=== PATIENT | male | born 1945 | race Caucasian/White ===

== ENCOUNTER → 2018-10-16 09:44 | Outpatient (BNVA) | payer MEDICARE, OTHER, SELFPAY | PROVIDERS: PCP Internal Medicine; Visit Provider Internal Medicine Cardiovascular Disease | DX: I25.10 Atherosclerotic heart disease of native coronary artery without angina pectoris (principal); I10 Essential (primary) hypertension; Z95.2 Presence of prosthetic heart valve; E78.5 Hyperlipidemia, unspecified; G47.33 Obstructive sleep apnea (adult) (pediatric); E11.9 Type 2 diabetes mellitus without complications | CPT/HCPCS: 99214 ==

== ENCOUNTER 2018-10-21 00:18 | Outpatient (CLI) | payer MEDICARE, OTHER, SELFPAY ==
--- NOTE | 2018-10-21 06:36 | MERGEMPI_ITS ---
*[facility]* [address] [place] [address] Myocardial Perfusion Imaging - SPECT Regadenoson Date of study: 10/21/2018 *PATIENT PRESENTATION* Height: 167.6cm (66in) Blood Pressure: Weight: 96.4kg (212lb) BSA: 2.16m^2 Referring physician: Randolph Laboy Ordering physician: Abril Botello Impressions: Study suggests small myocardial ischemia, in the territory of the left anterior descending coronary artery, unchanged from the study of 2017. Summary: 1. Myocardial perfusion imaging: There is a small sized, mildly intense, fully reversible defect involving the mid anterior and apical anterior wall(s). This suggests small ischemia in the distribution of the left anterior descending coronary artery. 2. The calculated left ventricular ejection fraction after stress: 55%. LV global systolic function is normal. No left ventricular regional motion abnormality. There is hypokinesis involving the mid anterior and apical anterior wall(s) of the left ventricle. 3. Baseline ECG: Normal sinus rhythm with right bundle branch block. Recommendations: 1. Medical management is recommended. 2. Clinical correlation is recommended. Indication: R06.02, I35.0. History: REASON FOR TESTING: PATIENT IS TESTING TODAY FOR FURTHER RISK STRATIFICATION. HE REPORTS HE HAS HAD INCREASING SOB OVER THE LAS FEW MONTHS. PATIENT DENIES CHEST PAIN UPON ARRIVAL TO TESTING TODAY. SIGNIFICANT PAST MEDICAL HISTORY: AORTIC VALVE REPLACEMENT IN 2014, NON STEMI, OBSTRUCTIVE SLEEP APNEA. SMOKING STATUS: QUIT IN THE MID S. 24 YEAR 1 PPD HISTORY. EXERCISE ROUTINE: DAILY ADL'S. Risk factors: Hypertension. Diabetes mellitus. Obesity. Cholesterol: 124mg/dl. HDL: 43mg/dl. LDL: 74mg/dl. Triglycerides: 87mg/dl. ALLERGIES: AMLODIPINE. MEDICATIONS: ASPIRIN 81 MG DAILY, ACETAMINOPHEN 500 MG PRN, ATORVASTATIN 80 MG DAILY, METFORMIN 500 MG DAILY, OMEPRAZOLE 20 MG DAILY, POLYETHYLENE GLYCOL 17 MG DAILY, ATENOLOL 50 MG DAILY, GLIMEPIRIDE 1 MG DAILY, LISINOPRIL/HYDROCHLORTHIAZIDE 20/12.5 MG. Imaging Technique: Protocol: Regadenoson. Acquisition: Gated SPECT; 1 day - rest/stress. The patient was imaged in the supine position. Attenuation correction used. Isotope administration: - Rest. Tc[99m]-sestamibi. Dose: 12.2mCi. Injection time: 08:45 AM. Injection to stress time: 00:45. - Stress. Tc[99m]-sestamibi. Dose: 35.6mCi. Injection time: 09:35 AM. 1-2 min before end of exercise Baseline ECG: SINUS RHYTHM. RIGHT BBB. HR 72. Normal sinus rhythm with right bundle branch block. Stress protocol: +--------+--+ + + !Stage !HR!BP (mmHg) !Comments ! +--------+--+ + + !Baseline!72!192/70 (111)! ! +--------+--+ + + !1 min !82!184/70 (108)!Inject Regadenoson.! +--------+--+ + + !3 min !81!176/72 (107)! ! +--------+--+ + + !6 min !77!180/77 (111)! ! +--------+--+ + + !9 min !76!180/68 (105)! ! +--------+--+ + + * Stress results: STRESS TEST ENDED IN 8 MINUTES 52 SECONDS. NORMAL HEART RATE AND BLOOD PRESSURE RESPONSE TO LEXISCAN INJECTION. RARE PVC'S NO ANGINA. NO SIGNIFICANT ST SEGMENT CHANGES. The rate-pressure product for the peak heart rate and blood pressure was 91924uc Hg/min. Myocardial perfusion: Imaging information: gated. The image quality was good. Left ventricular size is normal. There is a small sized, mildly intense, fully reversible defect involving the mid anterior and apical anterior wall(s). This suggests small ischemia in the distribution of the left anterior descending coronary artery. Ventricular Function (Wall Motion): The calculated left ventricular ejection fraction after stress: 55%. LV global systolic function is normal. No left ventricular regional motion abnormality. There is hypokinesis involving the mid anterior and apical anterior wall(s) of the left ventricle. Study data: Randolph Laboy MD supervised and was readily available during the procedure. This study was interpreted by [facility]. Study status: Routine. Consent: The risks, benefits, and alternatives to the procedure were explained to the patient and informed consent was obtained. Procedure: Initial setup. A baseline ECG was recorded. Surface ECG leads and manual cuff blood pressure measurements were monitored. Heart sounds: Normal. Lung sounds: Normal. Regadenoson stress test. Stress testing was performed, with regadenoson by intravenous bolus, for a total dose of 0.4mgover 10.00sec, followed by a 5ml saline flush. The infusion was terminated due to per protocol. Study completion: All catheters inserted during the procedure were removed. The patient tolerated the procedure well and was discharged from the lab. Discharge: The patient left the laboratory in stable condition. Birthdate: Patient birthdate: 1945. Sex: Gender: male. Study date: Study date: 10/21/2018. Study time: 00:01 AM. Signature Documentation: - The imaging portion of this study was interpreted by [employer] Randolph Laboy MD. - The Stress ECG portion of this study was interpreted by Randolph Laboy MD. Electronically signed by Randolph Laboy 10/21/2018 13:42
[2018-10-21] MEDS: Regadenoson 0.4 MG/5 ML SYR IVP (10:01)
== END 2018-10-21 00:38 ==
PROVIDERS: PCP Internal Medicine; Visit Provider Internal Medicine Cardiovascular Disease
DX: R06.02 Shortness of breath (principal); I35.0 Nonrheumatic aortic (valve) stenosis; I10 Essential (primary) hypertension; I25.9 Chronic ischemic heart disease, unspecified; Z95.3 Presence of xenogenic heart valve; E78.5 Hyperlipidemia, unspecified
CPT/HCPCS: 78452; 93016; 93018; 93017; J2785

== ENCOUNTER 2018-11-03 00:45 | Outpatient (CLI) | payer MEDICARE, OTHER, SELFPAY ==
--- NOTE | 2018-11-03 07:30 | MERGE_ITS ---
*[facility]* *[facility]* [address] [place] [address] Date of study: 11/03/2018 Transthoracic Echocardiography M-mode, complete 2D, complete spectral Doppler, and color Doppler *STUDY CONCLUSIONS* Summary: 1. Left ventricle: The cavity size was normal. Wall thickness was increased in a pattern of moderate LVH. Systolic function was hyperdynamic. The estimated ejection fraction was 65-70%. There was dynamic obstruction during Valsalva in the mid cavity, with apeak gradient of 20.6mm Hg. Wall motion was normal; there were no regional wall motion abnormalities. 2. Aortic valve: A bioprosthesis was present. Transvalvular velocity was increased more than expected, due to high cardiac output. There was no stenosis. There was trivial regurgitation. Peak velocity (S): 4.1m/sec. Mean gradient (S): 42.2mm Hg. VTI ratio of LVOT to aortic valve: 0.42. 3. Ascending aorta: The ascending aorta was moderately dilated. 4. Mitral valve: Severely calcified annulus. Mild calcification. Mobility was restricted. The findings are consistent with mild stenosis. There was moderate regurgitation. Mean gradient (D): 4.5mm Hg at 68 bpm. 5. Left atrium: The atrium was severely dilated. 6. Right ventricle: The cavity size was normal. Wall thickness was normal. Systolic function was normal. 7. Right atrium: The atrium was mildly dilated. 8. Tricuspid valve: There was moderate regurgitation. 9. Pulmonary arteries: Pulmonary systolic pressure was increased, in the range of 45mm Hg to 50mm Hg. *PATIENT PRESENTATION* Height: 167.6cm ((66in) ) S/D Pressure: 166 / 74 Weight: 95.3kg ((209.6lb) ) BSA: 2.14m^2 Test start time: 09:10 AM. Test stop time: 00:10 AM. CONSULTING Yolanda Jordan PERFORMING Unknown ORDERING Abril Botello REFERRING Abril Botello PERFORMING [facility] LONGWALL SHEARER OPERATOR Lynn Carranza, RT (R)(CT), [facility] *PROCEDURE DATA* Procedure information: This study was interpreted by [facility]. Pertinent images and digital data are archived for permanent storage and are available for subsequent review. Comparison was made to the study of 01/30/2014. Study status: Routine. Transthoracic echocardiography. M-mode, complete 2D, complete spectral Doppler, and color Doppler. A Transthoracic Echocardiogram was performed. Scanning was performed from the parasternal, apical, subcostal, and suprasternal notch acoustic windows. Images were obtained using an [id number] cardiac ultrasound machine. Image quality was adequate. Study completion: The patient tolerated the procedure well. There were no complications. History: PMH: SOB, aortic valve stenosis. I 35.0. *CARDIAC ANATOMY* Left ventricle: The cavity size was normal. Wall thickness was increased in a pattern of moderate LVH. Systolic function was hyperdynamic. The estimated ejection fraction was 65-70%. There was dynamic obstruction during Valsalva in the mid cavity, with apeak gradient of 20.6mm Hg. Wall motion was normal; there were no regional wall motion abnormalities. Findings consistent with diastolic dysfunction. Aortic valve: A bioprosthesis was present. Mobility was not restricted. Doppler: Transvalvular velocity was increased more than expected, due to high cardiac output. There was no stenosis. There was trivial regurgitation. VTI ratio of LVOT to aortic valve: 0.42. Valve area (VTI): 1.1cm^2. Indexed valve area (VTI): 0.5cm^2/m^2. Peak velocity ratio of LVOT to aortic valve: 0.36. Valve area (Vmax): 1cm^2. Indexed valve area (Vmax): 0.4cm^2/m^2. Mean velocity ratio of LVOT to aortic valve: 0.37. Valve area (Vmean): 1cm^2. Indexed valve area (Vmean): 0.5cm^2/m^2. Mean gradient (S): 42.2mm Hg. Peak gradient (S): 66.4mm Hg. Aorta: Aortic root: The aortic root was normal in size. Ascending aorta: The ascending aorta was moderately dilated. Mitral valve: Severely calcified annulus. Mild calcification. Mobility was restricted. Doppler: The findings are consistent with mild stenosis. There was moderate regurgitation. Valve area by pressure half-time: 2.6cm^2. Indexed valve area by pressure half-time: 1.2cm^2/m^2. Mean gradient (D): 4.5mm Hg at 68 bpm. Peak gradient (D): 9.9mm Hg. Left atrium: The atrium was severely dilated. Right ventricle: The cavity size was normal. Wall thickness was normal. Systolic function was normal. Pulmonic valve: Structurally normal valve. Doppler: Transvalvular velocity was within the normal range. There was no evidence for stenosis. There was trivial regurgitation. Peak gradient (S): 4.5mm Hg. Tricuspid valve: Structurally normal valve. Doppler: Transvalvular velocity was within the normal range. There was no evidence for stenosis. There was moderate regurgitation. Pulmonary artery: Pulmonary systolic pressure was increased, in the range of 45mm Hg to 50mm Hg. Right atrium: The atrium was mildly dilated. Pericardium: There was no pericardial effusion. Systemic veins: Inferior vena cava: Well visualized. The vessel was patent and normal in size. The respirophasic diameter changes were in the normal range (greater than or equal to 50%). Measurements Left ventricle Value Reference LV ID, ED, PLAX 4.8 cm 3.5 - 6.0 LV ID, ES, PLAX 3.0 cm 2.1 - 4.0 LV PW thickness, ED, PLAX 1.6 cm LV end-diastolic volume, 1-p A2C 139 ml LV ejection fraction, 1-p A2C 61 % LV end-diastolic volume, 1-p A4C 155 ml LV ejection fraction, 1-p A4C 63 % LV filling time, D, DP 480 ms LV e', lateral 0.083 m/sec LV E/e', lateral 19 LV e', medial 0.053 m/sec LV E/e', medial 30 LV e', average 0.068 m/sec LV E/e', average 23 Ventricular septum Value Reference IVS thickness, ED, PLAX 1.3 cm LVOT Value Reference LVOT ID, A-P 1.8 cm LVOT area 2.7 cm^2 LVOT peak velocity, S 1.47 m/sec LVOT mean velocity, S 1.15 m/sec LVOT VTI, S 35.5 cm LVOT peak gradient, S 8.6 mm Hg LVOT mean gradient, S 5.9 mm Hg Stroke volume (SV), LVOT DP 95 ml Stroke index (SV/bsa), LVOT DP 44 ml/m^2 Aortic valve Value Reference Aortic valve peak velocity, S 4.1 m/sec Aortic valve mean velocity, S 3.12 m/sec Aortic valve VTI, S 85.0 cm Aortic mean gradient, S 42.2 mm Hg Aortic peak gradient, S 66.4 mm Hg VTI ratio, LVOT/AV 0.42 Aortic valve area, VTI 1.1 cm^2 Velocity ratio, peak, LVOT/AV 0.36 Aortic valve area, peak velocity 1 cm^2 Velocity ratio, mean, LVOT/AV 0.37 Aortic valve area, mean velocity 1 cm^2 Aortic valve area/bsa, mean velocity 0.5 cm^2/m^2 Aorta Value Reference Ascending aorta ID, A-P, S 4.0 cm Left atrium Value Reference LA ID, A-P, ES 6.4 cm LA ID/bsa, A-P (H) 3.0 cm/m^2 <=2.2 LA area, ES, A4C (H) 34 cm^2 8.8 - 23.4 LA area, ES, A2C 40 cm^2 LA volume/bsa, ES, 1-p A4C 66 ml/m^2 LA volume, ES, 2-p 150 ml LA volume/bsa, ES, 2-p 70 ml/m^2 Mitral valve Value Reference Mitral E-wave peak velocity 1.57 m/sec Mitral A-wave peak velocity 1.16 m/sec Mitral mean velocity, D 0.94 m/sec Mitral deceleration time (H) 298 ms 150 - 230 Mitral pressure half-time 86 ms Mitral mean gradient, D 4.5 mm Hg Mitral peak gradient, D 9.9 mm Hg Mitral E/A ratio, peak 1.36 Mitral valve area, PHT, DP 2.6 cm^2 Mitral peak LV-LA gradient, S 180.3 mm Hg Mitral maximal regurg velocity, PISA 6.71 m/sec Mitral regurg VTI, PISA 219.3 cm Pulmonary veins Value Reference Pulmonary vein peak velocity, S 0.2 m/sec Pulmonary vein peak velocity, D 0.64 m/sec Pulmonary vein velocity ratio, peak, 0.31 S/D Tricuspid valve Value Reference Tricuspid regurg peak velocity 3.9 m/sec Tricuspid peak RV-RA gradient 59.7 mm Hg Right atrium Value Reference RA area, ES, A4C (H) 20.7 cm^2 8.3 - 19.5 Pulmonic valve Value Reference Pulmonic peak gradient, S 4.5 mm Hg Legend: (L) and (H) donny values outside specified reference range. I have personally reviewed the images and have reviewed and edited the reported findings. Electronically signed by Randolph Laboy 11/03/2018 13:23
== END 2018-11-03 01:05 ==
PROVIDERS: PCP Internal Medicine; Visit Provider Internal Medicine Cardiovascular Disease
DX: I35.0 Nonrheumatic aortic (valve) stenosis (principal); I34.2 Nonrheumatic mitral (valve) stenosis; I51.7 Cardiomegaly; I25.10 Atherosclerotic heart disease of native coronary artery without angina pectoris; I25.9 Chronic ischemic heart disease, unspecified; Z95.2 Presence of prosthetic heart valve; I10 Essential (primary) hypertension
CPT/HCPCS: 93306

== ENCOUNTER 2018-11-10 10:01 | Outpatient (REF) | payer MEDICARE, SELFPAY ==
[2018-11-10 13:34] LABS: Anion Gap 9.5 mmol/L (3-11); BUN 17 mg/dL (7-18); CO2 24.5 mmol/L (21.0-32.0); CREATININE 1.03 mg/dL (0.70-1.30); Calcium 8.7 mg/dL (8.5-10.1); Chloride 89 mmol/L (98-107); Cholesterol 120 mg/dL (50-200); Glucose 122 mg/dL (70-100); HDL Cholesterol 30 mg/dL (40-60); LDL CHOLESTEROL 77 mg/dL (<100); Potassium 4.7 mmol/L (3.5-5.1); Triglyceride 102 mg/dL (30-150)
[2018-11-10 13:53] LABS: COMMENT (LAB VIEW ONLY) 49.03 mg/dL; Microalb ug/mg Crea 317.6 ug/mg Cr
[2018-11-10 14:07] LABS: Sodium 123 mmol/L (136-145)
== END 2018-11-10 10:21 ==
LOC: LBN 10:01
PROVIDERS: PCP Internal Medicine; Visit Provider Internal Medicine
DX: E11.9 Type 2 diabetes mellitus without complications (principal); I10 Essential (primary) hypertension; I25.10 Atherosclerotic heart disease of native coronary artery without angina pectoris
CPT/HCPCS: 80048; 80061; 83721; 82043; 82570

== ENCOUNTER → 2019-01-21 13:18 | Outpatient (BNVA) | payer MEDICARE, OTHER, SELFPAY | PROVIDERS: PCP Internal Medicine; Visit Provider Internal Medicine Cardiovascular Disease | DX: I25.10 Atherosclerotic heart disease of native coronary artery without angina pectoris (principal); I10 Essential (primary) hypertension; E78.2 Mixed hyperlipidemia; Z95.2 Presence of prosthetic heart valve | CPT/HCPCS: 99214 ==

== ENCOUNTER 2019-01-22 11:08 | Outpatient (CLI) | payer MEDICARE, OTHER, SELFPAY ==
[2019-01-22 11:32] LABS: Abs Immature Grans 0.01 k/cumm (0.0-0.09); Absolute Basophil Count 0.05 k/cumm (0.0-0.2); Absolute Eosinophil Count 0.27 k/cumm (0.0-0.7); Absolute Lymphocyte Count 1.28 k/cumm (1.2-3.4); Absolute Monocyte Count 0.77 k/cumm (0.11-0.7); Absolute Neutrophil Count 4.19 k/cumm (1.2-6.7); Basophils % 0.8; Eosinophils % 4.1; HCT 37.7 % (40.0-50.0); HGB 13.2 g/dL (13.5-17.5); Immature Grans % 0.2; Lymphocytes % 19.5; Mean Corpuscular Hemoglobin 31.6 pg (27.0-33.0); Mean Corpuscular Volume 90.2 fL (80-95); Mean Platelet Volume 9.4 fL (8.0-11.0); Monocytes % 11.7; Neutrophils % 63.7; Platelet Count 140 x1000/uL (130-400); RBC 4.18 m/cumm (4.50-6.00); RBC Distribution Width 11.9 % (11.8-14.1); White Blood Cell Count 6.57 k/cumm (4.4-10.8)
== END 2019-01-22 11:28 ==
PROVIDERS: PCP Internal Medicine; Visit Provider Internal Medicine Cardiovascular Disease
DX: I25.10 Atherosclerotic heart disease of native coronary artery without angina pectoris (principal); I10 Essential (primary) hypertension; E78.5 Hyperlipidemia, unspecified
CPT/HCPCS: 36415; 85025

== ENCOUNTER → 2019-04-15 13:05 | Outpatient (BNVA) | payer MEDICARE, OTHER, SELFPAY | PROVIDERS: PCP Internal Medicine; Referring Provider Internal Medicine; Visit Provider Internal Medicine Cardiovascular Disease | DX: T82.09XA Other mechanical complication of heart valve prosthesis, initial encounter (principal); I25.10 Atherosclerotic heart disease of native coronary artery without angina pectoris; I10 Essential (primary) hypertension | CPT/HCPCS: 99204; 99215 ==

== ENCOUNTER 2019-05-29 20:07 | Emergency (ER) | payer MEDICARE, OTHER, SELFPAY ==
[2019-05-29 20:12] VITALS: BP 190/76; PULSE 77; TEMP 36.4; O2SAT 98
[2019-05-29 20:40] LABS: Bilirubin Negative (Negative); Blood Moderate (Negative); Clarity Clear (Clear); Glucose Negative (Negative); Ketones Negative (Negative); Leukocyte Esterase Negative (Negative); Nitrite Negative (Negative); Specific Gravity 1.015 (1.005-1.025); Urobilinogen 0.2 EU/dL (Up TO 0.2); pH 7.5 (5-8)
[2019-05-29 20:42] VITALS: BP 164/69; RESP 16; O2SAT 97
[2019-05-29 20:58] LABS: Bacteria Negative HPF (Negative); C & S Indicated? No; Crystals Negative HPF (Negative); Epithelial Cells Negative HPF (Negative); Mucus Negative (Negative); RBC 20-50 HPF (0-2); WBC Negative HPF (0-5)
--- NOTE | 2019-05-29 21:08 | DI.RAD_ITS ---
EXAM: XR ABDOMEN FLAT UPRIGHT INDICATION: constipation. COMPARISON: ABD FLAT UPRIGHT PA CHEST from 07/02/2014 TECHNIQUE: 2D digital imaging was performed. FINDINGS: There is an infiltrate seen in the left lung base. There is blunting of the costophrenic angles whic h may represent small pleural effusions. There are scattered air-fluid levels seen within the bowel. Mildly dilated loops of bowel are seen c entrally. This may represent an ileus, partial obstruction cannot be excluded. There is a large arslan unt of stool seen in the rectal vault. Degenerative changes are seen in the lumbar spine. An intramedullary darren and nail are seen in the pr oximal right femur. No pneumoperitoneum is present. IMPRESSION: 1. Left lower lobe infiltrate which may represent atelectasis or pneumonia. 2. Scattered air-fluid level seen within the bowel. This may represent ileus versus partial obstruct ion. Please correlate clinically. 3. Large amount of stool seen in the rectum.
[2019-05-29 21:29] LABS: Abs Immature Grans 0.02 k/cumm (0.0-0.09); Absolute Basophil Count 0.08 k/cumm (0.0-0.2); Absolute Lymphocyte Count 1.35 k/cumm (1.2-3.4); Absolute Neutrophil Count 6.12 k/cumm (1.2-6.7); Basophils % 0.9; Eosinophils % 5.8; HCT 29.6 % (40.0-50.0); HGB 9.9 g/dL (13.5-17.5); Immature Grans % 0.2; Lymphocytes % 15.6; Mean Corp. HGB Concentration 33.4 g/dL (32.0-36.0); Mean Corpuscular Hemoglobin 30.5 pg (27.0-33.0); Mean Corpuscular Volume 91.1 fL (80-95); Mean Platelet Volume 9.1 fL (8.0-11.0); Monocytes % 6.9; Neutrophils % 70.6; Platelet Count 291 x1000/uL (130-400); RBC 3.25 m/cumm (4.50-6.00); RBC Distribution Width 12.7 % (11.8-14.1); White Blood Cell Count 8.67 k/cumm (4.4-10.8)
--- NOTE | 2019-05-29 21:30 | DI.VRAD_ITS ---
PROCEDURE INFORMATION: Exam: XR Abdomen, 2 Views Exam date and time: 05/29/2019 9:18 PM Age: 74 years old Clinical history: Constipation; Abdominal pain; Generalized; Prior surgery; Surgery date: <1 month; Surgery type: Heart surgery 05/11/19 TECHNIQUE: Imaging protocol: XR of the abdomen. Frontal supine and upright views of the abdomen. Views: 2 Views. COMPARISON: CR ABD FLAT UPRIGHT PA CHEST 08/28/2014 16:52 FINDINGS: Lower thorax: Left lower lobe infiltrate. Blunted right and left lateral costophrenic angles may represent small effusions. Gastrointestinal tract: Air-fluid levels seen in loops of small and large bowel on the upright film. Findings suggest obstruction or ileus. Distended rectal vault with large stool load. Intraperitoneal space: No free air. Bones/joints: Sternotomy wires and mediastinal clips and an cardiomegaly. Postsurgical changes right hip. Multilevel degenerative changes of the thoracic and lumbar spine. IMPRESSION: 1. Left lower lobe infiltrate. 2. Air-fluid levels within the bowel on the upright film. Distended rectal vault with large stool load may be the etiology for bowel ileus versus obstruction. Dictated and Authenticated by: Nina Wall MD. Ordering:RADHA Cantrell MD
[2019-05-29 21:47] LABS: ALT 77 U/L (16-63); AST 39 U/L (15-37); Albumin 3.5 g/dL (3.4-5.0); Alkaline Phosphatase 118 U/L (46-116); Anion Gap 10.1 mmol/L (3-11); BUN 22 mg/dL (7-18); Bilirubin, Total 0.5 mg/dL (0.2-1.0); CO2 25.9 mmol/L (21.0-32.0); Chloride 92 mmol/L (98-107); Glucose 80 mg/dL (74-106); Potassium 4.6 mmol/L (3.5-5.1); Sodium 128 mmol/L (136-145); Total Protein 8.4 g/dL (6.4-8.2)
--- NOTE | 2019-05-29 23:12 | NUR.NOTE ---
Nursing Note: faxed referal to urology and primary 05/29/19
--- NOTE | 2019-05-29 23:21 | W.ED.GENAD ---
Discharge Plan Disposition Patient Disposition: HOME Condition: Improving Discharge Details Chief Complaint: Abd Prob Clinical Impression: Acute urinary retention, Constipation Primary Care Provider: Yolanda Jordan ED Provider: Tamia Pope Home Meds and New Rx's Prescriptions: No Action Symbicort 160-4.5 mcg/actuation HFA aerosol inhaler 2 puff IH BID RF: 0 atenolol 50 mg tablet 50 mg PO DAILY Qty: 90 RF: 3 isosorbide mononitrate 30 mg tablet extended release 24 hr 30 mg PO DAILY Qty: 90 RF: 1 (DME) lancets [OneTouch Delica Lancets] 1 EACH misc 1 ea Miscellaneous BID Qty: 100 RF: 4 aspirin 81 MG tablet,delayed release (DR/EC) 81 mg PO DAILY RF: 0 acetaminophen [Tylenol Extra Strength] 500 MG tablet 250 mg PO PRN RF: 0 (DME) OneTouch Ultra Test 1 EACH strip 1 ea Miscellaneous DAILY Qty: 100 RF: 3 polyethylene glycol 3350(bulk) 1 GM granules 17 gm PO DAILY PRNQty: 527 RF: 2 omeprazole 20 mg capsule,delayed release(DR/EC) 20 mg PO DAILY Qty: 90 RF: 3 furosemide 20 mg tablet 20 mg PO DAILY RF: 0 guaifenesin 200 mg/5 mL liquid 400 mg PO TID PRN (Reason: cough) RF: 0 Combivent Respimat 20-100 mcg/actuation mist 1 puff IH Q6H PRNRF: 0 potassium chloride 10 mEq capsule, extended release 10 meq PO DAILY RF: 0 amoxicillin 500 mg tablet 2,000 mg PO ONCE RF: 0 atorvastatin 80 mg tablet 80 mg PO DAILY Qty: 90 RF: 3 glimepiride 1 mg tablet 1 mg PO DAILY Qty: 90 RF: 3 lisinopril 40 mg tablet 40 mg PO DAILY Qty: 90 RF: 3 metformin 500 mg tablet extended release 24hr 500 mg PO DAILY Qty: 90 RF: 1 Therapeutic-M 1 TAB tablet 1 tab PO DAILY Qty: 100 RF: 0 Discharge Instructions Instructions: Constipation (ED), Urinary Retention in Men (ED) Additional Instructions: Drink plenty of fluids. Keep urinary catheter in place until follow-up with urology. Call urology for recheck in the next 3 days. Empty urinary bag as discussed. Continue MiraLAX as previously recommended. Sit on toilet and try to move bowels after each meal until having normal bowel movement Follow-up promptly with your primary care doctor for reevaluation. Of note your chest x-ray noted a left lower lobe changes which must be followed with your primary care doctor Continue your postoperative care including spirometry Return for any increase in abdominal pain, cough, fever, difficulty breathing, lack of urinary flow in the catheter, blood in the urine or worsening feeling. Referrals: Sudhakar Rosenbaum MD [ [facility] STAFF PHYSICIAN] - Medical Decision Making Is a 74-year-old patient who is 3 weeks status post an AVR redo and a CABG x1 on 05/11/2019 performed at [facility]. Patient presents for 1 days complaint of urinary retention which he noted due to discomfort in the lower abdomen at approximately 10:00 this morning. Persistent discomfort throughout the day becoming intolerable. Patient had decreased appetite today due to pain. Patient reports decrease in bowel movements. He typically moves his bowels once daily and has not moved his bowels in 2 days. Patient is compliant with MiraLAX postoperatively. Patient is compliant with all of his daily medications. Patient denies ill feeling, fever or chills. Denies nausea or vomiting. After arrival to the emergency room given patient's complaints Perrin catheter was placed. Patient reports fairly immediate relief in his abdominal pain. Per nursing mild resistance was experienced when placing urinary catheter. Approximately 1200 cc of urine was drained. Patient's initial physical exam reveals no significant abdominal pain with palpation, bowel sounds present in all 4 quadrants. No rebound, guarding or peritoneal symptoms. Surgical incisions of the chest appear uninfected and well approximated. Patient has no acute chest pain complaints. Patient does report historically after his last cardiac surgery having similar experience of difficulty moving bowels requiring multiple enemas. X-ray ordered of abdomen, flat and upright as well as baseline labs and urinalysis. Urinalysis unremarkable for acute infection. Moderate blood noted in the urinalysis which is likely secondary to Perrin insertion. Patient's x-ray reveals air-fluid levels within the bowel on the upright film, distended rectal vault with a large stool load which may be the etiology for bowel ileus. Soapsuds enema was ordered. Patient tolerated without significant difficulty. No successful bowel movement after enema. Rectal performed and soft stools noted in the rectal vault. Patient is abdominal pain remains improved. Of note the chest x-ray reports a possible left lower lobe infiltrate. During patient's hospital course he did have a postoperative pleural effusion which required pigtail catheter drainage. Effusion was noted in the left lower lobe similar site. Patient has no evident complaints of fever, ill feeling, no leukocytosis present at this time. No new difficulty breathing or shortness of breath or wheezing. Mild cough present which is unchanged. Possibly this left lower lobe finding is atelectasis, patient has no clinical evidence of pneumonia at this time. After discussion of the finding on chest x-ray patient has no clinical concern of pneumonia at this time. Patient has been using spirometry without difficulty. This was discussed with my attending Dr. Carson. We will recommend prompt reevaluation with PCP to follow left lower lobe findings. Patient agrees with this plan of care. At this time patient is requesting discharge home. Patient feels frustrated with urinary catheter remaining in place however I feel removing urinary catheter at this time will likely result in urinary retention and return of his abdominal symptoms. I recommended patient follow-up promptly with urology for reevaluation for urinary retention. Patient reports his understanding and does consent keeping catheter in place. Patient's labs are reviewed. Sodium of 128 is noted which is not dissimilar to his baseline. Patient also has very slight elevations of his LFTs again not to similar to his baseline. Similarly patient is noted to be anemic which is again noted to be his baseline. No significant change in LFTs. Blood sugar 80. The patient was stable and requested discharge. Prior to discharge, my usual and customary return precautions were reviewed with the patient - this included follow-up instructions and reasons to return to the Emergency Department if conditions worsens, does not improve as expected, or other new concerns arise. HPI General Date/Time Provider Initiated Documentation: 05/29/19 20:18. HPI Narrative: Is a 74-year-old patient who is 3 weeks status post aortic stenosis AVR redo as well as a CABG x1 on 05/11/2019. Patient had successful surgery he did have postoperative acute kidney injury related to NSAIDs which resolved as well as postoperative pleural effusions which required pigtail catheter being placed in the left lower lung. Patient also had acute postoperative pulmonary insufficiency. Patient was discharged home has been doing well. Patient presents this evening for complaints of abdominal pain, inability to void and constipation. Patient reports onset of symptoms at approximately 10:00 this morning. Patient denies any fevers, chills, difficulty breathing, shortness of breath. Patient has a unchanged cough. Patient reports he typically moves his bowels daily and has had no bowel movements in 2 days. After onset of abdominal pain which he noted around 10:00 this morning difficulty voiding he stopped eating and drinking due to concern of increasing his abdominal discomfort. Patient denies any blood with urination or bowel movements prior to onset of symptoms. Patient denies back pain. Related Data Home Medications Medication Instructions Recorded Confirmed lancets [Novihum TechnologiesTouch WePlann Lancets] #100 ea 12/27/11 05/29/19 aspirin 81 mg PO DAILY tab 06/16/14 05/29/19 acetaminophen [Tylenol Extra 250 mg PO PRN 12/12/14 05/29/19 Strength] Therapeutic-M 1 tab PO DAILY #100 tab 04/18/17 05/29/19 blood sugar diagnostic [Novihum Technologiestouch #100 strip 05/21/17 05/29/19 Ultra Test Strips] polyethylene glycol 3350(bulk) 17 gm PO DAILY PRN #527 gm 02/18/18 05/29/19 atenolol 50 mg tablet 50 mg PO DAILY #90 tab 05/12/18 05/29/19 isosorbide mononitrate 30 mg 30 mg PO DAILY #90 tab 11/10/18 05/29/19 tablet,extended release 24 hr budesonide-formoterol HFA 160 2 puff IH BID 01/21/19 05/29/19 mcg-4.5 mcg/actuation aerosol inhaler omeprazole 20 mg capsule,delayed 20 mg PO DAILY #90 cap 02/03/19 05/29/19 release amoxicillin 500 mg tablet 2,000 mg PO ONCE tab 05/21/19 05/29/19 atorvastatin 80 mg tablet 80 mg PO DAILY #90 tab-cap 05/21/19 05/29/19 furosemide 20 mg tablet 20 mg PO DAILY 05/21/19 05/29/19 glimepiride 1 mg tablet 1 mg PO DAILY #90 tab-cap 05/21/19 05/29/19 guaifenesin 200 mg/5 mL oral liquid 400 mg PO TID PRN ml 05/21/19 05/29/19 ipratropium 20 mcg-albuterol 100 1 puff IH Q6H PRN 05/21/19 05/29/19 mcg/actuation mist for inhalation lisinopril 40 mg tablet 40 mg PO DAILY #90 tab 05/21/19 05/29/19 metformin 500 mg tablet,extended 500 mg PO DAILY #90 tab 05/21/19 05/29/19 release 24hr potassium chloride 10 mEq 10 meq PO DAILY 05/21/19 05/29/19 capsule,extended release Previous Rx's Medication Instructions Recorded Therapeutic-M 1 tab PO DAILY #100 tab 04/18/17 blood sugar diagnostic [Onetouch #100 strip 05/21/17 Ultra Test Strips] atenolol 50 mg tablet 50 mg PO DAILY #90 tab 05/12/18 isosorbide mononitrate 30 mg 30 mg PO DAILY #90 tab 11/10/18 tablet,extended release 24 hr omeprazole 20 mg capsule,delayed 20 mg PO DAILY #90 cap 02/03/19 release atorvastatin 80 mg tablet 80 mg PO DAILY #90 tab-cap 05/21/19 glimepiride 1 mg tablet 1 mg PO DAILY #90 tab-cap 05/21/19 lisinopril 40 mg tablet 40 mg PO DAILY #90 tab 05/21/19 metformin 500 mg tablet,extended 500 mg PO DAILY #90 tab 05/21/19 release 24hr Allergies Allergy/AdvReac Type Severity Reaction Status Date / Time amlodipine AdvReac Intermediate edema Verified 05/29/19 20:14 General Stated Complaint: Abd Prob ARCADIO: 3 Review of Systems All systems reviewed & are unremarkable except as noted in HPI and below Constitutional Constitutional: Denies chills, Denies fatigue, Denies fever(s), Denies headache(s) and Denies malaise ENT Ears, Nose, Mouth, and Throat: Denies headache(s) Cardiovascular Cardiovascular: Denies chest pain, Denies lightheadedness and Denies radiating jaw, neck or arm pain Respiratory Respiratory: Denies chest congestion, Reports cough and Denies wheezing Gastrointestinal Gastrointestinal: Reports abdominal pain, Reports constipation, Denies diarrhea, Denies nausea and Denies vomiting Genitourinary Genitourinary: Reports difficulty urinating, Denies urinary frequency, Denies urinary incontinence and Denies urinary urgency Neurologic Neurologic: Denies headache(s) Endocrine Endocrine: Denies fatigue Allergic/Immunologic Allergic/Immunologic: Denies wheezing [facility] Medical History Acute GI bleeding (Resolved 04/30/14) Aortic valve stenosis (Resolved 08/20/11) severe critical peak gradient 81/50 mm of mercury Cardiac cath [facility] 05/05/14 s/p tissue AVR 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 appendectomy as a child S/P AVR (Acute 05/11/19) S/P CABG x 1 (Acute 05/11/19) Family History Mother No problems noted. Father No problems noted. Sister No problems noted. Sister No problems noted. Brother No problems noted. 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 Well hydrated. Alert and alert. HENMT: Head nomocephalic, normal to inspection. Atraumatic. Hearing grossly normal. External ear canal no erythema or swelling. TM normal bilaterally. Nose normal to inspection. No rhinnorhea. Normal facial exam. Oral mucosa normal. Tounge normal. Dentition normal. Normal posterior oropharynx. Uvula midline. NECK: Normal visual inspection. FROM. No lymphadenopathy. Trachea midline. No Midline tenderness. CHEST: Normal insepection of the chest. Surgical wounds noted. No sign of secondary infection RESP: Normal respiratory effort. Speaking full sentences. No cough. No wheezing. No retractions. Clear to auscaltation. Breath sound equal and present bilaterally. CARDIO: No JVD. Normal PMI. Regular Rate. Regular Rhythm. Normal peripheral pulses. GI: After urinary catheter insertion: normal inspection of abdomen. Mild distension. Soft. Nontender. Bowel sounds present in all 4 quadrants. No rebound. No gaurding. Rectal exam. No obvious hard stool in the rectal vault. Rectal stool is soft. SKIN: Normal. Dry. No rashes. Course Vital Signs Vital signs: Vital Signs Temperature 36.4 C L 05/29/19 20:12 Pulse 77 05/29/19 20:12 Blood Pressure 190/76 H 05/29/19 20:12 Pulse Oximetry 98 05/29/19 20:12 Temperature 36.4 C L 05/29/19 20:12 Temperature Source Temporal Artery Scan 05/29/19 20:12 Pulse 77 05/29/19 20:12 Respiratory Effort 05/29/19 20:18 Blood Pressure 190/76 H 05/29/19 20:12 Blood Pressure Position Sitting 05/29/19 20:12 Pulse Oximetry 98 05/29/19 20:12 Oxygen Delivery Method Room Air 05/29/19 20:12 Oxygen Flow Rate 0 05/29/19 20:12 Lab/Test Results Lab/Test Results: Laboratory Tests Range/Units 05/29/19 05/29/19 05/29/19 20:30 21:22 21:22 WBC (4.4-10.8) k/cumm 8.67 RBC (4.50-6.00) m/cumm 3.25 L Hgb (13.5-17.5) g/dL 9.9 L Hct (40.0-50.0) % 29.6 L MCV (80-95) fL 91.1 MCH (27.0-33.0) pg 30.5 MCHC (32.0-36.0) g/dL 33.4 RDW (11.8-14.1) % 12.7 Plt Count (130-400) x1000/uL 291 MPV (8.0-11.0) fL 9.1 Immature Gran % 0.2 Neutrophils % 70.6 Lymphocytes % 15.6 Monocytes % 6.9 Eosinophils % 5.8 Basophils % 0.9 Absolute Neutrophils (1.2-6.7) k/cumm 6.12 Absolute Lymphocytes (1.2-3.4) k/cumm 1.35 Absolute Monocytes (0.11-0.7) k/cumm 0.60 Absolute Eosinophils (0.0-0.7) k/cumm 0.50 Absolute Basophils (0.0-0.2) k/cumm 0.08 Sodium (136-145) mmol/L 128 L Potassium (3.5-5.1) mmol/L 4.6 Chloride (98-107) mmol/L 92 L Carbon Dioxide (21.0-32.0) mmol/L 25.9 Anion Gap (3-11) mmol/L 10.1 BUN (7-18) mg/dL 22 H Creatinine (0.70-1.30) mg/dL 0.90 Estimated GFR/1.73 m2 (mL/min/1.73m2) >= 60.00 Glucose (74-106) mg/dL 80 Calcium (8.5-10.1) mg/dL 9.0 Total Bilirubin (0.2-1.0) mg/dL 0.5 AST (15-37) U/L 39 H ALT (16-63) U/L 77 H Alkaline Phosphatase (46-116) U/L 118 H Total Protein (6.4-8.2) g/dL 8.4 H Albumin (3.4-5.0) g/dL 3.5 Urine Color (Yellow) Yellow Urine Clarity (Clear) Clear Urine pH (5-8) 7.5 Ur Specific [place] (1.005-1.025) 1.015 Urine Protein (Negative) mg/dL Negative Urine Ketones (Negative) mg/dL Negative Urine Blood (Negative) Moderate H Urine Nitrite (Negative) Negative Urine Bilirubin (Negative) Negative Urine Urobilinogen (Up TO 0.2) EU/dL 0.2 Ur Leukocyte Esterase (Negative) Negative Urine RBC (0-2) HPF 20-50 H Urine WBC (0-5) HPF Negative Ur Epithelial Cells (Negative) HPF Negative Urine Crystals (Negative) HPF Negative Urine Bacteria (Negative) HPF Negative Urine Mucus (Negative) Negative Ur Culture Indicated? No Urine Glucose (Negative) mg/dL Negative
[2019-05-29 23:47] VITALS: BP 164/63; PULSE 72; RESP 18; O2SAT 98
--- NOTE | 2019-05-29 23:50 | NUR.NOTE ---
pt was discharged to home with a baeza leg bag. he was given extra leg bag and night bag. he was taught how to empty his bag. he was not very interested in it . he states that home health comes to his home . his sons came to get him Nursing Note:
== END 2019-05-29 23:44 | disposition home or self-care (01) ==
PROVIDERS: Emergency Provider Physician Assistant; PCP Internal Medicine
DX: R33.9 Retention of urine, unspecified (principal); K59.00 Constipation, unspecified
CPT/HCPCS: 36415; 51702; 80053; 99284; 74019; 81003; 81015; 85025

== ENCOUNTER → 2019-05-31 09:08 | Outpatient (BNVA) | payer MEDICARE, OTHER, SELFPAY | PROVIDERS: PCP Internal Medicine; Referring Provider Internal Medicine; Visit Provider Nurse Practitioner Gerontology | DX: R33.9 Retention of urine, unspecified (principal); Z46.6 Encounter for fitting and adjustment of urinary device; E11.9 Type 2 diabetes mellitus without complications; Z79.84 Long term (current) use of oral hypoglycemic drugs; I10 Essential (primary) hypertension | CPT/HCPCS: 99203; 99214 ==

== ENCOUNTER → 2019-07-26 13:42 | Outpatient (BNVA) | payer MEDICARE, OTHER, SELFPAY | PROVIDERS: PCP Internal Medicine; Referring Provider Internal Medicine; Visit Provider Internal Medicine Cardiovascular Disease | DX: I25.10 Atherosclerotic heart disease of native coronary artery without angina pectoris (principal); Z95.2 Presence of prosthetic heart valve; T82.09XA Other mechanical complication of heart valve prosthesis, initial encounter; I10 Essential (primary) hypertension; I35.0 Nonrheumatic aortic (valve) stenosis | CPT/HCPCS: 99214 ==

== ENCOUNTER 2019-12-15 10:21 | Outpatient (CLI) | payer MEDICARE, OTHER, SELFPAY ==
--- NOTE | 2019-12-15 09:45 | DI.RAD_ITS ---
EXAM: XR HIP LT COMPLETE AP PELVIS INDICATION: pain. COMPARISON: CR PELVIS AP from 06/10/2017 TECHNIQUE: 2D digital imaging was performed. FINDINGS: Hardware is again noted in the right proximal femur for fracture fixation. There is moderate to sev ere narrowing both hip joint spaces. There is acetabular spurring and spurring from the margins of t he femoral heads. Vascular calcifications are seen. 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 Old fracture deformity and hardware of the lef t proximal femur. DATA REPOSITORY: RADIATION DOSE DELIVERED:
--- NOTE | 2019-12-15 09:45 | DI.RAD_ITS ---
EXAM: XR KNEE LT 2V AP,LAT CLINICAL HISTORY: pain. TECHNIQUE: 2D digital imaging was performed. COMPARISON: No exams were available for comparison FINDINGS: There is severe narrowing of the medial femoral tibial joint space. There is mild periarticular spur ring and sclerosis. There is also mild narrowing of the lateral femoral tibial joint and small spurs . There may be a small joint effusion. Spurring is seen at the quadriceps insertion. There is some anterior soft tissue swelling. Vascular calcifications are seen. IMPRESSION: Normal severe degenerative changes of the medial femoral tibial joint. DATA REPOSITORY: RADIATION DOSE DELIVERED:
== END 2019-12-15 10:41 ==
PROVIDERS: PCP Internal Medicine; Referring Provider Internal Medicine; Visit Provider Orthopaedic Surgery
DX: M25.562 Pain in left knee (principal); M17.12 Unilateral primary osteoarthritis, left knee; M25.552 Pain in left hip; M16.0 Bilateral primary osteoarthritis of hip
CPT/HCPCS: 20610; 99214; J1040; 73502; 73560

== ENCOUNTER 2020-01-04 10:17 | Outpatient (REF) | payer MEDICARE, OTHER, SELFPAY ==
[2020-01-04 18:54] LABS: COMMENT (LAB VIEW ONLY) 19.81 mg/dL
[2020-01-04 18:55] LABS: Microalb ug/mg Crea 291.8 ug/mg Cr
== END 2020-01-04 10:37 ==
LOC: LBO 10:17
PROVIDERS: PCP Internal Medicine; Visit Provider Internal Medicine
DX: E11.9 Type 2 diabetes mellitus without complications (principal)
CPT/HCPCS: 82043; 82570

== ENCOUNTER 2020-03-27 01:55 | Outpatient (CLI) | payer MEDICARE, OTHER, SELFPAY ==
--- NOTE | 2020-03-27 08:26 | DI.RAD_ITS ---
EXAM: XR CHEST 2V PA LATERAL CLINICAL HISTORY: dyspnea,R06.00 TECHNIQUE: 2D digital imaging was performed. COMPARISON: CR CHEST ONE VIEW IN RAD DEPT from 04/13/2017 FINDINGS: Cardiomegaly and valve prosthesis. Sternal wires. Mild fibrotic changes. No infiltrate, effusion o r pulmonary edema. IMPRESSION: No acute abnormality. Cardiomegaly.
== END 2020-03-27 02:15 ==
PROVIDERS: PCP Internal Medicine; Visit Provider Internal Medicine
DX: I51.7 Cardiomegaly (principal); R06.00 Dyspnea, unspecified
CPT/HCPCS: 71046

== ENCOUNTER 2020-03-27 03:07 | Outpatient (CLI) | payer MEDICARE, OTHER, SELFPAY ==
[2020-03-27 10:05] LABS: Anion Gap 8.4 mmol/L (3-11); BUN 15 mg/dL (7-18); CO2 27.6 mmol/L (21.0-32.0); Calcium 8.8 mg/dL (8.5-10.1); Chloride 94 mmol/L (98-107); Glucose 110 mg/dL (74-106); NT-proBNP 278 pg/mL (<300); Potassium 4.5 mmol/L (3.5-5.1); Sodium 130 mmol/L (136-145)
[2020-03-27 10:21] LABS: Calculated LDL 91 mg/dL (<100); Cholesterol 144 mg/dL (<200); HDL Cholesterol 40 mg/dL (40-60); Triglyceride 67 mg/dL (<150)
[2020-03-27 12:04] LABS: COMMENT (LAB VIEW ONLY) 53.88 mg/dL
[2020-03-27 12:12] LABS: Microalb ug/mg Crea 761.5 ug/mg Cr
== END 2020-03-27 03:27 ==
PROVIDERS: PCP Internal Medicine; Visit Provider Internal Medicine
DX: E78.00 Pure hypercholesterolemia, unspecified (principal); I10 Essential (primary) hypertension; E11.9 Type 2 diabetes mellitus without complications; R06.00 Dyspnea, unspecified; I51.7 Cardiomegaly
CPT/HCPCS: 36415; 80048; 80061; 71046; 82043; 82570; 83880

== ENCOUNTER 2020-12-20 09:16 | Outpatient (CLI) | payer MEDICARE, OTHER, SELFPAY ==
--- OUTSIDE RECORDS SUMMARY | 2020-12-20 09:22 | XMS_ITS ---
:1945 Author Care Team Providers Name Role Phone [facility] Primary Care Provider [phone] WILNER MOLINA Primary Care Provider [phone] MARIA C CARVER MD Supervisor Engraving [phone] Allergies Code Code System Name Reaction Severity Status Onset NKDA ? Medications Name Status Start Date Stop Date ? ? aspirin 81 mg tablet,delayed release Active ? Not available Take 1 tablet every day by oral route. atenolol 50 mg tablet Active ? Not availa ble Take 1 tablet every day by oral route. atorvastatin 80 mg tablet Active ? Not av ailable Take 1 tablet every day by oral route. glimepiride 1 mg tablet Active ? Not avai lable Take 1 tablet every day by oral route. lisinopril 20 mg-hydrochlorothiazide 12.5 mg tablet Active ? Not available Take 1 tablet every day by oral route. metformin 500 mg tablet Active ? Not avai lable Take 1 tablet twice a day by oral route. Problems Name Status Onset Date Source ? Type 2 Diabetes Mellitus Active 06/17/2018 ? Hyponatremia Active 06/17/2018 ? Alcohol Dependence Active 06/17/2018 ? Essential Hypertension Active 06/17/2018 ? Aortic Valve Stenosis Active 06/17/2018 ? Gastroesophageal Reflux Disease Active 06/17/2018 ? History of Aortic Valve Replacement Active 06/17/2018 ? Obesity Active ? History Psychophysiologic Insomnia Active ? Histo ry Insomnia Active ? History Obstructive Sleep Apnea Syndrome Active ? History Snoring Active ? History Procedures None recorded. Results Lab Results None recorded. Past Encounters None recorded. Social History Tobacco Smoking Status Former Smoker Notes: quite o lydia 20 years ago Vaccine List None recorded. Plan of Care Reminders Provider Appointments None ? ? recorded. Lab None ? ? recorded. Referral None ? ? recorded. Procedures None ? ? recorded. Surgeries None ? ? recorded. Imaging None ? ? recorded. Vitals 06/18/2018 09:15AM New Patient 44 Height Weight BMI Blood Pressure 160.02 cm 97.43 kg 38 kg/m2 165/80 mm[Hg] 04/16/2016 Height Weight Blood Pressure 162.56 cm 95.77 kg 146/86 mm[Hg] 12/19/2015 Height Weight Blood Pressure 162.56 cm 95.74 kg 132/78 mm[Hg]
--- OUTSIDE RECORDS SUMMARY | 2020-12-20 09:22 | XMS_ITS ---
:1945 Author Care Team Providers Name Role Phone DR. WILNER MOLINA Primary Care Provider [phone] DR. WILNER MOLINA Referring Provider [phone] Allergies Code Code System Name Reaction Severity Status Onset 57100 RxNorm Amlodipine Edema Moderate Active ? Medications Name Status Start Date Stop [...] 1 tablet every day by oral route. multivit [id number] Completed ? 1 tab PO daily omeprazole 20 mg capsule,delayed release Active ? Not available Take 1 capsule every day by oral route. OneTouch Delica Lancets Active ? Not avai lable OneTouch Ultra Blue Test Strip Active ? N ot available polyethylene glycol 3350 17 gram oral powder packet Active ? Not available Take 1 packet every day by oral route as needed. Tylenol Extra Strength Active ? Not avail able 250 mg PO PRN Problems Name Status Onset Date Source ? Type 2 Diabetes Mellitus Active ? ? Obstructive Sleep Apnea Syndrome Active ? ? Hypertensive Disorder Active ? ? Gastroesophageal Reflux Disease without Esophagitis Active ? ? Thigh Pain Active ? ? Procedures Date Name Performed by ? ? Aortic Valve Surgery Information not jacinto ilable Results Lab Results None recorded. Past Encounters None recorded. Social History Tobacco Smoking Status Former Smoker Notes: 08/10/18 Vaccine List None recorded. Plan of Care Reminders Provider Appointments None ? ? recorded. Lab None ? ? recorded. Referral None ? ? recorded. Procedures None ? ? recorded. Surgeries None ? ? recorded. Imaging None ? ? recorded. Vitals 08/10/2018 11:00AM Foot Care Height Weight BMI Blood Pressure 167.64 cm 93.89 kg 33.4 kg/m2 154/62 mm[Hg] 06/01/2018 01:15PM NEW PATIENT Height Weight BMI Blood Pressure 167.64 cm 93.89 kg 33.4 kg/m2 126/64 mm[Hg]
[2020-12-20 11:58] LABS: HCT 31.2 % (40.0-50.0); HGB 9.9 g/dL (13.5-17.5); MCH 26.5 pg (27.0-33.0); MCHC 31.7 % (32.0-36.0); MCV 83.4 fL (80-95); MPV 9.9 fL (8.0-11.0); Platelet Count 125 10^3/uL (130-400); RBC 3.74 10^6/uL (4.36-5.78); RDW 14.7 % (11.8-14.1); WBC 6.41 10^3/uL (4.4-10.8)
[2020-12-20 12:12] LABS: ALT 33 U/L (16-63); AST 30 U/L (15-37); Alkaline Phosphatase 95 U/L (46-116); Anion Gap 7.7 mmol/L (3-11); BUN 13 mg/dL (7-18); Bilirubin, Total 0.9 mg/dL (0.2-1.0); CO2 28.3 mmol/L (21.0-32.0); Calcium 8.6 mg/dL (8.5-10.1); Chloride 92 mmol/L (98-107); Glucose 79 mg/dL (74-106); NT-proBNP 1246 pg/mL (<300); Sodium 128 mmol/L (136-145); Total Protein 8.4 g/dL (6.4-8.2)
[2020-12-20 19:52] LABS: Iron 27 ug/dL (65-175); Total Iron Binding Capacity 474 ug/dL (250-450); Transferrin Sat 6 % (20-55)
[2020-12-20 20:09] LABS: Reticulocyte 1.7 % (0.5-2.4)
== END 2020-12-20 09:17 | disposition home or self-care (01) ==
LOC: LBO 09:21
PROVIDERS: PCP Internal Medicine; Visit Provider Internal Medicine
DX: D64.9 Anemia, unspecified (principal); R06.09 Other forms of dyspnea; F10.20 Alcohol dependence, uncomplicated; E87.1 Hypo-osmolality and hyponatremia; E11.9 Type 2 diabetes mellitus without complications; I10 Essential (primary) hypertension
CPT/HCPCS: 36415; 80053; 85027; 83540; 83550; 83880; 85045

== ENCOUNTER 2021-01-04 12:07 | Inpatient (IN) | payer MEDICARE, OTHER, SELFPAY ==
[2021-01-04] VITALS (37 sets, daily range): BP systolic 140–184; BP diastolic 68–96; PULSE 51–91; RESP 18–33; TEMP 36.2–36.7; O2SAT 90–97
--- NOTE | 2021-01-04 12:00 | RT.EKG_ITS ---
APPROVED REPORT Exam: Resting ECG Reason for Exam: excess fluid Patient Location: E HR:59 bpm ECG Measurements Heart Rate 59 AXIS TN [id number] P [id number] QRSd 151 QRS -45 QT 469 T 49 QTc 466 Conclusion Atrial fibrillation...? atrial activity RBBB and LAFB...QRSd >120mS, axis(-40,240)
--- NOTE | 2021-01-04 12:15 | DI.RAD_ITS ---
Exam(s) XR PORTABLE CHEST AP EXAM: XR PORTABLE CHEST AP CLINICAL HISTORY: chf exacerbation TECHNIQUE: 2D digital imaging was performed. COMPARISON: CR XR CHEST 2V PA LATERAL from 03/27/2020 FINDINGS: Leads overlie the chest. The lungs are not well inflated. The heart is enlarged. Sternal wires and aortic valve prosthesis are noted. There is vascular prominence which appears relatively unchanged. There are increased basilar densities which could represent atelectasis. Infiltrates cannot be exc luded. Mild pulmonary edema also cannot be excluded. No gross effusion is seen. IMPRESSION: Limited exam. Question of mild pulmonary edema. DATA REPOSITORY: RADIATION DOSE DELIVERED:
--- NOTE | 2021-01-04 12:30 | ED.GENADUL_ITS ---
Discharge Plan Disposition Patient Disposition: [facility] INPATIENT Condition: Serious Discharge Details Clinical Impression: Atrial fibrillation, Hyponatremia, CHF (congestive heart failure) Admit Date/Time: 01/04/21 17:27 Admit Provider: Bj Tidwell Attending Provider: Bj Tidwell Primary Care Provider: Yolanda Jordan ED Provider: Nella Sahu Discharge Data Discharge Date/Time-TO BE ENTERED AT DEPARTURE: 01/04/21 19:18 Medical Decision Making <GABRIEL Hernandez - Last Filed: 01/05/21 12:01> This is a 75-year-old gentleman, full code, presenting to the ER today from his cardiology office and what appears to be new onset A. fib and a CHF exacerbation. Patient has a past medical history which include aortic valve stenosis, aortic valve replacement, CABG x1, hyponatremia, obesity, anemia, d iabetes, hypertension, GERD, arteriosclerotic cardiovascular disease, current alcohol use of at least a few beers up to 8 a day. Clinically he appears slightly tachypneic, fluid overloaded, hypertensive. O2 sats are in the low 90s on room air. He is in A. fib but appears to be rate controlled. Given he has been on Lasix in the past, will give a push dose of 80 IV, initiate a cardiac work-up including a D-dimer given his new onset A. fib. Will not provide any IV fluid given his fluid overload status. Given his new onset A. fib, will likely need for admission, will give a single dose of subcu Lovenox 1 mg/kg. Case was discussed with Dr. Jerez who personally evaluated the patient. Laboratory values reveal a white blood cell count of 5.92 hemoglobin 9.4 hematocrit 29.7 platelet count unable to be determined accurately given giant platelets. Will redraw. INR 1.2 D-dimer 2271 sodium 123, creatinine 1.0 with a GFR greater than 60, glucose 88, BNP 1574. Patient appears to have chronic hyponatremia and this is not far from his baseline. Given his fluid overload status will not initiate IV fluid. Instead given his D-dimer, will obtain CTA of his chest for further evaluation. Chest x-ray does show bilateral effusion and pulmonary congestion CTA does not reveal any obvious infiltrate or PE. Bilateral pulmonary effusion present. Patient has had a total of 2750 cc urine output, O2 sats are improving, now 95% on room air. At time of signout awaiting repeat platelet count and repeat troponin. Patient with new onset A. fib, needs anticoagulation, CHF exacerbation with at least 5-7 pound weight gain and shortness of breath, chronic anemia, chronic hyponatremia. Medical Records Medical records reviewed: Yes I reviewed the patient's medical records. Imaging Data Radiologic Study: Attestation: I personally reviewed and interpreted this imaging study as follows: Imaging: X-Ray Radiologist's impression: EXAM: XR PORTABLE CHEST AP CLINICAL HISTORY: chf exacerbation TECHNIQUE: 2D digital imaging was performed. COMPARISON: CR XR CHEST 2V PA LATERAL from 03/27/2020 FINDINGS: Leads overlie the chest. The lungs are not well inflated. The heart is enlarged. Sternal wires and aortic valve prosthesis are noted. There is vascular prominence which appears relatively unchanged. There are increased basilar densities which could represent atelectasis. Infiltrates cannot be excluded. Mild pulmonary edema also cannot be excluded. No gross effusion is seen. IMPRESSION: Limited exam. Question of mild pulmonary edema. Radiologic Study #2: Attestation: I personally reviewed and interpreted this imaging study as follows: Imaging: CT Scan Radiologist's impression: Bilateral pleural effusions are seen, right greater than left. Ascites is also noted around the liver. The heart is enlarged. There is an aortic valve prosthesis. Mitral annular calcifications are noted. Sternal wires are present. Pulmonary arteries are well opacified with IV contrast. There is mild patient motion. No pulmonary artery filling defects are seen. There is no evidence of aortic dissection. Aortic and coronary artery calcifications are seen. There are no infiltrates. Advanced degenerative changes are seen in the spine. There is an old T12 compression fracture. IMPRESSION Bilateral pleural effusions. Cardiomegaly. [No evidence of pulmonary embolism.] Lab Data Lab results reviewed: Yes I reviewed the patient's lab results. Labs: Laboratory Tests Range/Units 01/04/21 01/04/21 01/04/21 13:05 13:05 13:05 WBC (4.4-10.8) 10^3/uL RBC (4.36-5.78) 10^6/uL Hgb (13.5-17.5) g/dL Hct (40.0-50.0) % MCV (80-95) fL MCH (27.0-33.0) pg MCHC (32.0-36.0) % RDW (11.8-14.1) % Plt Count (130-400) 10^3/uL MPV (8.0-11.0) fL Immature Gran % Neutrophils % Lymphocytes % Monocytes % Eosinophils % Basophils % Nucleated RBC % % Absolute Neutrophils (1.2-6.7) 10^3/uL Absolute Lymphocytes (1.2-3.4) 10^3/uL Absolute Monocytes (0.1-0.8) 10^3/uL Absolute Eosinophils (0.0-0.7) 10^3/uL Absolute Basophils (0.0-0.2) 10^3/uL RBC Morphology Polychromasia Poikilocytosis PT (9.3-11.0) sec 12.5 H INR (0.9-1.1) 1.2 H APTT (21.0-27.5) sec 29.3 H D-Dimer (<500) ng/mlFEU 2271 H Sodium (136-145) mmol/L 123 L* Potassium (3.5-5.1) mmol/L 4.9 Chloride (98-107) mmol/L 87 L Carbon Dioxide (21.0-32.0) mmol/L 29.4 Anion Gap (3-11) mmol/L 6.6 BUN (7-18) mg/dL 16 Creatinine (0.70-1.30) mg/dL 1.0 Estimated GFR/1.73 m2 (mL/min/1.73m2) >= 60.00 Glucose (74-106) mg/dL 88 Calcium (8.5-10.1) mg/dL 8.6 Magnesium (1.8-2.4) mg/dL 2.1 Total Bilirubin (0.2-1.0) mg/dL 1.1 H AST (15-37) U/L 31 ALT (16-63) U/L 32 Alkaline Phosphatase (46-116) U/L 102 Troponin I (<0.06) ng/mL 0.05 NT-Pro-B Natriuret Pep (<300) pg/mL 1574 H Total Protein (6.4-8.2) g/dL 8.1 Albumin (3.4-5.0) g/dL 3.8 COVID-19 Source SARS-CoV-2 (PCR) (Negative) Range/Units 01/04/21 01/04/21 13:05 13:13 WBC (4.4-10.8) 10^3/uL 5.92 RBC (4.36-5.78) 10^6/uL 3.56 L Hgb (13.5-17.5) g/dL 9.4 L Hct (40.0-50.0) % 29.7 L MCV (80-95) fL 83.4 MCH (27.0-33.0) pg 26.4 L MCHC (32.0-36.0) % 31.6 L RDW (11.8-14.1) % 14.6 H Plt Count (130-400) 10^3/uL MPV (8.0-11.0) fL 9.6 Immature Gran % 0.3 Neutrophils % 68.6 Lymphocytes % 13.7 Monocytes % 14.0 Eosinophils % 2.4 Basophils % 1.0 Nucleated RBC % % 0 Absolute Neutrophils (1.2-6.7) 10^3/uL 4.06 Absolute Lymphocytes (1.2-3.4) 10^3/uL 0.81 L Absolute Monocytes (0.1-0.8) 10^3/uL 0.83 H Absolute Eosinophils (0.0-0.7) 10^3/uL 0.14 Absolute Basophils (0.0-0.2) 10^3/uL 0.06 RBC Morphology See Below Polychromasia Present Poikilocytosis 1+ PT (9.3-11.0) sec INR (0.9-1.1) APTT (21.0-27.5) sec D-Dimer (<500) ng/mlFEU Sodium (136-145) mmol/L Potassium (3.5-5.1) mmol/L Chloride (98-107) mmol/L Carbon Dioxide (21.0-32.0) mmol/L Anion Gap (3-11) mmol/L BUN (7-18) mg/dL Creatinine (0.70-1.30) mg/dL Estimated GFR/1.73 m2 (mL/min/1.73m2) Glucose (74-106) mg/dL Calcium (8.5-10.1) mg/dL Magnesium (1.8-2.4) mg/dL Total Bilirubin (0.2-1.0) mg/dL AST (15-37) U/L ALT (16-63) U/L Alkaline Phosphatase (46-116) U/L Troponin I (<0.06) ng/mL NT-Pro-B Natriuret Pep (<300) pg/mL Total Protein (6.4-8.2) g/dL Albumin (3.4-5.0) g/dL COVID-19 Source Nasal/Nares SARS-CoV-2 (PCR) (Negative) Negative ECG Data Attestation: I personally reviewed and interpreted this ECG (s) as follows: Interpretation: Please see official report by Dr. Jerez. Atrial fibrillation, ventricular rate of 59, right bundle branch block. <Nella Sahu - Last Filed: 01/04/21 19:51> Care assumed from provider (GABRIEL Villa) Discussed patient details and case and pending workup and disposition. At this time we are awaiting a second troponin which has resulted and is less than 0.05 and possible admission for new onset atrial fibrillation and CHF exacerbation. Patient is hemodynamically stable, and alert and oriented. Upon initial exam patient is alert and oriented he is somewhat hard of hearing. He is sitting up in a chair on the monitor. He does agree to plan of care and admission, hospitalist paged. [id number]: Spoke with Dr. Tidwell who is on for hospitalist regarding patient case and details. He agrees to accept patient for admission holding orders placed. Dr. Tidwell here at for patient eval. Patient transported to floor in improv ing condition. <Kurtis Jerez MD - Last Filed: 01/04/21 19:38> Patient seen, examined, and discussed with GABRIEL Villalpando and KELLEY Sahu. I agree with treatment plan as discussed/documented. HPI <GABRIEL Hernandez - Last Filed: 01/05/21 12:01> General Mode of arrival: wheelchair . Date/Time Provider Initiated Documentation: 01/04/21 12:23 . Limitations to Documentation: no limitations . Information obtained by: patient and family . 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 fib. Patient is an extremely poor and vague historian. He denies recent illness or trauma. He states that his symptoms been going on for a very long time, per cardiology notes it appears as though potentially up to a year, patient reports symptoms are worse over the past few weeks. Patient does tell me that he is a full code. Denies headache, neck pain, chest pain, abdominal pain, nausea, vomiting, leg pain. He admits to acute on chronic shortness of breath, worse with lying flat or so reports that exertion. Also reports that his abdomen feels bloated. Reviewing the cardiology notes, it appears as though he had an echocardiogram on 12-25-12 with an EF of 65. Patient tells me that he used to take 20 mg of Lasix, then increase his dose up to 40, unsure of that timeframe, later states that the 40 mg did not help so he stopped taking the medication completely. 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 Related Data Home Medications Medication Instructions Recorded Confirmed aspirin 81 mg PO DAILY tab 06/16/14 01/04/21 acetaminophen [Tylenol Extra 250 mg PO PRN 12/12/14 01/04/21 Strength] lancets 33 gauge #100 ea 06/01/19 07/12/20 atenolol 50 mg tablet 50 mg PO DAILY #90 tab 05/02/20 01/04/21 glimepiride 1 mg tablet 1 mg PO DAILY #90 tab-cap 05/02/20 01/04/21 atorvastatin 80 mg tablet 80 mg PO DAILY #90 tab-cap 07/12/20 01/04/21 lisinopril 40 mg tablet 40 mg PO DAILY #90 tab 07/12/20 01/04/21 metformin 500 mg tablet,extended 500 mg PO DAILY #90 tab 07/12/20 01/04/21 release 24hr omeprazole 20 mg capsule,delayed 20 mg PO DAILY #90 cap 07/12/20 01/04/21 release polyethylene glycol 3350 17 17 g PO BID PRN #850 g 07/25/20 01/04/21 gram/dose oral powder blood sugar diagnostic #100 strip 07/26/20 furosemide 20 mg PO QHS PRN 01/04/21 01/04/21 Previous Rx's Medication Instructions Recorded lancets 33 gauge #100 ea 06/01/19 atenolol 50 mg tablet 50 mg PO DAILY #90 tab 05/02/20 glimepiride 1 mg tablet 1 mg PO DAILY #90 tab-cap 05/02/20 atorvastatin 80 mg tablet 80 mg PO DAILY #90 tab-cap 07/12/20 lisinopril 40 mg tablet 40 mg PO DAILY #90 tab 07/12/20 metformin 500 mg tablet,extended 500 mg PO DAILY #90 tab 07/12/20 release 24hr omeprazole 20 mg capsule,delayed 20 mg PO DAILY #90 cap 07/12/20 release polyethylene glycol 3350 17 17 g PO BID PRN #850 g 07/25/20 gram/dose oral powder blood sugar diagnostic #100 strip 07/26/20 Allergies Allergy/AdvReac Type Severity Reaction Status Date / Time No Known Allergies Allergy Verified 01/04/21 12:27 General Stated Complaint: SOB ARCADIO: 3 Review of Systems <GABRIEL Hernandez - Last Filed: 01/05/21 12:01> Constitutional Constitutional: Denies fatigue, Denies fever(s) and Denies headache(s) ENT Ears, Nose, Mouth, and Throat: Denies headache(s) and Denies neck pain Cardiovascular Cardiovascular: Denies chest pain, Reports leg edema and Reports dyspnea Respiratory Respiratory: Denies cough and Reports dyspnea Gastrointestinal Gastrointestinal: Denies abdominal pain, Denies nausea and Denies vomiting Genitourinary Genitourinary: Denies dysuria Musculoskeletal Musculoskeletal: Denies back pain and Denies neck pain Integumentary/Breasts Skin/Breast: Denies erythema Neurologic Neurologic: Denies headache(s) Endocrine Endocrine: Denies fatigue Hematologic/Lymphatic Hematologic/Lymphatic: Denies easy bleeding and Denies easy bruising PFS <GABRIEL Hernandez - Last Filed: 01/05/21 12:01> Medical History Acute GI bleeding (04/30/14) Anemia Aortic valve stenosis (08/20/11) severe critical peak gradient 81/50 mm of mercury [place] [facility] [place] s/p tissue AVR 23 Trifecta perivardial Ascending Aortic Endarterectomy, NILS [place] [facility] [place] Elevated troponin (04/30/14) Femur fracture, right S/P right hip fracture (04/13/17) Surgical History Aortic valve replacement (04/01/14) Fracture, Open Treatment (04/13/17) R femur-open reduction and internal fixation Dr Zapata H/O surgical procedure a. 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 Father No problems noted. Sister No problems noted. Sister No problems noted. Brother No problems noted. Social History Smoking/Tobacco Use Status: Former Tobacco Use Tobacco: How many years used: 20 Smoking risk assessment performed?: Yes Alcohol Intake: current Alcohol Intake frequency: 3 or more drinks per day Alcohol type: beer Drug use: Never Substance use type: does not use Adopted: No Household members: none Housing: house Number of Children: 2 current occupation: Worked in [employer] at [employer] Current gender identity: male What is your relationship status?: Panel score (0-1 are the most socially isolated patients): 0 What type of physical activity do you participate in: none Seatbelt use: always Drive intox or ride w/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 Carbon monox detector in home: Yes Do you feel safe at home: Yes Do you feel safe in your relationship?: Yes Exam <GABRIEL Hernandez - Last Filed: 01/05/21 12:01> Const General: cooperative, comfortable and no acute distress Orientation: alert and awake [facility] Head: normal to inspection, normocephalic and atraumatic Face and sinus: normal facial exam Mouth: moist mucous membranes Eyes General: appearance normal, both eyes and all related structures Conjunctivae: conjunctivae normal Neck Neck: normal visual inspection, full ROM, trachea midline and supple Resp Effort & Inspection: able to speak in complete sentences and tachypneic (Slightly) Auscultation: diminished lung sounds bilaterally in the lower lung davila and rales (Occasionally scattered throughout) Cardio Rate: regular rate Rhythm: abnormal rhythm irregularly irregular GI Inspection: obesity Palpation: soft and nontender Back/Spine/Pelvis Back: No back tenderness Skin General skin exam: no rashes or lesions noted Neuro General: patient alert, patient awake, moves all extremities and no focal motor deficits Cognition: normal cognition Speech: speech normal Motor: muscle tone normal throughout Sensory Exam: no sensory deficits noted Extrem General: full ROM, capillary refill normal, no calf tenderness and pedal edema bilaterally pitting and 3+ Psych Appearance: grossly normal Mental Status: mental status grossly normal Course <GABRIEL Hernandez - Last Filed: 01/05/21 12:01> Vital Signs Vital signs: Vital Signs Temperature 36.7 C 01/04/21 12:19 Pulse 67 01/04/21 12:19 Respiratory Rate 28 H 01/04/21 12:19 Blood Pressure 176/73 H 01/04/21 12:19 Pulse Oximetry 91 L 01/04/21 12:19 Temperature 36.7 C 01/04/21 12:19 Temperature Source Temporal Artery Scan 01/04/21 12:19 Pulse 67 01/04/21 12:19 Respiratory Rate 28 H 01/04/21 12:19 Respiratory Effort Incrsd Work of Breathing 01/04/21 12:23 Blood Pressure 176/73 H 01/04/21 12:19 Blood Pressure Position Supine 01/04/21 12:19 Pulse Oximetry 91 L 01/04/21 12:19 Oxygen Delivery Method Room Air 01/04/21 12:19 Oxygen Flow Rate 0 01/04/21 12:19 Pain Level 0 01/04/21 12:19 Critical Care Time <GABRIEL Hernandez - Last Filed: 01/05/21 12:01> Critical Care Time Critical Care Time: Yes Total Critical Care Time: 40 Attestation: Upon my evaluation, this patient had a high probability of clinically significant, life-threatening deterioration due to their current medical conditions, which required my direct attention, intervention, and personal management. I have personally provided greater than 30 minutes of critical care time exclusive of the time spend on separately billable procedures. Time includes obtaining a history, examining the patient, pulse oximetry, review of laboratory data, radiology results, discussion with consultants, arranging urgent treatment with development of a management plan, evaluation of patient's response to treatment, and monitoring for potential decompensation. Interventions were performed as documented above. Sign Out <GABRIEL Hernandez - Last Filed: 01/05/21 12:01> Sign Out Data: Sign Out Comment: New onset rate controlled A. fib, CHF exacerbation, chronic hyponatremia, chronic anemia. Given 80 IV Lasix, 1 mg/kg Lovenox. Awaiting repeat platelet draw and troponin. If troponin is not elevated then will need to discuss case with our hospitalist team for admission. Last updated by Arnaldo Villalpando PA at 01/04/21 15:54
[2021-01-04 13:21] LABS: Source Nasal/Nares
[2021-01-04] MEDS: Furosemide 100 MG/10 ML VIAL 80 MG IVP (13:23)
[2021-01-04 13:26] LABS: Abs Immature Grans 0.02 10^3/uL (0.0-0.06); Absolute Basophil Count 0.06 10^3/uL (0.0-0.2); Absolute Eosinophil Count 0.14 10^3/uL (0.0-0.7); Absolute Lymphocyte Count 0.81 10^3/uL (1.2-3.4); Absolute Monocyte Count 0.83 10^3/uL (0.1-0.8); Absolute Neutrophil Count 4.06 10^3/uL (1.2-6.7); Eosinophils % 2.4; HCT 29.7 % (40.0-50.0); HGB 9.4 g/dL (13.5-17.5); Immature Grans % 0.3; Lymphocytes % 13.7; MCH 26.4 pg (27.0-33.0); MCHC 31.6 % (32.0-36.0); MCV 83.4 fL (80-95); MPV 9.6 fL (8.0-11.0); Neutrophils % 68.6; Nucleated RBC 0 %; RBC 3.56 10^6/uL (4.36-5.78); RDW 14.6 % (11.8-14.1); RDW-SD 44.9 fL; WBC 5.92 10^3/uL (4.4-10.8)
[2021-01-04 13:36] LABS: INR 1.2 (0.9-1.1); PTT Activated 29.3 sec (21.0-27.5); Prothrombin Time 12.5 sec (9.3-11.0)
[2021-01-04 13:39] LABS: ALT 32 U/L (16-63); AST 31 U/L (15-37); Albumin 3.8 g/dL (3.4-5.0); Alkaline Phosphatase 102 U/L (46-116); Anion Gap 6.6 mmol/L (3-11); BUN 16 mg/dL (7-18); Bilirubin, Total 1.1 mg/dL (0.2-1.0); CO2 29.4 mmol/L (21.0-32.0); Calcium 8.6 mg/dL (8.5-10.1); Chloride 87 mmol/L (98-107); Glucose 88 mg/dL (74-106); Magnesium 2.1 mg/dL (1.8-2.4); Potassium 4.9 mmol/L (3.5-5.1); Total Protein 8.1 g/dL (6.4-8.2); Troponin I 0.05 ng/mL (<0.06)
[2021-01-04 13:41] LABS: Sodium 123 mmol/L (136-145)
[2021-01-04 13:42] LABS: Diff Comment Diff Reviewed; Polychromasia Present
[2021-01-04 13:43] LABS: Poikilocytes 1+
--- NOTE | 2021-01-04 13:52 | NUR.NOTE ---
Pt placed in recliner in room. tolerating chair better than laying in bed. pt remains awake, alert, able to move himself
--- NOTE | 2021-01-04 14:00 | DI.CT_ITS ---
Exam(s) CT CHEST PE CTA EXAM: CT CHEST PE CTA CLINICAL HISTORY: elevated dimer, new onset afib. TECHNIQUE: Imaging Protocol: Axial CT angiography was performed with multi-slice acquisition and mu lti-planar and/or 3D reconstructions. CONTRAST MATERIAL: Intravenous: Omnipaque 350 Contrast volume:structured data in ml COMPARISON: CR XR CHEST 2V PA LATERAL from 03/27/2020 CR XR CHEST 2V PA LATERAL from 03/27/2020 CR XR PORTABLE CHEST AP from 01/04/2021 FINDINGS: Bilateral pleural effusions are seen, right greater than left. Ascites is also noted around the live r. The heart is enlarged. There is an aortic valve prosthesis. Mitral annular calcifications are n oted. Sternal wires are present. Pulmonary arteries are well opacified with IV contrast. There is mild patient motion. No pulmonary artery filling defects are seen. There is no evidence of aortic d issection. Aortic and coronary artery calcifications are seen. There are no infiltrates. Advanced degenerative changes are seen in the spine. There is an old T12 compression fracture. IMPRESSION: Bilateral pleural effusions. Cardiomegaly. No evidence of pulmonary embolism. RADIATION DOSE DELIVERED: 542.96mGy.cm Total DLP DATA REPOSITORY: All CT scans at this facility are submitted to the National Radiology Data Registry (NRDR) Dose Index Registry (DIR) with the [employer] (A[employer]). RADIATION OPTIMIZATION: All CT scans at this facility use at least one of these dose optimization te chniques: automated exposure control; mA and/or kV adjustment per patient size (includes targeted exa ms where dose is matched to clinical indication); or iterative reconstruction.
[2021-01-04 14:04] LABS: D-Dimer 2271 ng/mlFEU (<500)
[2021-01-04 14:15] LABS: COVID-19 PCR Negative (Negative)
[2021-01-04 14:56] LABS: NT-proBNP 1574 pg/mL (<300)
[2021-01-04] MEDS: Normal Saline Flush 10 ML SYR IVP (15:10)
[2021-01-04 15:58] LABS: Platelet Count 105 10^3/uL (130-400)
[2021-01-04 16:09] LABS: Troponin I 0.05 ng/mL (<0.06)
[2021-01-04] MEDS: Enoxaparin 100 MG/ML SYR SC (16:38)
--- NOTE | 2021-01-04 19:44 | HPE_ITS ---
Date of service: 01/04/21 Time of Service: 19:44 Assessment and Plan Assessment and plan (1) Atrial fibrillation: Status: Chronic Assessment and plan: This is a new problem. His rate control is stable at this time. He is receiving enoxaparin in the emergency department and he will be started on apixaban tomorrow. (2) Hyponatremia: Status: Acute Assessment and plan: This is mild at the present time. His electrolytes will be rechecked tomorrow. (3) CHF (congestive heart failure): Status: Chronic Assessment and plan: He has had a very good diuresis following the 80 mg of furosemide in the emergency department. I am going to stop his atenolol and start him on a low dose of carvedilol. I am not going to start spironolactone now but wait to see what his electrolytes are tomorrow. I do not think he needs any additional furosemide tonight. (4) Anemia: Status: Chronic Assessment and plan: He has been anemic for a few years. It is not severe. The prior studies appear to show an iron deficiency anemia. I do not know if he has had any endoscopy recently to evaluate this. (5) Alcohol dependence: Status: Acute Assessment and plan: He does drink a moderate amount of beer and says he drinks about 6 beers per day. I will place him on alcohol withdrawal protocol and watch him for withdrawal. Qualifiers: Substance use status: uncomplicated Qualified Code(s): F10.20 - Alcohol dependence, uncomplicated History of Present Illness History of Present Illness Chief Complaint: Shortness of breath and leg swelling Narrative: This 75-year-old man has a history of coronary artery disease and 2 aortic valve replacements. He thinks he had 1 I passed vessel about 2 years ago with his second AVR. He says he has not felt well for most of this year and has developed some peripheral edema. He has seen his doctor who increased his dose of furosemide but it has not helped much. He says in the last 2 weeks he has had increased swelling of his legs and weight gain. He has had some paroxysmal nocturnal dyspnea but does not complain of symptoms of orthopnea. He says he has not felt as well following the second aortic valve replacement as he did following the first 1. He has had some foot discomfort because of the swelling. He does not think the oral furosemide at home has been helping. He saw the concrete puddler today in [place] and was referred here to be seen and admitted. He has not had any chest discomfort. He had a chest x-ray, labs, electrocardiogram and chest CT in the emergency department. He was given 80 mg of furosemide IV and put out about 4 L of fluid. He has had a chronic anemia and a history of hyponatremia. He says he drinks about 6 beers per day. He does not use tobacco. He lives by himself during the week but has a girlfriend of visits on weekends. In addition to the furosemide that he received in the emergency department he also received 100 mg of enoxaparin. He was noted to be in atrial fibrillation at a controlled rate and this is a new problem. Review of Systems Constitutional Constitutional: Denies body ache(s), Denies chills, Denies fever(s), Denies headache(s), Reports lethargy, Reports weakness and Reports weight gain ENT Ears, Nose, Mouth, and Throat: Denies headache(s) Cardiovascular Cardiovascular: Denies chest pain, Denies rapid heart rate, Reports pedal edema, Denies irregular heart rhythm, Denies radiating jaw, neck or arm pain, Reports dyspnea, Reports dyspnea on exertion and Reports paroxysmal nocturnal dyspnea Respiratory Respiratory: Denies cough, Reports dyspnea, Reports dyspnea on exertion and Denies wheezing Gastrointestinal Gastrointestinal: Denies abdominal pain, Denies diarrhea, Denies loose stools and Denies vomiting Genitourinary Genitourinary: Denies oliguria and Denies difficulty urinating Musculoskeletal Musculoskeletal: Denies myalgias and Denies numbness Neurologic Neurologic: Denies abnormal speech, Denies behavioral changes, Denies headache(s), Denies numbness and Reports weakness Psychiatric Psychiatric: Denies behavioral changes Allergic/Immunologic Allergic/Immunologic: Denies wheezing [facility] Medical History (Updated 01/04/21 @ 20:01 by Parker Montgomery MD) Acute GI bleeding (04/30/14) Anemia Aortic valve stenosis (08/20/11) severe critical peak gradient 81/50 mm of mercury Cardiac cath [facility] [place] 05/05/14 s/p tissue AVR 23 Trifecta perivardial Ascending Aortic Endarterectomy, NILS 06/01/14 [facility] [place] will need Dental prophylaxis Elevated troponin (04/30/14) Femur fracture, right S/P right hip fracture (04/13/17) Surgical History Aortic valve replacement (04/01/14) Fracture, Open Treatment (04/13/17) R femur-open reduction and internal fixation Dr Zapata H/O surgical procedure a. 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 Father No problems noted. Sister No problems noted. Sister No problems noted. Brother No problems noted. Social History Smoking/Tobacco Use Status: Former Tobacco Use Tobacco: How many years used: 20 Smoking risk assessment performed?: Yes Alcohol Intake: current Alcohol Intake frequency: 3 or more drinks per day Alcohol type: beer Drug use: Never Substance use type: does not use Adopted: No Household members: none Housing: house Number of Children: 2 current occupation: Worked in [employer] at [employer] Current gender identity: male What is your relationship status?: Panel score (0-1 are the most socially isolated patients): 0 What type of physical activity do you participate in: none Seatbelt use: always Drive intox or ride w/intox set key driver: No Carbon monox detector in home: Yes Do you feel safe at home: Yes Do you feel safe in your relationship?: Yes Meds Allergies and Home Medications Allergies Allergy/AdvReac Type Severity Reaction Status Date / Time No Known Allergies Allergy Verified 01/04/21 12:27 Home Medications Medication Instructions Recorded Confirmed Type aspirin 81 mg PO DAILY tab 06/16/14 01/04/21 History acetaminophen [Tylenol Extra 250 mg PO PRN 12/12/14 01/04/21 History Strength] lancets 33 gauge #100 ea 06/01/19 07/12/20 Rx atenolol 50 mg tablet 50 mg PO DAILY #90 tab 05/02/20 01/04/21 Rx glimepiride 1 mg tablet 1 mg PO DAILY #90 tab-cap 05/02/20 01/04/21 Rx atorvastatin 80 mg tablet 80 mg PO DAILY #90 tab-cap 07/12/20 01/04/21 Rx lisinopril 40 mg tablet 40 mg PO DAILY #90 tab 07/12/20 01/04/21 Rx metformin 500 mg tablet,extended 500 mg PO DAILY #90 tab 07/12/20 01/04/21 Rx release 24hr omeprazole 20 mg capsule,delayed 20 mg PO DAILY #90 cap 07/12/20 01/04/21 Rx release polyethylene glycol 3350 17 17 g PO BID PRN #850 g 07/25/20 01/04/21 Rx gram/dose oral powder blood sugar diagnostic #100 strip 07/26/20 Rx furosemide 20 mg PO QHS PRN 01/04/21 01/04/21 History Exam Const General: cooperative, not anxious and does not appear intoxicated Nutritional Appearance: overweight Orientation: alert, awake and oriented x3 HENMT Ears: hearing grossly impaired Eyes Other: Mild bilateral exudate in the corners of his eyes medially. Neck Neck: normal visual inspection and no lymphadenopathy Resp Effort & Inspection: normal respiratory effort and able to speak in complete sentences Auscultation: rales and no rhonchi Other: Rales are present in the lower one quarter of each lung field. There is diminished breath sounds at both bases especially on the right. Cardio Rate: regular rate Rhythm: abnormal rhythm Heart Sounds: no click, no gallops and no murmurs GI Inspection: normal to inspection Palpation: soft, no hepatosplenomegaly, not firm and nontender Neuro General: patient alert, patient awake and patient oriented x3 Speech: speech normal Extrem Right lower extremity: edema Left lower extremity: edema Other: +2 edema both lower legs. cc: WILNER MOLINA MD Dictated by: PARKER MONTGOMERY MD Dictated: 01/04/21 Time: 1943 <Electronically signed by Parker Montgomery M.D.> Date: 02/17 Date: Date: Transcribed Date: 01/04/21 Transcribed Time: y: GILL This is privileged, confidential information, intended only for the provider named. Any use or distribution by any person other than this provider is strictly prohibited. If you receive this report in error, please notify us immediately at [phone] and return the original report to us at the address above. Thank you.
[2021-01-04] MEDS: Acetaminophen 325 MG TAB 650 MG PO (22:12)
[2021-01-05] VITALS (11 sets, daily range): BP systolic 131–164; BP diastolic 60–94; PULSE 69–100; RESP 19–20; TEMP 36.6–37; O2SAT 90–97
[2021-01-05 07:00] LABS: Abs Immature Grans 0.01 10^3/uL (0.0-0.06); Absolute Basophil Count 0.07 10^3/uL (0.0-0.2); Absolute Eosinophil Count 0.23 10^3/uL (0.0-0.7); Absolute Lymphocyte Count 1.03 10^3/uL (1.2-3.4); Absolute Neutrophil Count 3.23 10^3/uL (1.2-6.7); Basophils % 1.3; Eosinophils % 4.4; HCT 30.5 % (40.0-50.0); HGB 9.8 g/dL (13.5-17.5); Immature Grans % 0.2; Lymphocytes % 19.5; MCH 26.6 pg (27.0-33.0); MCHC 32.1 % (32.0-36.0); MCV 82.7 fL (80-95); MPV 9.7 fL (8.0-11.0); Monocytes % 13.3; Neutrophils % 61.3; Nucleated RBC 0 %; Platelet Count 112 10^3/uL (130-400); RBC 3.69 10^6/uL (4.36-5.78); RDW 14.8 % (11.8-14.1); RDW-SD 44.6 fL; WBC 5.27 10^3/uL (4.4-10.8)
[2021-01-05 07:21] LABS: Anion Gap 7.3 mmol/L (3-11); BUN 17 mg/dL (7-18); CO2 30.7 mmol/L (21.0-32.0); Calcium 8.7 mg/dL (8.5-10.1); Chloride 91 mmol/L (98-107); Glucose 95 mg/dL (74-106); Magnesium 2.1 mg/dL (1.8-2.4); Potassium 3.9 mmol/L (3.5-5.1); Sodium 129 mmol/L (136-145); Troponin I 0.06 ng/mL (<0.06)
[2021-01-05] MEDS: Lisinopril 20 MG TAB 40 MG PO (07:56)
[2021-01-05] MEDS: Aspirin E.C. 81 MG TABEC PO (07:57)
[2021-01-05] MEDS: Docusate Sodium 100 MG CAP PO ×3 (07:57→19:42)
[2021-01-05] MEDS: Apixaban 5 MG TAB PO ×2 (07:57→19:40)
[2021-01-05] MEDS: Omeprazole 20 MG CAPCR PO (07:57)
[2021-01-05] MEDS: LORazepam 1 MG TAB PO/SL (07:57)
[2021-01-05] MEDS: Acetaminophen 325 MG TAB 650 MG PO ×2 (07:57→14:46)
--- NOTE | 2021-01-05 08:24 | CCONE_ITS ---
Date of service: 01/05/21 Time of Service: 08:25 Assessment and Plan Assessment and plan (1) Atrial fibrillation: Status: Chronic (2) CHF (congestive heart failure): Status: Chronic (3) H/O aortic valve replacement: Status: Acute (4) CAD (coronary artery disease): Status: Chronic Assessment and plan: Patient has been diuresed since presentation to the hospital. He has improved significantly, but is not at baseline. I agree with discontinuation of atenolol and initiation of carvedilol. His heart rate is now acceptably controlled, neither too slow nor too fast. I agree with Eliquis for anticoagulation I would consider another day of intravenous diuretics to be reasonable. He will need to have an outpatient diuretic dose determined The patient can be followed either in [place] where he is established, or if he prefers in [place]. Qualifiers: Coronary Disease-Associated Artery/Lesion type: cheme[place]uevi artery [place] vs. transplanted heart: chemehuevi heart Associated angina: without angina Qu alified Code(s): I25.10 - Atherosclerotic heart disease of chemehuevi coronary artery without angina pectoris History of Present Illness History of Present Illness Chief Complaint: Heart failure, atrial fibrillation Narrative: This 75-year-old man was admitted to the hospital yesterday after he presented to the outpatient clinic in [place] with decompensated heart failure and new atrial fibrillation with a relatively slow ventricular response. The patient describes several weeks of worsening peripheral edema, difficulty breathing, and increasing abdominal girth which has been unresponsive to medication adjustment as an outpatient. His electrocardiogram showed atrial fibrillation with a rate of approximately 50. This was a new diagnosis. The patient was felt to require admission for multiple adjustments in his medication, which could not be performed as an outpatient. He chose to present here to [facility] for admission rather than [place], as it was closer to his home Overnight he has been diuresed. He feels a lot better. His edema has decreased. He is less short of breath. He is anxious to go home. Atenolol was discontinued and he was started instead on carvedilol. His heart rate on telemetry is in the 80s, still atrial fibrillation Eliquis has been ordered for ongoing anticoagulation He has a history of 2 aortic valve surgeries. One was in 2013. Unfortunately his prosthesis deteriorated and he required a redo aortic valve replacement in late 2018. At that time he also had a saphenous vein graft placed to an LAD. He has had subsequent echocardiograms. Most recent was in late 2019. This showed normal bioprosthetic valve function. His ejection fraction has been within the range of normal. He has moderate to severe pulmonary hypertension Consults Consult date: 01/05/21 Requesting physician: Bj Tidwell Review of Systems Cardiovascular Cardiovascular: Reports as per HPI, Denies chest pain, Denies chest pain at rest, Denies chest pain with activity, Reports leg edema, Denies lightheadedness, Denies palpitations, Reports dyspnea, Reports dyspnea on exe rtion and Reports orthopnea Respiratory Respiratory: Reports dyspnea and Reports dyspnea on exertion Endocrine Endocrine: Denies palpitations [facility] Medical History Acute GI bleeding (04/30/14) Anemia Aortic valve stenosis (08/20/11) severe critical peak gradient 81/50 mm of mercury Cardiac cath [facility] [place] 05/05/14 s/p tissue AVR 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 Father No problems noted. Sister No problems noted. Sister No problems noted. Brother No problems noted. Social History Smoking/Tobacco Use Status: Former Tobacco Use Tobacco: How many years used: 20 Smoking risk assessment performed?: Yes Alcohol Intake: current Alcohol Intake frequency: 3 or more drinks per day Alcohol type: beer Drug use: Never Substance use type: does not use Adopted: No Household members: none Housing: house Number of Children: 2 current occupation: Worked in [employer] at [employer] Current gender identity: male What is your relationship status?: Panel score (0-1 are the most socially isolated patients): 0 What type of physical activity do you participate in: none Seatbelt use: always Drive intox or ride w/intox pack train driver: No Carbon monox detector in home: Yes Do you feel safe at home: Yes Do you feel safe in your relationship?: Yes Exam Narrative Exam Narrative: Obese, appears improved compared to yesterday. Moderately hard of hearing Neck Carotids: normal carotid upstroke and no bruits Other: Unable to assess JVP Resp Effort & Inspection: normal respiratory effort and able to speak in complete sentences Other: Decreased breath sounds at the bases Cardio Other: Irregularly irregular, rate controlled widely split S2, brief systolic ejection quality murmur GI Other: Obese and nontender Extrem Other: Bilateral peripheral edema, worse on the left than the right, 1-2+, decreased compared to January 04 Results Last Vital Signs Temp 36.8 C 01/05/21 07: Pulse 73 01/05/21 07:44 Resp 19 01/05/21 07:21 BP 160/90 H 01/05/21 07:26 Pulse Ox 90 L 01/05/21 07:21 Labs Result diagrams: 01/05/21 06:40 01/05/21 06:40 Labs: Laboratory Results - last 24 hr 01/04/21 01/04/21 01/04/21 13:05 13:05 13:05 WBC RBC Hgb Hct MCV MCH MCHC RDW Plt Count MPV Immature Gran % Neutrophils % Lymphocytes % Monocytes % Eosinophils % Basophils % Nucleated RBC % Absolute Neutrophils Absolute Lymphocytes Absolute Monocytes Absolute Eosinophils Absolute Basophils RBC Morphology Polychromasia Poikilocytosis PT 12.5 H INR 1.2 H APTT 29.3 H D-Dimer 2271 H Sodium 123 L* Potassium 4.9 Chloride 87 L Carbon Dioxide 29.4 Anion Gap 6.6 BUN 16 Creatinine 1.0 Estimated GFR/1.73 m2 >= 60.00 Glucose 88 Calcium 8.6 Magnesium 2.1 Total Bilirubin 1.1 H AST 31 ALT 32 Alkaline Phosphatase 102 Troponin I 0.05 NT-Pro-B Natriuret Pep 1574 H Total Protein 8.1 Albumin 3.8 COVID-19 Source SARS-CoV-2 (PCR) 01/04/21 01/04/21 01/04/21 13:05 13:13 15:42 WBC 5.92 RBC 3.56 L Hgb 9.4 L Hct 29.7 L MCV 83.4 MCH 26.4 L MCHC 31.6 L RDW 14.6 H Plt Count MPV 9.6 Immature Gran % 0.3 Neutrophils % 68.6 Lymphocytes % 13.7 Monocytes % 14.0 Eosinophils % 2.4 Basophils % 1.0 Nucleated RBC % 0 Absolute Neutrophils 4.06 Absolute Lymphocytes 0.81 L Absolute Monocytes 0.83 H Absolute Eosinophils 0.14 Absolute Basophils 0.06 RBC Morphology See Below Polychromasia Present Poikilocytosis 1+ PT INR APTT D-Dimer Sodium Potassium Chloride Carbon Dioxide Anion Gap BUN Creatinine Estimated GFR/1.73 m2 Glucose Calcium Magnesium Total Bilirubin AST ALT Alkaline Phosphatase Troponin I 0.05 NT-Pro-B Natriuret Pep Total Protein Albumin COVID-19 Source Nasal/Nares SARS-CoV-2 (PCR) Negative 01/04/21 01/05/21 01/05/21 15:52 05:35 06:40 WBC Cancelled RBC Cancelled Hgb Cancelled Hct Cancelled MCV Cancelled MCH Cancelled MCHC Cancelled RDW Cancelled Plt Count 105 L Cancelled MPV Cancelled Immature Gran % Neutrophils % Lymphocytes % Monocytes % Eosinophils % Basophils % Nucleated RBC % Absolute Neutrophils Absolute Lymphocytes Absolute Monocytes Absolute Eosinophils Absolute Basophils RBC Morphology Polychromasia Poikilocytosis PT INR APTT D-Dimer Sodium 129 L Potassium 3.9 D Chloride 91 L Carbon Dioxide 30.7 Anion Gap 7.3 BUN 17 Creatinine 1.0 Estimated GFR/1.73 m2 >= 60.00 Glucose 95 Calcium 8.7 Magnesium 2.1 Total Bilirubin AST ALT Alkaline Phosphatase Troponin I 0.06 NT-Pro-B Natriuret Pep Total Protein Albumin COVID-19 Source SARS-CoV-2 (PCR) 01/05/21 06:40 WBC 5.27 RBC 3.69 L Hgb 9.8 L Hct 30.5 L MCV 82.7 MCH 26.6 L MCHC 32.1 RDW 14.8 H Plt Count 112 L MPV 9.7 Immature Gran % 0.2 Neutrophils % 61.3 Lymphocytes % 19.5 Monocytes % 13.3 Eosinophils % 4.4 Basophils % 1.3 Nucleated RBC % 0 Absolute Neutrophils 3.23 Absolute Lymphocytes 1.03 L Absolute Monocytes 0.70 Absolute Eosinophils 0.23 Absolute Basophils 0.07 RBC Morphology Polychromasia Poikilocytosis PT INR APTT D-Dimer Sodium Potassium Chloride Carbon Dioxide Anion Gap BUN Creatinine Estimated GFR/1.73 m2 Glucose Calcium Magnesium Total Bilirubin AST ALT Alkaline Phosphatase Troponin I NT-Pro-B Natriuret Pep Total Protein Albumin COVID-19 Source SARS-CoV-2 (PCR)
[2021-01-05] MEDS: Glimepiride 1 MG TAB PO (08:44)
[2021-01-05] MEDS: Multivitamin TAB 1 TAB PO (08:44)
[2021-01-05] MEDS: Folic Acid 1 MG TAB PO (08:44)
[2021-01-05] MEDS: Thiamine 100 MG TAB PO (08:44)
[2021-01-05] MEDS: Erythromycin Ophth Oint 3.5 GM TUBE OU ×3 (09:56→19:42)
--- NOTE | 2021-01-05 10:28 | INITIAL_ITS ---
<Kaylan Lopez - Last Filed: 01/05/21 10:28> - If Service Date Differs Date of service: 01/05/21 Time of Service: 10:28 Care Management Initial Assess REASON FOR HOSPITALIZATION:: Atrial fibrillation PAST MEDICAL HISTORY/PAST SURGICAL HISTORY:: Medical History . Acute GI bleeding (04/30/14). Anemia. Aortic valve stenosis (08/20/11). severe critical peak gradient 81/50 mm of mercury. Cardiac cath [facility] [place] 05/05/14. s/p tissue AVR 23 Trifecta perivardial. Ascending Aortic Endarterectomy, NILS 06/01/14 [facility] [place]- will need Dental prophylaxis. Elevated troponin (04/30/14). Femur fracture, right. S/P right hip fracture (04/13/17). Surgical History . Aortic valve replacement (04/01/14). Fracture, Open Treatment (04/13/17). R femur-open reduction and internal fixation. Dr Zapata. H/O surgical procedure. a. appendectomy as a child. S/P AVR (05/11/19). 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 [place] PRIMARY CARE PHYSICIAN:: Yolanda Jordan POTENTIAL DISCHARGE NEEDS:: Follow up with PCP, Cardiology and discharge plan of care PATIENT/FAMILY EDUCATION NEEDS:: Review of discharge instructions, medications, diet, daily weights. follow up plan, Ask Me Three <NahumAngelyTamia - Last Filed: 01/05/21 16:49> Care Management Initial Assess PREVIOUS FUNCTIONAL STATUS/SOCIAL/FAMILY SUPPORTS:: His s/o lives nearby, and they visit on the weekends. He has two children who live nearby, and four grandchildren. 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 He is independent at baseline, and still drives. CURRENT FUNCTIONAL STATUS:: Yfn was sitting up in his chair when met with him. He was alert and engaged, although hard of hearing. He stated that he was hoping to return home today, but per MD, he will remain overnight for observation. He had a Cardiology consult today, and per report, he will have some medication changes prior to discharge. CM will continue to follow. Has patient been provided with info about the portal/API?: Yes Did the patient sign up for the portal?: No CURRENT HOME/COMMUNITY SERVICES/EQUIPMENT:: Yfn has a cane which he uses at times, when needed. ANTICIPATED BARRIERS TO DISCHARGE:: None identified. TRANSPORTATION:: Via private vehicle by family. PLAN:: Anticipate Yfn will return home when medically cleared. He will be driven home via private vehicle when ready by family. He will follow up with his PCP and discharge plan of care. CM will continue to follow.
[2021-01-05] MEDS: Furosemide 40 MG/4 ML VIAL IVP ×2 (11:43→16:26)
[2021-01-05] MEDS: Normal Saline Flush 10 ML SYR IVP ×2 (11:43→16:26)
[2021-01-05] MEDS: Carvedilol 3.125 MG TAB PO ×2 (11:43→19:40)
--- NOTE | 2021-01-05 11:43 | PHA.REVIEW ---
Pharmacy Admission Review - Admission Clinical Review (Last Reviewed 01/05/21 @ 08:28 by Jud Richmond MD) Hyponatremia (Acute) H/O aortic valve replacement (Acute) No Known Allergies Allergy (Verified 01/04/21 12:27) Resuscitation Status Full Code Height 5 ft 9 in Weight 92.5 kg - Renal Dosing Renal Dosing: BUN 17 mg/dL (7-18) 01/05/21 06:40 Creatinine 1.0 mg/dL (0.70-1.30) 01/05/21 06:40 Medications needing adjustments: Reviewed (Crcl ~76 mL/min using adjusted body weight. Current meds okay.) - Anticoagulation Anticoagulation: Hgb 9.8 g/dL (13.5-17.5) L 01/05/21 06:40 Hct 30.5 % (40.0-50.0) L 01/05/21 06:40 Plt Count 112 10^3/uL (130-400) L 01/05/21 06:40 INR 1.2 (0.9-1.1) H 01/04/21 13:05 Creatinine 1.0 mg/dL (0.70-1.30) 01/05/21 06:40 DVT Prophylaxis: N/A Therapeutic Anticoagulation: Reviewed Medications: Apixaban - Opiate Usage Evaluate Pain Scale/Pains Meds: N/A - Relevant Labs Sodium 129 mmol/L (136-145) L 01/05/21 06:40 Potassium 3.9 mmol/L (3.5-5.1) D 01/05/21 06:40 Chloride 91 mmol/L (98-107) L 01/05/21 06:40 Magnesium 2.1 mg/dL (1.8-2.4) 01/05/21 06:40 Electrolytes, C-Reactive P, ESR: Reviewed - DM Control DM Control: Glucose 95 mg/dL (74-106) 01/05/21 06:40 Finger Stick Blood Glucose 182 Finger Stick Blood Glucose 182 Finger Stick Blood Glucose 103 Finger Stick Blood Glucose 103 Insulin Dosing: N/A (home dose of glimepiride ordered as well as metformin (metformin being held until tomorrow due to contrast given yesterday).) - Heart Failure/RI Heart Failure/RI: Troponin I 0.06 ng/mL (<0.06) 01/05/21 06:40 NT-Pro-B Natriuret Pep 1574 pg/mL (<300) H 01/04/21 13:05 EF%, MER's, B-Blockers, Diuretics: Reviewed - BP Control BP Control: Blood Pressure 147/76 Blood Pressure 160/90 Blood Pressure 162/94 Blood Pressure 164/90 If elevated: Reviewed (BP has been elevated most of admission so far. Has lisinopril and carvedilol ordered.) - Qtc Review If Elevated: N/A (QTc 466 on admission) - IV to PO Switch IV Medications: Reviewed - Home Meds Home Med List reviewed: Reviewed Relevent Home Meds Not ordered & why?: atenolol (has carvedilol ordered, see H&P or cardiology consult). - Current meds Current Medication Order Review: Intervened (telepharmacy adjusted start time of metformin due to contrast, I adjusted the timing of the glimepiride so given with breakfast- per med administration time policy.) - Comments Comments/Follow Ups: Watch BP, BG, electrolytes (Na, Cl), H/H, plts and for med changes.
--- NOTE | 2021-01-05 18:20 | PGE_ITS ---
Date of Service Date of service: 01/05/21 Time of Service: 18:20 Assessment and Plan Assessment and plan (1) Atrial fibrillation: Status: Chronic Assessment and plan: New onset atrial fibrillation. He is on carvedilol for rate control and a apixaban for anticoagulation. Further follow-up as an outpatient with Dr. Richmond. He will need an echocardiogram as an outpatient. (2) CHF (congestive heart failure): Status: Chronic Assessment and plan: Most likely related to congestive heart failure because of these new onset atrial fibrillation. He has responded well to parenteral furosemide. We will give him another 24 hours of parenteral furosemide prior to switching him to p.o. Subjective Subjective Interval history since last seen: Patient was admitted overnight with severe congestive heart failure felt to be related to new onset atrial fibrillation. He had a massive diuresis after the 80 mg IV push dose of furosemide. He diuresed over 4 L of fluid and was feeling considerably better by evening. Today he feels much better he wants to go home. He saw Dr. Richmond in cardiology consultation. She felt that he warranted another day of IV diuresis and then going on a home on a p.o. furosemide regimen. He denied any problems with chest pain or shortness of breath. He notes the ankle swelling is much improved. He does not feel palpitations or a racing h eartbeat. Exam Narrative Exam Narrative: On exam he is moderately hard of hearing. This is exacerbated by my mask wearing. He is moving around the room without difficulty and has no apparent shortness of breath. His lung exam by auscultation reveals no significant rale though there is dullness at both bases. His heart sounds are irregularly irregular. His abdomen is quite massively obese but overall nontender. The abdomen is soft. His lower extremities have 2+ edema bilaterally. Objective Last Vital Signs Temp 36.7 C 01/05/21 15:35 Pulse 80 01/05/21 15:35 Resp 20 01/05/21 15:35 BP 152/73 H 01/05/21 15:35 Pulse Ox 93 01/05/21 15:35 Laboratory Results - last 24 hr 01/05/21 01/05/21 01/05/21 05:35 06:40 06:40 WBC Cancelled 5.27 RBC Cancelled 3.69 L Hgb Cancelled 9.8 L Hct Cancelled 30.5 L MCV Cancelled 82.7 MCH Cancelled 26.6 L MCHC Cancelled 32.1 RDW Cancelled 14.8 H Plt Count Cancelled 112 L MPV Cancelled 9.7 Immature Gran % 0.2 Neutrophils % 61.3 Lymphocytes % 19.5 Monocytes % 13.3 Eosinophils % 4.4 Basophils % 1.3 Nucleated RBC % 0 Absolute Neutrophils 3.23 Absolute Lymphocytes 1.03 L Absolute Monocytes 0.70 Absolute Eosinophils 0.23 Absolute Basophils 0.07 Sodium 129 L Potassium 3.9 D Chloride 91 L Carbon Dioxide 30.7 Anion Gap 7.3 BUN 17 Creatinine 1.0 Estimated GFR/1.73 m2 >= 60.00 Glucose 95 Calcium 8.7 Magnesium 2.1 Troponin I 0.06
[2021-01-05] MEDS: Atorvastatin 40 MG TAB 80 MG PO (19:40)
[2021-01-06] VITALS (7 sets, daily range): BP systolic 120–167; BP diastolic 68–82; PULSE 75–91; RESP 17–22; TEMP 36.4–36.9; O2SAT 94–97
[2021-01-06 06:56] LABS: Abs Immature Grans 0.01 10^3/uL (0.0-0.06); Absolute Basophil Count 0.05 10^3/uL (0.0-0.2); Absolute Eosinophil Count 0.42 10^3/uL (0.0-0.7); Absolute Lymphocyte Count 1.35 10^3/uL (1.2-3.4); Absolute Monocyte Count 0.76 10^3/uL (0.1-0.8); Absolute Neutrophil Count 3.19 10^3/uL (1.2-6.7); Basophils % 0.9; Eosinophils % 7.3; HCT 32.8 % (40.0-50.0); HGB 10.3 g/dL (13.5-17.5); Immature Grans % 0.2; Lymphocytes % 23.4; MCH 26.4 pg (27.0-33.0); MCHC 31.4 % (32.0-36.0); MCV 84.1 fL (80-95); MPV 9.6 fL (8.0-11.0); Monocytes % 13.1; Neutrophils % 55.1; Nucleated RBC 0 %; Platelet Count 141 10^3/uL (130-400); RDW 15.2 % (11.8-14.1); RDW-SD 46.5 fL; WBC 5.78 10^3/uL (4.4-10.8)
[2021-01-06 07:18] LABS: Anion Gap 7.3 mmol/L (3-11); BUN 17 mg/dL (7-18); CO2 31.7 mmol/L (21.0-32.0); Calcium 8.8 mg/dL (8.5-10.1); Chloride 93 mmol/L (98-107); Glucose 103 mg/dL (74-106); NT-proBNP 1031 pg/mL (<300); Potassium 3.8 mmol/L (3.5-5.1); Sodium 132 mmol/L (136-145)
[2021-01-06] MEDS: Apixaban 5 MG TAB PO (08:16)
[2021-01-06] MEDS: Aspirin E.C. 81 MG TABEC PO (08:16)
[2021-01-06] MEDS: Omeprazole 20 MG CAPCR PO (08:16)
[2021-01-06] MEDS: Lisinopril 20 MG TAB 40 MG PO (08:17)
[2021-01-06] MEDS: Folic Acid 1 MG TAB PO (08:17)
[2021-01-06] MEDS: Multivitamin TAB 1 TAB PO (08:17)
[2021-01-06] MEDS: Glimepiride 1 MG TAB PO (08:17)
[2021-01-06] MEDS: Acetaminophen 325 MG TAB 650 MG PO (08:17)
[2021-01-06] MEDS: Docusate Sodium 100 MG CAP PO (08:17)
[2021-01-06] MEDS: Carvedilol 3.125 MG TAB PO (08:17)
[2021-01-06] MEDS: Thiamine 100 MG TAB PO (08:17)
[2021-01-06] MEDS: Potassium Chloride 20 MEQ TABCR PO (10:17)
--- NOTE | 2021-01-06 13:56 | DSE_ITS ---
Date of service: 01/06/21 Time of Service: 13:56 DS: Diagnosis Discharge Diagnosis (1) Atrial fibrillation: Status: Chronic Asessment and Plan: patient presented w/ new onset afib and CHF exacerbation. He was put on carvedilol and apixaban and diuresed w/ iv lasix. He diuresed a net negative 8.5 liters w/ improvement in his bilateral leg edema and improvement in his dyspnea. At discharge he was ambulating w/ no chest pain or palpitations and his bilateral leg and pedal edema has improved. His afib rate is less than optimally controlled w/ elevations of his HR into the 110's to 120's w/ activity but quickly comes down into the 80's. However patient is refusing to stay any longer while BB are titrated. He was on atenolol when he presented to the hospital. He previously had been on carvedilol but this had been stopped as outpatient d/t intolerance (?low BP). He will be discharged on bisoprolol 5 mg daily. An outpatient holter will be ordered to follow up stability of his afib. (2) CHF (congestive heart failure): Status: Chronic Asessment and Plan: No echo was done during this admission as no communications engineering technician was available during his hospitalization. Dr. Jud Richmond saw the patient in consultation. See her note for details. Patient was diuresed w/ iv lasix 40 mg bid and lost net negative 8.5 liters. His wt went from 100.9 kg to 89.7 kg. Patient will resume oral lasix at incr. dose of 40 mg bid and potassium supplementation will be added w/ follow up BMP and BNP ordered for next week. His lisinopril will be changed to Entresto 24/26 mg one bid after he has been off his lisinopril for 2 days. His PCP and Dr. Richmond may want to consider addition of a GLP-1 agonist (e.g. Byetta) to both control his DM and his CHF. (3) Type 2 diabetes mellitus: Status: Chronic Asessment and Plan: as above Discharge Plan Disposition Patient Disposition: HOME Condition: Improving Discharge Details Reason For Visit: CHF Exacervation, New onset Atrial Fibrillation Admit Date/Time: 01/04/21 17:27 Admit Provider: Bj Tidwell Attending Provider: Bj Tidwell Primary Care Provider: Yolanda Jordan Hospital Course Hospital Course: see admission H&P for details of his presentation. Patient is a 75-year-old man with a history of coronary artery disease and 2 aortic valve replacements. This had increasing bilateral pedal edema and weight gain along with orthopnea and PND. He was seen by his district adviser in the clinic in [facility] was sent to the emergency department at [facility]. Work-up included chest x-ray labs EKG and a chest CT scan and he was given furosemide 80 mg IV and had a urine output of 4 L. He was noted to be in new onset atrial fibrillation at a controlled rate. He previously had been on Coreg but that has been switched by his PCP back to his previous medication of atenolol. As an outpatient he had been tried on oral diuretics but despite increasing his furosemide to 20 mg twice a day he has had no significant response which necessitated urgent visit by his district adviser. Labs include a CBC that showed a stable chronic anemia hemoglobin 9.8 g hematocrit 30%. Platelet count 112,000. White count is normal at 5200. CMP showed a chronic hyponatremia with a serum sodium of 123 with normal BUN of 16 creatinine 1.0. proBNP was elevated at 1574. Serial troponins were obtained and all came back within normal limits at 0.05 and 0.06. Chest x-ray showed mild pulmonary edema and cardiomegaly. Sternal wires and aortic valve prosthesis were also noted. Chest CT scan showed bilateral pleural effusions and cardiomegaly but no pulmonary embolism. Treatment included continued IV furosemide at 40 mg IV every 12 hours and he was initially treated with enoxaparin but then switched to apixaban. Patient previously been on atenolol 50 mg daily and this was switched to carvedilol 3.125 mg twice daily. However on the day of discharge his atrial fibrillation rate was less than optimally controlled with heart rates in the 110s to 120 with activity which quickly settled down into the 80s with rest. Upon discharge she was switched to bisoprolol 5 mg daily. He will be continued on apixaban 5 mg twice a day for stroke prevention. His furosemide has been increased to 40 mg orally twice a day and low-dose potassium 20 mEq daily has been added. While in the hospital he continued to receive lisinopril 40 mg daily however upon discharge is to be changed to Entresto 24-26 mg 1 p.o. twice daily. This should be titrated every 2 weeks as tolerated. At the time of discharge his weight was down to 89.7 kg from his admission weight of 100.9 kg. Patient is instructed to continue to weigh himself daily and report any sudden change in weight of 2 pounds or more. Patient is to have follow-up labs next week including proBNP and basic metabolic profile. His PCP is district adviser should consider addition of a GLP-1 agonist for control of his heart failure. Outpatient Holter will be ordered to assess stability of his atrial fibrillation and an outpatient echo should be considered. Home Meds and New Rx's Prescriptions: New potassium chloride [Klor-Con M20] 20 mEq Tablet,Er Particles/Crystals 20 meq PO DAILY Qty: 30 RF: 0 Eliquis 5 mg Tablet 5 mg PO BID Qty: 60 RF: 1 bisoprolol fumarate 5 mg tablet 5 mg PO DAILY Qty: 30 RF: 0 Entresto 24-26 mg tablet 1 tab PO BID Qty: 180 RF: 0 furosemide 40 mg tablet 40 mg PO BID Qty: 60 RF: 1 Continued atorvastatin 80 mg tablet 80 mg PO DAILY Qty: 90 RF: 3 metformin 500 mg tablet extended release 24hr 500 mg PO DAILY Qty: 90 RF: 3 omeprazole 20 mg capsule,delayed release(DR/EC) 20 mg PO DAILY Qty: 90 RF: 3 aspirin 81 MG tablet,delayed release (DR/EC) 81 mg PO DAILY RF: 0 acetaminophen [Tylenol Extra Strength] 500 MG tablet 250 mg PO PRN RF: 0 glimepiride 1 mg tablet 1 mg PO DAILY Qty: 90 RF: 2 polyethylene glycol 3350 17 gram/dose powder 17 g PO BID PRN (Reason: constipation) Qty: 850 RF: 5 Discontinued lisinopril 40 mg tablet 40 mg PO DAILY Qty: 90 RF: 3 atenolol 50 mg tablet 50 mg PO DAILY Qty: 90 RF: 2 furosemide 20 mg tablet 20 mg PO BID RF: 0 No Action (DME) lancets [OneTouch Delica Lancets] 33 gauge misc 1 ea Miscellaneous BID Qty: 100 RF: 3 (DME) blood sugar diagnostic Strip 1 ea Miscellaneous DAILY Qty: 100 RF: 3 Discharge Instructions Instructions: Heart Failure (DC), Low-Sodium Diet (DC) Additional Instructions: Stop your lisinopril now and wait until Friday morning to begin the Entresto (sacubitril/valsartan). Resume furosemide (lasix) at an increased dose of 40 mg twice a day. Begin potassium supplementation 20 meq once a day. Monitor your weight daily. Call your PCP if your weight goes up or down by more than 2 lbs. Get follow up labs next week including BMP and BNP to monitor your heart failure and electrolytes and kidney function. If you have worsening shortness of breath or increasing leg/foot swelling or chest pains then return to the emergency room. Your atenolol has been replaced w/ bisoprolol to control both your heart failure and to treat your atrial fibrillation. You have been started on a new blood thinner called Apixaban (Eliquis) to prevent a stroke which can be caused by your atrial fibrillation. You should call both your PCP and Dr. Richmond on Friday to set a follow up appointment within the next week. Ask both Dr. Richmond and your PCP about going on a GLP-1 agonist (example Byetta) to treat both your diabetes and your heart failure. Stand Alone Forms: Nursing Discharge Form Referrals: Jud Richmond MD [ [facility] STAFF PHYSICIAN] - (call the office on Monday 01/08 for follow up in the next week) Yolanda Jordan MD [Primary Care Provider] - (call the office on Monday 01/08 for follow up within the next week) Activity:: Activity as Tolerated Equipment/Supplies:: No Equipment Needed Diet:: Low Sodium Discharge Orders Discharge Orders: Discharge Order (Routine); Ordered 01/06/21 Ordered By: Arnaldo Nugent Other Ambulatory Orders: Basic Metabolic Panel (Routine) Timeframe: 1 Week Facility: [facility] - Location: Laboratory Outpatient Ordered By: Arnaldo Nugent NT-proBNP (Routine) Timeframe: 1 Week Facility: [facility] - Location: Laboratory Outpatient Ordered By: Arnaldo Nugent Holter Monitor (Routine) Timeframe: 1 Week Facility: [facility] - Location: Respiratory Therapy Ordered By: Arnaldo Nugent DS: Summary Time Spent with Patient providing and/or coordinating discharge services: Greater than 30 minutes Status at Discharge Functional status at discharge: independent ambulation Overall status at discharge: patient is back to baseline Mental Status: mental status grossly normal Speech and Movement: speech and movement normal Mood: congruent mood Affect: normal affect Exam Const General: cooperative, healthy appearing, no acute distress and well developed Nutritional Appearance: obese Orientation: alert, awake and oriented x3 Neck Neck: normal visual inspection, full ROM, no lymphadenopathy, trachea midline, supple and no JVD Resp Effort & Inspection: normal respiratory effort and able to speak in complete sentences Auscultation: clear to auscultation bilaterally Cardio Jugular venous pressure: no JVD Palpation: normal PMI Rate: regular rate Rhythm: abnormal rhythm irregularly irregular GI Inspection: normal to inspection Palpation: soft Percussion: normal to percussion Auscultation: normal bowel sounds Extrem General: normal to inspection, full ROM, capillary refill normal and edema Laterality: bilateral (1+ bilateral pedal/ankle and lower leg edema) Psych Appearance: grossly normal Mental Status: mental status grossly normal Speech and Movement: speech and movement normal Mood: congruent mood Affect: normal affect Attitude: cooperative Thought Process: normal Thought Content: normal Insight: insight good Judgment: judgment good DS: Data Vitals/I&O Vitals and I&O: Vital Signs Temperature 36.9 C 01/06/21 11:21 Temperature Source Tympanic 01/06/21 11:21 Pulse 79 01/06/21 11:21 Pulse Rhythm Irregular 01/06/21 07:02 Pulse 82 01/04/21 15:50 Respiratory Rate 17 01/06/21 11:21 Respiratory Effort Non-Labored 01/06/21 07:02 Respiratory Depth Normal 01/06/21 07:02 Respiratory Pattern Normal 01/06/21 07:02 Blood Pressure 121/73 01/06/21 11:21 Blood Pressure Mean 116 01/04/21 15:46 Blood Pressure Position Supine 01/04/21 12:19 Pulse Oximetry 95 01/06/21 11:21 Oxygen Delivery Method Room Air 01/06/21 11:21 Oxygen Flow Rate 0 01/06/21 11:21 Pain Level 0 01/06/21 11:58 Comment 01/06/21 11:58 Intake & Output 01/05/21 01/06/21 01/06/21 23:59 11:59 23:59 Intake Total 440 / 1420 790 / 1030 240 / 1030 Output Total 2900 / 4200 1999 Balance -2460 / -2780 -1210 / -970 240 / -970 Weight 89.7 kg Intake: IV 20 / 40 Oral 420 / 1380 790 / 1030 240 / 1030 Output: Urine 2900 / 4200 1999 Other: Urine Color Straw Straw Urine Appearance Clear Clear Urine Odor Normal Comment Void x1 in the toilet. Voiding Methods Toilet Toilet Data Completed and Pending Labs on day of discharge: Labs from last 24 hours 01/06/21 01/06/21 06:29 06:29 WBC 5.78 RBC 3.90 L Hgb 10.3 L Hct 32.8 L MCV 84.1 MCH 26.4 L MCHC 31.4 L RDW 15.2 H Plt Count 141 MPV 9.6 Immature Gran % 0.2 Neutrophils % 55.1 Lymphocytes % 23.4 Monocytes % 13.1 Eosinophils % 7.3 Basophils % 0.9 Nucleated RBC % 0 Absolute Neutrophils 3.19 Absolute Lymphocytes 1.35 Absolute Monocytes 0.76 Absolute Eosinophils 0.42 Absolute Basophils 0.05 Sodium 132 L Potassium 3.8 Chloride 93 L Carbon Dioxide 31.7 Anion Gap 7.3 BUN 17 Creatinine 1.0 Estimated GFR/1.73 m2 >= 60.00 Glucose 103 Calcium 8.8 NT-Pro-B Natriuret Pep 1031 H [facility] Medical History Acute GI bleeding (04/30/14) Anemia Aortic valve stenosis (08/20/11) severe critical peak gradient 81/50 mm of mercury Cardiac cath [facility] 05/05/14 s/p tissue AVR 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 Father No problems noted. Sister No problems noted. Sister No problems noted. Brother No problems noted. Social History Smoking/Tobacco Use Status: Former Tobacco Use Tobacco: How many years used: 20 Smoking risk assessment performed?: Yes Alcohol Intake: current Alcohol Intake frequency: 3 or more drinks per day Alc ohol type: beer Drug use: Never Substance use type: does not use Adopted: No Household members: none Housing: house Number of Children: 2 current occupation: Worked in [employer] at [employer] Current gender identity: male What is your relationship status?: Panel score (0-1 are the most socially isolated patients): 0 What type of physical activity do you participate in: none Seatbelt use: always Drive intox or ride w/intox 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
== END 2021-01-06 14:48 | disposition home or self-care (01) | DRG 293 ==
LOC: ER 18:19 → MS 19:18
PROVIDERS: Family Medicine; Physician Assistant; Admitting Provider Family Medicine; Emergency Provider Registered Nurse Emergency; PCP Internal Medicine; Visit Provider Family Medicine
DX: I50.9 Heart failure, unspecified (principal); I48.91 Unspecified atrial fibrillation; I25.10 Atherosclerotic heart disease of native coronary artery without angina pectoris; Z95.1 Presence of aortocoronary bypass graft; Z95.2 Presence of prosthetic heart valve; I27.20 Pulmonary hypertension, unspecified; D64.9 Anemia, unspecified; E11.9 Type 2 diabetes mellitus without complications; Z20.822 Contact with and (suspected) exposure to COVID-19
CPT/HCPCS: 36415; 71275; 80048; 80053; 85027; 87635; 93005; 96372; 96374; 99291; 71045; 83735; 83880; 84484; 85025; 85049; 85379; 85610; 85730; 93010; 99223; 99232; 99239; J1650; J1940

== ENCOUNTER → 2021-01-05 07:41 | Outpatient (BNVA) | payer MEDICARE, OTHER, SELFPAY | PROVIDERS: PCP Internal Medicine; Referring Provider Internal Medicine; Visit Provider Internal Medicine Cardiovascular Disease | DX: R69 Illness, unspecified (principal) ==

== ENCOUNTER 2021-01-08 08:29 | Outpatient (RCR) | payer MEDICARE, OTHER, SELFPAY ==
--- NOTE | 2021-01-08 13:30 | HOLTER_ITS ---
APPROVED REPORT Conclusion There is a 48-hour monitor ordered for indication of atrial fibrillation. The patient was in atrial fibrillation for the entirety of the recording. The average heart rate was 69 bpm. The patient had no episodes of ventricular tachycardia and rare PVCs. There were no pauses greater than 3 seconds. There was 1 patient recorded event which was associated with atrial fibrillation.
== END 2021-01-27 23:59 | disposition home or self-care (01) ==
LOC: RT 08:29
PROVIDERS: PCP Internal Medicine; Visit Provider Internal Medicine
DX: I48.91 Unspecified atrial fibrillation (principal); I49.3 Ventricular premature depolarization
CPT/HCPCS: 93227; 93225; 93226

== ENCOUNTER 2021-02-01 04:49 | Outpatient (CLI) | payer MEDICARE, OTHER, SELFPAY ==
[2021-02-01 14:54] LABS: Anion Gap 8.8 mmol/L (3-11); BUN 20 mg/dL (7-18); CO2 26.2 mmol/L (21.0-32.0); CREATININE 0.9 mg/dL (0.70-1.30); Calcium 8.5 mg/dL (8.5-10.1); Chloride 94 mmol/L (98-107); Glucose 153 mg/dL (74-106); Potassium 4.4 mmol/L (3.5-5.1); Sodium 129 mmol/L (136-145)
[2021-02-01 15:02] LABS: Calculated LDL 89 mg/dL (<100); Cholesterol 151 mg/dL (<200); HDL Cholesterol 37 mg/dL (40-60); Triglyceride 129 mg/dL (<150)
[2021-02-01 15:25] LABS: NT-proBNP 901 pg/mL (<300)
== END 2021-02-01 04:50 | disposition home or self-care (01) ==
LOC: LBO 04:50
PROVIDERS: Internal Medicine; PCP Internal Medicine; Visit Provider Internal Medicine
DX: E78.00 Pure hypercholesterolemia, unspecified (principal); I50.9 Heart failure, unspecified; Z51.81 Encounter for therapeutic drug level monitoring
CPT/HCPCS: 36415; 80048; 80061; 82043; 82570; 83880

== ENCOUNTER 2021-02-02 13:51 | Outpatient (REF) | payer MEDICARE, OTHER, SELFPAY ==
[2021-02-02 15:25] LABS: COMMENT (LAB VIEW ONLY) 17.27 mg/dL
[2021-02-02 15:26] LABS: Microalb ug/mg Crea 818.2 ug/mg Cr
== END 2021-02-02 13:52 | disposition home or self-care (01) ==
LOC: LBN 13:51
PROVIDERS: PCP Internal Medicine; Visit Provider Internal Medicine
DX: E11.9 Type 2 diabetes mellitus without complications (principal)
CPT/HCPCS: 82043; 82570

== ENCOUNTER 2021-06-04 03:04 | Outpatient (CLI) | payer MEDICARE, OTHER, SELFPAY ==
[2021-06-04 11:55] LABS: Anion Gap 7.8 mmol/L (3-11); BUN 20 mg/dL (7-18); CO2 27.2 mmol/L (21.0-32.0); Calcium 8.7 mg/dL (8.5-10.1); Chloride 94 mmol/L (98-107); Glucose 106 mg/dL (74-106); Potassium 4.7 mmol/L (3.5-5.1); Sodium 129 mmol/L (136-145)
== END 2021-06-04 03:05 | disposition home or self-care (01) ==
LOC: LBO 03:04
PROVIDERS: PCP Internal Medicine; Visit Provider Internal Medicine
DX: I48.19 Other persistent atrial fibrillation; I50.40 Unspecified combined systolic (congestive) and diastolic (congestive) heart failure
CPT/HCPCS: 36415; 80048

== ENCOUNTER 2021-07-06 09:15 | Outpatient (CLI) | payer MEDICARE, OTHER, SELFPAY ==
--- NOTE | 2021-07-06 09:15 | RT.EKG_ITS ---
APPROVED REPORT Exam: Resting ECG Reason for Exam: afib Patient Location: O HR:68 bpm ECG Measurements Heart Rate 68 AXIS NJ [id number] P [id number] QRSd 157 QRS -49 QT 438 T 38 QTc 466 Conclusion Atrial fibrillation...? atrial activity RBBB and LAFB...QRSd >120mS, axis(-40,240)
== END 2021-07-06 09:16 | disposition home or self-care (01) ==
LOC: DI.CARD 09:16
PROVIDERS: PCP Internal Medicine; Visit Provider Internal Medicine Cardiovascular Disease
DX: I25.10 Atherosclerotic heart disease of native coronary artery without angina pectoris (principal); I48.19 Other persistent atrial fibrillation; I45.10 Unspecified right bundle-branch block; I44.4 Left anterior fascicular block
CPT/HCPCS: 93010

== ENCOUNTER → 2021-07-06 13:48 | Outpatient (BNVA) | payer MEDICARE, OTHER, SELFPAY | PROVIDERS: PCP Internal Medicine; Referring Provider Internal Medicine; Visit Provider Internal Medicine Cardiovascular Disease | DX: I25.10 Atherosclerotic heart disease of native coronary artery without angina pectoris (principal); I48.19 Other persistent atrial fibrillation; I10 Essential (primary) hypertension; Z95.2 Presence of prosthetic heart valve; Z79.01 Long term (current) use of anticoagulants | CPT/HCPCS: 99214 ==

== ENCOUNTER 2021-08-06 02:06 | Outpatient (CLI) | payer MEDICARE, OTHER, SELFPAY ==
--- NOTE | 2021-08-06 13:05 | DI.RAD_ITS ---
Exam(s) XR CHEST 2V PA LATERAL EXAM: XR CHEST 2V PA LATERAL CLINICAL HISTORY: SOB, Heart failure,I50.40. TECHNIQUE: 2D digital imaging was performed. COMPARISON: CR XR PORTABLE CHEST AP from 01/04/2021 FINDINGS: Again noted are sternotomy wires, cardiomegaly, and a prosthetic aortic valve. Interstitial pulmonary edema and moderate size right pleural effusion noted IMPRESSION: Interstitial pulmonary edema and small-moderate size right pleural effusion.Recommend nonportable PA and lateral views when clinically possible. DATA REPOSITORY: RADIATION DOSE DELIVERED:
--- NOTE | 2021-08-06 13:09 | DI.US_ITS ---
APPROVED REPORT EXAM: Comprehensive 2D, Doppler, and color-flow Echocardiogram Patient Location: Out-Patient Bridge Painter: Odette De La Torre RDCS (AE) Indications: Bioprosthetic aortic valve, SON, Heart failure, Atrial Fibrillation Other Information Study Quality: Adequate Conclusion Normal left ventricular wall thickness and chamber size. Estimated ejection fraction is 55%. There is paradoxic septal motion The right ventricle is mildly to moderately dilated. Right ventricular systolic function is normal. With paradoxic LV septal motion this suggests RV volume overload The left atrium is severely dilated. The right atrium is moderately dilated There is an aortic valve bioprosthesis with normal function Severe mitral annular calcification. Moderate mitral regurgitation. Mild mitral stenosis Normal tricuspid valve with moderate regurgitation. Estimated right ventricular systolic pressure is 43 mmHg Normal pulmonic valve with mild to moderate regurgitation Dilated ascending aorta measuring 4.0 cm Wall motion Left Ventricle The left ventricle is normal size. The left ventricular systolic function is normal. The left ventric ular ejection fraction is within the normal range. There is normal left ventricular wall thickness. T here is normal LV segmental wall motion. Paradoxical septal motion consistent with right ventricular volume overload. There is no ventricular septal defect visualized. LVEF is 55%. Right Ventricle Right ventricle is mild to moderately dilated. The right ventricular systolic function is normal. The RVSP is 43.4 mmHg. Atria Left atrium is severely dilated. Right atrium is moderately dilated. The interatrial septum is intact with no evidence for an atrial septal defect. Aortic Valve Aortic valve is trileaflet. Bioprosthetic aortic valve is present. Mitral Valve Severe mitral annular calcification. Mild mitral stenosis. Moderate mitral regurgitation. Tricuspid Valve The tricuspid valve is normal in structure. There is no tricuspid valve stenosis. Moderate tricuspid regurgitation. Pulmonic Valve The pulmonary valve is normal in structure. There is no pulmonic valvular stenosis. Mild to moderate pulmonic regurgitation. Great Vessels The aortic root is normal in size. The ascending aorta is moderately dilated.4.0 cm The IVC collapses <50% with inspiration. Pericardium There is no pericardial effusion. 2D Dimensions IVSD d PLAX 1.25 cm M: 0.6-1.2 LV Vol A2C d MOD 135.9 mL LVPW d PLAX 1.22 cm M: 0.6 - 1.2 LV Vol A4C d MOD 113.4 mL LVID d PLAX 4.67 cm M: 4.2 - 5.8 LA vol/ BSA A2C s A-L 87.6 mL/m2 LVDs 3.25 cm M: 2.5 - 4.0 LA vol/ BSA A4C s A-L 63.8 mL/m2 Ao Root d 2.43 cm M: 3.1 - 3.7 LA Vol/ BSA Biplane s A-L 76.4 mL/m2 RA Area A4C 25.09 cm2 LA Area A4C s MOD 33.31 cm2 RA Vol/ BSA A4C s A-L 35.8 mL/m2 LA Area A2C s MOD 39.89 cm2 Ao Asc Diam d 4.00 cm M: 2.6 - 3.4 LV EF A4C MOD 56.6 % LV EF Teichholz 57.3 % LV EF A2C MOD 55.4 % LVEF (Zuñiga's) 55.99 % M: 52 - 72 LV EF Biplane MOD 56.0 % LV Volume 96.09 mL M: 62 - 150 SV 71.09 mL LV Volume Index 49.53 mL/m2 M: 34 - 74 SV Index 36.50 mL/m2 LV Vol Biplane MOD 127.0 mL FS 30.05 % M-Mode TAPSE 1.68 cm (M/F) >1.7 LV Diastology MV E' medial 0.079 (>0.07 m/s) MV E Vmax 1.90 (0.4-1.3 m/s) LV E/e MED 23.95 (<14) MV E' lateral 0.122 (>0.1 m/s) LV E/e LAT 15.55 (<14) MV E/E' medial 24.00 MV E/E' lateral 15.55 Aortic Valve LVOT Area 3.09 cm2 AoV Area Vmax 2.08 cm2 LVOT Vmax 1.36 m/s AoV Area/ BSA (Vmax) 1.07 cm2/m2 LVOT Mean Geovanni. 0.87 m/s KARSTEN Mean Geovanni. 1.84 cm2 LVOT Peak Grad 7.4 mmHg KARSTEN Mean Geovanni. Index 0.95 cm2/m2 LVOT Mean Grad 3.6 mmHg LVOT VTI 0.286 m LVOT Diam s 1.95 cm AoV Vmax 2.02 m/s Velocity Ratio 0.67 AoV Mean Geovanni. 1.46 m/s AoV Peak Grad 16.3 mmHg LVOT SV 88.13 mL AoV Mean Grad 9.4 mmHg AoV VTI 0.405 m AoV Area VTI 2.17 cm2 AoV Area/ BSA (VTI) 1.12 cm/m2 Mitral Valve MV DT 289 (160-240 msec) MR Vmax 5.50 m/s MV PHT 84 msec MR VTI 1.701 m MV Area PHT 2.62 cm2 MR Peak Grad 121.0 mmHg MV VTI 0.635 m MR Mean Grad 90.4 mmHg MV VTI Annulus 0.670 m MR PISA Radius 0.79 cm MV Area VTI 1.47 (4.0-6.0 cm2) MR EROA 0.25 cm2 MR Aliasing Velocity 0.35 m/s MR PISA 3.93 cm2 Pulmonary Valve PV Vmax 0.87 (0.5-1.5 m/s) RVOT Peak Gr. 1.66 mmHg PV Peak Grad 3.0 mmHg RVOT Mean Gr. 0.65 mmHg PV Mean Grad 1.5 mmHg RVOT VTI 0.140 m PV VTI 0.195 m RVOT Vmax 0.64 m/s Tricuspid Valve TR Peak Grad 35.3 mmHg TR Vmax 2.97 m/s RA Pressure 8.00 mmHg RVSP (TR) 43.4 mmHg
== END 2021-08-06 02:26 ==
PROVIDERS: PCP Internal Medicine; Visit Provider Internal Medicine Cardiovascular Disease
DX: I10 Essential (primary) hypertension (principal); I48.19 Other persistent atrial fibrillation; I50.40 Unspecified combined systolic (congestive) and diastolic (congestive) heart failure; I34.0 Nonrheumatic mitral (valve) insufficiency
CPT/HCPCS: 93306; 71046

== ENCOUNTER → 2021-09-04 13:12 | Outpatient (BNVA) | payer MEDICARE, OTHER, SELFPAY | PROVIDERS: PCP Internal Medicine; Referring Provider Internal Medicine; Visit Provider Internal Medicine Cardiovascular Disease | DX: R06.02 Shortness of breath (principal); I48.19 Other persistent atrial fibrillation; I50.40 Unspecified combined systolic (congestive) and diastolic (congestive) heart failure; I25.10 Atherosclerotic heart disease of native coronary artery without angina pectoris | CPT/HCPCS: 99214; 99213 ==

== ENCOUNTER → 2021-12-03 13:02 | Outpatient (BNVA) | payer MEDICARE, OTHER, SELFPAY | PROVIDERS: PCP Internal Medicine; Referring Provider Internal Medicine; Visit Provider Internal Medicine Cardiovascular Disease | DX: I48.19 Other persistent atrial fibrillation (principal); I50.40 Unspecified combined systolic (congestive) and diastolic (congestive) heart failure; I25.10 Atherosclerotic heart disease of native coronary artery without angina pectoris; Z95.2 Presence of prosthetic heart valve | CPT/HCPCS: 99214; 99213 ==

== ENCOUNTER → 2022-04-02 13:29 | Outpatient (BNVA) | payer MEDICARE, OTHER, SELFPAY | PROVIDERS: PCP Internal Medicine; Referring Provider Internal Medicine; Visit Provider Internal Medicine Cardiovascular Disease | DX: Z79.01 Long term (current) use of anticoagulants (principal); I48.19 Other persistent atrial fibrillation; I25.10 Atherosclerotic heart disease of native coronary artery without angina pectoris; I50.40 Unspecified combined systolic (congestive) and diastolic (congestive) heart failure; Z95.2 Presence of prosthetic heart valve | CPT/HCPCS: 99214; 99213 ==

== ENCOUNTER 2022-07-29 02:57 | Outpatient (CLI) | payer MEDICARE, OTHER, SELFPAY ==
[2022-07-29 09:53] LABS: HCT 35.6 % (40.0-50.0); HGB 12.1 g/dL (13.5-17.5); MCH 31.6 pg (27.0-33.0); MCV 93 fL (80-95); MPV 11.2 fL (8.0-11.0); RBC 3.83 10^6/uL (4.36-5.78); RDW 13.3 % (11.8-14.1); RDW-SD 45.1 fL; WBC 4.52 10^3/uL (4.4-10.8)
[2022-07-29 10:18] LABS: Platelet Count 69 10^3/uL (130-400)
[2022-07-29 10:26] LABS: Anion Gap 8.5 mmol/L (3-11); BUN 29 mg/dL (7-18); CO2 28.5 mmol/L (21.0-32.0); CREATININE 1.1 mg/dL (0.70-1.30); Calcium 9.5 mg/dL (8.5-10.1); Calculated LDL 76 mg/dL (<100); Chloride 97 mmol/L (98-107); Cholesterol 128 mg/dL (<200); Estimated GFR 68.71 (mL/min/1.73m2); Glucose 130 mg/dL (74-106); HDL Cholesterol 41 mg/dL (40-60); Potassium 4.8 mmol/L (3.5-5.1); Sodium 134 mmol/L (136-145); Triglyceride 58 mg/dL (<150)
[2022-07-29 10:33] LABS: COMMENT (LAB VIEW ONLY) 73.67 mg/dL
[2022-07-29 10:34] LABS: Hemoglobin A1C 6.1 % (<5.7)
[2022-07-29 10:38] LABS: Microalb ug/mg Crea 166.1 ug/mg Cr
== END 2022-07-29 02:58 | disposition home or self-care (01) ==
LOC: LBO 02:57
PROVIDERS: PCP Nurse Practitioner Adult Health; Visit Provider Nurse Practitioner Adult Health
DX: E11.319 Type 2 diabetes mellitus with unspecified diabetic retinopathy without macular edema (principal); E78.2 Mixed hyperlipidemia; I10 Essential (primary) hypertension; I50.40 Unspecified combined systolic (congestive) and diastolic (congestive) heart failure; K21.9 Gastro-esophageal reflux disease without esophagitis; D64.9 Anemia, unspecified
CPT/HCPCS: 36415; 80048; 80061; 85027; 82043; 82570; 83036

== ENCOUNTER → 2022-10-07 14:14 | Outpatient (BNVA) | payer MEDICARE, OTHER, SELFPAY | PROVIDERS: PCP Nurse Practitioner Adult Health; Visit Provider Internal Medicine Cardiovascular Disease | DX: I48.91 Unspecified atrial fibrillation (principal); Z79.01 Long term (current) use of anticoagulants; I25.10 Atherosclerotic heart disease of native coronary artery without angina pectoris; I50.40 Unspecified combined systolic (congestive) and diastolic (congestive) heart failure; Z95.2 Presence of prosthetic heart valve | CPT/HCPCS: 99214 ==

== ENCOUNTER 2022-11-21 03:01 | Outpatient (CLI) | payer MEDICARE, OTHER, SELFPAY ==
[2022-11-21 09:18] LABS: Abs Immature Grans 0.01 10^3/uL (0.0-0.06); Absolute Basophil Count 0.05 10^3/uL (0.0-0.2); Absolute Eosinophil Count 0.29 10^3/uL (0.0-0.7); Absolute Lymphocyte Count 1.02 10^3/uL (1.2-3.4); Absolute Monocyte Count 0.52 10^3/uL (0.1-0.8); Absolute Neutrophil Count 2.18 10^3/uL (1.2-6.7); Basophils % 1.2; Eosinophils % 7.1; HCT 38.5 % (40.0-50.0); HGB 13.2 g/dL (13.5-17.5); Immature Grans % 0.2; Lymphocytes % 25.1; MCHC 34.3 % (32.0-36.0); MCV 93 fL (80-95); MPV 10.6 fL (8.0-11.0); Monocytes % 12.8; Neutrophils % 53.6; RBC 4.13 10^6/uL (4.36-5.78); RDW 12.6 % (11.8-14.1); RDW-SD 43.7 fL; Reticulocyte 1.6 % (0.5-2.4); WBC 4.07 10^3/uL (4.4-10.8)
[2022-11-21 09:43] LABS: Diff Comment PLT Morph Reviewed; Platelet Count 93 10^3/uL (130-400); RBC Morphology Normal
[2022-11-21 10:06] LABS: Anion Gap 9.7 mmol/L (3-11); BUN 30 mg/dL (7-18); CO2 28.3 mmol/L (21.0-32.0); CREATININE 1.3 mg/dL (0.70-1.30); Calcium 9.2 mg/dL (8.5-10.1); Chloride 96 mmol/L (98-107); Estimated GFR 56.23 (mL/min/1.73m2); Ferritin 76 ng/mL (26-388); Glucose 170 mg/dL (74-106); Potassium 4.6 mmol/L (3.5-5.1); Sodium 134 mmol/L (136-145); Vitamin B12 362 pg/mL (193-986)
[2022-11-21 10:14] LABS: Iron 97 ug/dL (65-175); Total Iron Binding Capacity 342 ug/dL (250-450); Transferrin Sat 28 % (20-55)
[2022-11-21 10:34] LABS: Hemoglobin A1C 5.7 % (<5.7)
== END 2022-11-21 03:02 | disposition home or self-care (01) ==
LOC: LBO 03:01
PROVIDERS: PCP Nurse Practitioner Adult Health; Visit Provider Nurse Practitioner Adult Health
DX: D64.9 Anemia, unspecified (principal); E11.319 Type 2 diabetes mellitus with unspecified diabetic retinopathy without macular edema; I25.10 Atherosclerotic heart disease of native coronary artery without angina pectoris
CPT/HCPCS: 36415; 80048; 82607; 82728; 82746; 83036; 83540; 83550; 85025; 85045

== ENCOUNTER 2023-01-02 02:16 | Outpatient (CLI) | payer MEDICARE, OTHER, SELFPAY ==
--- NOTE | 2023-01-02 14:22 | DI.US_ITS ---
APPROVED REPORT EXAM: Comprehensive 2D, Doppler, and color-flow Echocardiogram Patient Location: Out-Patient [employer] Operator: Odette De La Torre RDCS (AE) Indications: Diastolic heart failure, Bioprosthetic AVR, A Fib, Mitral stenosis Other Information Study Quality: Adequate Conclusion Normal left ventricular wall thickness and chamber size. Ejection fraction is 60%. Wall motion is n ormal Right ventricle is moderately dilated with normal systolic function Both atria are moderately dilated There is a bioprosthetic aortic valve. Mean gradient is 10 mmHg. There is no aortic regurgitation. Mitral annular calcification, thickened mitral leaflets. There is mild to moderate mitral stenosis. There is moderate central mitral regurgitation Normal tricuspid valve with moderate regurgitation. Estimated right ventricular systolic pressure is 38 mmHg Dilated ascending aorta measuring 3.89 cm Wall motion Left Ventricle The left ventricle is normal size. The left ventricular systolic function is normal. The left ventric ular ejection fraction is within the normal range. There is normal left ventricular wall thickness. T here is normal LV segmental wall motion. There is no ventricular septal defect visualized. LVEF is 60 %. Right Ventricle Right ventricle is moderately dilated. Right ventricular systolic function is grossly normal. Atria Left atrium is moderately dilated. Right atrium is moderately dilated. The interatrial septum is inta ct with no evidence for an atrial septal defect. Aortic Valve Bioprosthetic aortic vavle Mean gradient is 10 mmHg No aortic regurgitation is present. Mitral Valve Severe mitral annular calcification. Mitral valve leaflets are thickened. Mild to moderate mitral yeyo nosis. Moderate mitral regurgitation. Tricuspid Valve The tricuspid valve is normal in structure. There is no tricuspid valve stenosis. Moderate tricuspid regurgitation. Pulmonic Valve The pulmonary valve is normal in structure. There is no pulmonic valvular stenosis. Trace to mild pul faith regurgitation. Great Vessels The aortic root is normal in size. The ascending aorta is mildly dilated. Aortic arch is normal in ca liber. The IVC collapses <50% with inspiration. Pericardium There is no pericardial effusion. 2D Dimensions IVSD d PLAX 1.18 cm M: 0.6-1.2 LV Vol A2C d MOD 120.4 mL LVPW d PLAX 1.18 cm M: 0.6 - 1.2 LV Vol A4C d MOD 99.8 mL LVID d PLAX 4.67 cm M: 4.2 - 5.8 LA vol/ BSA A2C s A-L 70.3 mL/m2 LVDs 3.10 cm M: 2.5 - 4.0 LA vol/ BSA A4C s A-L 61.6 mL/m2 Ao Root d 2.41 cm M: 3.1 - 3.7 LA Vol/ BSA Biplane s A-L 67.4 mL/m2 RA Area A4C 29.13 cm2 LA Area A4C s MOD 33.61 cm2 RA Vol/ BSA A4C s A-L 53.4 mL/m2 LA Area A2C s MOD 35.05 cm2 Ao Asc Diam d 3.89 cm M: 2.6 - 3.4 LV EF A4C MOD 60.1 % LV EF Teichholz 61.1 % LV EF A2C MOD 58.9 % LVEF (Zuñiga's) 58.97 % M: 52 - 72 LV EF Biplane MOD 59.0 % LV Volume 81.83 mL M: 62 - 150 SV 64.65 mL LV Volume Index 40.31 mL/m2 M: 34 - 74 SV Index 31.86 mL/m2 LV Vol Biplane MOD 109.6 mL FS 32.65 % M-Mode TAPSE 1.61 cm (M/F) >1.7 LV Diastology MV E' medial 0.095 (>0.07 m/s) MV E Vmax 1.74 (0.4-1.3 m/s) LV E/e MED 18.35 (<14) MV E' lateral 0.122 (>0.1 m/s) LV E/e LAT 14.20 (<14) MV E/E' medial 18.35 MV E/E' lateral 14.24 Aortic Valve LVOT Area 3.05 cm2 AoV Area Vmax 1.74 cm2 LVOT Vmax 1.24 m/s AoV Area/ BSA (Vmax) 0.86 cm2/m2 LVOT Mean Geovanni. 1.01 m/s KARSTEN Mean Geovanni. 2.08 cm2 LVOT Peak Grad 6.2 mmHg KARSTEN Mean Geovanni. Index 1.02 cm2/m2 LVOT Mean Grad 4.2 mmHg LVOT VTI 0.288 m LVOT Diam s 1.95 cm AoV Vmax 2.18 m/s Velocity Ratio 0.57 AoV Mean Geovanni. 1.48 m/s AoV Peak Grad 19.0 mmHg LVOT SV 87.76 mL AoV Mean Grad 10.3 mmHg AoV VTI 0.461 m AoV Area VTI 1.90 cm2 AoV Area/ BSA (VTI) 0.94 cm/m2 Mitral Valve MV DT 291 (160-240 msec) MR Vmax 5.67 m/s MV PHT 84 msec MR VTI 1.529 m MV Area PHT 2.61 cm2 MR Peak Grad 128.6 mmHg MV VTI 0.511 m MR Mean Grad 96.3 mmHg MV VTI Annulus 0.522 m MV Area VTI 1.75 (4.0-6.0 cm2) Pulmonary Valve PV Vmax 0.93 (0.5-1.5 m/s) RVOT Peak Gr. 1.99 mmHg PV Peak Grad 3.5 mmHg RVOT Mean Gr. 1.10 mmHg PV Mean Grad 2.1 mmHg RVOT VTI 0.150 m PV VTI 0.187 m RVOT Vmax 0.71 m/s Tricuspid Valve TR Peak Grad 54.0 mmHg TR Vmax 3.67 m/s RA Pressure 8.00 mmHg RVSP (TR) 62.0 mmHg
== END 2023-01-02 02:36 ==
LOC: DI 02:16
PROVIDERS: PCP Nurse Practitioner Adult Health; Visit Provider Internal Medicine Cardiovascular Disease
DX: I48.19 Other persistent atrial fibrillation (principal)
CPT/HCPCS: 93306

== ENCOUNTER → 2023-04-14 13:26 | Outpatient (BNVA) | payer MEDICARE, OTHER, SELFPAY | PROVIDERS: PCP Nurse Practitioner Adult Health; Referring Provider Nurse Practitioner Adult Health; Visit Provider Internal Medicine Cardiovascular Disease | DX: I25.10 Atherosclerotic heart disease of native coronary artery without angina pectoris (principal); I50.40 Unspecified combined systolic (congestive) and diastolic (congestive) heart failure; I48.19 Other persistent atrial fibrillation; Z95.2 Presence of prosthetic heart valve | CPT/HCPCS: 99213 ==

== ENCOUNTER → 2023-06-19 08:46 | Outpatient (BNVA) | payer MEDICARE, OTHER, SELFPAY | PROVIDERS: PCP Nurse Practitioner Adult Health; Referring Provider Nurse Practitioner Adult Health; Visit Provider Podiatrist | DX: E11.51 Type 2 diabetes mellitus with diabetic peripheral angiopathy without gangrene (principal); M79.674 Pain in right toe(s); M79.675 Pain in left toe(s); L60.3 Nail dystrophy; M20.41 Other hammer toe(s) (acquired), right foot; M20.42 Other hammer toe(s) (acquired), left foot; L84 Corns and callosities; R09.89 Other specified symptoms and signs involving the circulatory and respiratory systems; L65.9 Nonscarring hair loss, unspecified; R60.0 Localized edema | CPT/HCPCS: 11721 ==

== ENCOUNTER → 2023-10-15 10:19 | Outpatient (BNVA) | payer MEDICARE, OTHER, SELFPAY | PROVIDERS: PCP Nurse Practitioner Adult Health; Referring Provider Nurse Practitioner Adult Health; Visit Provider Podiatrist | DX: E11.51 Type 2 diabetes mellitus with diabetic peripheral angiopathy without gangrene (principal); M79.674 Pain in right toe(s); M79.675 Pain in left toe(s); L60.3 Nail dystrophy; M20.42 Other hammer toe(s) (acquired), left foot; M20.41 Other hammer toe(s) (acquired), right foot; S90.811D Abrasion, right foot, subsequent encounter; X58.XXXD Exposure to other specified factors, subsequent encounter | CPT/HCPCS: 11719 ==

== ENCOUNTER 2023-10-20 08:53 | Outpatient (CLI) | payer MEDICARE, OTHER, SELFPAY ==
--- NOTE | 2023-10-20 08:45 | RT.EKG_ITS ---
APPROVED REPORT Exam: Resting ECG Reason for Exam: afib Patient Location: O HR:71 bpm ECG Measurements Heart Rate 71 AXIS MA [id number] P [id number] QRSd 159 QRS -56 QT 425 T 26 QTc 462 Conclusion Atrial fibrillation...? atrial activity RBBB and LAFB...QRSd >120mS, axis(-40,240)
== END 2023-10-20 08:54 | disposition home or self-care (01) ==
LOC: DI.CARD 08:53
PROVIDERS: PCP Nurse Practitioner Adult Health; Visit Provider Internal Medicine Cardiovascular Disease
DX: I25.10 Atherosclerotic heart disease of native coronary artery without angina pectoris (principal); I48.19 Other persistent atrial fibrillation
CPT/HCPCS: 93010

== ENCOUNTER → 2023-10-20 13:22 | Outpatient (BNVA) | payer MEDICARE, OTHER, SELFPAY | PROVIDERS: PCP Nurse Practitioner Adult Health; Referring Provider Nurse Practitioner Adult Health; Visit Provider Internal Medicine Cardiovascular Disease | DX: I45.10 Unspecified right bundle-branch block (principal); I44.4 Left anterior fascicular block; I48.19 Other persistent atrial fibrillation; I25.10 Atherosclerotic heart disease of native coronary artery without angina pectoris; I50.40 Unspecified combined systolic (congestive) and diastolic (congestive) heart failure; Z95.2 Presence of prosthetic heart valve | CPT/HCPCS: 93005; 99213 ==

== ENCOUNTER 2023-11-21 02:28 | Outpatient (CLI) | payer MEDICARE, OTHER, SELFPAY ==
[2023-11-21 08:46] LABS: HCT 37.6 % (40.0-50.0); HGB 12.9 g/dL (13.5-17.5); MCH 32.8 pg (27.0-33.0); MCHC 34.3 % (32.0-36.0); MCV 96 fL (80-95); MPV 10.3 fL (8.0-11.0); Platelet Count 100 10^3/uL (130-400); RBC 3.93 10^6/uL (4.36-5.78); RDW 12.7 % (11.8-14.1); RDW-SD 45.1 fL; WBC 4.11 10^3/uL (4.4-10.8)
[2023-11-21 08:58] LABS: Anion Gap 4.4 mmol/L (3-11); BUN 30 mg/dL (7-18); CO2 27.6 mmol/L (21.0-32.0); CREATININE 1.2 mg/dL (0.70-1.30); Calcium 9.5 mg/dL (8.5-10.1); Calculated LDL 109 mg/dL (<100); Chloride 97 mmol/L (98-107); Cholesterol 174 mg/dL (<200); Estimated GFR 61.52 (mL/min/1.73m2); Glucose 174 mg/dL (74-106); HDL Cholesterol 51 mg/dL (40-60); Potassium 4.1 mmol/L (3.5-5.1); Sodium 129 mmol/L (136-145); Triglyceride 74 mg/dL (<150)
[2023-11-21 09:31] LABS: COMMENT (LAB VIEW ONLY) 51.29 mg/dL
[2023-11-21 09:32] LABS: Microalb ug/mg Crea 120.5 ug/mg Cr
== END 2023-11-21 02:29 | disposition home or self-care (01) ==
LOC: LBO 02:29
PROVIDERS: Absent Provider Nurse Practitioner Adult Health; PCP Nurse Practitioner Adult Health; Referring Provider Nurse Practitioner Adult Health; Visit Provider Nurse Practitioner Adult Health
DX: D69.6 Thrombocytopenia, unspecified (principal); I25.10 Atherosclerotic heart disease of native coronary artery without angina pectoris; D64.9 Anemia, unspecified; I50.9 Heart failure, unspecified; I48.91 Unspecified atrial fibrillation; T82.09XA Other mechanical complication of heart valve prosthesis, initial encounter; E11.319 Type 2 diabetes mellitus with unspecified diabetic retinopathy without macular edema; E66.9 Obesity, unspecified; E87.1 Hypo-osmolality and hyponatremia; F10.20 Alcohol dependence, uncomplicated; E11.51 Type 2 diabetes mellitus with diabetic peripheral angiopathy without gangrene
CPT/HCPCS: 36415; 80048; 80061; 85027; 82043; 82570; 83036

== ENCOUNTER → 2023-12-17 03:01 | Outpatient (CLI) | payer MEDICARE, OTHER, SELFPAY ==
--- NOTE | 2023-12-17 09:15 | DI.RAD_ITS ---
Exam(s) XR CHEST 2V PA LATERAL EXAM: XR CHEST 2V PA LATERAL CLINICAL HISTORY: r/o acute process such as effusion, CHF, SOB, I50.40, R06.02 TECHNIQUE: 2D digital imaging was performed. Two views. COMPARISON: CR XR CHEST 2V PA LATERAL from 08/06/2021 FINDINGS: HEART: Enlarged. Aortic valve prosthesis. Status post CABG. Aorta: Not dilated. PULMONARY VASCULATURE: Normal. LUNGS: Clear. No evidence of pulmonary edema. PLEURAL SPACE: No pleural effusion or pneumothorax. BONE:Stable wedge deformities of the lower thoracic spine. Degenerative changes in the spine and cristino ulders. Soft tissues: Unremarkable. IMPRESSION: Cardiomegaly. No acute abnormality. DATA REPOSITORY: RADIATION DOSE DELIVERED:
--- NOTE | 2023-12-17 14:23 | DI.US_ITS ---
APPROVED REPORT EXAM: Comprehensive 2D, Doppler, and color-flow Echocardiogram Patient Location: Out-Patient [employer] Specialist: Odette De La Torre RDCS (AE) Indications: Increased SOB, Assess vlaves, EF, CHF, AVR, MS Other Information Study Quality: Adequate. Technically limited study due to body habitus. Conclusion Normal left ventricular wall thickness and chamber size. Ejection fraction is 60%. Wall motion is n ormal Moderately enlarged right ventricle Both atria are severely enlarged There is a bioprosthetic aortic valve. There is no regurgitation. Mean gradient is 9 mmHg Thickened mitral leaflets, mitral annular calcification, moderate mitral regurgitation. Moderate rosa ral stenosis Severe tricuspid regurgitation. Estimated right ventricular systolic pressure is 60 mmHg Ascending aorta measures 3.93 centimeters Wall motion Left Ventricle The left ventricle is normal size. The left ventricular systolic function is normal. The left ventric ular ejection fraction is within the normal range. There is normal left ventricular wall thickness. T here is normal LV segmental wall motion. There is no ventricular septal defect visualized. LVEF is 60 %. Right Ventricle Right ventricle is moderately dilated. Right ventricular systolic function is grossly normal. Atria Left atrium is severely dilated. Right atrium is severely dilated. The interatrial septum is intact w ith no evidence for an atrial septal defect. Aortic Valve No aortic regurgitation is present. Bioprosthetic aortic valve is present. Mitral Valve Moderate mitral annular calcification. Mitral valve leaflets have restricted excursion. Moderate mitr al stenosis. Moderate mitral regurgitation. Tricuspid Valve The tricuspid valve is normal in structure. There is no tricuspid valve stenosis. Severe tricuspid re gurgitation. The RVSP is 60.4 mmHg. Pulmonic Valve The pulmonary valve is normal in structure. There is no pulmonic valvular stenosis. Mild pulmonic reg urgitation. Great Vessels The aortic root is normal in size. The ascending aorta is moderately dilated. Aortic arch is normal i n caliber. The IVC collapses <50% with inspiration. Pericardium There is no pericardial effusion. 2D Dimensions IVSD d PLAX 1.10 cm M: 0.6-1.2 Ao Root d 2.28 cm M: 3.1 - 3.7 LVPW d PLAX 1.10 cm M: 0.6 - 1.2 Ao Asc Diam d 3.93 cm M: 2.6 - 3.4 LVID d PLAX 4.83 cm M: 4.2 - 5.8 LVDs 3.39 cm M: 2.5 - 4.0 LV EF Teichholz 56.7 % FS 29.72 % LV EDV (Teich) 109.0 mL LV ESV (Teich) 47.2 mL Auto EF LV EDV A4C 131.8 mL LV EDV A2C 163.6 mL LV EDV BP 147.0 mL LV ESV A4C 55.1 mL LV ESV A2C 72.5 mL LV ESV BP 64.9 mL LVEF(%) A4C 58.2 % LVEF(%) A2C 55.7 % LVEF(%) BP 55.8 % LV SV A4C 76.7 ml LV SV A2C 91.1 ml LV SV BP 82.0 ml LV CO A4C 6.1 L/min LV CO A2C 7.2 L/min LV CO BP 6.6 L/min HR A4C 79.30 BPM HR A2C 78.78 BPM LV EDV Index (BP) LA Volume LA Length A4C 8.1 cm LA Length A2C 7.2 cm LA Area A4C s 33.36 cm2 LA Area A2C s 32.80 cm2 LA Vol A4C A-L 116.39 mL LA Vol A2C A-L 127.05 mL LA Vol Biplane A-L 129.2 mL LA Vol/BSA A4C A-L LA Vol/BSA A2C A-L LA Vol/BSA BP A-L 64.0 mL/m2 LA Vol A4C MOD 110.2 mL LA Vol A2C MOD 120.8 mL LA Vol BP MOD 122.2 mL RA Volume RA Area A4C 27.9 cm2 RA ESV A4C (A-L) 93.3mL RA Vol/BSA A4C A-L RA Length A4C 7.1 cm RA ESV A4C (MOD) 89.8mL LV Diastology MV E' medial 0.105 (>0.07 m/s) MV E Vmax 2.03 (0.4-1.3 m/s) Aortic Valve AoV Vmax 2.15 m/s LVOT Vmax 1.41 m/s AoV Peak Grad 18.5 mmHg LVOT Peak Grad 7.9 mmHg AoV Area (Vmax) 1.93 cm2 LVOT VTI 0.292 m AoV VTI 0.400 m LVOT Mean Grad 5.1 mmHg AoV Mean Geovanni. 1.43 m/s LVOT SV 86.17 mL AoV Mean Grad 9.4 mmHg LVOT Diam s 1.90 cm AoV Area (VTI) 2.15 cm2 Velocity Ratio 0.66 Mitral Valve MV Vmax TIPS 2.58 m/s MR Vmax 5.58 m/s MV Mean Grad 9.7 (<2mmHg) MR VTI 1.510 m MV PHT 90 msec MR Peak Grad 124.7 mmHg MV Area PHT 2.19 cm2 MR Mean Grad 104.6 mmHg MV VTI 0.531 m Pulmonary Valve PV Vmax 0.93 (0.5-1.5 m/s) RVOT Vmax 0.67 m/s PV Peak Grad 3.5 mmHg RVOT Peak Gr. 1.8 mmHg PV Mean Geovanni 0.66 m/s RVOT VTI 0.143 m PV Mean Grad 2.0 mmHg RVOT Mean Gr. 1.0 mmHg Tricuspid Valve RA Pressure 8.00 mmHg TR Vmax 3.62 m/s TR Peak Grad 52.3 mmHg RVSP (TR) 60.4 mmHg
== END ==
PROVIDERS: PCP Nurse Practitioner Adult Health; Visit Provider Nurse Practitioner Adult Health
DX: I50.40 Unspecified combined systolic (congestive) and diastolic (congestive) heart failure (principal); R06.02 Shortness of breath; I08.1 Rheumatic disorders of both mitral and tricuspid valves; I05.2 Rheumatic mitral stenosis with insufficiency
CPT/HCPCS: 93306; 71046

== ENCOUNTER → 2023-12-17 20:19 | Outpatient (CLI) | payer MEDICARE, OTHER, SELFPAY ==
--- NOTE | 2023-12-17 | DI.RAD_ITS ---
Exam(s) XR ANKLE RT COMPLETE EXAM: XR ANKLE RT COMPLETE CLINICAL HISTORY: PAIN RT ANKLE AND FOOT M25.571. TECHNIQUE: 2D digital imaging was performed. Three views. COMPARISON: No exams were available for comparison FINDINGS: BONES: No acute fracture is present. No bony destructive lesion is seen. Heel spurs. JOINTS: The ankle mortise is normally aligned. Mild tibial talar joint space narrowing. SOFT TISSUE: Marked swelling malleoli. Vascular calcifications. IMPRESSION: Soft tissue swelling. Mild degenerative changes and heel spurs. DATA REPOSITORY: RADIATION DOSE DELIVERED:
--- NOTE | 2023-12-17 | DI.RAD_ITS ---
Exam(s) XR FOOT RT COMPLETE EXAM: XR FOOT RT COMPLETE CLINICAL HISTORY: PAIN RT ANKLE AND FOOT M25.571. TECHNIQUE: 2D digital imaging was performed. Three views. COMPARISON: No exams were available for comparison FINDINGS: BONES: No acute fracture is present. No bony destructive lesion is seen. Heel spurs. Mild degenerat olive changes intertarsal region 1st MTP joint. Degenerative changes in the interphalangeal joints of the toes. JOINTS: No dislocation present. Number toe deformities. SOFT TISSUE: Vascular calcifications. IMPRESSION: Heel spurs. Hammertoe deformities DATA REPOSITORY: RADIATION DOSE DELIVERED:
== END ==
PROVIDERS: PCP Nurse Practitioner Adult Health; Visit Provider Nurse Practitioner Family
DX: M25.571 Pain in right ankle and joints of right foot (principal)
CPT/HCPCS: 93306; 71046; 73610; 73630

== ENCOUNTER → 2024-02-04 10:50 | Outpatient (BNVA) | payer MEDICARE, OTHER, SELFPAY | PROVIDERS: PCP Nurse Practitioner Adult Health; Referring Provider Nurse Practitioner Adult Health; Visit Provider Podiatrist | DX: E11.51 Type 2 diabetes mellitus with diabetic peripheral angiopathy without gangrene (principal); M79.674 Pain in right toe(s); M79.675 Pain in left toe(s); L60.3 Nail dystrophy; M20.41 Other hammer toe(s) (acquired), right foot; M20.42 Other hammer toe(s) (acquired), left foot | CPT/HCPCS: 11721 ==

== ENCOUNTER 2024-02-07 10:11 | Inpatient (IN) | payer MEDICARE, OTHER, SELFPAY ==
[2024-02-07] VITALS (105 sets, daily range): BP systolic 117–143; BP diastolic 52–69; PULSE 70–80; RESP 16–38; TEMP 35.7–36.5; O2SAT 86–97
--- NOTE | 2024-02-07 10:45 | RT.EKG_ITS ---
APPROVED REPORT Exam: Resting ECG Reason for Exam: dyspnea Patient Location: E HR:72 bpm ECG Measurements Heart Rate 72 AXIS SC [id number] P [id number] QRSd 161 QRS -49 QT 420 T 30 QTc 459 Conclusion Atrial fibrillation 72 RBBB no change from prior
--- NOTE | 2024-02-07 10:45 | DI.RAD_ITS ---
Exam(s) XR ANKLE LT COMPLETE EXAM: XR ANKLE LT COMPLETE CLINICAL HISTORY: left ankle injury. TECHNIQUE: 2D digital imaging was performed. COMPARISON: CR XR ANKLE RT COMPLETE from 12/17/2023 FINDINGS: 3 views There is soft tissue swelling more prominent medially than laterally. There is corticated osteophytic density subjacent to the lateral malleolus consistent with an accesso ry ossicle or nonacute corticated fracture fragment. There are no acute fractures evident. No widen ing the ankle mortise. Talar dome unremarkable. Inferior calcaneal spur noted. IMPRESSION: Soft tissue swelling no acute fractures evident. DATA REPOSITORY: RADIATION DOSE DELIVERED:
--- NOTE | 2024-02-07 10:45 | DI.RAD_ITS ---
Exam(s) XR CHEST 2V PA LATERAL EXAM: XR CHEST 2V PA LATERAL CLINICAL HISTORY: dypnea. TECHNIQUE: 2D digital imaging was performed. COMPARISON: CR XR CHEST 2V PA LATERAL from 12/17/2023 FINDINGS: 2 views: Again noted are sternotomy wires and prosthetic aortic valve which is unchanged position. Cardiomegaly unchanged. The mediastinum is not widened. There is a pulmonary venous hypertension pattern again noted but without airspace pulmonary edema. N o obvious pleural effusions. Stable mild wedge compression fracture T12, unchanged. IMPRESSION: Cardiomegaly. Sternotomy. Prosthetic aortic valve. Pulmonary venous hypertension pattern unchanged from 12/17/2023. No airspace pulmonary edema. DATA REPOSITORY: RADIATION DOSE DELIVERED:
[2024-02-07 11:09] LABS: Abs Immature Grans 0.01 10^3/uL (0.0-0.06); Absolute Basophil Count 0.06 10^3/uL (0.0-0.2); Absolute Eosinophil Count 0.15 10^3/uL (0.0-0.7); Absolute Lymphocyte Count 0.57 10^3/uL (1.2-3.4); Absolute Neutrophil Count 4.25 10^3/uL (1.2-6.7); Basophils % 1.1 %; Eosinophils % 2.7 %; HCT 29.6 % (40.0-50.0); Immature Grans % 0.2 %; Lymphocytes % 10.1 %; MCH 33.7 pg (27.0-33.0); MCHC 33.8 % (32.0-36.0); MCV 100 fL (80-95); MPV 10.2 fL (8.0-11.0); Monocytes % 10.6 %; Neutrophils % 75.3 %; RBC 2.97 10^6/uL (4.36-5.78); RDW 14.6 % (11.8-14.1); RDW-SD 53.4 fL; WBC 5.64 10^3/uL (4.4-10.8)
[2024-02-07 11:29] LABS: Platelet Count 85 10^3/uL (130-400)
[2024-02-07 11:30] LABS: ALT 30 U/L (16-63); AST 34 U/L (15-37); Albumin 3.4 g/dL (3.4-5.0); Alkaline Phosphatase 168 U/L (46-116); Anion Gap 9.3 mmol/L (3-11); BUN 18 mg/dL (7-18); Bilirubin, Total 1.89 mg/dL (0.2-1.0); CO2 24.7 mmol/L (21.0-32.0); CREATININE 1.1 mg/dL (0.70-1.30); Calcium 8.3 mg/dL (8.5-10.1); Chloride 88 mmol/L (98-107); Estimated GFR 68.29 (mL/min/1.73m2); Glucose 116 mg/dL (74-106); NT-proBNP 1111 pg/mL (<300); Potassium 4.5 mmol/L (3.5-5.1); Total Protein 7.8 g/dL (6.4-8.2)
[2024-02-07 11:32] LABS: Sodium 122 mmol/L (136-145)
[2024-02-07 11:33] LABS: Troponin I 67 ng/L (< or =60)
--- NOTE | 2024-02-07 12:49 | DI.VRAD_ITS ---
PROCEDURE INFORMATION: Exam: XR Chest Exam date and time: 02/07/2024 11:28 AM Age: 78 years old Clinical indication: Dyspnea TECHNIQUE: Imaging protocol: Radiologic exam of the chest. Views: 2 views. COMPARISON: CR XR CHEST 2V PA LATERAL 12/17/2023 3:04 PM FINDINGS: Lungs: No focal consolidation.. Pleural spaces: Unremarkable. No pleural effusion. No pneumothorax. Heart/Mediastinum: Stable cardiac silhouette Bones/joints: Median sternotomy IMPRESSION: No focal consolidation.. Dictated and Authenticated by: Lisa Barber MD. Ordering:ABNER Shahid MD
--- NOTE | 2024-02-07 12:50 | DI.VRAD_ITS ---
PROCEDURE INFORMATION: Exam: XR Left Ankle Exam date and time: 02/07/2024 11:32 AM Age: 78 years old Clinical indication: Other: Left ankle injury TECHNIQUE: Imaging protocol: Radiologic exam of the left ankle. Views: 3 or more views. COMPARISON: CR XR KNEE LT 2V AP,LAT 12/15/2019 10:07 AM FINDINGS: Bones/joints: Well corticated avulsion fracture of the distal aspect of the fibula.. There is no evidence of acute fracture.There is no evidence of malalignment or dislocation. Soft tissues: Soft tissue swelling of the ankle IMPRESSION: 1. Well corticated avulsion fracture of the distal aspect of the fibula.. 2. There is no evidence of acute fracture.There is no evidence of malalignment or dislocation. Dictated and Authenticated by: Lisa Barber MD. Ordering:ABNER Shahid MD
[2024-02-07 13:03] LABS: Troponin I 64 ng/L (< or =60)
[2024-02-07 13:58] LABS: COVID-19 PCR Negative (Negative); Influenza A PCR Negative (Negative); Influenza B PCR Negative (Negative); RSV PCR Negative (Negative)
[2024-02-07 13:59] LABS: Source Nasopharynx
--- NOTE | 2024-02-07 15:14 | ED.GENADUL_ITS ---
Discharge Plan Disposition Patient Disposition: Admit to [facility] Condition: Serious Discharge Details Clinical Impression: Hyponatremia, CAD (coronary artery disease), CHF (congestive heart failure), Elevated troponin Admit Date/Time: 02/07/24 15:39 Admit Provider: Bj Matute Attending Provider: Bj Matute Primary Care Provider: Vivian Coombs ED Provider: Zehra Cortez Discharge Data Discharge Date/Time-TO BE ENTERED AT DEPARTURE: 02/07/24 16:17 HPI General Date/Time Provider Initiated Documentation: 02/07/24 10:35 . HPI Narrative: 78-year-old male with history of thrombocytopenia, type 2 diabetes, bioprosthetic heart valves x 2, CHF sleep apnea and atrial fibrillation presents with report of worsening shortness of breath over the past several days with 15 to 20 pound weight gain and peripheral edema. He did twist his ankle several days ago states it is uncomfortable. But has been ambulatory on it has been taking his anticoagulation as prescribed and his Lasix per patient. Does not smoke drink alcohol per patient. Related Data Home Medications ?Medication ?Instructions ?Recorded ?Confirmed acetaminophen 500 mg tablet 250 mg PO PRN 12/12/14 02/04/24 (Tylenol Extra Strength) lancets 33 gauge (OneTouch Delica #100 ea 06/01/19 02/04/24 Lancets) blood sugar diagnostic (OneTouch #100 ea 01/08/23 02/04/24 Ultra Test strips) apixaban 5 mg tablet (Eliquis) 5 mg PO BID #180 tabs 05/29/23 02/04/24 atorvastatin 80 mg tablet See Rx Instructions .Route 05/29/23 02/04/24 .COMPLEX #90 tabs bisoprolol fumarate 5 mg tablet 5 mg PO DAILY #90 tabs 05/29/23 02/04/24 empagliflozin 10 mg tablet See Rx Instructions .Route 05/29/23 02/04/24 (Jardiance) .COMPLEX #90 tabs furosemide 20 mg tablet 60 mg (3 x 20 mg) PO BID #540 tabs 05/29/23 02/04/24 metformin 500 mg tablet,extended See Rx Instructions .Route 05/29/23 02/04/24 release 24 hr .COMPLEX #90 tabs nitroglycerin 0.4 mg sublingual 0.4 mg sublingual Q5-15M PRN chest 05/29/23 02/04/24 tablet pain #30 tabs polyethylene glycol 3350 17 17 g PO BID PRN constipation #850 05/29/23 02/04/24 gram/dose oral powder grams potassium chloride 20 mEq 20 meq PO DAILY #90 tabs 05/29/23 02/04/24 tablet,extended release(part/cryst) (Klor-Con M) sacubitril 24 mg-valsartan 26 mg 1 tab PO BID #180 tabs 05/29/23 02/04/24 tablet (Entresto) Previous Rx's ?Medication ?Instructions ?Recorded lancets 33 gauge (OneTouch Delica #100 ea 06/01/19 Lancets) blood sugar diagnostic (OneTouch #100 ea 01/08/23 Ultra Test strips) apixaban 5 mg tablet (Eliquis) 5 mg PO BID #180 tabs 05/29/23 atorvastatin 80 mg tablet See Rx Instructions .Route 05/29/23 .COMPLEX #90 tabs bisoprolol fumarate 5 mg tablet 5 mg PO DAILY #90 tabs 05/29/23 empagliflozin 10 mg tablet See Rx Instructions .Route 05/29/23 (Jardiance) .COMPLEX #90 tabs furosemide 20 mg tablet 60 mg (3 x 20 mg) PO BID #540 tabs 05/29/23 metformin 500 mg tablet,extended See Rx Instructions .Route 05/29/23 release 24 hr .COMPLEX #90 tabs nitroglycerin 0.4 mg sublingual 0.4 mg sublingual Q5-15M PRN chest 05/29/23 tablet pain #30 tabs polyethylene glycol 3350 17 17 g PO BID PRN constipation #850 05/29/23 gram/dose oral powder grams potassium chloride 20 mEq 20 meq PO DAILY #90 tabs 05/29/23 tablet,extended release(part/cryst) (Klor-Con M) sacubitril 24 mg-valsartan 26 mg 1 tab PO BID #180 tabs 05/29/23 tablet (Entresto) Allergies Allergy/AdvReac Type Severity Reaction Status Date / Time No Known Allergies Allergy Verified 02/07/24 10:21 General Stated Complaint: GenMedical ARCADIO: 3 Exam Narrative Exam Narrative: Alert and oriented 78-year-old male, hard of hearing, pupils equal round reactive to light and accommodation, crackles at bases of lungs, cardiac rate rhythm regular, murmur, no abdominal tenderness, distended, alert and oriented x 3, 3+ pitting edema to bilateral lower extremities, left greater than right, no significant tenderness, distal pulses intact, mild redness consistent with venous stasis and edema Course Vital Signs Vital signs: Vital Signs Temperature 36.3 C L 02/07/24 10:15 Pulse 80 02/07/24 10:15 Respiratory Rate 16 02/07/24 10:15 Blood Pressure 143/52 H 02/07/24 10:15 Pulse Oximetry 91 L 02/07/24 10:15 Temperature 36.3 C L 02/07/24 10:15 Pulse 80 02/07/24 10:15 Respiratory Rate 29 H 02/07/24 14:21 Respiratory Effort Short of Breath 02/07/24 10:51 Respiratory Depth Normal 02/07/24 10:51 Respiratory Pattern Normal 02/07/24 10:51 Blood Pressure 143/52 H 02/07/24 10:15 Pulse Oximetry 93 02/07/24 14:21 Lab/Test Results Lab/Test Results: Laboratory Tests Range/Units 02/07/24 02/07/24 02/07/24 10:40 12:32 13:10 WBC (4.4-10.8) 10^3/uL 5.64 RBC (4.36-5.78) 10^6/uL 2.97 L Hgb (13.5-17.5) g/dL 10.0 L Hct (40.0-50.0) % 29.6 L MCV (80-95) fL 100 H MCH (27.0-33.0) pg 33.7 H MCHC (32.0-36.0) % 33.8 RDW (11.8-14.1) % 14.6 H Plt Count (130-400) 10^3/uL 85 L MPV (8.0-11.0) fL 10.2 Immature Gran % % 0.2 Neutrophils % % 75.3 Lymphocytes % % 10.1 Monocytes % % 10.6 Eosinophils % % 2.7 Basophils % % 1.1 Nucleated RBC % (0.0-0.3) % 0.0 Absolute Neutrophils (1.2-6.7) 10^3/uL 4.25 Absolute Lymphocytes (1.2-3.4) 10^3/uL 0.57 L Absolute Monocytes (0.1-0.8) 10^3/uL 0.60 Absolute Eosinophils (0.0-0.7) 10^3/uL 0.15 Absolute Basophils (0.0-0.2) 10^3/uL 0.06 Sodium (136-145) mmol/L 122 L* Potassium (3.5-5.1) mmol/L 4.5 Chloride (98-107) mmol/L 88 L Carbon Dioxide (21.0-32.0) mmol/L 24.7 Anion Gap (3-11) mmol/L 9.3 BUN (7-18) mg/dL 18 Creatinine (0.70-1.30) mg/dL 1.1 Est GFR (CKD-EPI 2020) (mL/min/1.73m2) 68.29 Glucose (74-106) mg/dL 116 H Calcium (8.5-10.1) mg/dL 8.3 L Magnesium (1.8-2.4) mg/dL 2.0 Total Bilirubin (0.2-1.0) mg/dL 1.89 H AST (15-37) U/L 34 ALT (16-63) U/L 30 Alkaline Phosphatase (46-116) U/L 168 H Troponin I (< or =60) ng/L 67 H* 64 H* NT-Pro-B Natriuret Pep (<300) pg/mL 1111 H Total Protein (6.4-8.2) g/dL 7.8 Albumin (3.4-5.0) g/dL 3.4 COVID-19 Source Nasopharynx SARS-CoV-2 (PCR) (Negative) Negative Influenza Type A (PCR) (Negative) Negative Influenza Type B (PCR) (Negative) Negative RSV (PCR) (Negative) Negative Medical Decision Making Alert and oriented 78-year-old gentleman presenting dyspneic and volume overloaded, likely presenting with CHF exacerbation, ejection fraction of 60% on last echocardiogram performed in November, however significant echocardiogram with severe tricuspid stenosis and mitral stenosis. BNP of 111, troponin mildly elevated at 63, repeat 2 hours later 64, I suspect just troponin leak secondary to strain. Patient is not in significant respiratory distress. I was going to order intravenous Lasix, however patient has a sodium of 122, he is relatively asymptomatic with this finding his EKG is reassuring. His magnesium and potassium are within normal limits. He will likely need volume restriction. I will hold on hypertonic saline at this time as patient is not symptomatic. He will likely need diuresis once sodium is stabilized. Wishes to be full CODE STATUS. Hemoglobin and hematocrit are mildly decreased from baseline patient does not endorse any blood in his stool mild hypochloremia, again likely secondary to dilution in the presence of chronic diuretics. Will give patient 81 mg aspirin as he is on Eliquis at baseline does not endorse any chest pain. Chest x-ray does not show any obvious effusion or pulmonary edema, but patient will likely need repeat echocardiogram. Quality:SDOH Health Related Social Needs: No Data to Display [facility] All Active Problems (Updated 02/08/24 @ 09:12 by GABRIEL Martell) Elevated troponin (Acute) DVT prophylaxis (Acute) Valvular heart disease (Acute) Abrasion, right foot, initial encounter (Acute) Acquired hammertoe of right foot (Acute) Acquired hammertoe of left foot (Acute) Toe pain, left (Acute) Toe pain, right (Acute) Type 2 diabetes mellitus with diabetic peripheral angiopathy without gangrene (Acute) Dx code needed for routine at-risk foot care with Podiatry Thrombocytopenia (Chronic ~2016) Nail dystrophy (Acute) Arteriosclerotic cardiovascular disease (ASCVD) (Acute) 01/18/21 [facility] [place] [facility] Anemia (Chronic) CHF (congestive heart failure) (Chronic ~12/2020) Atrial fibrillation (Chronic ~12/2020) Prosthetic cardiac valve obstruction (Acute ~02/2019) NILS 03/08/19 DM retinopathy (Chronic 02/23/19) Sensorineural hearing loss (SNHL) of both ears (Acute) Obstructive sleep apnea (Chronic 03/25/16) Moderately severe; historically wore CPAP, but no longer (2022) Obesity (Acute 09/02/12) Hyponatremia (Chronic 08/20/11) Alcohol dependence (Acute 09/02/12) 6 pack/night Hypertension (Acute) GERD (gastroesophageal reflux disease) (Chronic) No issues off PPI 07/2022 History of tobacco use (Chronic) Quit 1989; 25 pack years, last quit 03/31/84 Hyperlipidemia (Chronic) Type 2 diabetes mellitus (Chronic) CAD (coronary artery disease) (Chronic) a. Hx NSTEMI b. Single vessel dz 02/16/19 (LAD) Medical History Dyspnea Osteoarthritis of left hip Osteoarthritis of left knee Cataracts, bilateral (02/23/19) S/P right hip fracture (04/13/17) Aortic valve stenosis (08/20/11) severe critical peak gradient 81/50 mm of mercury Cardiac cath [facility] [place]05[place]14 s/p tissue AVR 23 Trifecta perivardial Ascending Aortic Endarterectomy, NILS 06/01/14 [facility] [place] will need Dental prophylaxis Femur fracture, right Chronic low back pain DJD (degenerative joint disease) Constipation Elevated troponin (04/30/14) Acute GI bleeding (04/30/14) Surgical History 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 appendectomy as a child Family History Mother No problems noted. Father No problems noted. Sister No problems noted. Sister No problems noted. Brother No problems noted. Social History (Updated 02/07/24 @ 17:35 by Bj Matute) Smoking/Tobacco Use Status: Former Tobacco Use Tobacco: How many years used: 20 Smoking risk assessment performed?: Yes Alcohol Intake: current Alcohol Intake frequency: 3 or more drinks per day Alcohol type: beer Drug use: Never Substance use type: does not use Adopted: No Household members: none Housing: house Number of Children: 2 current occupation: Worked in [employer] at [employer] Current gender identity: male What is your relationship status?: Panel score (0-1 are the most socially isolated patients): 0 What type of physical activity do you participate in: none Seatbelt use: always Drive intox or ride w/intox 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 Lives alone but GF sees him most days. Son Kirby in area.
[2024-02-07] MEDS: Aspirin 81 MG CHEW PO (15:39)
--- NOTE | 2024-02-07 16:10 | W.PC.ACHO ---
Registration Status: Primary Language: Preferred Language: ED Information & Data Chief Complaint GenMedical 02/07/24 15:20 Triage Note swelling and pain to left 02/07/24 10:15 leg and ankle twisted ankle 3wks ago. 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) S/P AVR (05/11/19) Fracture, Open Treatment (04/13/17) Aortic valve replacement (04/01/14) H/O surgical procedure Most Recent Vital Signs Temperature 36.3 C L 02/07/24 10:15 Pulse 80 02/07/24 10:15 Respiratory Rate 32 H 02/07/24 16:00 Respiratory Effort Short of Breath 02/07/24 10:51 Respiratory Depth Normal 02/07/24 10:51 Respiratory Pattern Normal 02/07/24 10:51 Blood Pressure 143/52 H 02/07/24 10:15 Pulse Oximetry 95 02/07/24 16:00 Allergies No Known Allergies Allergy (Verified 02/07/24 10:21) Precautions Isolation Standard precaution 02/07/24 10:51 Diet Orders Category Date Time Status Diabetes Consistent CHO/Heart Healthy [DIET] Nutrition 02/07/24 Dinner Active Diagnostics 02/07/24 02/07/24 02/07/24 Range/Units 13:10 12:32 10:40 WBC 5.64 (4.4-10.8) 10^3/uL RBC 2.97 L (4.36-5.78) 10^6/uL Hgb 10.0 L (13.5-17.5) g/dL Hct 29.6 L (40.0-50.0) % MCV 100 H (80-95) fL MCH 33.7 H (27.0-33.0) pg MCHC 33.8 (32.0-36.0) % RDW 14.6 H (11.8-14.1) % Plt Count 85 L (130-400) 10^3/uL MPV 10.2 (8.0-11.0) fL Immature Gran % 0.2 % Neutrophils % 75.3 % Lymphocytes % 10.1 % Monocytes % 10.6 % Eosinophils % 2.7 % Basophils % 1.1 % Nucleated RBC % 0.0 (0.0-0.3) % Absolute Neutrophils 4.25 (1.2-6.7) 10^3/uL Absolute Lymphocytes 0.57 L (1.2-3.4) 10^3/uL Absolute Monocytes 0.60 (0.1-0.8) 10^3/uL Absolute Eosinophils 0.15 (0.0-0.7) 10^3/uL Absolute Basophils 0.06 (0.0-0.2) 10^3/uL Sodium 122 L* (136-145) mmol/L Potassium 4.5 (3.5-5.1) mmol/L Chloride 88 L (98-107) mmol/L Carbon Dioxide 24.7 (21.0-32.0) mmol/L Anion Gap 9.3 (3-11) mmol/L BUN 18 (7-18) mg/dL Creatinine 1.1 (0.70-1.30) mg/dL Est GFR (CKD-EPI 2020) 68.29 (mL/min/1.73m2) Glucose 116 H (74-106) mg/dL Calcium 8.3 L (8.5-10.1) mg/dL Magnesium 2.0 (1.8-2.4) mg/dL Total Bilirubin 1.89 H (0.2-1.0) mg/dL AST 34 (15-37) U/L ALT 30 (16-63) U/L Alkaline Phosphatase 168 H (46-116) U/L Troponin I 64 H* 67 H* (< or =60) ng/L NT-Pro-B Natriuret Pep 1111 H (<300) pg/mL Total Protein 7.8 (6.4-8.2) g/dL Albumin 3.4 (3.4-5.0) g/dL COVID-19 Source Nasopharynx SARS-CoV-2 (PCR) Negative (Negative) Influenza Type A (PCR) Negative (Negative) Influenza Type B (PCR) Negative (Negative) RSV (PCR) Negative (Negative) Intake and Output - 24 Hour Total 02/07/24 10:11 thru 02/07/24 10:15 Weight 96.3 kg Falls Risk Assessment History of Falls Previous History 02/07/24 10:51 Contributing Factors Medications 02/07/24 10:51 Ambulatory Aids Uses ambulatory device 02/07/24 10:51 Tubes/Lines None 02/07/24 10:51 Gait Evaluation W/any additional score 02/07/24 10:51 Cognition No cognitive impairment 02/07/24 10:51 Fall Total Score 53 02/07/24 10:51 Level of Risk High Risk 02/07/24 10:51 v v v v v v v v v Sending and/or Receiving Nurses: Please use comment section below to note any information pertinent to the patient hand-off not included above. Information / Comments: Pt to be admitted to [facility] floor; Rm [id number]. Report received from: Report received from KATHLEEN Gaines.
--- NOTE | 2024-02-07 16:54 | W.PM.HP.N ---
Date of service: 02/07/24 Time of Service: 16:55 Assessment and Plan Assessment and plan (1) CHF (congestive heart failure): Status: Chronic Assessment and plan: He does appear to have some heart failure causing LE edema and weight gain. Preserved LVEF but signs of right heart failure associated with pulmonary HTN. He is responding to 80mg furosemide, continue this BID for now, monitor. He is on empagliflozin Qualifiers: Heart failure chronicity: unspecified Heart failure type: combined systolic and diastolic Qualified Code(s): I50.40 - Unspecified combined systolic (congestive) and diastolic (congestive) heart failure (2) Hyponatremia: Status: Chronic Assessment and plan: Hypervolemic hyponatremia related to CHF. Will fluid restrict and treat with diuresis. Follow. This is moderate and chronic and no active symptoms so I don't think hypertonic saline is indicated. (3) CAD (coronary artery disease): Status: Chronic Assessment and plan: Continue ASA and high intensity statin. He does have a mild troponemia but EKG not c/w ACS and troponins are not dynamic. This is strain related to CHF. Qualifiers: Associated angina: without angina Coronary Disease-Associated Artery/Lesion type: [place] artery [place] vs. transplanted heart: [place] heart Qualified Code(s): I25.10 - Atherosclerotic heart disease of [place] coronary artery without angina pectoris (4) Valvular heart disease: Status: Acute Assessment and plan: Replaced aortic valve working well but some progression of mitral and tricuspid disease on November echocardiogram. See above re: CHF (5) Atrial fibrillation: Status: Chronic Assessment and plan: continue bisoprolol and apixaban Qualifiers: Atrial fibrillation type: persistent (not longstanding) Qualified Code(s): I48.19 - Other persistent atrial fibrillation (6) Type 2 diabetes mellitus: Status: Chronic Assessment and plan: Has been reasonably controlled on metformin and SGLT2i. Continue these for now. Qualifiers: Diabetes mellitus complication detail: with diabetic retinopathy Diabetes mellitus complication status: with ophthalmic complications Diabetes mellitus usp insulin use: without usp use Diabetes mellitus macular edema: macular edema presence unspecified Diabetic retinopathy severity: with unspecified retinopathy severity Laterality: unspecified laterality Qualified Code(s): E11.319 - Type 2 diabetes mellitus with unspecified diabetic retinopathy without macular edema (7) Obstructive sleep apnea: Status: Chronic Assessment and plan: Likely contributing to his pulmonary HTN but he hasn't used CPAP in years. Should readdress. (8) Thrombocytopenia: Status: Chronic Assessment and plan: I am concerned that cirrhosis of liver is etiology, he is at risk with right heart disease and alcohol use disorder and BMI. He should have elastography as outpatient. (9) Alcohol dependence: Status: Acute Assessment and plan: Encourage cessation given signs of cardiac and liver disease. Qualifiers: Substance use status: uncomplicated Qualified Code(s): F10.20 - Alcohol dependence, uncomplicated (10) DVT prophylaxis: Status: Acute Assessment and plan: He is on apixaban (11) Anemia: Status: Chronic Assessment and plan: High MCV. EtOH related? Has progressed some this year. Check for occult blood. Follow. Qualifiers: Anemia type: unspecified type Qualified Code(s): D64.9 - Anemia, unspecified History of Present Illness History of Present Illness Chief Complaint: Leg swelling Narrative: 78 yo M with history of type 2 DM, CAD, HFpEF, aortic valve replacement x 2 with CABG x 1, and pulmonary hypertension who is presenting with several weeks of progressive bilateral leg swelling and weight gain associated with shortness of breath. He states he twisted his right ankle 6 weeks ago, and fell on his left side and tweaked the left ankle 2 weeks ago, relates some of the discomfort to these injuries. However during the past 2-3 weeks he has had a clear increase in swelling in both legs to the feet. He has gained 15-20 lbs during this time. In the last 2 weeks he has also felt more SOB, more with walking. He has some intermittent chest pressure but not pain. He feels his heart beat fast more recently, though only occasionally. He has felt more tired and is eating less, even though he is gaining weight. He has been sleeping in a recliner rather than a bed. His has also noted redness on his ankles more on the left, mildly itchy. He had similar swelling in his legs with fluid collection 2 years ago and needed a week of dieresis at [facility]. 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 operator in September 2023, had an repeat echocardiogram in November 2023 Review of Systems All systems reviewed & are unremarkable except as noted in HPI and below PFSH All Active Problems (Updated 02/07/24 @ 17:40 by Bj Matute) DVT prophylaxis (Acute) Valvular heart disease (Acute) Abrasion, right foot, initial encounter (Acute) Acquired hammertoe of right foot (Acute) Acquired hammertoe of left foot (Acute) Toe pain, left (Acute) Toe pain, right (Acute) Type 2 diabetes mellitus with diabetic peripheral angiopathy without gangrene (Acute) Dx code needed for routine at-risk foot care with Podiatry Thrombocytopenia (Chronic ~2016) Nail dystrophy (Acute) Arteriosclerotic cardiovascular disease (ASCVD) (Acute) 01/18/21 [facility] [place] Cardiology Anemia (Chronic) CHF (congestive heart failure) (Chronic ~12/2020) Atrial fibrillation (Chronic ~12/2020) Prosthetic cardiac valve obstruction (Acute ~02/2019) NILS 03/08/19 DM retinopathy (Chronic 02/23/19) Sensorineural hearing loss (SNHL) of both ears (Acute) Obstructive sleep apnea (Chronic 03/25/16) Moderately severe; historically wore CPAP, but no longer (2022) Obesity (Acute 09/02/12) Hyponatremia (Chronic 08/20/11) Alcohol dependence (Acute 09/02/12) 6 pack/night Hypertension (Acute) GERD (gastroesophageal reflux disease) (Chronic) No issues off PPI 07/2022 History of tobacco use (Chronic) Quit 1989; 25 pack years, last quit 03/31/84 Hyperlipidemia (Chronic) Type 2 diabetes mellitus (Chronic) CAD (coronary artery disease) (Chronic) a. Hx NSTEMI b. Single vessel dz 02/16/19 (LAD) Medical History Dyspnea Osteoarthritis of left hip Osteoarthritis of left knee Cataracts, bilateral (02/23/19) S/P right hip fracture (04/13/17) Aortic valve stenosis (08/20/11) severe critical peak gradient 81/50 mm of mercury Cardiac cath [facility] [place] 05/05/14 s/p tissue AVR 23 Trifecta perivardial Ascending Aortic Endarterectomy, NILS 06/01/14 [facility] [place]- will need Dental prophylaxis Femur fracture, right Chronic low back pain DJD (degenerative joint disease) Constipation Elevated troponin (04/30/14) Acute GI bleeding (04/30/14) Surgical History 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 appendectomy as a child Family History Mother No problems noted. Father No problems noted. Sister No problems noted. Sister No problems noted. Brother No problems noted. Social History (Updated 02/07/24 @ 17:35 by Bj Matute) Smoking/Tobacco Use Status: Former Tobacco Use Tobacco: How many years used: 20 Smoking risk assessment performed?: Yes Alcohol Intake: current Alcohol Intake frequency: 3 or more drinks per day Alcohol type: beer Drug use: Never Substance use type: does not use Adopted: No Household members: none Housing: house Number of Children: 2 current occupation: Worked in [employer] at [facility] [employer] [facility] [employer] Current gender identity: male What is your relationship status?: Panel score (0-1 are the most socially isolated patients): 0 What type of physical activity do you participate in: none Seatbelt use: always Drive intox or ride w/intox 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 Lives alone but GF sees him most days. Son Kirby in area. Meds Allergies and Home Medications Allergies Allergy/AdvReac Type Severity Reaction Status Date / Time No Known Allergies Allergy Verified 02/07/24 10:21 Home Medications ?Medication ?Instructions ?Recorded ?Confirmed ?Type acetaminophen 500 mg tablet 250 mg PO PRN 12/12/14 02/04/24 History (Tylenol Extra Strength) lancets 33 gauge (OneTouch Delica #100 ea 06/01/19 02/04/24 Rx Lancets) blood sugar diagnostic (OneTouch #100 ea 01/08/23 02/04/24 Rx Ultra Test strips) apixaban 5 mg tablet (Eliquis) 5 mg PO BID #180 tabs 05/29/23 02/04/24 Rx atorvastatin 80 mg tablet See Rx Instructions .Route 05/29/23 02/04/24 Rx .COMPLEX #90 tabs bisoprolol fumarate 5 mg tablet 5 mg PO DAILY #90 tabs 05/29/23 02/04/24 Rx empagliflozin 10 mg tablet See Rx Instructions .Route 05/29/23 02/04/24 Rx (Jardiance) .COMPLEX #90 tabs furosemide 20 mg tablet 60 mg (3 x 20 mg) PO BID #540 tabs 05/29/23 02/04/24 Rx metformin 500 mg tablet,extended See Rx Instructions .Route 05/29/23 02/04/24 Rx release 24 hr .COMPLEX #90 tabs nitroglycerin 0.4 mg sublingual 0.4 mg sublingual Q5-15M PRN chest 05/29/23 02/04/24 Rx tablet pain #30 tabs polyethylene glycol 3350 17 17 g PO BID PRN constipation #850 05/29/23 02/04/24 Rx gram/dose oral powder grams potassium chloride 20 mEq 20 meq PO DAILY #90 tabs 05/29/23 02/04/24 Rx tablet,extended release(part/cryst) (Klor-Con M) sacubitril 24 mg-valsartan 26 mg 1 tab PO BID #180 tabs 05/29/23 02/04/24 Rx tablet (Entresto) Exam Narrative Exam Narrative: GEN: Alert and oriented x 4, pleasant and cooperative, gives linear history. No acute distress at rest. HEENT: Head atraumatic. Conjunctiva clear, no icterus. PEERL, EOMI. no rhinorrhea. MMM, OP benign. Neck is supple with no masses or lymphadenopathy, trachea midline. Carotid pulses 1-2+ meena. Hard to appreciate JVP with habitus. LUNGS: CTAB with normal effort CV: irregularly irregular, with 2/6 systolic murmurs radiating to neck. No gallops, or rubs. ABD: active bowel sounds, soft, nontender and nondistended. No masses. EXT: no cyanosis, clubbing. 2-3+ LE edema to thighs bilaterally, pitting. No cords. MSK: No joint redness or swelling, mild pain with ROM left ankle but not right ankle/foot, knees, or hips NEURO: CN 2-12 grossly intact. Normal movement of 4 extremities. Normal speech and coordination. No tremor SKIN: [place] blanching patch bilateral shins, more bright and a little warmer on left. No open wounds. Old bruising left lateral hip, buttocks PSYCH: normal mood and affect Results Imaging Chest x-ray: report reviewed (No focal consolidation.) and image reviewed EKG: report reviewed and image reviewed (atrial fibrillatoin rate 72, RBBB, no change from previous, no STEMI) Imaging Studies: XR left ankle: 1. Well corticated avulsion fracture of the distal aspect of the fibula.. 2. There is no evidence of acute fracture.There is no evidence of malalignment or dislocation. Labs 02/07/24 10:40 02/07/24 10:40 Labs: Laboratory Results - last 24 hr 02/07/24 02/07/24 02/07/24 10:40 12:32 13:10 WBC 5.64 RBC 2.97 L Hgb 10.0 L Hct 29.6 L MCV 100 H MCH 33.7 H MCHC 33.8 RDW 14.6 H Plt Count 85 L MPV 10.2 Immature Gran % 0.2 Neutrophils % 75.3 Lymphocytes % 10.1 Monocytes % 10.6 Eosinophils % 2.7 Basophils % 1.1 Nucleated RBC % 0.0 Absolute Neutrophils 4.25 Absolute Lymphocytes 0.57 L Absolute Monocytes 0.60 Absolute Eosinophils 0.15 Absolute Basophils 0.06 Sodium 122 L* Potassium 4.5 Chloride 88 L Carbon Dioxide 24.7 Anion Gap 9.3 BUN 18 Creatinine 1.1 Est GFR (CKD-EPI 2020) 68.29 Glucose 116 H Calcium 8.3 L Magnesium 2.0 Total Bilirubin 1.89 H AST 34 ALT 30 Alkaline Phosphatase 168 H Troponin I 67 H* 64 H* NT-Pro-B Natriuret Pep 1111 H Total Protein 7.8 Albumin 3.4 COVID-19 Source Nasopharynx SARS-CoV-2 (PCR) Negative Influenza Type A (PCR) Negative Influenza Type B (PCR) Negative RSV (PCR) Negative Last Vital Signs Temp 36.3 C L 02/07/24 16:14 Pulse 80 02/07/24 16:14 Resp 32 H 02/07/24 16:14 BP 143/52 H 02/07/24 16:14 Pulse Ox 95 02/07/24 16:14 Time Spent Time spent with Patient: 55-74 minutes Time was spent: preparing to see the patient(eg.review tests), obtaining and/or reviewing separately otained hiistory, ordering medications,tests, procedures, referring, communicating with other health health care recruiter, indepentently interpreting results and counseling the patient
[2024-02-07] MEDS: Furosemide 100 MG/10 ML VIAL 80 MG IVP (17:23)
[2024-02-07] MEDS: metFORMIN C.R. 500 MG TABCR PO (17:23)
[2024-02-07] MEDS: Sacubitril/Valsartan 24 mg/26 mg TAB 1 EACH PO (19:21)
[2024-02-07] MEDS: Apixaban 5 MG TAB PO (19:21)
[2024-02-07] MEDS: Acetaminophen 500 MG TAB 250 MG PO (23:09)
[2024-02-08 04:11] VITALS: BP 127/69; PULSE 85; RESP 16; TEMP 35.5; O2SAT 91
[2024-02-08 06:37] LABS: HCT 29.8 % (40.0-50.0); HGB 9.7 g/dL (13.5-17.5); MCHC 32.6 % (32.0-36.0); MCV 101 fL (80-95); MPV 9.6 fL (8.0-11.0); RBC 2.94 10^6/uL (4.36-5.78); RDW 14.9 % (11.8-14.1); RDW-SD 56.1 fL; WBC 4.35 10^3/uL (4.4-10.8)
[2024-02-08 06:45] LABS: Platelet Count 86 10^3/uL (130-400)
[2024-02-08 06:54] LABS: BUN 18 mg/dL (7-18); CREATININE 0.9 mg/dL (0.70-1.30); Calcium 8.5 mg/dL (8.5-10.1); Chloride 92 mmol/L (98-107); Estimated GFR 86.88 (mL/min/1.73m2); Glucose 97 mg/dL (74-106); Potassium 3.9 mmol/L (3.5-5.1); Sodium 128 mmol/L (136-145)
[2024-02-08 08:23] VITALS: BP 129/62; PULSE 78; RESP 16; TEMP 36.4; O2SAT 92
[2024-02-08] MEDS: Furosemide 100 MG/10 ML VIAL 80 MG IVP ×2 (08:26→16:00)
[2024-02-08] MEDS: Apixaban 5 MG TAB PO ×2 (08:27→19:49)
[2024-02-08] MEDS: Potassium Chloride 20 MEQ TABCR PO (08:27)
[2024-02-08] MEDS: Empaglifozin 10 MG TAB PO (08:27)
[2024-02-08] MEDS: Atorvastatin 40 MG TAB 80 MG PO (08:27)
[2024-02-08] MEDS: Sacubitril/Valsartan 24 mg/26 mg TAB 1 EACH PO ×2 (08:28→19:49)
[2024-02-08] MEDS: Bisoprolol 5 MG TAB PO (08:53)
[2024-02-08] MEDS: Acetaminophen 500 MG TAB 250 MG PO ×2 (08:53→16:56)
[2024-02-08] MEDS: Polyethylene Glycol 3350 17 GM PACKET PO (08:54)
--- NOTE | 2024-02-08 12:21 | PDOC.CMIN ---
Date of service: 02/08/24 Time of Service: 12:21 Care Management Initial Assmt Initial Assessment Reason for Hospitalization: CHF Functional Status/Living Situation Patient Presentation: Yfn was sitting up in his chair when CM met with him. He stated that he is doing ok today. He reported that he lives alone, but he is independent, still drives, and that his two children live locally and are very supportive. He stated that he has a lady friend who lives in her own home, but they spend time together. Per report, he is not medically cleared for discharge. CM will continue to follow. Town of Residence: [facility] Resides with: Alone Significant Other/Family: Local (claudette, Jose and Yfn) Natural Supports: two sons, Jose and Yfn, live locally. Employment Status: Retired Instrumental Activities of Daily Living (ADLs): Independent Medications Medication Management: No Issues/Barriers identified Advance Directives Advance Directives: Do you have an Advance Directive: Y 03/23/20 08:10 AD On File at [facility]: N 08/26/12 10:57 Date Asked 02/07/24 02/07/24 10:29 AD Date Reviewed 02/07/24 02/07/24 16:08 COLST On File at [facility] No 02/07/24 16:08 COLST Date Scanned Code Status Resuscitation Status Full Code Insurance Coverage/Financial Issues [facility] Care Team Visit Care Team Role Provider Type Vivian Coombs NP Primary Care Provider NURSE PRACTITIONER GABRIEL Martell Emergency Provider PHYSICIANS AUTOMOBILE MECHANIC ASSISTANT Bj Matute Admit Provider [facility] STAFF PHYSICIAN Attending Provider Discharge Potential Discharge Needs: PCP F/U Appt Anticipated Barriers to Discharge: None Identified Patient/Family Education Needs: Review discharge instructions, discuss Ask Me Three Transportation: Private vehicle Plan: Anticipate Yfn will return home once medically cleared, and will transport via private vehicle by family. He will follow up with his PCP and discharge plan of care. CM will continue to follow. PFSH All Active Problems (Updated 02/08/24 @ 09:12 by GABRIEL Martell) Elevated troponin (Acute) DVT prophylaxis (Acute) Valvular heart disease (Acute) Abrasion, right foot, initial encounter (Acute) Acquired hammertoe of right foot (Acute) Acquired hammertoe of left foot (Acute) Toe pain, left (Acute) Toe pain, right (Acute) Type 2 diabetes mellitus with diabetic peripheral angiopathy without gangrene (Acute) Dx code needed for routine at-risk foot care with Podiatry Thrombocytopenia (Chronic ~2016) Nail dystrophy (Acute) Arteriosclerotic cardiovascular disease (ASCVD) (Acute) 01/18/21 [facility] [place] Anemia (Chronic) CHF (congestive heart failure) (Chronic ~12/2020) Atrial fibrillation (Chronic ~12/2020) Prosthetic cardiac valve obstruction (Acute ~02/2019) NILS 03/08/19 DM retinopathy (Chronic 02/23/19) Sensorineural hearing loss (SNHL) of both ears (Acute) Obstructive sleep apnea (Chronic 03/25/16) Moderately severe; historically wore CPAP, but no longer (2022) Obesity (Acute 09/02/12) Hyponatremia (Chronic 08/20/11) Alcohol dependence (Acute 09/02/12) 6 pack/night Hypertension (Acute) GERD (gastroesophageal reflux disease) (Chronic) No issues off PPI 07/2022 History of tobacco use (Chronic) Quit 1989; 25 pack years, last quit 03/31/84 Hyperlipidemia (Chronic) Type 2 diabetes mellitus (Chronic) CAD (coronary artery disease) (Chronic) a. Hx NSTEMI b. Single vessel dz 02/16/19 (LAD) Medical History Dyspnea Osteoarthritis of left hip Osteoarthritis of left knee Cataracts, bilateral (02/23/19) S/P right hip fracture (04/13/17) Aortic valve stenosis (08/20/11) severe critical peak gradient 81/50 mm of mercury Cardiac [place] [facility]05[place]14 s/p tissue AVR 23 Trifecta perivardial Ascending Aortic Endarterectomy, NILS 06/01/14 [facility] [place] will need Dental prophylaxis Femur fracture, right Chronic low back pain DJD (degenerative joint disease) Constipation Elevated troponin (04/30/14) Acute GI bleeding (04/30/14) Surgical History 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 appendectomy as a child Family History Mother No problems noted. Father No problems noted. Sister No problems noted. Sister No problems noted. Brother No problems noted. Social History (Updated 02/07/24 @ 17:35 by Bj Matute) Smoking/Tobacco Use Status: Former Tobacco Use Tobacco: How many years used: 20 Smoking risk assessment performed?: Yes Alcohol Intake: current Alcohol Intake frequency: 3 or more drinks per day Alcohol type: beer Drug use: Never Substance use type: does not use Adopted: No Household members: none Housing: house Number of Children: 2 current occupation: Worked in [employer] at [employer] Current gender identity: male What is your relationship status?: Panel score (0-1 are the most socially isolated patients): 0 What type of physical activity do you participate in: none Seatbelt use: always Drive intox or ride w/intox 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 Lives alone but GF sees him most days. Son Kirby in area. SDOH(Care Management) Screening Will the Patient Participate in the Screening?: Declined to provide Do you worry about having a steady place to live?: no In the past 12 months, have you had to go without electric, gas, oil or water in your home?: no Have you or anyone in your house had to go without enough food to eat?: no Has lack of transportation kept you from medical appointments or from doing things needed for daily living?: no Has anyone in your support network made you feel unsafe for any reason?: no
--- NOTE | 2024-02-08 12:28 | PGE_ITS ---
Date of Service Date of service: 02/08/24 Time of Service: 12:28 Assessment and Plan Assessment and plan (1) CHF (congestive heart failure): Status: Chronic Assessment and plan: Admitted heart failure causing LE edema and weight gain. Preserved LVEF but signs of right heart failure associated with pulmonary HTN. He is responding to 80mg IV furosemide, continue this BID for now, monitor. He is on empagliflozin Qualifiers: Heart failure chronicity: unspecified Heart failure type: combined systolic and diastolic Qualified Code(s): I50.40 - Unspecified combined systolic (congestive) and diastolic (congestive) heart failure (2) Hyponatremia: Status: Chronic Assessment and plan: Hypervolemic hyponatremia related to CHF. This is improving appropriately with fluid restriction and diuresis. Follow. (3) CAD (coronary artery disease): Status: Chronic Assessment and plan: Continue ASA and high intensity statin. He does have a mild troponemia but EKG not c/w ACS and troponins are not dynamic. This is strain related to CHF. We have not continued to follow this. Qualifiers: Associated angina: without angina Coronary Disease-Associated Artery/Lesion type: [place] artery [place] vs. transplanted heart: [place] heart Qualified Code(s): I25.10 - Atherosclerotic heart disease of [place] coronary artery without angina pectoris (4) Valvular heart disease: Status: Acute Assessment and plan: Replaced aortic valve working well but some progression of mitral and tricuspid disease on November echocardiogram. See above re: CHF. Follow up valve disease as outpatient. (5) Atrial fibrillation: Status: Chronic Assessment and plan: continue bisoprolol and apixaban Qualifiers: Atrial fibrillation type: persistent (not longstanding) Qualified Code(s): I48.19 - Other persistent atrial fibrillation (6) Type 2 diabetes mellitus: Status: Chronic Assessment and plan: Has been reasonably controlled on metformin and SGLT2i. Continue these for now. 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 I urged him to strongly consider trying CPAP again. He will consider. (8) Thrombocytopenia: Status: Chronic Assessment and plan: I am concerned that cirrhosis of liver is etiology, he is at risk with right heart disease and alcohol use disorder and BMI. He should have elastography as outpatient. (9) Alcohol dependence: Status: Acute Assessment and plan: Encourage cessation given signs of cardiac and liver disease. Qualifiers: Substance use status: uncomplicated Qualified Code(s): F10.20 - Alcohol dependence, uncomplicated (10) DVT prophylaxis: Status: Acute Assessment and plan: He is on apixaban (11) Anemia: Status: Chronic Assessment and plan: High MCV. EtOH related? Has progressed some this year, stable Check for occult blood. Get B12. Follow. Qualifiers: Anemia type: unspecified type Qualified Code(s): D64.9 - Anemia, unspecified Subjective Subjective Patient reports: tolerating a regular diet and voiding w/o difficulty; denies nausea, vomiting or fever Interval history since last seen: He is urinating a good amount and feels like swelling improving. Not SOB at rest, but hasn't been active today. His left ankle still hurts with weight on it. No chest pain. He didn't sleep well, never does per patient and GF. Exam Narrative Exam Narrative: GEN: Alert and oriented x 4, No acute distress at rest. LUNGS: CTAB with normal effort CV: irregularly irregular, with 2/6 systolic murmurs radiating to neck. No gallops, or rubs. ABD: active bowel sounds, soft, nontender and nondistended. No masses. EXT: no cyanosis, clubbing. 1-2+ LE edema to thighs bilaterally, pitting, left>right. No cords. MSK: he is tender over left lateral malleolus of the ankle SKIN: [place] blanching patch bilateral shins, more bright and a little warmer on left. No open wounds. Objective Last Vital Signs Temp 36.4 C L 02/08/24 08:23 Pulse 78 02/08/24 08:23 Resp 16 02/08/24 08:23 BP 129/62 02/08/24 08:23 Pulse Ox 92 02/08/24 08:23 Laboratory Results - last 24 hr 02/07/24 02/07/24 02/08/24 12:32 13:10 06:20 WBC 4.35 L RBC 2.94 L Hgb 9.7 L Hct 29.8 L MCV 101 H MCH 33.0 MCHC 32.6 RDW 14.9 H Plt Count 86 L MPV 9.6 Sodium 128 L Potassium 3.9 Chloride 92 L Carbon Dioxide 27.0 Anion Gap 9.0 BUN 18 Creatinine 0.9 Est GFR (CKD-EPI 2020) 86.88 Glucose 97 Calcium 8.5 Troponin I 64 H* COVID-19 Source Nasopharynx SARS-CoV-2 (PCR) Negative Influenza Type A (PCR) Negative Influenza Type B (PCR) Negative RSV (PCR) Negative Time Spent with Patient Time Spent with Patient: 35-49 minutes Time was spent: preparing to see the patient(eg.review tests), obtaining and/or reviewing separately otained hiistory, ordering medications,tests, procedures, referring, communicating with other health career coordinator, indepentently interpreting results and counseling the patient
--- NOTE | 2024-02-08 13:23 | PHA.REVIEW2 ---
Pharmacy Admission Review Admission Clinical Review Admission Pharmacy Review: DVT prophylaxis (Acute) Valvular heart disease (Acute) Alcohol dependence (Acute 09/02/12) No Known Allergies Allergy (Verified 02/07/24 10:21) Resuscitation Status Full Code Height 5 ft 8 in Weight 90.4 kg Pharmacy Admission Review Renal Dosing Renal Dosing: BUN 18 mg/dL (7-18) 02/08/24 06:20 Creatinine 0.9 mg/dL (0.70-1.30) 02/08/24 06:20 Medications needing adjustments: Reviewed (crcl = 65, no adjustments needed) Anticoagulation Anticoagulation: Hgb 9.7 g/dL (13.5-17.5) L 02/08/24 06:20 Hct 29.8 % (40.0-50.0) L 02/08/24 06:20 Plt Count 86 10^3/uL (130-400) L 02/08/24 06:20 Creatinine 0.9 mg/dL (0.70-1.30) 02/08/24 06:20 DVT Prophylaxis: Reviewed Medications: Apixaban Therapeutic Anticoagulation: Reviewed Medications: Apixaban (5 mg BID (indication: Afib)) Relevant Labs Relevant Labs: Sodium 128 mmol/L (136-145) L 02/08/24 06:20 Potassium 3.9 mmol/L (3.5-5.1) 02/08/24 06:20 Chloride 92 mmol/L (98-107) L 02/08/24 06:20 Magnesium 2.0 mg/dL (1.8-2.4) 02/07/24 10:40 Electrolytes, C-Reactive P, ESR: Reviewed DM Control DM Control: Reviewed Insulin Dosing, Diabetic Medication: metformin + jardiance. A1c = 6.0% 11/21/23 Cardiac Review Cardiac Review: Troponin I 64 ng/L (< or =60) H* 02/07/24 12:32 NT-Pro-B Natriuret Pep 1111 pg/mL (<300) H 02/07/24 10:40 BP, HR, EF%: Reviewed QTc Review QTc: Reviewed (QTc = 459 02/07/24) IV to PO Switch IV Medications: Reviewed (continue IV lasix for now, switch to PO when appropriate (currently ordered 80 mg IVP BID, home dose is 60 mg BID)) Home Meds Home Med List reviewed: Reviewed Current Meds Current Medication Order Review: Reviewed
[2024-02-08 13:30] VITALS: BP 131/62; PULSE 67; RESP 17; TEMP 36.1; O2SAT 96
[2024-02-08 15:22] VITALS: BP 118/51; PULSE 72; RESP 18; TEMP 36.9; O2SAT 94
[2024-02-08] MEDS: Normal Saline Flush 10 ML SYR IVP (16:01)
[2024-02-08] MEDS: metFORMIN C.R. 500 MG TABCR PO (16:53)
[2024-02-08 19:46] VITALS: BP 123/62; PULSE 74; RESP 18; TEMP 37; O2SAT 94
[2024-02-09] VITALS (7 sets, daily range): BP systolic 105–137; BP diastolic 51–73; PULSE 68–80; RESP 16–18; TEMP 36.4–37; O2SAT 92–97
[2024-02-09] MEDS: Acetaminophen 500 MG TAB 250 MG PO ×3 (00:58→16:50)
--- NOTE | 2024-02-09 07:31 | W.ORTHOCONSU ---
Date of service: 02/09/24 Time of Service: 07:31 Assessment and Plan Assessment and plan (1) Left ankle sprain: Status: Acute Assessment and plan: 78 year old male admitted for complicated acute on chronic medical problems with Left ankle pain after fall 2 weeks ago Left ankle XRs do not show any acute injury, but there is a chronic lateral mal avulsion fx and some ankle arthritis. 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 Recommend symptomatic management- Rest, elevation, PT consult, ROM, crutches or walker as needed. Full WBAT. No CAM boot needed and probable would compromise skin given LE edema. Consider MER bandage or lace-up ankle brace for support while ambulatory for a few weeks. CT scan ankle & hindfoot to rule out occult fx if unable to bear weight. PFSH All Active Problems (Updated 02/09/24 @ 07:31 by Jerry Chambers MD) Left ankle sprain (Acute) Elevated troponin (Acute) DVT prophylaxis (Acute) Valvular heart disease (Acute) Abrasion, right foot, initial encounter (Acute) Acquired hammertoe of right foot (Acute) Acquired hammertoe of left foot (Acute) Toe pain, left (Acute) Toe pain, right (Acute) Type 2 diabetes mellitus with diabetic peripheral angiopathy without gangrene (Acute) Dx code needed for routine at-risk foot care with Podiatry Thrombocytopenia (Chronic ~2016) Nail dystrophy (Acute) Arteriosclerotic cardiovascular disease (ASCVD) (Acute) 01/18/21 [facility] [place] [facility] Anemia (Chronic) CHF (congestive heart failure) (Chronic ~12/2020) Atrial fibrillation (Chronic ~12/2020) Prosthetic cardiac valve obstruction (Acute ~02/2019) NILS 03/08/19 DM retinopathy (Chronic 02/23/19) Sensorineural hearing loss (SNHL) of both ears (Acute) Obstructive sleep apnea (Chronic 03/25/16) Moderately severe; historically wore CPAP, but no longer (2022) Obesity (Acute 09/02/12) Hyponatremia (Chronic 08/20/11) Alcohol dependence (Acute 09/02/12) 6 pack/night Hypertension (Acute) GERD (gastroesophageal reflux disease) (Chronic) No issues off PPI 07/2022 History of tobacco use (Chronic) Quit 1989; 25 pack years, last quit 03/31/84 Hyperlipidemia (Chronic) Type 2 diabetes mellitus (Chronic) CAD (coronary artery disease) (Chronic) a. Hx NSTEMI b. Single vessel dz 02/16/19 (LAD) Medical History Dyspnea Osteoarthritis of left hip Osteoarthritis of left knee Cataracts, bilateral (02/23/19) S/P right hip fracture (04/13/17) Aortic valve stenosis (08/20/11) severe critical peak gradient 81/50 mm of mercury Cardiac cath [facility] [place] 05/05/14 s/p tissue AVR 23 Trifecta perivardial Ascending Aortic Endarterectomy, NILS 06/01/14 [facility] [place]- will need Dental prophylaxis Femur fracture, right Chronic low back pain DJD (degenerative joint disease) Constipation Elevated troponin (04/30/14) Acute GI bleeding (04/30/14) Surgical History 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 appendectomy as a child Family History Mother No problems noted. Father No problems noted. Sister No problems noted. Sister No problems noted. Brother No problems noted. 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 Lives alone but GF sees him most days. Son Kirby in area. Results Last Vital Signs Temp 97.5 F L 02/09/24 04:08 Pulse 70 02/09/24 04:08 Resp 18 02/09/24 04:08 BP 119/64 02/09/24 04:08 Pulse Ox 92 02/09/24 04:08 Labs 02/08/24 06:20 02/08/24 06:20
[2024-02-09 07:32] LABS: Anion Gap 8.4 mmol/L (3-11); BUN 21 mg/dL (7-18); CO2 28.6 mmol/L (21.0-32.0); Calcium 8.6 mg/dL (8.5-10.1); Chloride 94 mmol/L (98-107); Estimated GFR 76.56 (mL/min/1.73m2); Glucose 109 mg/dL (74-106); Potassium 3.6 mmol/L (3.5-5.1); Sodium 131 mmol/L (136-145); Vitamin B12 1041 pg/mL (193-986)
[2024-02-09] MEDS: Furosemide 100 MG/10 ML VIAL 80 MG IVP ×2 (08:28→16:25)
[2024-02-09] MEDS: Bisoprolol 5 MG TAB PO (08:28)
[2024-02-09] MEDS: Atorvastatin 40 MG TAB 80 MG PO (08:29)
[2024-02-09] MEDS: Normal Saline Flush 10 ML SYR IVP ×2 (08:29→16:25)
[2024-02-09] MEDS: Sacubitril/Valsartan 24 mg/26 mg TAB 1 EACH PO ×2 (08:29→20:22)
[2024-02-09] MEDS: Empaglifozin 10 MG TAB PO (08:30)
[2024-02-09] MEDS: Apixaban 5 MG TAB PO ×2 (08:30→20:22)
[2024-02-09] MEDS: Potassium Chloride 20 MEQ TABCR PO (08:30)
[2024-02-09] MEDS: Polyethylene Glycol 3350 17 GM PACKET PO ×2 (08:31→20:28)
[2024-02-09 11:38] LABS: INR 1.5 (0.9-1.1); Prothrombin Time 14.8 sec (9.1-11.1)
[2024-02-09 11:42] LABS: ALT 29 U/L (16-63); AST 36 U/L (15-37); Albumin 3.6 g/dL (3.4-5.0); Alkaline Phosphatase 173 U/L (46-116); Bilirubin, Total 1.62 mg/dL (0.2-1.0); Total Protein 8.3 g/dL (6.4-8.2)
[2024-02-09 11:52] LABS: Bilirubin, Direct 0.7 mg/dL (0.0-0.2)
--- NOTE | 2024-02-09 14:23 | W.NUTRFU ---
Date of service: 02/09/24 Time of Service: 11:50 Nutrition Note NOTE: Pt is 78yo male admitted with CHF, chronic hyponatremia, chronic CAD, chronic DMII Takes metformin and jardiance at home. Lives alone with a roustabout hand who visits on the weekends but states they like to stay at their own houses during the week. He states his roustabout hand cooks for him during the weekend but resorts to easy frozen meals during the week. A1C was 6.0 in October but states his glucose goes up and down like a yo-yo most days, which could be combo of food choices but also etoh dependence. He was told by his PCP not to eat potatoes because of diabetes - I educated him a little more that potatoes are ok just depends on amount, frequency and what other foods present at meals can all influence glucose afterward. reviewed his diet order for heart healthy, consistent cho with 1L fluid restriction. We talked and educated on other carb foods and he was interested in talking more after discharge to support his diabetes mgt. Will follow labs, intake, weight and try to see prior to discharge to see if would like to book outpatient nutrition visit before he leaves. Time Spent in Nutritional Counseling and Treatment: 10 min
[2024-02-09] MEDS: metFORMIN C.R. 500 MG TABCR PO (16:50)
--- NOTE | 2024-02-09 16:57 | W.PM.PROGNOT ---
Date of Service Date of service: 02/09/24 Time of Service: 10:40 Assessment and Plan Assessment and plan (1) CHF (congestive heart failure): Status: Chronic Assessment and plan: Admitted heart failure causing LE edema and weight gain. Preserved LVEF but signs of right heart failure associated with pulmonary HTN. He is responding to 80mg IV furosemide, clear weight loss, continue this BID, monitor. He is on empagliflozin Qualifiers: Heart failure type: combined systolic and diastolic Heart failure chronicity: unspecified Qualified Code(s): I50.40 - Unspecified combined systolic (congestive) and diastolic (congestive) heart failure (2) Non-sustained ventricular tachycardia: Status: Acute Assessment and plan: In setting of diuresis. Both Mg and K have been low normal. Will supplument and follow. Conitnue telemetry. (3) Hyponatremia: Status: Chronic Assessment and plan: Hypervolemic hyponatremia related to CHF. This continues to improve appropriately with fluid restriction and diuresis. Follow. (4) CAD (coronary artery disease): Status: Chronic Assessment and plan: Continue ASA and high intensity statin. He does have a mild troponemia but EKG not c/w ACS and troponins are not dynamic. This is strain related to CHF. We have not continued to follow this. Qualifiers: Coronary Disease-Associated Artery/Lesion type: [place] artery [place] vs. transplanted heart: [place] heart Associated angina: without angina Qualified Code(s): I25.10 - Atherosclerotic heart disease of [place] coronary artery without angina pectoris (5) Valvular heart disease: Status: Acute Assessment and plan: Replaced aortic valve working well but some progression of mitral and tricuspid disease on November echocardiogram. See above re: CHF. Follow up valve disease as outpatient. (6) Atrial fibrillation: Status: Chronic Assessment and plan: continue bisoprolol and apixaban Qualifiers: Atrial fibrillation type: persistent (not longstanding) Qualified Code(s): I48.19 - Other persistent atrial fibrillation (7) Type 2 diabetes mellitus: Status: Chronic Assessment and plan: Has been reasonably controlled on metformin and SGLT2i. Continue these for now. 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 insulin use: without buttermilk drier operator use Diabetes mellitus complication status: with ophthalmic complications Diabetes mellitus complication detail: with diabetic retinopathy Diabetic retinopathy severity: with unspecified retinopathy severity Diabetes mellitus macular edema: macular edema presence unspecified Laterality: unspecified laterality Qualified Code(s): E11.319 - Type 2 diabetes mellitus with unspecified diabetic retinopathy without macular edema (8) Obstructive sleep apnea: Status: Chronic Assessment and plan: Untreated DARLING likely the cause of his progressive pulmonary HTN. I urged him to strongly consider trying CPAP again. He will consider. (9) Thrombocytopenia: Status: Chronic Assessment and plan: I am concerned that cirrhosis of liver is etiology, he is at risk with right heart disease and alcohol use disorder and BMI. He should have elastography as outpatient. Liver function has been stable on labs. Start assessment with ultrasound (tomorrow as ate this morning). (10) Alcohol dependence: Status: Acute Assessment and plan: Encourage cessation given signs of cardiac and liver disease. We discussed this today and he feels like he can stop without difficulty or medical/behavioral help. Qualifiers: Substance use status: uncomplicated Qualified Code(s): F10.20 - Alcohol dependence, uncomplicated (11) Anemia: Status: Chronic Assessment and plan: High MCV. EtOH related? Has progressed some this year, stable since admitted Check for occult blood when has BM. B12 normal. Qualifiers: Anemia type: unspecified type Qualified Code(s): D64.9 - Anemia, unspecified (12) Leg swelling: Status: Acute Assessment and plan: assymetric, warm. Likely stasis dermatitis, local ankle injury, but at risk for DVT. Get vascular u/s. (13) DVT prophylaxis: Status: Acute Assessment and plan: He is on apixaban Subjective Subjective Patient reports: no new complaints, tolerating a regular diet, voiding w/o difficulty and no bowel movement; denies nausea, vomiting or fever Interval history since last seen: Run of non-sustained VTAC this afternoon. Given 1mg Mg and 40mEq potassium He feels about the same. Legs still swollen, not sure if much better today. No BM x 3 days Exam Narrative Exam Narrative: GEN: Alert and oriented x 4, No acute distress at rest. LUNGS: CTAB with normal effort CV: irregularly irregular, with 2/6 systolic murmurs radiating to neck. No gallops, or rubs. ABD: active bowel sounds, soft, nontender and nondistended. No masses. EXT: no cyanosis, clubbing. 1-2+ LE edema to thighs bilaterally, pitting, left>right. No cords. MSK: he is tender over left lateral malleolus of the ankle SKIN: [place] blanching patch bilateral shins, more bright and a little warmer on left. No open wounds. Objective Last Vital Signs Temp 36.9 C 02/09/24 15:42 Pulse 68 02/09/24 15:42 Resp 17 02/09/24 15:42 BP 118/51 L 02/09/24 15:42 Pulse Ox 97 02/09/24 15:42 Laboratory Results - last 24 hr 02/09/24 02/09/24 06:22 11:15 PT 14.8 H INR 1.5 H Sodium 131 L Potassium 3.6 Chloride 94 L Carbon Dioxide 28.6 Anion Gap 8.4 BUN 21 H Creatinine 1.0 Est GFR (CKD-EPI 2020) 76.56 Glucose 109 H Calcium 8.6 Total Bilirubin 1.62 H Conjugated Bilirubin 0.7 H AST 36 ALT 29 Alkaline Phosphatase 173 H Total Protein 8.3 H Albumin 3.6 Vitamin B12 1041 H Time Spent with Patient Time Spent with Patient: 35-49 minutes Time was spent: preparing to see the patient(eg.review tests), obtaining and/or reviewing separately otained hiistory, ordering medications,tests, procedures, referring, communicating with other health customer care specialist, indepentently interpreting results, counseling the patient and care coordination
--- NOTE | 2024-02-09 17:00 | PDOC.CMPRO ---
Date of service: 02/09/24 Time of Service: 17:00 Care Management Progress Note Progress Note Text Progress Note Text: Yfn was sitting up in his chair when CM met with him. He stated that he is doing well today, although the swelling in his legs is still present. MD made the recommendation to Yfn to stop drinking alcohol; CM discussed this with him and he declined additional support, stating that he is not drinking here, therefore he feels that he can make the transition home without resuming his alcohol consumption. CM will continue to follow. Discharge Potential Discharge Needs: PCP F/U Appt Anticipated Barriers to Discharge: None Identified Patient/Family Education Needs: Review discharge instructions, discuss Ask Me Three Transportation: Private vehicle Plan: Anticipate Yfn will return home once medically cleared, and will transport via private vehicle by family. He will follow up with his PCP and discharge plan of care. CM will continue to follow. SDOH(Care Management) Screening Will the Patient Participate in the Screening?: Declined to provide Do you worry about having a steady place to live?: no In the past 12 months, have you had to go without electric, gas, oil or water in your home?: no Have you or anyone in your house had to go without enough food to eat?: no Has lack of transportation kept you from medical appointments or from doing things needed for daily living?: no Has anyone in your support network made you feel unsafe for any reason?: no
[2024-02-09] MEDS: MAGNESIUM SULFATE 1 GM/100 ML BAG IVINF (17:05)
[2024-02-09] MEDS: Potassium Chloride 20 MEQ TABCR 40 MEQ PO (17:05)
[2024-02-10] MEDS: Acetaminophen 500 MG TAB 250 MG PO (02:12)
[2024-02-10 03:04] VITALS: BP 134/57; PULSE 74; RESP 17; TEMP 37; O2SAT 92
[2024-02-10 07:21] VITALS: BP 116/64; BP 184/84; PULSE 75; PULSE 86; RESP 18; RESP 20; TEMP 36.2; TEMP 37.4; O2SAT 96; O2SAT 97
[2024-02-10 07:21] LABS: Anion Gap 10.6 mmol/L (3-11); BUN 26 mg/dL (7-18); CO2 29.4 mmol/L (21.0-32.0); Calcium 9.3 mg/dL (8.5-10.1); Chloride 95 mmol/L (98-107); Estimated GFR 76.56 (mL/min/1.73m2); Glucose 102 mg/dL (74-106); Sodium 135 mmol/L (136-145)
[2024-02-10 07:25] LABS: Magnesium 2.2 mg/dL (1.8-2.4)
[2024-02-10] MEDS: Furosemide 100 MG/10 ML VIAL 80 MG IVP (08:27)
[2024-02-10] MEDS: Sacubitril/Valsartan 24 mg/26 mg TAB 1 EACH PO (08:29)
[2024-02-10] MEDS: Bisoprolol 5 MG TAB PO (08:29)
[2024-02-10] MEDS: Atorvastatin 40 MG TAB 80 MG PO (08:29)
[2024-02-10] MEDS: Apixaban 5 MG TAB PO (08:29)
[2024-02-10] MEDS: Potassium Chloride 20 MEQ TABCR PO (08:30)
[2024-02-10] MEDS: Empaglifozin 10 MG TAB PO (08:31)
--- NOTE | 2024-02-10 09:00 | DI.US_ITS ---
Exam(s) US LOWER EXTREMITY VENOUS LT EXAM: US LOWER EXTREMITY VENOUS LT CLINICAL HISTORY: assymetric swelling, redness left>right. clot? TECHNIQUE: Left lower extremity venous ultrasound performed using grayscale, color-flow, and spectra l Doppler analysis. COMPARISON: No exams were available for comparison FINDINGS: The left common femoral, femoral and popliteal veins demonstrate normal compressibility, augmentation , and color Doppler. The prox posterior tibial vein is patent. The saphenofemoral junction is unrema rkable. There is no evidence of a Lipscomb cyst. There is edema seen in the soft tissues of the lower extremity. IMPRESSION: No evidence of a left lower extremity DVT. DATA REPOSITORY:
--- NOTE | 2024-02-10 09:35 | DI.US_ITS ---
Exam(s) US ABDOMEN EXAM: US ABDOMEN CLINICAL HISTORY: abnormal LFTs, low plts, ETOH. Cirrhosis? TECHNIQUE: Ultrasound abdomen performed using standard protocol. COMPARISON: CT CT CHEST PE CTA from 01/04/2021 FINDINGS: ABDOMINAL AORTA AND IVC: The aorta and IVC cannot be visualized due to overlying bowel gas. PANCREAS: The pancreas cannot be visualized due to overlying bowel. LIVER: The liver has a nodular contour raising the question of hepatic cirrhosis. Hepatopetal flow i n the Portal Vein. The liver measures 19.7 cm long. GALLBLADDER:No evidence of cholelithiasis. No evidence of wall thickening. No pericholecystic fluid i dentified. BILIARY SYSTEM: Common bile duct measures < 7 mm. No intrahepatic biliary ductal dilation. EPPERSON'S SIGN: Negative. KIDNEYS: Evaluation of the kidneys, particularly the left kidney, is limited due to overlying bowel. Kidneys are symmetric in size. No evidence of renal calculi. No evidence of hydronephrosis. No renal mass or cyst identified. SPLEEN: Obscured by overlying bowel. ASCITES: None seen. IMPRESSION: 1. Examination limited by overlying bowel. The aorta, IVC, pancreas and spleen cannot be seen. 2. Hepatomegaly. Findings suggestive of hepatic cirrhosis. DATA REPOSITORY:
--- NOTE | 2024-02-10 09:52 | PDOC.CMDIS ---
Date of service: 02/10/24 Time of Service: 09:52 LACE Index Scoring Tool Questions: Length of Stay (in days): 3 Was the patient admitted via the E.D.?: Yes Comorbidities: Diabetes w/o Complication Care Management Discharge Plan Reason for Hospitalization: CHF Discharge Plan: Yfn is discharged home with a plan to follow up with his PCP and community providers. Declines community referral for ETOH. He is driven home via private vehicle with family. No new services are ordered. Patient/Family Education Needs: Review discharge instructions, limitations and plan to follow up with community providers. Discuss ask me three and goals of self care. SDNM Health Related Social Needs: No Data to Display
[2024-02-10] MEDS: Polyethylene Glycol 3350 17 GM PACKET PO (10:42)
[2024-02-10 11:10] VITALS: BP 119/54; PULSE 78; RESP 18; TEMP 36.9; O2SAT 95
--- NOTE | 2024-02-10 12:34 | W.PM.DS.N ---
Date of service: 02/10/24 Time of Service: 12:34 DS: Diagnosis Discharge Diagnosis (1) CHF (congestive heart failure): Status: Chronic (2) Non-sustained ventricular tachycardia: Status: Acute (3) Hyponatremia: Status: Chronic (4) CAD (coronary artery disease): Status: Chronic (5) Valvular heart disease: Status: Acute (6) Atrial fibrillation: Status: Chronic (7) Type 2 diabetes mellitus: Status: Chronic (8) Obstructive sleep apnea: Status: Chronic (9) Thrombocytopenia: Status: Chronic (10) Alcohol dependence: Status: Acute (11) Anemia: Status: Chronic (12) Leg swelling: Status: Acute (13) Cirrhosis, alcoholic: Status: Acute Discharge Plan Disposition Patient Disposition: Home Condition: Good Discharge Details Reason For Visit: CHF Admit Date/Time: 02/07/24 15:39 Admit Provider: Bj Matute Attending Provider: Bj Matute Primary Care Provider: Vivian Coombs Hospital Course Hospital Course: 78 yo M with history of heavy daily alcohol use, HFpEF, bioprosthetic valve, untreated DARLING with pulmonary HTN admitted with 15-20lb weight gain and increased SOB over a week or two. On admission he had mild troponinemia of 67 and 64 but no EKG changes to suggest acute ischemia. His sodium was 122. He diuresed well on 80mg IV BID, loosing 10-11 Kg over his admission. His sodium normalized with diuresis and moderate fluid restriction (initially 1 liter, then 1.5 liter per day. He was discharged on 80mg po BID furosemide, up from 60mg BID, with instructions to monitor his weight at home. His other cardiac meds were all continued. He had a single episode of non-sustained VTAC seen on telemetry monitoring 02/08. He received additional potassium and magnesium supplementation to try to keep these levels in the higher range of normal. He has a long history of DARLING. He has not tolerated CPAP in the past, but he was strongly encouraged to reconsider given his high right sided heart pressures. Signs of possible liver cirrhosis were noted with elevated bilirubin, INR, and low platelets. Liver ultrasound did suggest cirrhosis though no clear portal hypertension. He agreed to stop drinking alcohol, and declined any help with this. His right heart failure may also be contributing. He should have liver elastography on follow up to confirm cirrhosis and assess for portal hypertension and the risk of varicies. He had a recent injury to his right ankle, and tenderness and assymetric swelling on that side was noted. XR showed and old avulsion fracture of his left ankle. No DVT on doppler. Ortho recommended conservative care. PT evaluation don before tracie who recommended discharge with cane, no additional services needed. His last BM was 02/06. He was given PEG and colace, bisacodyl orally. He declined suppository or enema prior to discharge. Home Meds and New Rx's Prescriptions: New furosemide 80 mg tablet 80 mg PO BID Qty: 60 1RF Continued (DME) lancets [OneTouch Delica Lancets] 33 gauge misc 1 ea Miscellaneous BID Qty: 100 3RF Rx Instructions: use daily to keep HbA1c <7.0 dx E11.9 metformin 500 mg tablet extended release 24 hr See Rx Instructions .ROUTE .COMPLEX Qty: 90 3RF Dose Instruction: TAKE ONE TABLET BY MOUTH EVERY DAY Rx Instructions: TAKE ONE TABLET BY MOUTH EVERY DAY atorvastatin 80 mg tablet See Rx Instructions .ROUTE .COMPLEX Qty: 90 3RF Dose Instruction: TAKE ONE TABLET BY MOUTH EVERY DAY Rx Instructions: TAKE ONE TABLET BY MOUTH EVERY DAY Eliquis 5 mg tablet 5 mg PO BID Qty: 180 3RF bisoprolol fumarate 5 mg tablet 5 mg PO DAILY Qty: 90 3RF Jardiance 10 mg tablet See Rx Instructions .ROUTE .COMPLEX Qty: 90 3RF Dose Instruction: TAKE ONE TABLET BY MOUTH EVERY MORNING FOR DIABETES AND HEART Rx Instructions: TAKE ONE TABLET BY MOUTH EVERY MORNING FOR DIABETES AND HEART polyethylene glycol 3350 17 gram/dose powder 17 g PO BID PRN (Reason: constipation) Qty: 850 5RF nitroglycerin 0.4 mg tablet, sublingual 0.4 mg sublingual Q5-15M PRN (Reason: chest pain) Qty: 30 1RF Rx Instructions: do not exceed 3 doses per episode potassium chloride [Klor-Con M20] 20 mEq tablet,ER particles/crystals 20 meq PO DAILY Qty: 90 3RF Entresto 24-26 mg tablet 1 tab PO BID Qty: 180 3RF acetaminophen [Tylenol Extra Strength] 500 MG tablet 250 mg PO PRN Patient Comments: uses for headache. NC Rx Instructions: take as needed for headaches (DME) OneTouch Ultra Test Strip See Rx Instructions .ROUTE .MEDSUPPLY Qty: 100 3RF Rx Instructions: As directed to check blood glucose once daily. Discontinued furosemide 20 mg tablet 60 mg PO BID Qty: 540 3RF Discharge Instructions Instructions: Heart Failure, Adult (DC) Additional Instructions: Your dose of water pill (furosemide) is now higher. You should weigh yourself daily. If you go up more than 3 pounds in one day or 5 pounds in a week, call your PCP. You should avoid too much fluid. Limit your total fluid to 1.5 liters per day. It looks like you have cirrhosis of the liver. It is very important to avoid all alcohol. You can take acetaminophen but not more than 2000mg per day. You should not take NSAIDs like ibuprofen or naproxen. You should have follow up testing for this. You should really consider treating your sleep apnea with a newer breathing machine. This is putting stress on your heart. You have an ankle sprain and old fracture in the left ankle, but no new fracture. Use ice and wrap the left ankle and keep it elevated. Activity:: Activity as Tolerated Equipment/Supplies:: cane Diet:: Carb Counting Discharge Orders Discharge Orders: Discharge Order (Routine); Ordered 02/10/24 Ordered By: Bj Matute DS: Summary Time Spent with Patient providing and/or coordinating discharge services: Greater than 30 minutes Status at Discharge Functional status at discharge: uses cane/walker Overall status at discharge: patient is back to baseline Mental Status: mental status grossly normal Speech and Movement: speech and movement normal Mood: congruent mood Affect: normal affect Quality:SDOH Health Related Social Needs: No Data to Display Exam Narrative Exam Narrative: GEN: Alert and oriented x 4, No acute distress at rest. LUNGS: CTAB with normal effort CV: irregularly irregular, with 2/6 systolic murmurs radiating to neck. No gallops, or rubs. ABD: active bowel sounds, soft, nontender and nondistended. No masses. EXT: no cyanosis, clubbing. 1-2+ LE edema to thighs bilaterally, pitting, left>right. No cords. MSK: he is tender over left lateral malleolus of the ankle. he is able to bear weight SKIN: [place] blanching patch bilateral shins, more bright and a little warmer on left. No open wounds. Psych Mental Status: mental status grossly normal Speech and Movement: speech and movement normal Mood: congruent mood Affect: normal affect DS: Data Vitals/I&O Vitals and I&O: Vital Signs Temperature 36.9 C 02/10/24 11:10 Temperature Source Tympanic 02/10/24 11:10 Pulse 78 02/10/24 11:10 Pulse Rhythm Irregular 02/10/24 09:30 Respiratory Rate 18 02/10/24 11:10 Respiratory Effort Normal, Non-Labored 02/10/24 09:30 Respiratory Depth Normal 02/10/24 09:30 Respiratory Pattern Normal 02/10/24 09:30 Blood Pressure 119/54 L 02/10/24 11:10 Pulse Oximetry 95 02/10/24 11:10 Oxygen Delivery Method Room Air 02/10/24 11:10 Oxygen Flow Rate 0 02/10/24 11:10 Pain Level 10 02/10/24 11:10 Comment RN notified 02/10/24 07:21 Intake & Output 02/09/24 02/10/24 02/10/24 23:59 11:59 23:59 Intake Total 400 / 610 Output Total 2925 / 4675 1975 / 2575 600 / 2575 Balance -2525 / -4065 -1974 / -2575 -600 / -2575 Weight 85.457 kg Intake: IV 100 / 110 Oral 300 / 500 Output: Urine 2925 / 4675 1974 / 257 600 / 2575 Other: Urine Color Yellow Yellow Pale Urine Appearance Clear Clear Clear Urine Odor None None Voiding Methods Toilet Toilet Toilet Data Completed and Pending Labs on day of discharge: Labs from last 24 hours 02/10/24 06:03 Sodium 135 L Potassium 4.0 Chloride 95 L Carbon Dioxide 29.4 Anion Gap 10.6 BUN 26 H Creatinine 1.0 Est GFR (CKD-EPI 2020) 76.56 Glucose 102 Calcium 9.3 Magnesium 2.2 PFSH All Active Problems (Updated 02/10/24 @ 12:35 by Bj Matute) Cirrhosis, alcoholic (Acute) Leg swelling (Acute) Non-sustained ventricular tachycardia (Acute) Left ankle sprain (Acute) Elevated troponin (Acute) DVT prophylaxis (Acute) Valvular heart disease (Acute) Abrasion, right foot, initial encounter (Acute) Acquired hammertoe of right foot (Acute) Acquired hammertoe of left foot (Acute) Toe pain, left (Acute) Toe pain, right (Acute) Type 2 diabetes mellitus with diabetic peripheral angiopathy without gangrene (Acute) Dx code needed for routine at-risk foot care with Podiatry Thrombocytopenia (Chronic ~2016) Nail dystrophy (Acute) Arteriosclerotic cardiovascular disease (ASCVD) (Acute) 01/18/21 [facility] Card[facility] Anemia (Chronic) CHF (congestive heart failure) (Chronic ~12/2020) Atrial fibrillation (Chronic ~12/2020) Prosthetic cardiac valve obstruction (Acute ~02/2019) NILS 03/08/19 DM retinopathy (Chronic 02/23/19) Sensorineural hearing loss (SNHL) of both ears (Acute) Obstructive sleep apnea (Chronic 03/25/16) Moderately severe; historically wore CPAP, but no longer (2022) Obesity (Acute 09/02/12) Hyponatremia (Chronic 08/20/11) Alcohol dependence (Acute 09/02/12) 6 pack/night Hypertension (Acute) GERD (gastroesophageal reflux disease) (Chronic) No issues off PPI 07/2022 History of tobacco use (Chronic) Quit 1989; 25 pack years, last quit 03/31/84 Hyperlipidemia (Chronic) Type 2 diabetes mellitus (Chronic) CAD (coronary artery disease) (Chronic) a. Hx NSTEMI b. Single vessel dz 02/16/19 (LAD) Medical History Dyspnea Osteoarthritis of left hip Osteoarthritis of left knee Cataracts, bilateral (02/23/19) S/P right hip fracture (04/13/17) Aortic valve stenosis (08/20/11) severe critical peak gradient 81/50 mm of mercury Cardiac cath [facility] 05/05/14 s/p tissue AVR 23 Trifecta perivardial Ascending Aortic Endarterectomy, NILS 06/01/14 [facility]- will need Dental prophylaxis Femur fracture, right Chronic low back pain DJD (degenerative joint disease) Constipation Elevated troponin (04/30/14) Acute GI bleeding (04/30/14) Surgical History 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 appendectomy as a child Family History Mother No problems noted. Father No problems noted. Sister No problems noted. Sister No problems noted. Brother No problems noted. Social History (Updated 02/07/24 @ 17:35 by Bj Matute) Smoking/Tobacco Use Status: Former Tobacco Use Tobacco: How many years used: 20 Smoking risk assessment performed?: Yes Alcohol Intake: current Alcohol Intake frequency: 3 or more drinks per day Alcohol type: beer Drug use: Never Substance use type: does not use Adopted: No Household members: none Housing: house Number of Children: 2 current occupation: Worked in [employer] at [employer] Current gender identity: male What is your relationship status?: Panel score (0-1 are the most socially isolated patients): 0 What type of physical activity do you participate in: none Seatbelt use: always Drive 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 Lives alone but GF sees him most days. Son Kirby in area. Time Spent with Patient Time Spent with Patient: <45 minutes Time was spent: preparing to see the patient(eg.review tests), obtaining and/or reviewing separately otained hiistory, ordering medications,tests, procedures, referring, communicating with other health post acute care registered nurse, indepentently interpreting results, counseling the patient and care coordination
--- NOTE | 2024-02-10 13:06 | PT.INIE ---
PT Notes Visit Reasons: Congestive heart failure Inpatient Physical Therapy Evaluation Certification Period:? From ?? Through I certify the need for these services as being medically necessary and skilled as furnished under this plan of treatment while under my care. Please sign and return within 14 days if you agree with the plan of care listed below.? Thank you for this referral! ? Referring Physician? Date Referring Doctor:? PT Orders: PT CONSULT for Precautions: Patient Profile/Admitting Diagnosis:? Yfn is a 78-year-old male with history of thrombocytopenia, type 2 diabetes, bioprosthetic heart valves x 2, CHF sleep apnea and atrial fibrillation presented to ED on 02/07/24 ?with report of worsening shortness of breath over the past several days with 15 to 20 pound weight gain and peripheral edema. MD managed edema with fluid restriction vs diuretic d/t hyponatremia. He did twist his ankle several days prior to admission. He stated it was uncomfortable but was able to WB. Ortho consulted recommended PT evaluation and if needed a lace up ankle support. Past Medical History: CAD with an STEMI, EF 60%, ASCVD, OA left hip and knee, right femur ORIF 2017, chronic low back pain, DJD, status post CABG 2019, AVR 2019, A-fib DM type II with retinopathy, DARLING, EtOH dependence. Social History/Home Situation: Pt lives alone in a house 5 steps to enter with bilateral rails. He reports stairs within home and has a cane on each level of his house and in his truck. He has a lady friend who assists with meals and checks in with him daily. He is independent with ADLs. He has supportive family in the area. Subjective: I think I am going home but I have not gone to the bathroom since I got here except to urinate. I am waiting for them to bring my lunch. Objective: Pt presents seated in chair in no apparent distress. He was agreeable to participate in skilled PT evaluation. Mental Status: Patient is alert and oriented x3. Pain: 07/09 on LOOM MECHANIC left Lower leg denied specific ankle pain Vital Signs: monitored by Nursing on telemetry ROM/Strength: Upper extremities:WFL ROM 5/5 Lower extremities:WFL ROM; 4/5 Sensation: Intact to light touch deep pressure hot and cold BLE Soft tissue/edema:Left LE Bright erythema calf to toes, 1+ pitting edema, warm to touch Bed Mobility: Supine to/from sit Independent Tranfers: Sit to/ from stand Independent Gait: Ambulated 200 feet with cane independent reciprocal pattern Stairs : rail and cane SBA Balance: good with 1 UE support [facility] AM-PAC 6 clicks Basic Mobility Inpatient Short Form: Raw Score:???24? CMS Score:0% disability Informed Consent/Education:? Patient instructed in purpose of PT consult and plan of care and is agreeable Assessment:? Patient is a?78 year old male adm 02/07/24 for CHF exacerbation with BLE swelling and pain in left foot.? Patient presents with slight pain in his left lower leg limiting his ability to ambulate without AD. He is Independent with bed mobility, transfers and ambulation with single point cane. He demonstrates ability to ascend descend stairs with rail to safely enter his home. He has supportive family and a friend who checks on him and assists with meals. Patient is assessed as:? Low 06748?? Moderate 68559?? High 34849 complexity based on the following: History: Pt presents with CHF, left LE edema and erythema resulting in slight pain limiting his ability to ambulate without AD Examination: see above Presentation: Stable and uncomplicated? Decision Making:? Low (0 history, 1-2 exam, stable/predictable, easy 20) Physical Therapy Goals: NA evaluation only Plan of Care/Treatment Plan: NA eval only DISCHARGE RECOMMENDATIONS: Home Billing Charges: Treatment Units Time Duration Manual Therapy(72748) Hands-on techniques to modulate pain increase joint range of motion reduce or eliminate soft tissue swelling, inflammation, or restriction facilitate relaxation and improve contractile and non-contractile tissue extensibility ? ? Therapeutic Procedures (01668) Instruction in therapeutic exercises to develop strength and endurance, range of motion and flexibility. HEP instruction and review: Provided skilled instruction in proper exercise performance: Provided skilled manual cues to facilitate proper muscle recruitment and/or movement pattern Neurological Re-Education(46480) To improve balance, coordination, kinesthetic and proprioceptive sensations. ? ? Ultrasound(17310) To promote healing. ? ? Gait Training(35586) ? ? Therapeutic Activity(06283) Instruction in dynamic activities with one on one patient contact by the provider to improve functional performance as follows: ? ? Self Care Training(90865) ? ? E-Stim (Attended)(03423) ? ? Low IE(09111) 1 22 Mod IE(29890) ? ? High IE(86370) ? ? Time Coded Treatment Time ? Total Treatment Time ?
[2024-02-10] MEDS: Bisacodyl 10 MG SUPP PR (13:50)
== END 2024-02-10 15:52 | disposition home or self-care (01) | DRG 292 ==
LOC: ER 16:08 → MS 16:13
PROVIDERS: Admitting Provider Family Medicine; Emergency Provider Physician Assistant; PCP Nurse Practitioner Adult Health; Visit Provider Family Medicine
DX: I11.0 Hypertensive heart disease with heart failure (principal); E87.1 Hypo-osmolality and hyponatremia; I48.19 Other persistent atrial fibrillation; I38 Endocarditis, valve unspecified; I47.29 Other ventricular tachycardia; S93.402A Sprain of unspecified ligament of left ankle, initial encounter; I50.42 Chronic combined systolic (congestive) and diastolic (congestive) heart failure; I25.10 Atherosclerotic heart disease of native coronary artery without angina pectoris; E11.319 Type 2 diabetes mellitus with unspecified diabetic retinopathy without macular edema; D69.6 Thrombocytopenia, unspecified; F10.20 Alcohol dependence, uncomplicated; D64.9 Anemia, unspecified; K70.30 Alcoholic cirrhosis of liver without ascites; R74.8 Abnormal levels of other serum enzymes; Z95.3 Presence of xenogenic heart valve; X50.1XXA Overexertion from prolonged static or awkward postures, initial encounter; Z79.84 Long term (current) use of oral hypoglycemic drugs; Z79.01 Long term (current) use of anticoagulants; M20.42 Other hammer toe(s) (acquired), left foot; M20.41 Other hammer toe(s) (acquired), right foot; E11.51 Type 2 diabetes mellitus with diabetic peripheral angiopathy without gangrene; H90.3 Sensorineural hearing loss, bilateral; G47.33 Obstructive sleep apnea (adult) (pediatric); E66.9 Obesity, unspecified; K21.9 Gastro-esophageal reflux disease without esophagitis; Z87.891 Personal history of nicotine dependence; E78.5 Hyperlipidemia, unspecified; I25.2 Old myocardial infarction; G89.29 Other chronic pain; M54.50 Low back pain, unspecified; Z95.1 Presence of aortocoronary bypass graft; I27.20 Pulmonary hypertension, unspecified; I45.10 Unspecified right bundle-branch block
CPT/HCPCS: 00123; 36415; 80048; 80053; 80076; 85027; 87637; 93005; 97161; 99221; 99285; 71046; 73610; 76700; 82607; 83735; 83880; 84484; 85025; 85610; 93010; 93971; 99222; 99232; 99238; J1940; J3475; J3490

== ENCOUNTER 2024-02-19 11:33 | Outpatient (REF) | payer MEDICARE, OTHER, SELFPAY ==
[2024-02-19 15:52] LABS: HCT 33.2 % (40.0-50.0); HGB 10.9 g/dL (13.5-17.5); MCH 32.2 pg (27.0-33.0); MCHC 32.8 % (32.0-36.0); MCV 98 fL (80-95); MPV 11.5 fL (8.0-11.0); Platelet Count 110 10^3/uL (130-400); RBC 3.39 10^6/uL (4.36-5.78); RDW 13.8 % (11.8-14.1); RDW-SD 50.1 fL; WBC 4.88 10^3/uL (4.4-10.8)
[2024-02-19 16:11] LABS: Anion Gap 8.9 mmol/L (3-11); BUN 21 mg/dL (7-18); CO2 27.1 mmol/L (21.0-32.0); Calcium 9.2 mg/dL (8.5-10.1); Chloride 95 mmol/L (98-107); Estimated GFR 76.56 (mL/min/1.73m2); Glucose 98 mg/dL (74-106); Magnesium 1.9 mg/dL (1.8-2.4); NT-proBNP 817 pg/mL (<300); Sodium 131 mmol/L (136-145)
== END 2024-02-19 11:34 | disposition home or self-care (01) ==
LOC: LBN 11:33
PROVIDERS: PCP Nurse Practitioner Adult Health; Visit Provider Nurse Practitioner Family
DX: D69.6 Thrombocytopenia, unspecified (principal); I50.9 Heart failure, unspecified; I50.40 Unspecified combined systolic (congestive) and diastolic (congestive) heart failure; I10 Essential (primary) hypertension; R79.0 Abnormal level of blood mineral; F10.20 Alcohol dependence, uncomplicated; G47.33 Obstructive sleep apnea (adult) (pediatric); E87.1 Hypo-osmolality and hyponatremia
CPT/HCPCS: 80048; 85027; 83735; 83880

== ENCOUNTER → 2024-04-29 09:46 | Outpatient (BNVA) | payer MEDICARE, OTHER, SELFPAY | PROVIDERS: PCP Nurse Practitioner Adult Health; Referring Provider Nurse Practitioner Adult Health; Visit Provider Internal Medicine Cardiovascular Disease | DX: I25.10 Atherosclerotic heart disease of native coronary artery without angina pectoris (principal); I48.19 Other persistent atrial fibrillation; I50.40 Unspecified combined systolic (congestive) and diastolic (congestive) heart failure | CPT/HCPCS: 99213 ==

== ENCOUNTER → 2024-06-02 08:46 | Outpatient (BNVA) | payer MEDICARE, OTHER, SELFPAY | PROVIDERS: PCP Nurse Practitioner Adult Health; Referring Provider Nurse Practitioner Adult Health; Visit Provider Podiatrist | DX: L60.3 Nail dystrophy (principal); E11.51 Type 2 diabetes mellitus with diabetic peripheral angiopathy without gangrene; R09.89 Other specified symptoms and signs involving the circulatory and respiratory systems; L65.9 Nonscarring hair loss, unspecified; R60.0 Localized edema; R23.8 Other skin changes; L60.2 Onychogryphosis; R20.2 Paresthesia of skin | CPT/HCPCS: 11721 ==

== ENCOUNTER 2024-08-16 08:46 | Inpatient (IN) | payer MEDICARE, OTHER, SELFPAY ==
[2024-08-16] VITALS (108 sets, daily range): BP systolic 75–131; BP diastolic 32–89; PULSE 53–95; RESP 10–45; TEMP 36.3–36.7; O2SAT 63–100
--- NOTE | 2024-08-16 08:45 | RT.EKG_ITS ---
APPROVED REPORT Exam: Resting ECG Reason for Exam: Shortness of Breath Patient Location: E HR:87 bpm ECG Measurements Heart Rate 87 AXIS UT [id number] P [id number] QRSd 162 QRS -64 QT 397 T 34 QTc 478 Conclusion Atrial fibrillation 87 RBBB no stemi
[2024-08-16 09:18] LABS: BE (Venous) 1 mmol/L (-2-3); HCO3 (Venous) 28 mmol/L (23-28); O2 Sat (Venous) 58 %; TCO2 (Venous) 26 mmol/L (24-29); pCO2 (Venous) 58 mmHg (41-51); pH (Venous) 7.28 (7.31-7.41); pO2 (Venous) 37 mmHg
[2024-08-16 09:20] LABS: Abs Immature Grans 0.01 10^3/uL (0.0-0.06); Absolute Basophil Count 0.06 10^3/uL (0.0-0.2); Absolute Eosinophil Count 0.19 10^3/uL (0.0-0.7); Absolute Lymphocyte Count 0.67 10^3/uL (1.2-3.4); Basophils % 1.3 %; Eosinophils % 4.1 %; HCT 36.3 % (40.0-50.0); HGB 11.3 g/dL (13.5-17.5); Immature Grans % 0.2 %; Lymphocytes % 14.5 %; MCH 30.9 pg (27.0-33.0); MCHC 31.1 % (32.0-36.0); MCV 99 fL (80-95); MPV 11.2 fL (8.0-11.0); Neutrophils % 66.9 %; RBC 3.66 10^6/uL (4.36-5.78); RDW 14.6 % (11.8-14.1); RDW-SD 53.4 fL; WBC 4.63 10^3/uL (4.4-10.8)
[2024-08-16 09:22] LABS: Lactate 2.1 mmol/L (<or=2.0)
--- NOTE | 2024-08-16 09:33 | DI.RAD_ITS ---
Exam(s) XR PORTABLE CHEST AP EXAM: XR PORTABLE CHEST AP CLINICAL HISTORY: shortness of breath TECHNIQUE: 2D digital imaging was performed of the chest. One image was obtained. An AP view was ob tained. COMPARISON: CR XR PORTABLE CHEST AP from 01/04/2021 CR,XR XR CHEST 2V PA LATERAL from 02/07/2024 FINDINGS: There is poor inspiration. MEDIASTINUM: Normal. HEART: Cardiomegaly. There is an aortic valve replacement. PULMONARY VASCULATURE: Normal. LUNGS: The left lung is clear. There is an opacity seen in the right lung base which may in part be due to the pleural effusion but a right basilar infiltrate cannot be excluded. PLEURAL SPACE: There is a right pleural effusion. There is blunting of the left costophrenic angle w hich may represent a small left pleural effusion. No pneumothorax is identified. BONE:Within normal limits for the patient's age. Sternal wires are again seen. OTHER FINDINGS:Normal. IMPRESSION: 1. Cardiomegaly. 2. Bilateral pleural effusions, right greater than left. 3. The findings may represent fluid overload/CHF. Please correlate clinically. 4. Opacity in the right lung base. This may represent superimposed infiltrate/atelectasis. DATA REPOSITORY: RADIATION DOSE DELIVERED:
[2024-08-16 09:35] LABS: INR 1.6 (0.9-1.1); Prothrombin Time 15.4 sec (9.1-11.1)
[2024-08-16 09:51] LABS: D-Dimer 2245 ng/mlFEU (<500)
[2024-08-16] MEDS: Furosemide 100 MG/10 ML VIAL 80 MG IVP (09:52)
--- NOTE | 2024-08-16 09:53 | ED.GENADUL_ITS ---
Discharge Plan Disposition Patient Disposition: Home Condition: Stable Discharge Details Clinical Impression: CHF exacerbation, Acute hypoxic respiratory failure, Pneumonia, Pulmonary emboli, Pleural effusion on right Primary Care Provider: Vivian Coombs ED Provider: Thierno Marquez [facility] General Date/Time Provider Initiated Documentation: 08/16/24 08:56 . HPI Narrative: 79 year-old male presents to ED today by POV/ambulating with his partner with a chief complaint of shortness of breath, cough, faitgue with onset for the past two weeks. Quality described as generalized malaise and shortness of breath, no radiation to chest pain, syncope, high fevers, nausea/vomiting, endorses leg swelling, inability to lay flat due to shortness of breath. Severity is described as moderate to severe. Palliating factors include nothing specific- has been taking all his medications per patient. Provoking factors include nothing specific. Events leading up to the incident/Associated Symptoms: Patient has longstanding history of CHF with 2 valve replacements and remote history years ago, CABG X1, acquired cirrhosis, T2DM, persistent A-fib, hypertension. Patient is anticoagulated on Eliquis. Related Data Home Medications ?Medication ?Instructions ?Recorded ?Confirmed acetaminophen 500 mg tablet 250 mg PO PRN 12/12/14 08/16/24 (Tylenol Extra Strength) lancets 33 gauge (ReferBrightTouch Delica #100 ea 06/01/19 08/16/24 Lancets) polyethylene glycol 3350 17 17 g PO BID PRN constipation #850 05/29/23 08/16/24 gram/dose oral powder grams blood sugar diagnostic (ReferBrightTouch #100 strips 03/31/24 08/16/24 Ultra Test strips) apixaban 5 mg tablet (Eliquis) 5 mg PO BID #180 tabs 05/31/24 08/16/24 atorvastatin 80 mg tablet See Rx Instructions .Route 05/31/24 08/16/24 .COMPLEX #90 tabs bisoprolol fumarate 5 mg tablet 5 mg PO DAILY #90 tabs 05/31/24 08/16/24 empagliflozin 10 mg tablet See Rx Instructions .Route 05/31/24 08/16/24 (Jardiance) .COMPLEX #90 tabs furosemide 80 mg tablet 80 mg PO BID #180 tabs 05/31/24 08/16/24 nitroglycerin 0.4 mg sublingual 0.4 mg sublingual Q5-15M PRN chest 05/31/24 08/16/24 tablet pain #30 tabs potassium chloride 20 mEq 20 meq PO DAILY #90 tabs 05/31/24 08/16/24 tablet,extended release(part/cryst) (Klor-Con M) sacubitril 24 mg-valsartan 26 mg 1 tab PO BID #180 tabs 05/31/24 08/16/24 tablet (Entresto) Previous Rx's ?Medication ?Instructions ?Recorded lancets 33 gauge (ReferBrightTouch Delica #100 ea 06/01/19 Lancets) polyethylene glycol 3350 17 17 g PO BID PRN constipation #850 05/29/23 gram/dose oral powder grams blood sugar diagnostic (ReferBrightTouch #100 strips 03/31/24 Ultra Test strips) apixaban 5 mg tablet (Eliquis) 5 mg PO BID #180 tabs 05/31/24 atorvastatin 80 mg tablet See Rx Instructions .Route 05/31/24 .COMPLEX #90 tabs bisoprolol fumarate 5 mg tablet 5 mg PO DAILY #90 tabs 05/31/24 empagliflozin 10 mg tablet See Rx Instructions .Route 05/31/24 (Jardiance) .COMPLEX #90 tabs furosemide 80 mg tablet 80 mg PO BID #180 tabs 05/31/24 nitroglycerin 0.4 mg sublingual 0.4 mg sublingual Q5-15M PRN chest 05/31/24 tablet pain #30 tabs potassium chloride 20 mEq 20 meq PO DAILY #90 tabs 05/31/24 tablet,extended release(part/cryst) (Klor-Con M) sacubitril 24 mg-valsartan 26 mg 1 tab PO BID #180 tabs 05/31/24 tablet (Entresto) Allergies Allergy/AdvReac Type Severity Reaction Status Date / Time No Known Allergies Allergy Verified 06/02/24 09:31 General Stated Complaint: SOB ARCADIO: 2 Review of Systems All systems reviewed & are unremarkable except as noted in HPI and below Exam Narrative Exam Narrative: GENERAL APPEARANCE: Well-nourished, toxic, awake and alert, atraumatic, moderate acute distress. SKIN: Warm, pink, dry, intact, without rashes/lesions/ulcerations. HEAD: Normocephalic, atraumatic, normal hair distribution for gender/age. EYES: Normal conjunctiva, no exudates on lids/lashes. ENT: Nares patent, no circumoral cyanosis, no facial swelling NECK: Supple, trachea midline, painless cervical ROM. LUNGS/CHEST: Lungs- R base diminished, L base crackles, labored respirations, normal A/P diameter, symmetrical expansion, no chest wall deformity HEART (CV/PV): irregular rate and rhythm with murmur, 3+ peripheral edema, no JVD. ABDOMEN: Soft, non-distended, no guarding, anasarca, no tenderness diffusely, no pulsatile masses. MSK: Normal ROM, no swelling/deformity to bilateral UEs or LEs, moving all e xtremities without weakness, no cyanosis, spine midline without tenderness, normal curvature. NEURO: Mental Status AAOx4 - alert to person, place, time, events No facial droop, no forehead involvement. Motor: No focal weakness - strength 5/5 in bilateral UEs and LEs, proximal and distal, symmetric. Sensory: sensation intact to light touch globally. Gait NT. PSYCH: euthymic, cooperative, pleasant, appropriate speech Course Vital Signs Vital signs: Vital Signs Pulse 89 08/16/24 08:55 Pulse Oximetry 75 L 08/16/24 08:55 Temperature 36.6 C 08/16/24 09:06 Temperature Source Tympanic 08/16/24 09:06 Pulse 83 08/16/24 09:50 Pulse 80 08/16/24 09:50 Respiratory Rate 35 H 08/16/24 09:50 Respiratory Effort Short of Breath, Accessory Muscle Use 08/16/24 09:25 Respiratory Depth Normal 08/16/24 09:25 Respiratory Pattern Tachypnea 08/16/24 09:25 Blood Pressure 89/39 L 08/16/24 09:46 Blood Pressure Mean 55 08/16/24 09:46 Blood Pressure Position Sitting 08/16/24 09:06 Pulse Oximetry 94 08/16/24 09:50 Oxygen Delivery Method Room Air 08/16/24 09:06 Oxygen Flow Rate 0 08/16/24 09:06 Fraction of Inspired Oxygen (FIO2) 30 08/16/24 09:34 Comment provider aware 08/16/24 09:46 Lab/Test Results Lab/Test Results: 08/16/24 09:23 Blood Blood Culture - Pending 08/16/24 09:23 Blood Blood Culture - Pending Laboratory Tests Range/Units 08/16/24 09:08 PT (9.1-11.1) sec 15.4 H INR (0.9-1.1) 1.6 H APTT (20.6-30.2) sec 33.0 H VBG pH (7.31-7.41) 7.28 L VBG pCO2 (41-51) mmHg 58 H VBG pO2 mmHg 37 VBG HCO3 (23-28) mmol/L 28 VBG Total CO2 (24-29) mmol/L 26 VBG O2 Saturation % 58 VBG Base Excess (-2-3) mmol/L 1 VBG Lactate (<or=2.0) mmol/L 2.1 H* Medical Decision Making This dictation utilizes [id number] dictation software and may contain unedited grammatical errors. 79 year-old male presents to ED today by POV/ambulating with his partner with a chief complaint of shortness of breath, cough, faitgue with onset for the past two weeks. Quality described as generalized malaise and shortness of breath, no radiation to chest pain, syncope, high fevers, nausea/vomiting, endorses leg swelling, inability to lay flat due to shortness of breath. Severity is described as moderate to severe. Palliating factors include nothing specific- has been taking all his medications per patient. Provoking factors include nothing specific. Events leading up to the incident/Associated Symptoms: Patient has longstanding history of CHF with 2 valve replacements and remote history years ago, CABG X1, acquired cirrhosis, T2DM, persistent A-fib, hypertension. Patient is anticoagulated on Eliquis. Family and social history: Lives independently, no recent travel or sick contacts. Pertinent exam findings / vital signs include 3+ firm peripheral edema of lower extremities, question anasarca with protuberant abdomen, poor air movement, diminished lung sounds in the right base, crackles at left base, neuro intact, nontoxic vitals and afebrile, hypoxic on arrival to 67%. Did observe visible thrombus of RUE on bedside ultrasound as KATHLEEN Franklin was putting an ultrasound-guided right upper extremity IV. Differential / pathologies of concern include CHF exacerbation, CAD, anasarca, pneumonia, pleural effusion, hypoxic respiratory failure, pulmonary embolism. Diagnostic studies of: -CBC, CMP, VBG, lactate, magnesium, serial troponins, BNP, lipase, COVID/flu/RSV PCR, PT/PTT, D-dimer, blood cultures, XR chest portable, EKG, CTA chest PE study. -CBC shows no leukocytosis, shows chronic mild anemia -CMP shows hyponatremia with a sodium of 129, acute kidney injury with creatinine 1.7 from a baseline of 1.0 last lab values 1 year ago, elevated bilirubin at 1.53 likely due to dehydration -Magnesium within normal limits -Serial troponins negative -BNP is elevated to 1009 -Lipase negative -D-dimer is chronically elevated to 2200 -VBG shows respiratory acidosis, pH 7.28, elevated pCO2 at 58 -COVID/flu/RSV negative -PTT elevated at 33, INR 1.6, PT 15.4 -Blood cultures pending -XR chest shows pulmonary edema with bilateral pleural effusions right greater than left with questionable opacity in the right lung base -CTA of the chest shows significant right pleural effusion may need drain, questionable filling defects for PE, questionable pneumonia findings -EKG shows a heart rate of 87 bpm, atrial fibrillation, right bundle branch block, no S1Q3T3, some T wave inversions in anterior leads, no diffuse ST depressions, no ST elevations, normal QTc Interventions of: -Patient was immediately started on 15 L nonrebreather with improvement of his O2 to low 90%, then he was initiated on BiPAP 12/6 at 30% FiO2-improvement to mid 90s, given 80 mg IV Lasix, careful monitoring of blood pressure as a systolics did fall to the 80s but did rise after Lasix administration. Established to large-bore IVs. Given empiric ceftriaxone and azithromycin for questionable pneumonia findings. Initiated Heparin PE protocol @ 1145. @1330: patient has persistent Bps in 70s systolic, started on NorEpi drip while admitted to ICU, but awaiting transport upstairs from ED. Dr. Lee aware. -Consulted with hospitalist Dr. Lee who accepted the patient for ICU admission at 1145, consult with surgery Dr. Alonso, if pleural effusion is not responsive to diuretics he may be consulted from inpatient for drain placement. ED Course/Assessment/Plan: 79-year-old male presents with acute hypoxic respiratory failure likely due to CHF exacerbation, bilateral pleural effusions, possible pneumonia without leukocytosis and also PE seen on CTA, I discussed this case with hospitalist Dr. Lee who accepts for admission to the ICU, patient will be placed on heparin for his pulmonary emboli, I discussed this case with Dr. Alonso, he recommends diuresis and short-term follow-up imaging for possible thoracentesis and drain placement if the pleural effusion is not responsive to diuretics. Patient is stable on BiPAP he had a brief episode of hypotension with systolics in the 80s prior to administration of Lasix, his vitals are all improving and he is trending upward, the patient likely needs echocardiogram and DVT workup as a thrombus was visualized in his right upper extremity when the property staff accountant were putting in an ultrasound-guided IV. Disposition of CHF Exacerbation, Acute Hypoxic Respiratory Failure, Pulmonary Emboli, Pneumonia, Pleural Effusion on Right. Patient verbalized understanding of the plan and return to ED criteria and e ngaged in shared decision making. Medical Records Medical records reviewed: Yes I reviewed the patient's medical records. Imaging Data Radiologic Study: Attestation: I personally reviewed and interpreted this imaging study as follows: Imaging: X-Ray Radiologist's impression: EXAM: XR PORTABLE CHEST AP CLINICAL HISTORY: shortness of breath TECHNIQUE: 2D digital imaging was performed of the chest. One image was obtained. An AP view was obtained. COMPARISON: CR XR PORTABLE CHEST AP from 01/04/2021 CR,XR XR CHEST 2V PA LATERAL from 02/07/2024 FINDINGS: There is poor inspiration. MEDIASTINUM: Normal. HEART: Cardiomegaly. There is an aortic valve replacement. PULMONARY VASCULATURE: Normal. LUNGS: The left lung is clear. There is an opacity seen in the right lung base which may in part be due to the pleural effusion but a right basilar infiltrate cannot be excluded. PLEURAL SPACE: There is a right pleural effusion. There is blunting of the left costophrenic angle which may represent a small left pleural effusion. No pneumothorax is identified. BONE:Within normal limits for the patient's age. Sternal wires are again seen. OTHER FINDINGS:Normal. IMPRESSION: 1. Cardiomegaly. 2. Bilateral pleural effusions, right greater than left. 3. The findings may represent fluid overload/CHF. Please correlate clinically. 4. Opacity in the right lung base. This may represent superimposed infiltrate/atelectasis. Radiologic Study #2: Attestation: I personally reviewed and interpreted this imaging study as follows: Imaging: CT Scan Radiologist's impression: EXAM: CT CHEST PE CTA CLINICAL HISTORY: elev d-dimer, SOB, R UE clot seen on USIV attmpt. TECHNIQUE: Imaging Protocol: Axial CT angiography was performed with multi- slice acquisition and multi-planar and/or 3D reconstructions. Lung Computer Aided Detection (CAD) was utilized. CONTRAST MATERIAL: Intravenous: Omnipaque 350 contrast volume:100 mL COMPARISON: CT CT CHEST PE CTA from 01/04/2021 CR XR PORTABLE CHEST AP from 08/16/2024 FINDINGS: The examination is limited due to patient motion artifact. Tracheobronchial tree: Patent where visualized. No bronchiectasis. Pulmonary parenchyma: There is a large right pleural effusion with consolidation seen in the right lower lobe. There are dependent atelectatic changes seen in the right upper lobe. No focal consolidating infiltrates are seen in the left lung. There is a 2 mm nodule in the periphery of the left lung (series 12, image 70). Pulmonary Arteries: There is suboptimal visualization of the pulmonary arteries to the right lower lobe secondary to the large pleural effusion in the patient motion artifact. There is a question of a filling defect in a pulmonary artery branch in the right lower lobe (series 12, image 87). There is also question of a filling defect in a pulmonary artery branch in the left lower lobe (series 12, image 82). Mediastinum and Whitney: No dominant adenopathy or fluid collection. The esophagus is unremarkable. Pleura: There is no pneumothorax. No left pleural effusion. Heart: There is cardiomegaly predominantly involving both the right and left atria. There is a aortic valve replacement. Three vessel coronary artery calcification is present. No pericardial effusion. Aorta: The ascending thoracic aorta measures 4.5 x 4.4 cm. Due to the timing of the bolus, the abdominal aorta is insufficiently opacified for evaluation of dissection. Atherosclerotic calcification is present. Upper abdomen: There is abdominal ascites. The liver has a nodular appearance raising the question of hepatic cirrhosis. There is a stable left adrenal nodule. The gallbladder is contracted. There do appear to be stones present within the gallbladder. Soft tissues: Unremarkable. Bones: Within normal limits for the patient's age.Sternal wires are in place. There is an old compression deformity of T12. Multilevel degenerative changes are present throughout the thoracic spine. There are marked degenerative changes seen in the shoulders bilaterally, right greater than left. There is a subacute right 7th rib fracture. There are old healed right rib fractures. IMPRESSION: 1. Examination limited by patient motion artifact and the large right pleural effusion. 2. There are question of filling defects seen in branches of the pulmonary artery to the right and left lower lobes. These may represent pulmonary emboli. 3. Cardiomegaly. 4. Large right pleural effusion with consolidation involving the right lower lobe which may represent atelectasis or pneumonia. Please correlate clinically. 5. Abdominal ascites. Nodular appearance of the liver suggesting hepatic cirrhosis. 6. Healing subacute right 7th rib fracture. 7. 2 mm left upper lobe pulmonary nodule. Solid nodules smaller than 6 mm do not require routine follow-up in all patients with high clinical risk; however, some nodules smaller than 6 mm with suspicious morphology, upper lobe location, or both may warrant follow-up at 12 months (grade 2A; weak recommendation, high-quality evidence). (Natalya et al., 2017) Single solid noncalcified nodules. ???Solid nodules smaller than 6 mm (those 5 mm or smaller) do not require routine follow-up in patients at low risk (grade 1C; strong recommendation, low- or [id number] evidence). (Natalya et al., 2017) 8. Incidental findings in the chest and upper abdomen as described above. Lab Data Lab results reviewed: Yes I reviewed the patient's lab results. Labs: 08/16/24 10:27 Blood Blood Culture - Pending 08/16/24 10:25 Blood Blood Culture - Pending Laboratory Tests Range/Units 08/16/24 08/16/24 08/16/24 09:08 09:16 10:30 WBC (4.4-10.8) 10^3/uL 4.63 RBC (4.36-5.78) 10^6/uL 3.66 L Hgb (13.5-17.5) g/dL 11.3 L Hct (40.0-50.0) % 36.3 L MCV (80-95) fL 99 H MCH (27.0-33.0) pg 30.9 MCHC (32.0-36.0) % 31.1 L RDW (11.8-14.1) % 14.6 H Plt Count (130-400) 10^3/uL 80 L MPV (8.0-11.0) fL 11.2 H Immature Gran % % 0.2 Neutrophils % % 66.9 Lymphocytes % % 14.5 Monocytes % % 13.0 Eosinophils % % 4.1 Basophils % % 1.3 Nucleated RBC % (0.0-0.3) % 0.0 Absolute Neutrophils (1.2-6.7) 10^3/uL 3.10 Absolute Lymphocytes (1.2-3.4) 10^3/uL 0.67 L Absolute Monocytes (0.1-0.8) 10^3/uL 0.60 Absolute Eosinophils (0.0-0.7) 10^3/uL 0.19 Absolute Basophils (0.0-0.2) 10^3/uL 0.06 PT (9.1-11.1) sec 15.4 H INR (0.9-1.1) 1.6 H APTT (20.6-30.2) sec 33.0 H D-Dimer (<500) ng/mlFEU 2245 H VBG pH (7.31-7.41) 7.28 L VBG pCO2 (41-51) mmHg 58 H VBG pO2 mmHg 37 VBG HCO3 (23-28) mmol/L 28 VBG Total CO2 (24-29) mmol/L 26 VBG O2 Saturation % 58 VBG Base Excess (-2-3) mmol/L 1 VBG Lactate (<or=2.0) mmol/L 2.1 H* Sodium (136-145) mmol/L 129 L Potassium (3.5-5.1) mmol/L 4.9 Chloride (98-107) mmol/L 94 L Carbon Dioxide (21.0-32.0) mmol/L 28.0 Anion Gap (3-11) mmol/L 7.0 BUN (7-18) mg/dL 46 H Creatinine (0.70-1.30) mg/dL 1.7 H Est GFR (CKD-EPI 2020) (mL/min/1.73m2) 40.25 Glucose (74-106) mg/dL 154 H Calcium (8.5-10.1) mg/dL 8.9 Magnesium (1.8-2.4) mg/dL 2.4 Total Bilirubin (0.2-1.0) mg/dL 1.53 H AST (15-37) U/L 30 ALT (16-63) U/L 27 Alkaline Phosphatase (46-116) U/L 206 H Troponin I (<or=76) ng/L 66 56 NT-Pro-B Natriuret Pep (<300) pg/mL 1009 H Total Protein (6.4-8.2) g/dL 9.1 H Albumin (3.4-5.0) g/dL 3.4 Lipase (<78) U/L 76 COVID-19 Source Nasopharynx SARS-CoV-2 (PCR) (Negative) Negative Influenza Type A (PCR) (Negative) Negative Influenza Type B (PCR) (Negative) Negative RSV (PCR) (Negative) Negative Quality:SDOH Health Related Social Needs: No Data to Display PFSH All Active Problems (Updated 08/16/24 @ 14:10 by NILA VILLALTA) Pleural effusion on right (Acute) Pulmonary emboli (Chronic) Pneumonia (Acute) Acute hypoxic respiratory failure (Acute) CHF exacerbation (Acute) Age-related nuclear cataract, bilateral (Acute) DM Eye Exam 06/03/24 Low magnesium level (Acute) Cirrhosis, alcoholic (Acute ~01/2024) Left ankle sprain (Acute) Valvular heart disease (Acute) Abrasion, right foot, initial encounter (Acute) Acquired hammertoe of right foot (Acute) Acquired hammertoe of left foot (Acute) Toe pain, left (Acute) Toe pain, right (Acute) Type 2 diabetes mellitus with diabetic peripheral angiopathy without gangrene (Acute) Dx code needed for routine at-risk foot care with Podiatry Thrombocytopenia (Chronic ~2016) Nail dystrophy (Acute) Arteriosclerotic cardiovascular disease (ASCVD) (Acute) 01/18/21 [facility] [place] Cardiology Anemia (Chronic) CHF (congestive heart failure) (Chronic ~12/2020) Atrial fibrillation (Chronic ~12/2020) Prosthetic cardiac valve obstruction (Acute ~02/2019) NILS 03/08/19 Sensorineural hearing loss (SNHL) of both ears (Acute) Obstructive sleep apnea (Chronic 03/25/16) Moderately severe; historically wore CPAP, but no longer (2022) Obesity (Acute 09/02/12) Hyponatremia (Chronic 08/20/11) Alcohol dependence (Acute 09/02/12) 6 pack/night Hypertension (Acute) GERD (gastroesophageal reflux disease) (Chronic) No issues off PPI 07/2022 History of tobacco use (Chronic) Quit 1989; 25 pack years, last quit 03/31/84 Hyperlipidemia (Chronic) Type 2 diabetes mellitus (Chronic) CAD (coronary artery disease) (Chronic) a. Hx NSTEMI b. Single vessel dz 02/16/19 (LAD) Medical History (Updated 08/16/24 @ 14:10 by NILA VILLALTA) Leg swelling Elevated troponin Non-sustained ventricular tachycardia Dyspnea Osteoarthritis of left hip Osteoarthritis of left knee Cataracts, bilateral (02/23/19) S/P right hip fracture (04/13/17) Aortic valve stenosis (08/20/11) severe critical peak gradient 81/50 mm of mercury Cardiac cath [facility] [place] 05/05/14 s/p tissue AVR 23 Trifecta perivardial Ascending Aortic Endarterectomy, NILS 06/01/14 [facility] [place]- will need Dental prophylaxis Femur fracture, right Chronic low back pain DJD (degenerative joint disease) Constipation Elevated troponin (04/30/14) Acute GI bleeding (04/30/14) Surgical History 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 appendectomy as a child Family History Mother No problems noted. Father No problems noted. Sister No problems noted. Sister No problems noted. Brother No problems noted. 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 Lives alone but GF sees him most days. Son Kirby in area.
[2024-08-16 09:54] LABS: Lipase 76 U/L (<78); Magnesium 2.4 mg/dL (1.8-2.4); NT-proBNP 1009 pg/mL (<300); Troponin I 66 ng/L (<or=76)
[2024-08-16 09:57] LABS: ALT 27 U/L (16-63); AST 30 U/L (15-37); Albumin 3.4 g/dL (3.4-5.0); Alkaline Phosphatase 206 U/L (46-116); BUN 46 mg/dL (7-18); Bilirubin, Total 1.53 mg/dL (0.2-1.0); CREATININE 1.7 mg/dL (0.70-1.30); Calcium 8.9 mg/dL (8.5-10.1); Chloride 94 mmol/L (98-107); Estimated GFR 40.25 (mL/min/1.73m2); Glucose 154 mg/dL (74-106); Potassium 4.9 mmol/L (3.5-5.1); Sodium 129 mmol/L (136-145); Total Protein 9.1 g/dL (6.4-8.2)
[2024-08-16 10:00] LABS: COVID-19 PCR Negative (Negative); Influenza A PCR Negative (Negative); Influenza B PCR Negative (Negative); RSV PCR Negative (Negative)
--- NOTE | 2024-08-16 10:00 | DI.CT_ITS ---
Exam(s) CT CHEST PE CTA EXAM: CT CHEST PE CTA CLINICAL HISTORY: elev d-dimer, SOB, R UE clot seen on USIV attmpt. TECHNIQUE: Imaging Protocol: Axial CT angiography was performed with multi-slice acquisition and mu lti-planar and/or 3D reconstructions. Lung Computer Aided Detection (CAD) was utilized. CONTRAST MATERIAL: Intravenous: Omnipaque 350 contrast volume:100 mL COMPARISON: CT CT CHEST PE CTA from 01/04/2021 CR XR PORTABLE CHEST AP from 08/16/2024 FINDINGS: The examination is limited due to patient motion artifact. Tracheobronchial tree: Patent where visualized. No bronchiectasis. Pulmonary parenchyma: There is a large right pleural effusion with consolidation seen in the right lo wer lobe. There are dependent atelectatic changes seen in the right upper lobe. No focal consolidat ing infiltrates are seen in the left lung. There is a 2 mm nodule in the periphery of the left lung (series 12, image 70). Pulmonary Arteries: There is suboptimal visualization of the pulmonary arteries to the right lower lo be secondary to the large pleural effusion in the patient motion artifact. There is a question of a filling defect in a pulmonary artery branch in the right lower lobe (series 12, image 87). There is also question of a filling defect in a pulmonary artery branch in the left lower lobe (series 12, arvin ge 82). Mediastinum and Whitney: No dominant adenopathy or fluid collection. The esophagus is unremarkable. Pleura: There is no pneumothorax. No left pleural effusion. Heart: There is cardiomegaly predominantly involving both the right and left atria. There is a aorti c valve replacement. Three vessel coronary artery calcification is present. No pericardial effusion. Aorta: The ascending thoracic aorta measures 4.5 x 4.4 cm. Due to the timing of the bolus, the abdomi nal aorta is insufficiently opacified for evaluation of dissection. Atherosclerotic calcification is present. Upper abdomen: There is abdominal ascites. The liver has a nodular appearance raising the question o f hepatic cirrhosis. There is a stable left adrenal nodule. The gallbladder is contracted. There do a ppear to be stones present within the gallbladder. Soft tissues: Unremarkable. Bones: Within normal limits for the patient's age.Sternal wires are in place. There is an old puneet abbey deformity of T12. Multilevel degenerative changes are present throughout the thoracic spine. The re are marked degenerative changes seen in the shoulders bilaterally, right greater than left. There is a subacute right 7th rib fracture. There are old healed right rib fractures. IMPRESSION: 1. Examination limited by patient motion artifact and the large right pleural effusion. 2. There are question of filling defects seen in branches of the pulmonary artery to the right and le ft lower lobes. These may represent pulmonary emboli. 3. Cardiomegaly. 4. Large right pleural effusion with consolidation involving the right lower lobe which may represent atelectasis or pneumonia. Please correlate clinically. 5. Abdominal ascites. Nodular appearance of the liver suggesting hepatic cirrhosis. 6. Healing subacute right 7th rib fracture. 7. 2 mm left upper lobe pulmonary nodule. Solid nodules smaller than 6 mm do not require routine follow-up in all patients with high clinical r isk; however, some nodules smaller than 6 mm with suspicious morphology, upper lobe location, or both may warrant follow-up at 12 months (grade 2A; weak recommendation, high-quality evidence). (Natalya et al., 2017) Single solid noncalcified nodules. ???Solid nodules smaller than 6 mm (those 5 mm or smaller) do not require routine follow-up in patients at low risk (grade 1C; strong recommendation, low- or very-low- quality evidence). (Natalya et al., 2017) 8. Incidental findings in the chest and upper abdomen as described above. RADIATION DOSE DELIVERED: 311.06mGy.cm Total DLP DATA REPOSITORY: All CT scans at this facility are submitted to the National Radiology Data Registry (NRDR) Dose Index Registry (DIR) with the [employer] (A[employer]). RADIATION OPTIMIZATION: All CT scans at this facility use at least one of these dose optimization te chniques: automated exposure control; mA and/or kV adjustment per patient size (includes targeted exa ms where dose is matched to clinical indication); or iterative reconstruction.
[2024-08-16 10:05] LABS: Diff Comment PLT Morph Reviewed; Platelet Count 80 10^3/uL (130-400)
[2024-08-16 10:06] LABS: Source Nasopharynx
[2024-08-16] MEDS: Omnipaque 350 MG/ML 100 ML BTL IJ (10:26)
[2024-08-16] MEDS: Normal Saline - Diluent 50 ML VIAL IJ (10:27)
[2024-08-16 11:09] LABS: Troponin I 56 ng/L (<or=76)
--- NOTE | 2024-08-16 11:54 | SCONE_ITS ---
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 There may be a component of CHF contributing to his pleural effusion, but ultimately think this is related to ascites. I think medical management is the optimum management strategy at this time. We would be easy to perform thoracentesis, but I suspect rapid re-accumulation of the fluid would be the reality. At this time I recommend holding off on thoracentesis unless it is felt to be absolutely necessary. Unclear how advanced his cirrhosis is at this time but his bilirubin is elevated and previous imaging has confirmed a cirrhotic liver. Surgery signing off for now. Call us back if and when thoracentesis is absolutely necessary. History of Present Illness Narrative: 79-year-old man has worsening shortness of breath presented to the emergency room for evaluation. He was found to have a large right-sided pleural effusion and ascites. History concerning for cirrhosis. [facility] All Active Problems (Updated 08/16/24 @ 16:57 by Jose Lee MD) Hypotension (Acute) Pneumonia (Acute) Alcohol use disorder (Acute) Mitral stenosis (Acute) Mitral regurgitation (Chronic) Tricuspid regurgitation (Acute) Atrial fibrillation (Chronic) Hydrothorax (Acute) Cholelithiases (Acute) Cirrhosis (Acute) Ascites (Acute) Total bilirubin, elevated (Acute) D-dimer, elevated (Acute) Elevated MCV (Acute) Thrombocytopenia (Chronic) Elevated INR (Acute) Pleural effusion (Acute) Pleural effusion on right (Acute) Pulmonary emboli (Chronic) Pneumonia (Acute) Acute hypoxic respiratory failure (Acute) CHF exacerbation (Acute) Age-related nuclear cataract, bilateral (Acute) DM Eye Exam 06/03/24 Low magnesium level (Acute) Cirrhosis, alcoholic (Acute ~01/2024) Left ankle sprain (Acute) Valvular heart disease (Acute) Abrasion, right foot, initial encounter (Acute) Acquired hammertoe of right foot (Acute) Acquired hammertoe of left foot (Acute) Toe pain, left (Acute) Toe pain, right (Acute) Type 2 diabetes mellitus with diabetic peripheral angiopathy without gangrene (Acute) Dx code needed for routine at-risk foot care with Podiatry Thrombocytopenia (Chronic ~2017) Nail dystrophy (Acute) Arteriosclerotic cardiovascular disease (ASCVD) (Acute) 01/18/21 [facility] Cardiology Anemia (Chronic) CHF (congestive heart failure) (Chronic ~12/2020) Atrial fibrillation (Chronic ~12/2020) Prosthetic cardiac valve obstruction (Acute ~02/2019) NILS 03/08/19 Sensorineural hearing loss (SNHL) of both ears (Acute) Obstructive sleep apnea (Chronic 03/25/16) Moderately severe; historically wore CPAP, but no longer (2022) Obesity (Acute 09/02/12) Hyponatremia (Chronic 08/20/11) Alcohol dependence (Acute 09/02/12) 6 pack/night Hypertension (Acute) GERD (gastroesophageal reflux disease) (Chronic) No issues off PPI 07/2022 History of tobacco use (Chronic) Quit 1989; 25 pack years, last quit 03/31/84 Hyperlipidemia (Chronic) Type 2 diabetes mellitus (Chronic) CAD (coronary artery disease) (Chronic) a. Hx NSTEMI b. Single vessel dz 02/16/19 (LAD) Medical History (Updated 08/16/24 @ 16:57 by Jose Lee MD) Leg swelling Elevated troponin Non-sustained ventricular tachycardia Dyspnea Osteoarthritis of left hip Osteoarthritis of left knee Cataracts, bilateral (02/23/19) S/P right hip fracture (04/13/17) Aortic valve stenosis (08/20/11) severe critical peak gradient 81/50 mm of mercury Cardiac cath [facility] 05/05/14 s/p tissue AVR 23 Trifecta perivardial Ascending Aortic Endarterectomy, NILS 06/01/14 [facility]- will need Dental prophylaxis Femur fracture, right Chronic low back pain DJD (degenerative joint disease) Constipation Elevated troponin (04/30/14) Acute GI bleeding (04/30/14) Surgical History 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 appendectomy as a child Family History Mother No problems noted. Father No problems noted. Sister No problems noted. Sister No problems noted. Brother No problems noted. Social History Smoking/Tobacco Use Status: Former Tobacco Use Tobacco: How many years used: 20 Smoking risk assessment performed?: Yes Alcohol Intake: current Alcohol Intake frequency: 3 or more drinks per day Alcohol type: beer Drug use: Never Substance use type: does not use Adopted: No Household members: none Housing: house Number of Children: 2 current occupation: Worked in [employer] at [employer] Current gender identity: male What is your relationship status?: Panel score (0-1 are the most socially isolated patients): 0 What type of physical activity do you participate in: none Seatbelt use: always Drive intox or ride w/intox security patrol driver: No Carbon monox detector in home: Yes Do you feel safe at home: Yes Do you feel safe in your relationship?: Yes Additional Social history: [place] [facility] [place] 60[facility]. Lives alone but GF sees him most days. Son Kirby in area. Exam Narrative Exam Narrative: General: Nontoxic but clearly short of breath Results Last Vital Signs Temp 97.9 F 08/16/24 09:06 Pulse 79 08/16/24 11:41 Resp 27 H 08/16/24 11:41 BP 131/60 08/16/24 11:40 Pulse Ox 93 08/16/24 11:41 Labs 08/16/24 09:08 08/16/24 09:08 Labs: Laboratory Results - last 24 hr 08/16/24 08/16/24 08/16/24 09:08 09:16 10:30 WBC 4.63 RBC 3.66 L Hgb 11.3 L Hct 36.3 L MCV 99 H MCH 30.9 MCHC 31.1 L RDW 14.6 H Plt Count 80 L MPV 11.2 H Immature Gran % 0.2 Neutrophils % 66.9 Lymphocytes % 14.5 Monocytes % 13.0 Eosinophils % 4.1 Basophils % 1.3 Nucleated RBC % 0.0 Absolute Neutrophils 3.10 Absolute Lymphocytes 0.67 L Absolute Monocytes 0.60 Absolute Eosinophils 0.19 Absolute Basophils 0.06 PT 15.4 H INR 1.6 H APTT 33.0 H D-Dimer 2245 H VBG pH 7.28 L VBG pCO2 58 H VBG pO2 37 VBG HCO3 28 VBG Total CO2 26 VBG O2 Saturation 58 VBG Base Excess 1 VBG Lactate 2.1 H* Sodium 129 L Potassium 4.9 Chloride 94 L Carbon Dioxide 28.0 Anion Gap 7.0 BUN 46 H Creatinine 1.7 H Est GFR (CKD-EPI 2020) 40.25 Glucose 154 H Calcium 8.9 Magnesium 2.4 Total Bilirubin 1.53 H AST 30 ALT 27 Alkaline Phosphatase 206 H Troponin I 66 56 NT-Pro-B Natriuret Pep 1009 H Total Protein 9.1 H Albumin 3.4 Lipase 76 COVID-19 Source Nasopharynx SARS-CoV-2 (PCR) Negative Influenza Type A (PCR) Negative Influenza Type B (PCR) Negative RSV (PCR) Negative
[2024-08-16] MEDS: AZITHROMYCIN 500 MG in Normal Saline 250 ML 250 MG IVPB (12:05)
[2024-08-16] MEDS: cefTRIAXone 2 GM/50 ML BAG IVPB (12:05)
[2024-08-16] MEDS: Heparin in 0.45% NaCl 25,000 UNIT/250 ML BAG 16.5 UNIT IVINF (12:11)
[2024-08-16 12:57] LABS: Troponin I 62 ng/L (<or=76)
[2024-08-16 13:33] LABS: BE 0 mmol/L (-2-3); HCO3 27 mmol/L (22-26); pCO2 54 mmHg (35-45); pO2 94 mmHg (80-105); sO2 97 % (95-98); tCO2 25 mmol/L (23-27)
[2024-08-16 13:34] LABS: Site Right Radial
[2024-08-16 13:38] LABS: FIO2 30 %
[2024-08-16 13:40] LABS: Bilirubin Negative (Negative); Blood Negative (Negative); Clarity Clear (Clear); Glucose 100 mg/dL (Negative); Ketones Negative (Negative); Leukocyte Esterase Negative (Negative); Nitrite Negative (Negative); Urobilinogen 0.2 mg/dL (Up to 0.2); pH 5.5 (5-8)
[2024-08-16] MEDS: Norepinephrine in D5W 8 MG/250 ML BAG 13.125 MG IV (13:40)
--- NOTE | 2024-08-16 16:16 | HPE_ITS ---
Date of service: 08/16/24 Time of Service: 16:25 Assessment and Plan Assessment and plan (1) CHF (congestive heart failure): Status: Chronic Assessment and plan: Echo from 12/17/23 Conclusion Normal left ventricular wall thickness and chamber size. Ejection fraction is 60%. Wall motion is normal Moderately enlarged right ventricle Both atria are severely enlarged There is a bioprosthetic aortic valve. There is no regurgitation. Mean gradient is 9 mmHg Thickened mitral leaflets, mitral annular calcification, moderate mitral regurgitation. Moderate mitral stenosis Severe tricuspid regurgitation. Estimated right ventricular systolic pressure is 60 mmHg Ascending aorta measures 3.93 centimeters , Will continue with lasix, but will drop to 60mg iv bid. Will also add aldactone and monitor for improvements (2) Hyponatremia: Status: Chronic Assessment and plan: Pt with chronic history of hyponatremia and pt appears to be close to his baseline and is asymptomatic. At this point I prefer watchful waiting vs active intervention (3) CAD (coronary artery disease): Status: Chronic Assessment and plan: Pt does not complain of chest pain at this time. Pt is on a statin and nitro prn at home as well as entresto (4) Valvular heart disease: Status: Acute Assessment and plan: Replaced aortic valve working well but some progression of mitral and tricuspid disease on November echocardiogram. See above re: CHF. Follow up valve disease as outpatient. (5) Atrial fibrillation: Status: Chronic Assessment and plan: Pt is currently on eliquis and his HR is 77. Pt also takes bisoprolol (6) Type 2 diabetes mellitus: Status: Chronic Assessment and plan: Pt is on jardiance only. Will consider an a1c in the am (7) Obstructive sleep apnea: Status: Chronic Assessment and plan: Strongly recommend outpatient sleep study but will defer to his PCP (8) Thrombocytopenia: Status: Chronic Assessment and plan: pt with possible PE on CT scan done in the ED. Considering the pt's low plt count, logical alternative diagnosis for his SOB including infection/effusion/chf as well as the fact that the pt is taking his eliquis, I would doubt that the pt has a PE. At this point he will be on eliquis only (9) Alcohol dependence: Status: Acute Assessment and plan: Will add CIWA, phenobarbital protocol, banana bag daily including thiamine (10) Anemia: Status: Chronic Assessment and plan: Noted and chronic. No indications for transfusion at this point (11) Leg swelling: Assessment and plan: Most likely 2/2 chf vs venous stasis change vs protein malnutrition. 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 I don't think he has a PE/DVT as he was on Eliquis. It is possible that he wasn't taking his medication properly but pt clearly states that he is taking it (17) Total bilirubin, elevated: Status: Acute Assessment and plan: monitor, minor elevation (18) Ascites: Status: Acute Assessment and plan: noted, will monitor. Consider paracentesis if becomes symptomatic (19) Cirrhosis: Status: Acute Assessment and plan: Recommend complete cessation of etoh. Will also order ammonia level as pt was somnolent originally (20) Cholelithiases: Status: Acute Assessment and plan: noted, asymptomatic currently (21) Hydrothorax: Status: Acute Assessment and plan: no intervention at this time (22) Atrial fibrillation: Status: Chronic Assessment and plan: CW BB and eliquis (23) Tricuspid regurgitation: Status: Acute Assessment and plan: noted on recent echo. Causing enlarged atria (24) Mitral regurgitation: Status: Chronic Assessment and plan: noted (25) Mitral stenosis: Status: Acute Assessment and plan: noted (26) Alcohol use disorder: Status: Acute Assessment and plan: Will add CIWA and phenobarbital protocol as well as banana bag (27) Pneumonia: Status: Acute Assessment and plan: cw rocephin and zmax, blood cultures drawn in the ed. will add sputum cultures (28) Hypotension: Status: Acute Assessment and plan: currently on pressure support with levophed. Will wean as tolerated History of Present Illness History of Present Illness Chief Complaint: sob Narrative: This is an 79-year-old gentleman with a multiple medical problems who presented to the ED today with worsening shortness of breath. Patient's other complaints were of cough fatigue malaise. Patient states he has been taking his medications as prescribed of note the patient has a long history of CHF with 2 valve replacements upon my discussion with his significant other she states that he has both a porcine and bovine valve but on the CT mentions a aortic valve. While he was in the ED his respiratory status decreased to the point that he needed to be on BiPAP. Of note, there is a mention of a visible thrombus on the right upper extremity but this appears to be superficial in nature. I was not there for the exam but this is just per report. While he was in the ED he was given Rocephin and Zithromax. The patient states that he has been taking his Eliquis and there is a finding on his CT indicative of possible PE. The patient was started on a heparin drip and his Eliquis was stopped. While he was in the ED a consultation was placed to Dr. Alonso of the general surgery service as well secondary to pleural effusion. His opinion of Dr. Alonso that this is a hepatic hydrothorax and would not benefit from drainage at this point as it will reaccumulate's quickly as it is taken out. The differential diagnosis in the ED was pneumonia versus CHF versus PE. While in the ED he was also noted to be hypotensive and was started on Levophed. Review of Systems All systems reviewed & are unremarkable except as noted in HPI and below PFSH All Active Problems (Updated 08/16/24 @ 16:57 by Jose Lee MD) Hypotension (Acute) Pneumonia (Acute) Alcohol use disorder (Acute) Mitral stenosis (Acute) Mitral regurgitation (Chronic) Tricuspid regurgitation (Acute) Atrial fibrillation (Chronic) Hydrothorax (Acute) Cholelithiases (Acute) Cirrhosis (Acute) Ascites (Acute) Total bilirubin, elevated (Acute) D-dimer, elevated (Acute) Elevated MCV (Acute) Thrombocytopenia (Chronic) Elevated INR (Acute) Pleural effusion (Acute) Pleural effusion on right (Acute) Pulmonary emboli (Chronic) Pneumonia (Acute) Acute hypoxic respiratory failure (Acute) CHF exacerbation (Acute) Age-related nuclear cataract, bilateral (Acute) DM Eye Exam 06/03/24 Low magnesium level (Acute) Cirrhosis, alcoholic (Acute ~01/2024) Left ankle sprain (Acute) Valvular heart disease (Acute) Abrasion, right foot, initial encounter (Acute) Acquired hammertoe of right foot (Acute) Acquired hammertoe of left foot (Acute) Toe pain, left (Acute) Toe pain, right (Acute) Type 2 diabetes mellitus with diabetic peripheral angiopathy without gangrene (Acute) Dx code needed for routine at-risk foot care with Podiatry Thrombocytopenia (Chronic ~2017) Nail dystrophy (Acute) Arteriosclerotic cardiovascular disease (ASCVD) (Acute) 01/18/21 [facility] [place] Cardiology Anemia (Chronic) CHF (congestive heart failure) (Chronic ~12/2020) Atrial fibrillation (Chronic ~12/2020) Prosthetic cardiac valve obstruction (Acute ~02/2019) NILS 03/08/19 Sensorineural hearing loss (SNHL) of both ears (Acute) Obstructive sleep apnea (Chronic 03/25/16) Moderately severe; historically wore CPAP, but no longer (2022) Obesity (Acute 09/02/12) Hyponatremia (Chronic 08/20/11) Alcohol dependence (Acute 09/02/12) 6 pack/night Hypertension (Acute) GERD (gastroesophageal reflux disease) (Chronic) No issues off PPI 07/2022 History of tobacco use (Chronic) Quit 1989; 25 pack years, last quit 03/31/84 Hyperlipidemia (Chronic) Type 2 diabetes mellitus (Chronic) CAD (coronary artery disease) (Chronic) a. Hx NSTEMI b. Single vessel dz 02/16/19 (LAD) Medical History (Updated 08/16/24 @ 16:57 by Jose Lee MD) Leg swelling Elevated troponin Non-sustained ventricular tachycardia Dyspnea Osteoarthritis of left hip Osteoarthritis of left knee Cataracts, bilateral (02/23/19) S/P right hip fracture (04/13/17) Aortic valve stenosis (08/20/11) severe critical peak gradient 81/50 mm of mercury Cardiac cath [facility] [place] 05/05/14 s/p tissue AVR 23 Trifecta perivardial Ascending Aortic Endarterectomy, NILS 06/01/14 [facility] [place]- will need Dental prophylaxis Femur fracture, right Chronic low back pain DJD (degenerative joint disease) Constipation Elevated troponin (04/30/14) Acute GI bleeding (04/30/14) Surgical History 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 appendectomy as a child Family History Mother No problems noted. Father No problems noted. Sister No problems noted. Sister No problems noted. Brother No problems noted. Social History Smoking/Tobacco Use Status: Former Tobacco Use Tobacco: How many years used: 20 Smoking risk assessment performed?: Yes Alcohol Intake: current Alcohol Intake frequency: 3 or more drinks per day Alcohol type: beer Drug use: Never Substance use type: does not use Adopted: No Household members: none Housing: house Number of Children: 2 current occupation: Worked in [employer] at [employer] P[employer] Current gender identity: male What is your relationship status?: Panel score (0-1 are the most socially isolated patients): 0 What type of physical activity do you participate in: none Seatbelt use: always Drive intox or ride w/intox driver medic: No Carbon monox detector in home: Yes Do you feel safe at home: Yes Do you feel safe in your relationship?: Yes Additional Social history: Giovanny moved from [place] in 60s. Lives alone but GF sees him most days. Son Kirby in area. Meds Allergies and Home Medications Allergies Allergy/AdvReac Type Severity Reaction Status Date / Time No Known Allergies Allergy Verified 06/02/24 09:31 Home Medications ?Medication ?Instructions ?Recorded ?Confirmed ?Type acetaminophen 500 mg tablet 250 mg PO PRN 12/12/14 08/16/24 History (Tylenol Extra Strength) lancets 33 gauge (OneTouch Delica #100 ea 06/01/19 08/16/24 Rx Lancets) polyethylene glycol 3350 17 17 g PO BID PRN constipation #850 05/29/23 08/16/24 Rx gram/dose oral powder grams blood sugar diagnostic (OneTouch #100 strips 03/31/24 08/16/24 Rx Ultra Test strips) apixaban 5 mg tablet (Eliquis) 5 mg PO BID #180 tabs 05/31/24 08/16/24 Rx atorvastatin 80 mg tablet See Rx Instructions .Route 05/31/24 08/16/24 Rx .COMPLEX #90 tabs bisoprolol fumarate 5 mg tablet 5 mg PO DAILY #90 tabs 05/31/24 08/16/24 Rx empagliflozin 10 mg tablet See Rx Instructions .Route 05/31/24 08/16/24 Rx (Jardiance) .COMPLEX #90 tabs furosemide 80 mg tablet 80 mg PO BID #180 tabs 05/31/24 08/16/24 Rx nitroglycerin 0.4 mg sublingual 0.4 mg sublingual Q5-15M PRN chest 05/31/24 08/16/24 Rx tablet pain #30 tabs potassium chloride 20 mEq 20 meq PO DAILY #90 tabs 05/31/24 08/16/24 Rx tablet,extended release(part/cryst) (Klor-Con M) sacubitril 24 mg-valsartan 26 mg 1 tab PO BID #180 tabs 05/31/24 08/16/24 Rx tablet (Entresto) Exam Narrative Exam Narrative: This is a 79-year-old gentleman who appears his stated age Head eyes ears nose and throat: Normocephalic atraumatic BiPAP is in place Neck: Mild JVD is noted Cardiovascular: Irregularly irregular heart rate I cannot appreciate a murmur with his current pulmonary condition Pulm: Bilateral wheezes with inspiration and expiration Extremities: 2+ edema but not significant pitting bilaterally Neurologic: Was quite somnolent on evaluation in the ED. Psych: Cannot be completely assessed due to somnolence Results Labs 08/16/24 09:08 08/16/24 09:08 Labs: Laboratory Results - last 24 hr 08/16/24 08/16/24 08/16/24 09:08 09:16 10:30 WBC 4.63 RBC 3.66 L Hgb 11.3 L Hct 36.3 L MCV 99 H MCH 30.9 MCHC 31.1 L RDW 14.6 H Plt Count 80 L MPV 11.2 H Immature Gran % 0.2 Neutrophils % 66.9 Lymphocytes % 14.5 Monocytes % 13.0 Eosinophils % 4.1 Basophils % 1.3 Nucleated RBC % 0.0 Absolute Neutrophils 3.10 Absolute Lymphocytes 0.67 L Absolute Monocytes 0.60 Absolute Eosinophils 0.19 Absolute Basophils 0.06 PT 15.4 H INR 1.6 H APTT 33.0 H D-Dimer 2245 H ABG Sample Site ABG pH ABG pCO2 ABG pO2 ABG HCO3 ABG Total CO2 ABG O2 Saturation ABG Base Excess VBG pH 7.28 L VBG pCO2 58 H VBG pO2 37 VBG HCO3 28 VBG Total CO2 26 VBG O2 Saturation 58 VBG Base Excess 1 VBG Lactate 2.1 H* Oxygen Liter Flow FiO2 Sodium 129 L Potassium 4.9 Chloride 94 L Carbon Dioxide 28.0 Anion Gap 7.0 BUN 46 H Creatinine 1.7 H Est GFR (CKD-EPI 2020) 40.25 Glucose 154 H Calcium 8.9 Magnesium 2.4 Total Bilirubin 1.53 H AST 30 ALT 27 Alkaline Phosphatase 206 H Troponin I 66 56 NT-Pro-B Natriuret Pep 1009 H Total Protein 9.1 H Albumin 3.4 Lipase 76 Urine Color Urine Clarity Urine pH Ur Specific [place] Urine Protein Urine Ketones Urine Blood Urine Nitrite Urine Bilirubin Urine Urobilinogen Ur Leukocyte Esterase Urine Glucose COVID-19 Source Nasopharynx SARS-CoV-2 (PCR) Negative Influenza Type A (PCR) Negative Influenza Type B (PCR) Negative RSV (PCR) Negative 08/16/24 08/16/24 08/16/24 12:15 13:22 13:26 WBC RBC Hgb Hct MCV MCH MCHC RDW Plt Count MPV Immature Gran % Neutrophils % Lymphocytes % Monocytes % Eosinophils % Basophils % Nucleated RBC % Absolute Neutrophils Absolute Lymphocytes Absolute Monocytes Absolute Eosinophils Absolute Basophils PT INR APTT D-Dimer ABG Sample Site Right Radial ABG pH 7.30 L ABG pCO2 54 H ABG pO2 94 ABG HCO3 27 H ABG Total CO2 25 ABG O2 Saturation 97 ABG Base Excess 0 VBG pH VBG pCO2 VBG pO2 VBG HCO3 VBG Total CO2 VBG O2 Saturation VBG Base Excess VBG Lactate Oxygen Liter Flow CROSSING SUPERVISOR FiO2 30 Sodium Potassium Chloride Carbon Dioxide Anion Gap BUN Creatinine Est GFR (CKD-EPI 2020) Glucose Calcium Magnesium Total Bilirubin AST ALT Alkaline Phosphatase Troponin I 62 NT-Pro-B Natriuret Pep Total Protein Albumin Lipase Urine Color Yellow Urine Clarity Clear Urine pH 5.5 Ur Specific [place] 1.010 Urine Protein Negative Urine Ketones Negative Urine Blood Negative Urine Nitrite Negative Urine Bilirubin Negative Urine Urobilinogen 0.2 Ur Leukocyte Esterase Negative Urine Glucose 100 H COVID-19 Source SARS-CoV-2 (PCR) Influenza Type A (PCR) Influenza Type B (PCR) RSV (PCR) Last Vital Signs Temp 36.3 C L 08/16/24 13:52 Pulse 77 08/16/24 14:10 Resp 34 H 08/16/24 14:10 BP 115/45 L 08/16/24 13:46 Pulse Ox 97 08/16/24 14:10 Time Spent Time spent with Patient: >75 minutes Time was spent: preparing to see the patient(eg.review tests), obtaining and/or reviewing separately otained hiistory, ordering medications,tests, procedures, referring, communicating with other health sub acute care nurse, indepentently interpreting results, counseling the patient and care coordination
[2024-08-16] MEDS: MAGNESIUM SULFATE 8.12 MEQ, MULTIVITAMIN 10 ML, THIAMINE 100 MG, FOLIC ACID 1 MG in Nor... 168.867 MG IV (18:41)
[2024-08-16 18:51] LABS: Ammonia 47 umol/L (11-32)
[2024-08-16] MEDS: Normal Saline Flush 10 ML SYR IVP (20:03)
[2024-08-16] MEDS: Apixaban 5 MG TAB PO (20:03)
[2024-08-16] MEDS: Sacubitril/Valsartan 24 mg/26 mg TAB 1 EACH PO (20:50)
[2024-08-16] MEDS: Furosemide 40 MG TAB 60 MG PO (20:50)
[2024-08-17] VITALS (92 sets, daily range): BP systolic 68–141; BP diastolic 43–96; PULSE 65–188; RESP 5–44; TEMP 2.4–38.4; O2SAT 90–98
[2024-08-17 05:53] LABS: BE (Venous) 2 mmol/L (-2-3); HCO3 (Venous) 29 mmol/L (23-28); O2 Sat (Venous) 96 %; TCO2 (Venous) 28 mmol/L (24-29); pH (Venous) 7.27 (7.31-7.41); pO2 (Venous) 84 mmHg
[2024-08-17 05:55] LABS: pCO2 (Venous) 64 mmHg (41-51)
[2024-08-17] MEDS: Acetaminophen 500 MG TAB PO (06:07)
[2024-08-17 07:20] LABS: BE (Venous) 3 mmol/L (-2-3); HCO3 (Venous) 29 mmol/L (23-28); O2 Sat (Venous) 99 %; TCO2 (Venous) 28 mmol/L (24-29); pCO2 (Venous) 56 mmHg (41-51); pH (Venous) 7.33 (7.31-7.41); pO2 (Venous) 101 mmHg
[2024-08-17] MEDS: Atorvastatin 40 MG TAB 80 MG PO (08:07)
[2024-08-17] MEDS: FUROSEMIDE 40 MG, FUROSEMIDE 20 MG 60 MG PO (08:07)
[2024-08-17] MEDS: Potassium Chloride 20 MEQ TABCR PO (08:08)
[2024-08-17] MEDS: Apixaban 5 MG TAB PO ×2 (08:08→19:59)
[2024-08-17] MEDS: Sacubitril/Valsartan 24 mg/26 mg TAB 1 EACH PO (08:09)
[2024-08-17] MEDS: Empaglifozin 10 MG TAB PO (08:09)
[2024-08-17] MEDS: Spironolactone 25 MG TAB 12.5 MG PO (08:10)
[2024-08-17] MEDS: Normal Saline Flush 10 ML SYR IVP ×3 (08:13→19:59)
--- NOTE | 2024-08-17 09:59 | PDOC.CMIN ---
Date of service: 08/17/24 Time of Service: 09:59 Care Management Initial Assmt Initial Assessment Reason for Hospitalization: CHF Functional Status/Living Situation Patient Presentation: Yfn was sitting up in bed when CM met with him. He was receiving oxygen via [employer] so was a little difficult to converse with. During the conversation Yfn stated that he lives alone (true) but he does have a girlfriend that spends much of her time there. He also informed CM that he has no children when, in fact, he has 2 sons. It was a little hard to tell if he was confused or joking as he apparently has a good sense of humor. Later in the day his girlfriend and efwwdjiu-of-dim visited and stated that he has been a bit confused. At the time of their visit Yfn had become really somnolent and needed to be placed on Bipap. Yfn is retired. 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 He is independent at baseline and uses a cane for ambulatory assistance.His girlfriend shared that he has been slowly declining for about the past year and needs to use a cane most of the time because of his balance. Town of Residence: [facility] Resides with: Alone Significant Other/Family: Local Natural Supports: girlfriend and family Employment Status: Retired Instrumental Activities of Daily Living (ADLs): Independent Physical Functioning/Mobility Assistive Device: cane Advance Directives Advance Directives: Do you have an Advance Directive: Y 03/23/20 08:10 AD On File at [facility]: N 08/26/12 10:57 Date Asked 08/16/24 08/16/24 09:01 AD Date Reviewed COLST On File at [facility] No 02/07/24 16:08 COLST Date Scanned Code Status Resuscitation Status Full Code Portal Pt does not currently have a portal and education provided: Yes Insurance Coverage/Financial Issues Insurance: Medicare Cigna U IDs only Care Team Visit Care Team Role Provider Type Vivian Coombs NP Primary Care Provider NURSE PRACTITIONER GABRIEL Bailey Emergency Provider [employer]OOM WORKER Jose Lee MD Admit Provider [facility] STAFF PHYSICIAN Attending Provider Discharge Potential Discharge Needs: PCP F/U Appt Anticipated Barriers to Discharge: None Identified Patient/Family Education Needs: Review discharge instructions, discuss Ask Me Three Transportation: Private vehicle Plan: Anticipate Yfn will be discharged home, possibly with new home health services, when medically cleared. He will follow up with his community providers and plan of care and transport with family. CM will follow and continue to assess for discharge needs. Social Determinants of Health Screening Social Determinants of Health last assessed: 08/17/24 Will the Patient Participate in the Screening?: Yes Do you worry about having a steady place to live?: no Problems where you live: no known problems In the past 12 months, have you had to go without electric, gas, oil or water in your home?: no Have you or anyone in your house had to go without enough food to eat?: no Has lack of transportation kept you from medical appointments or from doing things needed for daily living?: no Has anyone in your life made you feel unsafe or unsupported?: no How hard is it for you to pay for the very basics like food, housing, medical care, and heating? Would you say it is:: Somewhat hard Do you want help finding or keeping work or a job?: I do not need or want help If for any reason you need help with day-to-day activities such as bathing, preparing meals, shopping, managing finances, etc., do you get the help you need?: I get all the help I need How often do you feel lonely or isolated from those around you?: Never Do you speak a language other than Estonian at home?: No Does the patient want assistance with any of the above?: No Health Related Social Needs Health related social needs: problems related to housing/economic circumstances (Z59.89) [facility] All Active Problems (Updated 08/16/24 @ 16:57 by Jose Lee MD) Hypotension (Acute) Pneumonia (Acute) Alcohol use disorder (Acute) Mitral stenosis (Acute) Mitral regurgitation (Chronic) Tricuspid regurgitation (Acute) Atrial fibrillation (Chronic) Hydrothorax (Acute) Cholelithiases (Acute) Cirrhosis (Acute) Ascites (Acute) Total bilirubin, elevated (Acute) D-dimer, elevated (Acute) Elevated MCV (Acute) Thrombocytopenia (Chronic) Elevated INR (Acute) Pleural effusion (Acute) Pleural effusion on right (Acute) Pulmonary emboli (Chronic) Pneumonia (Acute) Acute hypoxic respiratory failure (Acute) CHF exacerbation (Acute) Age-related nuclear cataract, bilateral (Acute) DM Eye Exam 06/03/24 Low magnesium level (Acute) Cirrhosis, alcoholic (Acute ~01/2024) Left ankle sprain (Acute) Valvular heart disease (Acute) Abrasion, right foot, initial encounter (Acute) Acquired hammertoe of right foot (Acute) Acquired hammertoe of left foot (Acute) Toe pain, left (Acute) Toe pain, right (Acute) Type 2 diabetes mellitus with diabetic peripheral angiopathy without gangrene (Acute) Dx code needed for routine at-risk foot care with Podiatry Thrombocytopenia (Chronic ~2016) Nail dystrophy (Acute) Arteriosclerotic cardiovascular disease (ASCVD) (Acute) 01/18/21 [facility] Cardiology Anemia (Chronic) CHF (congestive heart failure) (Chronic ~12/2020) Atrial fibrillation (Chronic ~12/2020) Prosthetic cardiac valve obstruction (Acute ~02/2019) NILS 03/08/19 Sensorineural hearing loss (SNHL) of both ears (Acute) Obstructive sleep apnea (Chronic 03/25/16) Moderately severe; historically wore CPAP, but no longer (2022) Obesity (Acute 09/02/12) Hyponatremia (Chronic 08/20/11) Alcohol dependence (Acute 09/02/12) 6 pack/night Hypertension (Acute) GERD (gastroesophageal reflux disease) (Chronic) No issues off PPI 07/2022 History of tobacco use (Chronic) Quit 1989; 25 pack years, last quit 03/31/84 Hyperlipidemia (Chronic) Type 2 diabetes mellitus (Chronic) CAD (coronary artery disease) (Chronic) a. Hx NSTEMI b. Single vessel dz 02/16/19 (LAD) Medical History (Updated 08/16/24 @ 16:57 by Jose Lee MD) Leg swelling Elevated troponin Non-sustained ventricular tachycardia Dyspnea Osteoarthritis of left hip Osteoarthritis of left knee Cataracts, bilateral (02/23/19) S/P right hip fracture (04/13/17) Aortic valve stenosis (08/20/11) severe critical peak gradient 81/50 mm of mercury Cardiac cath [facility] 05/05/14 s/p tissue AVR 23 Trifecta perivardial Ascending Aortic Endarterectomy, NILS 06/01/14 [facility]- will need Dental prophylaxis Femur fracture, right Chronic low back pain DJD (degenerative joint disease) Constipation Elevated troponin (04/30/14) Acute GI bleeding (04/30/14) Surgical History 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 appendectomy as a child Family History Mother No problems noted. Father No problems noted. Sister No problems noted. Sister No problems noted. Brother No problems noted. Social History Smoking/Tobacco Use Status: Former Tobacco Use Tobacco: How many years used: 20 Smoking risk assessment performed?: Yes Alcohol Intake: current Alcohol Intake frequency: 3 or more drinks per day Alcohol type: beer Drug use: Never Substance use type: does not use Adopted: No Household members: none Housing: house Number of Children: 2 current occupation: Worked in [employer] at [employer] Current gender identity: male What is your relationship status?: Panel score (0-1 are the most socially isolated patients): 0 What type of physical activity do you participate in: none Seatbelt use: always Drive intox or ride w/intox shuttle van driver: No Carbon monox detector in home: Yes Do you feel safe at home: Yes Do you feel safe in your relationship?: Yes Additional Social history: Giovanny moved from [place] in 60s. Lives alone but GF sees him most days. Son Kirby in area.
[2024-08-17] MEDS: cefTRIAXone 2 GM/50 ML BAG IVPB (10:56)
[2024-08-17 11:46] LABS: BE (Venous) 3 mmol/L (-2-3); HCO3 (Venous) 29 mmol/L (23-28); O2 Sat (Venous) 96 %; TCO2 (Venous) 27 mmol/L (24-29); pCO2 (Venous) 52 mmHg (41-51); pH (Venous) 7.35 (7.31-7.41); pO2 (Venous) 80 mmHg
--- NOTE | 2024-08-17 12:26 | W.NUTRFU ---
Date of service: 08/17/24 Time of Service: 12:26 Nutrition Note NOTE: 79yo male being treated for PNA, etoh use disorder, hypotension (90/48 earlier this morning). Hx of cirrhosis with ascites, DMII (just manages with jardiance at home), CHF and many other chronic conditions. Glucose (fasting and fingersticks ) mostly <150 with May 2024 A1c of 6.0%. GFR 40 yesterday. Repleated with MVI bivtamins. ordered for regular diet with fair intake. <1kg wt loss noted over the last 24 hours but suspect mostly due to diuresis. Low sodium yesterday - pt getting normal saline Suggest total protein and albumin labs Will encourage intake with oral nutrition supplement (Boost) offered TID. Time Spent in Nutritional Counseling and Treatment: 0
[2024-08-17] MEDS: AZITHROMYCIN 500 MG in Normal Saline 250 ML 250 MG IVPB (12:56)
[2024-08-17] MEDS: Norepinephrine in D5W 8 MG/250 ML BAG 18.75 MG IV (13:06)
--- NOTE | 2024-08-17 13:54 | W.PM.PROGNOT ---
Date of Service Date of service: 08/17/24 Time of Service: 13:54 Assessment and Plan Assessment and plan (1) CHF (congestive heart failure): Status: Chronic Assessment and plan: Echo from 12/17/23 Conclusion Normal left ventricular wall thickness and chamber size. Ejection fraction is 60%. Wall motion is normal Moderately enlarged right ventricle Both atria are severely enlarged There is a bioprosthetic aortic valve. There is no regurgitation. Mean gradient is 9 mmHg Thickened mitral leaflets, mitral annular calcification, moderate mitral regurgitation. Moderate mitral stenosis Severe tricuspid regurgitation. Estimated right ventricular systolic pressure is 60 mmHg Ascending aorta measures 3.93 centimeters , Will continue with lasix, but will drop to 60mg iv bid. Will also add aldactone and monitor for improvements 08/17/24 Pt with a reported diuresis of over 1248MLs over the last 12 hours. CW current plan. A bit of complexity added by hypotension in the face of right sided pleural effusions. Hopefully the pt will respond to abx which should decrease his septic picture and then his fluid status can be more aggressively treated (2) Hyponatremia: Status: Chronic Assessment and plan: Pt with chronic history of hyponatremia and pt appears to be close to his baseline and is asymptomatic. At this point I prefer watchful waiting vs active intervention (3) CAD (coronary artery disease): Status: Chronic Assessment and plan: Pt does not complain of chest pain at this time. Pt is on a statin and nitro prn at home as well as entresto (4) Valvular heart disease: Status: Acute Assessment and plan: Replaced aortic valve working well but some progression of mitral and tricuspid disease on November echocardiogram. See above re: CHF. Follow up valve disease as outpatient. (5) Atrial fibrillation: Status: Chronic Assessment and plan: Pt is currently on eliquis and his HR is 77. Pt also takes bisoprolol 08/17/24 Pt currently has mild tachycardia, monitor for improvements (6) Type 2 diabetes mellitus: Status: Chronic Assessment and plan: Pt is on jardiance only. Will consider an a1c in the am (7) Obstructive sleep apnea: Status: Chronic Assessment and plan: Strongly recommend outpatient sleep study but will defer to his PCP (8) Thrombocytopenia: Status: Chronic Assessment and plan: pt with possible PE on CT scan done in the ED. Considering the pt's low plt count, logical alternative diagnosis for his SOB including infection/effusion/chf as well as the fact that the pt is taking his eliquis, I would doubt that the pt has a PE. At this point he will be on eliquis only 08/17/24 Pt does have a fairly chronic history of low plt in the past. No need for xfusion currently and don't believe a HIT panel is necessary at this point. (pt did get heparin in ED originally) (9) Alcohol dependence: Status: Acute Assessment and plan: Will add CIWA, phenobarbital protocol, banana bag daily including thiamine (10) Anemia: Status: Chronic Assessment and plan: Noted and chronic. No indications for transfusion at this point (11) Leg swelling: Assessment and plan: Most likely 2/2 chf vs venous stasis change vs protein malnutrition. 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 I don't think he has a PE/DVT as he was on Eliquis. It is possible that he wasn't taking his medication properly but pt clearly states that he is taking it (17) Total bilirubin, elevated: Status: Acute Assessment and plan: monitor, minor elevation (18) Ascites: Status: Acute Assessment and plan: noted, will monitor. Consider paracentesis if becomes symptomatic (19) Cirrhosis: Status: Acute Assessment and plan: Recommend complete cessation of etoh. Will also order ammonia level as pt was somnolent originally (20) Cholelithiases: Status: Acute Assessment and plan: noted, asymptomatic currently (21) Hydrothorax: Status: Acute Assessment and plan: no intervention at this time (22) Atrial fibrillation: Status: Chronic Assessment and plan: CW BB and eliquis (23) Tricuspid regurgitation: Status: Acute Assessment and plan: noted on recent echo. Causing enlarged atria (24) Mitral regurgitation: Status: Chronic Assessment and plan: noted (25) Mitral stenosis: Status: Acute Assessment and plan: noted (26) Alcohol use disorder: Status: Acute Assessment and plan: Will add CIWA and phenobarbital protocol as well as banana bag (27) Pneumonia: Status: Acute Assessment and plan: cw rocephin and zmax, blood cultures drawn in the ed. will add sputum cultures (28) Hypotension: Status: Acute Assessment and plan: currently on pressure support with levophed. Will wean as tolerated Subjective Subjective Interval history since last seen: Pt has had a labile respiratory history over the last 24 hours. When I saw him this am, he was on nasal canula, but then had to be placed back on bipap. The pt remains on pressure support levophed 10mcg/hour at last report Exam Narrative Exam Narrative: This is a 79-year-old gentleman who appears his stated age Head eyes ears nose and throat: Normocephalic atraumatic BiPAP is in place Neck: Mild JVD is noted Cardiovascular: Irregularly irregular heart rate I cannot appreciate a murmur with his current pulmonary condition Pulm: Bilateral wheezes with inspiration and expiration Extremities: 2+ edema but not significant pitting bilaterally Neurologic: Was quite somnolent on evaluation in the ED. Psych: Cannot be completely assessed due to somnolence Objective Last Vital Signs Temp 37.1 C 08/17/24 06:45 Pulse 90 08/17/24 10:00 Resp 32 H 08/17/24 11:08 BP 90/48 L 08/17/24 10:00 Pulse Ox 93 08/17/24 11:08 Laboratory Results - last 24 hr 08/16/24 08/17/24 08/17/24 18:35 05:50 07:16 VBG pH 7.27 L 7.33 VBG pCO2 64 H* 56 H VBG pO2 84 101 VBG HCO3 29 H 29 H VBG Total CO2 28 28 VBG O2 Saturation 96 99 VBG Base Excess 2 3 Ammonia 47 H 08/17/24 11:41 VBG pH 7.35 VBG pCO2 52 H VBG pO2 80 VBG HCO3 29 H VBG Total CO2 27 VBG O2 Saturation 96 VBG Base Excess 3 Ammonia PAWSS Have you Been Recently Intoxicated or Drunk Within the Last 30 days?: No Have you Ever Experienced Previous Episodes of Alcohol Withdrawal?: No Have you ever Experienced Withdrawal Seizures?: No Have you ever Experienced Delirium Tremens(DT)s?: No Have you ever undergone Alcohol Rehabilitation Treatment (i.e, inpt ot outpatient treatment programs)?: No Have you ever Experienced Blackouts?: No Have you ever Combined Alcohol with other Downers within the last 90 days?: No Have you ever Combined Alcohol with any other Substance of Abuse during the last 90 days?: No Positive Blood Alcohol level on Presentation? [PCS.BAL]: No Evidence of Increased Autonomic Activity (i.e. HR>120, tremor, sweating, agitation, nausea)?: No Result: 0 Time Spent with Patient Time Spent with Patient: 35-49 minutes Time was spent: preparing to see the patient(eg.review tests), obtaining and/or reviewing separately otained hiistory, ordering medications,tests, procedures, referring, communicating with other health customer care team coach, indepentently interpreting results, counseling the patient and care coordination
[2024-08-17 17:29] LABS: BE (Venous) 1 mmol/L (-2-3); HCO3 (Venous) 29 mmol/L (23-28); O2 Sat (Venous) 81 %; TCO2 (Venous) 27 mmol/L (24-29); pH (Venous) 7.21 (7.31-7.41); pO2 (Venous) 50 mmHg
[2024-08-17 17:30] LABS: pCO2 (Venous) 71 mmHg (41-51)
[2024-08-18] VITALS (115 sets, daily range): BP systolic 70–138; BP diastolic 38–92; PULSE 33–221; RESP 10–41; TEMP 37.2–38.5; O2SAT 82–97
--- NOTE | 2024-08-18 | DI.RAD_ITS ---
Exam(s) XR PORTABLE CHEST AP EXAM: XR PORTABLE CHEST AP CLINICAL HISTORY: ongoing SOB. TECHNIQUE: 2D digital imaging was performed. COMPARISON: CR XR PORTABLE CHEST AP from 08/16/[address] CHEST PE CTA from 08/16/2024 FINDINGS: Single AP portable view. Chest leads in place. Again noted are sternotomy wires and cardiomegaly and prosthetic aortic valve.. Moderate-large right pleural effusion again noted. This has not decreased in size from 2 days ago. Also pulmonary venous hypertension pattern-probable interstitial pulmonary edema. There is significa nt volume loss in the right lower lobe related to the pleural effusion, as seen on recent chest CT sc an of 08/16/2024. there is no pleural effusion evident on the opposite-left side. IMPRESSION: As above. No radiographic improvement compared to 08/16/2024. DATA REPOSITORY: RADIATION DOSE DELIVERED:
[2024-08-18] MEDS: Norepinephrine in D5W 8 MG/250 ML BAG 18.75 MG IV (03:11)
[2024-08-18] MEDS: Acetaminophen 500 MG TAB PO ×2 (03:16→11:11)
[2024-08-18 04:52] LABS: Abs Immature Grans 0.01 10^3/uL (0.0-0.06); Absolute Basophil Count 0.04 10^3/uL (0.0-0.2); Absolute Eosinophil Count 0.35 10^3/uL (0.0-0.7); Absolute Lymphocyte Count 0.73 10^3/uL (1.2-3.4); Absolute Monocyte Count 0.93 10^3/uL (0.1-0.8); Absolute Neutrophil Count 3.57 10^3/uL (1.2-6.7); Basophils % 0.7 %; Eosinophils % 6.2 %; HCT 32.3 % (40.0-50.0); HGB 10.1 g/dL (13.5-17.5); Immature Grans % 0.2 %; MCH 31.2 pg (27.0-33.0); MCHC 31.3 % (32.0-36.0); MCV 100 fL (80-95); MPV 10.1 fL (8.0-11.0); Monocytes % 16.5 %; Neutrophils % 63.4 %; Platelet Count 101 10^3/uL (130-400); RBC 3.24 10^6/uL (4.36-5.78); RDW 15.2 % (11.8-14.1); RDW-SD 55.6 fL; WBC 5.63 10^3/uL (4.4-10.8)
[2024-08-18 05:04] LABS: ALT 19 U/L (16-63); AST 28 U/L (15-37); Albumin 2.9 g/dL (3.4-5.0); Alkaline Phosphatase 182 U/L (46-116); Anion Gap 5.7 mmol/L (3-11); BUN 52 mg/dL (7-18); Bilirubin, Total 0.77 mg/dL (0.2-1.0); CO2 28.3 mmol/L (21.0-32.0); CREATININE 2.6 mg/dL (0.70-1.30); Calcium 8.5 mg/dL (8.5-10.1); Chloride 97 mmol/L (98-107); Estimated GFR 24.17 (mL/min/1.73m2); Glucose 139 mg/dL (74-106); Sodium 131 mmol/L (136-145)
[2024-08-18 06:58] LABS: INR 1.5 (0.9-1.1); Prothrombin Time 14.7 sec (9.1-11.1)
[2024-08-18] MEDS: Atorvastatin 40 MG TAB 80 MG PO (08:40)
[2024-08-18] MEDS: Apixaban 5 MG TAB PO ×2 (08:41→20:14)
[2024-08-18] MEDS: Potassium Chloride 20 MEQ TABCR PO (08:42)
[2024-08-18] MEDS: Empaglifozin 10 MG TAB PO (08:42)
[2024-08-18] MEDS: FUROSEMIDE 40 MG, FUROSEMIDE 20 MG 60 MG PO (08:42)
[2024-08-18] MEDS: Pantoprazole 40 MG VIAL IVP (08:42)
[2024-08-18] MEDS: Normal Saline Flush 10 ML SYR IVP ×2 (09:49→20:14)
--- NOTE | 2024-08-18 09:55 | PDOC.CMPRO ---
Date of service: 08/18/24 Time of Service: 09:56 Care Management Progress Note Progress Note Text Progress Note Text: Giovanny was sitting up in bed visiting with his girlfriend when CM met with him. He was awake but not very talkative at the time. This morning Giovanny was able to be weaned off his norepinephrine drip, however a short time later it was restarted at 2.5 mls/hr then increased to 5 mls/hr. Giovanny has been tachycardic today with HR 100-130 at rest. CM spoke with Giovanny and his girlfriend about possible PT services at discharge. Komal indicated that she did not think he would be agreeable to SNF but might accept home health PT. She stated that he had been across the street once before and would never go back. Giovanny has not been OOB or seen PT yet. When he is a bit more stable, the PT evaluation will be requested and, based on findings and recommendations, another discussion will take place. Komal did stress that she would stay with him for a while when he goes home so that he is not alone. Discharge Potential Discharge Needs: PCP F/U Appt Anticipated Barriers to Discharge: Medical Status Patient/Family Education Needs: Review discharge instructions, discuss Ask Me Three Transportation: Private vehicle Plan: Anticipate Yfn will be discharged home, possibly with new home health services for PT, when medically cleared. He will follow up with his community providers and plan of care and transport with family. CM will follow and continue to assess for discharge needs. Social Determinants of Health Screening Social Determinants of Health last assessed: 08/18/24 Will the Patient Participate in the Screening?: Yes Do you worry about having a steady place to live?: no Problems where you live: no known problems In the past 12 months, have you had to go without electric, gas, oil or water in your home?: no Have you or anyone in your house had to go without enough food to eat?: no Has lack of transportation kept you from medical appointments or from doing things needed for daily living?: no Has anyone in your life made you feel unsafe or unsupported?: no How hard is it for you to pay for the very basics like food, housing, medical care, and heating? Would you say it is:: Somewhat hard Do you want help finding or keeping work or a job?: I do not need or want help If for any reason you need help with day-to-day activities such as bathing, preparing meals, shopping, managing finances, etc., do you get the help you need?: I get all the help I need How often do you feel lonely or isolated from those around you?: Never Do you speak a language other than Ukrainian at home?: No Does the patient want assistance with any of the above?: No Health Related Social Needs Health related social needs: problems related to housing/economic circumstances (Z59.89)
[2024-08-18] MEDS: Spironolactone 25 MG TAB 12.5 MG PO (10:09)
[2024-08-18] MEDS: cefTRIAXone 2 GM/50 ML BAG IVPB (10:12)
[2024-08-18] MEDS: AZITHROMYCIN 500 MG in Normal Saline 250 ML 250 MG IVPB (11:52)
[2024-08-18 14:55] LABS: BE (Venous) 0 mmol/L (-2-3); HCO3 (Venous) 27 mmol/L (23-28); O2 Sat (Venous) 98 %; TCO2 (Venous) 25 mmol/L (24-29); pCO2 (Venous) 55 mmHg (41-51); pH (Venous) 7.29 (7.31-7.41); pO2 (Venous) 95 mmHg
--- NOTE | 2024-08-18 15:00 | DI.US_ITS ---
APPROVED REPORT EXAM: Comprehensive 2D, Doppler, and color-flow Echocardiogram Patient Location: In-Patient Room/Bed: [address] Operator: Alexx Hernandez RDCS (AE) Indications: Worsening hypercapnia, Other Information Study Quality: Fair. Technically limited study due to body habitus, inability to position patient. Conclusion Concentric left ventricular hypertrophy. Ejection fraction is 60 to 65%. There is diastolic septal flattening suggesting pulmonary hypertension Right ventricle is dilated and hypocontractile. Diastolic septal flattening suggests pulmonary hyper tension Both atria are enlarged There is a bioprosthetic aortic valve replacement. Mean gradient is 16 mmHg. There is no significan t aortic regurgitation Severe mitral annular calcification. Mild mitral regurgitation. Moderate mitral stenosis Normal tricuspid valve with severe regurgitation. Estimated right ventricular systolic pressure is 7 9 mmHg, severe pulmonary hypertension Dilated ascending aorta measuring 4 cm Wall motion Left Ventricle The left ventricle is normal size. The left ventricular systolic function is normal. The left ventri cular ejection fraction is within the normal range. concentric left ventricular hypertrophy. There is no ventricular septal defect visualized. LVEF is 60-65%. Right Ventricle Dilated right ventricle The RVSP is 79.3 mmHg. Diastolic septal flattening suggest pulmonary hyperte nsion Overall right ventricular function is reduced Atria Left atrium is moderately dilated. Right atrium is severely dilated. The interatrial septum is intact with no evidence for an atrial septal defect. Aortic Valve Bioprosthetic aortic valve. Mean gradient is 16 mmHg No aortic regurgitation is present. Mitral Valve Severe mitral annular calcification. The mitral valve is moderately thickened. Moderate mitral stenos is. Mild mitral regurgitation. Tricuspid Valve The tricuspid valve is normal in structure. There is no tricuspid valve stenosis. Severe tricuspid re gurgitation. Pulmonic Valve The pulmonary valve is normal in structure. There is no pulmonic valvular stenosis. Trace pulmonic re gurgitation. Great Vessels The aortic root is normal in size. The ascending aorta is dilated. The IVC is dilated. The IVC collap ses <50% with inspiration. Pericardium There is no pericardial effusion. 2D Dimensions IVSD d PLAX 1.81 cm M: 0.6-1.2 Ao Root d 2.32 cm M: 3.1 - 3.7 LVPW d PLAX 1.75 cm M: 0.6 - 1.2 Ao Asc Diam d 4.00 cm M: 2.6 - 3.4 LVID d PLAX 2.20 cm M: 4.2 - 5.8 IVC Diam exp d SLAX 4.3 cm LVDs 1.12 cm M: 2.5 - 4.0 LV EF Teichholz 82.9 % FS 49.22 % LV EDV (Teich) 16.2 mL LV ESV (Teich) 2.8 mL Stroke Vol Index (Teich) 6.72 M-Mode TAPSE 1.70 cm (M/F) >1.7 LV Volumes - Method of Disks (Zuñiga's) Single Plane 2D LV Volumes Biplane 2D LV Volumes LV EDV A4C 90.9 mL LV EDV BP LV ESV A4C 10.8 mL LV ESV BP LVEF(%) A4C 88.1 % LVEF(%) BP LA Volume LA Length A4C 7.9 cm LA Length A2C LA Area A4C s 33.95 cm2 LA Area A2C s LA Vol A4C A-L 123.85 mL LA Vol A2C A-L LA Vol Biplane A-L LA Vol A4C MOD 123.5 mL LA Vol A2C MOD LA Vol BP MOD RA Volume RA Area A4C 37.6 cm2 RA ESV A4C (A-L) 161.8mL RA Vol/BSA A4C A-L RA Length A4C 7.4 cm RA ESV A4C (MOD) 156.1mL LV Diastology MV E' medial 0.054 (>0.07 m/s) MV E Vmax 1.65 (0.4-1.3 m/s) MV E' lateral 0.087 (>0.1 m/s) Aortic Valve AoV Vmax 2.52 m/s LVOT Vmax 1.08 m/s AoV Peak Grad 25.3 mmHg LVOT Peak Grad 4.7 mmHg AoV Area (Vmax) 1.19 cm2 LVOT VTI 0.204 m AoV VTI 0.499 m LVOT Mean Grad 2.7 mmHg AoV Mean Geovanni. 1.96 m/s LVOT SV 56.65 mL AoV Mean Grad 15.9 mmHg LVOT Diam s 1.85 cm AoV Area (VTI) 1.13 cm2 AV Regurg Peak Gr. 25.32 mmHg Velocity Ratio 0.43 Mitral Valve MV Vmax TIPS 1.94 m/s MV Mean Grad 7.9 (<2mmHg) MV VTI 0.369 m Pulmonary Valve PV Vmax 1.44 (0.5-1.5 m/s) RVOT Vmax 0.85 m/s PV Peak Grad 8.3 mmHg RVOT Peak Gr. 2.9 mmHg PV Mean Geovanni 0.92 m/s RVOT VTI 0.124 m PV Mean Grad 3.9 mmHg RVOT Mean Gr. 1.4 mmHg Tricuspid Valve RA Pressure 15.00 mmHg TR Vmax 4.01 m/s TR Peak Grad 64.2 mmHg RVSP (TR) 79.3 mmHg
--- NOTE | 2024-08-18 15:22 | W.PALLCONSUL ---
Date of service: 08/18/24 Time of Service: 12:30 History of Present Illness Narrative: Mr. Baltazar is an 79 y/o M currently hospitalized at [facility] 2/2 CHF exacerbation; PMHx sig for CAD, A fib, CHF (EF 60% 11/2023, h/o 2 valve replacements, CABG), cirrhosis (w/ongoing alc use), DM Hospital Course: Giovanny presented to [facility] ED on 08/16 w/worsening SOB, cough, fatigue, per report 2 weeks worsening sxs prior to presenting; hypoxemia improved w/mask and BiPAP, edema improved w/IV lasix, suspicious of PNA started on ceftriaxone and azithromycin, pleural effusion w/surgical consult leaning towards hepatic hydrothorax and recommendation to manage w/medications first may consider thoracentesis if needed, hypotensive, started on Norepi drip and admitted to ICU for ongoing management; d/t ongoing AUD (RN reports 2 beers daily) on CIWA protocol, scoring 4s w/no changes; norepinephrine drip tappered, stopped today 08/18 at 12:20, however d/t low BPs restarted just prior to visit, at 5mcg/hr drip - per staff: Giovanny is [place], stoic and has difficult time answering questions, unclear if related to hearing, sense of humor or confusion; he was a bit fatigued and grumpy after visit from friends earlier - intermittent grimace/groan/repositioning w/pain c/o mostly in BLE feet/heels - dependent w/all ADLs, has not been out of bed; per chart review he is independent at baseline Giovanny is tired today. He agrees for short visit with palliative care. 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 - he turns to his sons Kirby and Yfn to help him make medical decisions attempted to call son iKrby and Yfn, no answer, unable to leave Assessment and Plan Assessment and plan (1) Hypotension: Status: Acute Assessment and plan: on norepinephrine drip at this time (2) Pneumonia: Status: Acute Assessment and plan: continue ceftriaxone and azithromycin (3) Atrial fibrillation: Status: Chronic Assessment and plan: Eliquis and betablockers (4) Hydrothorax: Status: Acute Assessment and plan: continue medical management may consider thoracentesis in future per surgical consult 08/16 (5) Alcohol use disorder: Status: Acute Assessment and plan: on CIWA protocols, scoring 4 per report, 2 beers per night, 6 beers/night also documented w/cirrhosis and ascites need for ongoing review (6) Cirrhosis: Status: Acute Assessment and plan: need for review (7) Ascites: Status: Acute (8) Acute hypoxic respiratory failure: Status: Acute Assessment and plan: 2/2 CHF exacerbation? responded well to mask and BiPAP (9) CHF exacerbation: Status: Acute Assessment and plan: continue diuresis and monitoring (10) Valvular heart disease: Status: Acute (11) Type 2 diabetes mellitus with diabetic peripheral angiopathy without gangrene: Status: Acute Assessment and plan: recommend trial low dose gabapentin 300mg qd-TID pending response (12) Chronic low back pain: Assessment and plan: denies changes or meds today; consider increased apap use per pt preference recommend avoid NSAIDs at this time consider topical heat, ice, lidocaine get etc (13) Palliative care encounter: Status: Acute Assessment and plan: PC will continue to follow Giovanny, suspect he will remain hospitalized for a few more days - will follow up as PC available inpatient or outpatient if discharged (14) ACP (advance care planning): Status: Acute Assessment and plan: - Giovanny was unable to answer more complex questions like what it means to like a man, when asked if he would want CPR or intubation to keep him alive if his heart or lungs stopped, his answer was I don't want to like a coward, he was unable to qualify what this means today; there is no other documentation regarding conversations of CODE status, he should remain a full code at this time, per his stated preferences for remaining alive at all costs at this time - he is aware he is in the hospital for heart problems, but unable to explain further than that, unaware of lung or liver conditions - he reports he looks to his sons Kirby and Yfn for help with making medical decisions, both sons are on HIPAA, there is no AD on file. He was unable to complete HCA form today d/t fatigue and potential no capacity - ongoing evaluation of capacity is recommended, using [facility] guidelines as tool for assessing capacity - PC attempted to call both sons, no answer spent 10m w/ACP Review of Systems Narrative: as per HPI PFS All Active Problems (Updated 08/18/24 @ 15:41 by Milady Ac NP) ACP (advance care planning) (Acute) Palliative care encounter (Acute) Hypotension (Acute) Pneumonia (Acute) Alcohol use disorder (Acute) Mitral stenosis (Acute) Mitral regurgitation (Chronic) Tricuspid regurgitation (Acute) Atrial fibrillation (Chronic) Hydrothorax (Acute) Cholelithiases (Acute) Cirrhosis (Acute) Ascites (Acute) Total bilirubin, elevated (Acute) D-dimer, elevated (Acute) Elevated MCV (Acute) Thrombocytopenia (Chronic) Elevated INR (Acute) Pleural effusion (Acute) Pleural effusion on right (Acute) Pulmonary emboli (Chronic) Pneumonia (Acute) Acute hypoxic respiratory failure (Acute) CHF exacerbation (Acute) Age-related nuclear cataract, bilateral (Acute) DM Eye Exam 06/03/24 Low magnesium level (Acute) Cirrhosis, alcoholic (Acute ~01/2024) Left ankle sprain (Acute) Valvular heart disease (Acute) Abrasion, right foot, initial encounter (Acute) Acquired hammertoe of right foot (Acute) Acquired hammertoe of left foot (Acute) Toe pain, left (Acute) Toe pain, right (Acute) Type 2 diabetes mellitus with diabetic peripheral angiopathy without gangrene (Acute) Dx code needed for routine at-risk foot care with Podiatry Thrombocytopenia (Chronic ~2016) Nail dystrophy (Acute) Arteriosclerotic cardiovascular disease (ASCVD) (Acute) 01/18/21 [facility] Cardiology Anemia (Chronic) CHF (congestive heart failure) (Chronic ~12/2020) Atrial fibrillation (Chronic ~12/2020) Prosthetic cardiac valve obstruction (Acute ~02/2019) NILS 03/08/19 Sensorineural hearing loss (SNHL) of both ears (Acute) Obstructive sleep apnea (Chronic 03/25/16) Moderately severe; historically wore CPAP, but no longer (2022) Obesity (Acute 09/02/12) Hyponatremia (Chronic 08/20/11) Alcohol dependence (Acute 09/02/12) 6 pack/night Hypertension (Acute) GERD (gastroesophageal reflux disease) (Chronic) No issues off PPI 07/2022 History of tobacco use (Chronic) Quit 1989; 25 pack years, last quit 03/31/84 Hyperlipidemia (Chronic) Type 2 diabetes mellitus (Chronic) CAD (coronary artery disease) (Chronic) a. Hx NSTEMI b. Single vessel dz 02/16/19 (LAD) Medical History Leg swelling Elevated troponin Non-sustained ventricular tachycardia Dyspnea Osteoarthritis of left hip Osteoarthritis of left knee Cataracts, bilateral (02/23/19) S/P right hip fracture (04/13/17) Aortic valve stenosis (08/20/11) severe critical peak gradient 81/50 mm of mercury Cardiac cath [facility] 05/05/14 s/p tissue AVR 23 Trifecta perivardial Ascending Aortic Endarterectomy, NILS 06/01/14 [facility]- will need Dental prophylaxis Femur fracture, right Chronic low back pain DJD (degenerative joint disease) Constipation Elevated troponin (04/30/14) Acute GI bleeding (04/30/14) Surgical History 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 appendectomy as a child Family History Mother No problems noted. Father No problems noted. Sister No problems noted. Sister No problems noted. Brother No problems noted. Social History Smoking/Tobacco Use Status: Former Tobacco Use Tobacco: How many years used: 20 Smoking risk assessment performed?: Yes Alcohol Intake: current Alcohol Intake frequency: 3 or more drinks per day Alcohol type: beer Drug use: Never Substance use type: does not use Adopted: No Household members: none Housing: house Number of Children: 2 current occupation: Worked in [employer] at [employer] Current gender identity: male What is your relationship status?: Panel score (0-1 are the most socially isolated patients): 0 What type of physical activity do you participate in: none Seatbelt use: always Drive intox or ride w/intox cdl driver: No Carbon monox detector in home: Yes Do you feel safe at home: Yes Do you feel safe in your relationship?: Yes Additional Social history: Giovanny moved from [place] in 60s. Lives alone but GF sees him most days. Son Kirby in area. Exam Narrative Exam Narrative: General: older adult male, lying in ICU bed, intermittently closes eyes, does remain engaged throughout 15m visit HEENT: [place], hears w/elevated voice volume; normocephalic, atraumatic Resp: shallow, tachypnic jeremiah w/speech; no cough no audible wheeze Psych: speech delayed w/some expressive aphasia; cooperative; confused, unable to answer all questions; insight/judgment limited Results Last Vital Signs Temp 99.3 F 08/18/24 13:47 Pulse 116 H 08/18/24 11:00 Resp 36 H 08/18/24 11:00 BP 98/48 L 08/18/24 11:00 Pulse Ox 91 L 08/18/24 13:47 Labs 08/18/24 04:16 08/18/24 04:16 Labs: Laboratory Results - last 24 hr 08/17/24 08/18/24 08/18/24 17:25 04:16 06:13 WBC 5.63 RBC 3.24 L Hgb 10.1 L Hct 32.3 L MCV 100 H MCH 31.2 MCHC 31.3 L RDW 15.2 H Plt Count 101 L MPV 10.1 Immature Gran % 0.2 Neutrophils % 63.4 Lymphocytes % 13.0 Monocytes % 16.5 Eosinophils % 6.2 Basophils % 0.7 Nucleated RBC % 0.0 Absolute Neutrophils 3.57 Absolute Lymphocytes 0.73 L Absolute Monocytes 0.93 H Absolute Eosinophils 0.35 Absolute Basophils 0.04 PT 14.7 H INR 1.5 H VBG pH 7.21 L VBG pCO2 71 H* VBG pO2 50 VBG HCO3 29 H VBG Total CO2 27 VBG O2 Saturation 81 VBG Base Excess 1 Sodium 131 L Potassium 5.0 Chloride 97 L Carbon Dioxide 28.3 Anion Gap 5.7 BUN 52 H Creatinine 2.6 H Est GFR (CKD-EPI 2020) 24.17 Glucose 139 H Calcium 8.5 Total Bilirubin 0.77 AST 28 ALT 19 Alkaline Phosphatase 182 H Total Protein 8.0 Albumin 2.9 L 08/18/24 14:48 WBC RBC Hgb Hct MCV MCH MCHC RDW Plt Count MPV Immature Gran % Neutrophils % Lymphocytes % Monocytes % Eosinophils % Basophils % Nucleated RBC % Absolute Neutrophils Absolute Lymphocytes Absolute Monocytes Absolute Eosinophils Absolute Basophils PT INR VBG pH 7.29 L VBG pCO2 55 H VBG pO2 95 VBG HCO3 27 VBG Total CO2 25 VBG O2 Saturation 98 VBG Base Excess 0 Sodium Potassium Chloride Carbon Dioxide Anion Gap BUN Creatinine Est GFR (CKD-EPI 2020) Glucose Calcium Total Bilirubin AST ALT Alkaline Phosphatase Total Protein Albumin Time Spent Time Spent with Patient Time Spent(min): 65
[2024-08-18 16:25] LABS: Lab Add On Test DONE
[2024-08-18 17:19] LABS: NT-proBNP 2905 pg/mL (<300)
--- NOTE | 2024-08-18 17:42 | W.PM.PROGNOT ---
Date of Service Date of service: 08/18/24 Time of Service: 17:43 Assessment and Plan Assessment and plan (1) Septic shock: Status: Acute Assessment and plan: - Patient met criteria for septic shock on admission with initial temperature of 101.1 ?F, respiratory rate as high as 42, source of infection being right lower lobe consolidation, NORRIS with a creatinine of 1.7 (baseline 1.0), initial lactic acid of 2.1 (for which immediate repeat was not available), and need for pressors and his mean arterial pressure was less than 65 -Patient has been on pressors for greater than 48 hours, though did have a brief period where he did not need it on the morning of 08/18/2024 -Of asked for central line to be placed as patient continues to need Levophed, and will likely need additional given requirement for diuretics (see below for details) -Was initially on azithromycin and ceftriaxone however patient was persistently febrile, therefore antibiotics been changed to cefepime and vancomycin as of the morning of 08/18/2024 -Initial blood cultures showed preliminarily 1 set positive for MSSA -Repeat blood cultures were drawn prior to change of antibiotics as noted above -Follow-up initial and repeat blood cultures -Wean Levophed as tolerated with goal mean arterial pressure greater than 65 (2) Pneumonia: Status: Acute Assessment and plan: - Source of infection as noted above (3) CHF (congestive heart failure): Status: Chronic Assessment and plan: -Patient also had significant pleural effusion on x-ray it is unknown if this was from worsening heart failure or also cirrhosis and possible hydrothorax from liver failure -It was documented the patient would be on 60 mg of IV Lasix twice daily, however this was only oral, likely explanations why patient is persistently requiring BiPAP therapy and having increase in his CO2 as he is normally on 80 mg of Lasix p.o. twice daily -While patient did have echocardiogram back in November which showed significantly dilated left and right atria, EF of 60%, moderately enlarged right ventricle, and moderate mitral stenosis with severe tricuspid regurg, repeat echocardiogram was not obtained on admission -Repeat echocardiogram was performed on 08/18/2024, but will not be read until the morning of 08/19/2024 -Plan is for central line placement as noted above to allow for increased Levophed if needed while also initiating Lasix drip as patient's I's and O's are not adequate and repeat x-ray also showed lack of improvement of right-sided pleural effusion (4) Valvular heart disease: Status: Acute Assessment and plan: -Replaced aortic valve working well but some progression of mitral and tricuspid disease on November echocardiogram. -May be contributing factor and difficult fluid status -Follow-up repeat echocardiogram (5) Pleural effusion: Status: Acute Assessment and plan: - Likely secondary to combination of heart failure exacerbation and liver failure -On admission was discussed with general surgery do not believe there is an indication for thoracentesis or chest tube at this time -As noted above chest x-ray did not show any improvement and presence of pleural effusion and patient will be more aggressively diuresed (6) D-dimer, elevated: Status: Acute Assessment and plan: - Potentially in the setting of septic shock as well as questionable PE as noted on CTA -However, in looking back on patient's chart there was also a questionable right upper extremity thrombus noted in the emergency department -Will order right upper extremity ultrasound -Will continue Eliquis at this time, choosing not to treat with heparin as patient has been compliant with his Eliquis treatment, and patient's ongoing issue is 1 of hypercapnic respiratory failure while his hypoxia is continuing to improve (7) Total bilirubin, elevated: Status: Acute Assessment and plan: - Likely in the setting of cirrhosis as seen on abdominal ultrasound, though may also be secondary to septic shock -T. bili initially 1.5, has improved down to 0.77 (8) Ascites: Status: Acute Assessment and plan: -noted, will monitor. Consider paracentesis if becomes symptomatic (9) Cirrhosis: Status: Acute Assessment and plan: - As noted above (10) Atrial fibrillation: Status: Chronic Assessment and plan: - Continue home beta-blair and Eliquis (11) Tricuspid regurgitation: Status: Acute Assessment and plan: - Follow-up repeat echo results as noted above (12) Mitral regurgitation: Status: Chronic Assessment and plan: noted (13) Mitral stenosis: Status: Acute Assessment and plan: noted (14) Alcohol use disorder: Status: Acute Assessment and plan: Will add CIWA and phenobarbital protocol as well as banana bag (15) CAD (coronary artery disease): Status: Chronic Assessment and plan: Pt does not complain of chest pain at this time. Pt is on a statin and nitro prn at home as well as entresto (16) Atrial fibrillation: Status: Chronic Assessment and plan: - Continue home rate control and Eliquis (17) Type 2 diabetes mellitus: Status: Chronic Assessment and plan: - Was continued on Jardiance on admission -However, patient has worsening kidney function Jardiance may be contributing -Jardiance has been discontinued (18) Alcohol dependence: Status: Acute Assessment and plan: Will add CIWA, phenobarbital protocol, banana bag daily including thiamine Subjective Subjective Interval history since last seen: Patient rather stoic and states that he has no complaints, though he appears more tired as compared to previous days. Exam Narrative Exam Narrative: Acutely ill, older gentleman appearing fatigued and in mild respiratory distress, awakens to verbal stimuli and is intermittently conversive, oriented to person place and situation, heart regular rhythm, lungs diffuse coarse breath sounds with diminished breath sounds in right lung from base to about mid lung field, abdomen soft, nontender, nondistended Objective Last Vital Signs Temp 99.3 F 08/18/24 13:47 Pulse 100 H 08/18/24 16:16 Resp 33 H 08/18/24 16:16 BP 113/81 08/18/24 16:16 Pulse Ox 94 08/18/24 16:16 Laboratory Results - last 24 hr 08/18/24 08/18/24 08/18/24 04:16 06:13 14:48 WBC 5.63 RBC 3.24 L Hgb 10.1 L Hct 32.3 L MCV 100 H MCH 31.2 MCHC 31.3 L RDW 15.2 H Plt Count 101 L MPV 10.1 Immature Gran % 0.2 Neutrophils % 63.4 Lymphocytes % 13.0 Monocytes % 16.5 Eosinophils % 6.2 Basophils % 0.7 Nucleated RBC % 0.0 Absolute Neutrophils 3.57 Absolute Lymphocytes 0.73 L Absolute Monocytes 0.93 H Absolute Eosinophils 0.35 Absolute Basophils 0.04 PT 14.7 H INR 1.5 H VBG pH 7.29 L VBG pCO2 55 H VBG pO2 95 VBG HCO3 27 VBG Total CO2 25 VBG O2 Saturation 98 VBG Base Excess 0 Sodium 131 L Potassium 5.0 Chloride 97 L Carbon Dioxide 28.3 Anion Gap 5.7 BUN 52 H Creatinine 2.6 H Est GFR (CKD-EPI 2020) 24.17 Glucose 139 H Calcium 8.5 Total Bilirubin 0.77 AST 28 ALT 19 Alkaline Phosphatase 182 H NT-Pro-B Natriuret Pep 2905 H Total Protein 8.0 Albumin 2.9 L Add-On Test Request 08/18/24 16:24 WBC RBC Hgb Hct MCV MCH MCHC RDW Plt Count MPV Immature Gran % Neutrophils % Lymphocytes % Monocytes % Eosinophils % Basophils % Nucleated RBC % Absolute Neutrophils Absolute Lymphocytes Absolute Monocytes Absolute Eosinophils Absolute Basophils PT INR VBG pH VBG pCO2 VBG pO2 VBG HCO3 VBG Total CO2 VBG O2 Saturation VBG Base Excess Sodium Potassium Chloride Carbon Dioxide Anion Gap BUN Creatinine Est GFR (CKD-EPI 2020) Glucose Calcium Total Bilirubin AST ALT Alkaline Phosphatase NT-Pro-B Natriuret Pep Total Protein Albumin Add-On Test Request DONE PAWSS Have you Been Recently Intoxicated or Drunk Within the Last 30 days?: No Have you Ever Experienced Previous Episodes of Alcohol Withdrawal?: No Have you ever Experienced Withdrawal Seizures?: No Have you ever Experienced Delirium Tremens(DT)s?: No Have you ever undergone Alcohol Rehabilitation Treatment (i.e, inpt ot outpatient treatment programs)?: No Have you ever Experienced Blackouts?: No Have you ever Combined Alcohol with other Downers within the last 90 days?: No Have you ever Combined Alcohol with any other Substance of Abuse during the last 90 days?: No Positive Blood Alcohol level on Presentation? [PCS.BAL]: No Evidence of Increased Autonomic Activity (i.e. HR>120, tremor, sweating, agitation, nausea)?: No Result: 0 Time Spent with Patient Time Spent with Patient: >50 minutes Time was spent: preparing to see the patient(eg.review tests), obtaining and/or reviewing separately otained hiistory, ordering medications,tests, procedures, referring, communicating with other health healthcare business analyst, indepentently interpreting results, counseling the patient and care coordination
--- NOTE | 2024-08-18 18:15 | DI.RAD_ITS ---
Exam(s) XR PORTABLE CHEST AP POST LINE EXAM: XR PORTABLE CHEST AP POST LINE CLINICAL HISTORY: Central Line placement ICU. TECHNIQUE: 2D digital imaging was performed. COMPARISON: CR XR PORTABLE CHEST AP from 08/18/2024 FINDINGS: Single AP portable view. There has been interval placement of a right subclavian central line. Its distal tip is in good posi tion at the SVC-RA junction. Again noted is cardiomegaly and sternotomy wires and prosthetic cardiac valve Again noted is a moderate-large right pleural effusion and what appears to be a pulmonary edema patte rn. Advanced degenerative changes in the right shoulder are again noted. IMPRESSION: No radiographic improvement in the lungs and right pleural effusion. Newly placed right supra clavi in central line is in good position. There is no pneumothorax DATA REPOSITORY: RADIATION DOSE DELIVERED:
--- NOTE | 2024-08-18 18:18 | ANES.VASC_ITS ---
Central Venous Line Placement Date Performed: 08/18/24 Procedure Time: 18:18 Procedure Location: Intensive Care Unit Requesting Provider: Arturo Rodriguez Standard Monitors Applied: ECG, Blood Pressure, SpO2 and See EMR for corresponding vital signs Pt. Position: Supine Trendelenburg Timeout Performed: Yes Sedation Given (Indicate Dose Given): No Sedation given Patient Mental Status: Awake Sterility: Hand Hygiene, Surgical Cap, Surgical Mask, Sterile Gloves, Sterile Drape/Sheet, Sterile Gown and Chlorhexidine Laterality: Right Insertion Site: Internal Jugular (IJ) Central Line Type: 7 Mongolian and Triple Lumen Catheter Insertion Procedure: 1% Lidocaine to skin and subcutaneous tissue with 25g needle, Vessel accessed with needle, Guidewire placed with ease, Extension tubing fills with blood, then empties easily with gravity, Dermatotomy (skin ayde) made with scalpel, Dilator placed without resistance, Introducer/Catheter placed without resistance, Guidewire removed and Claves placed, blood withdrawn, ports flushed and clamped Dressing: Sorbaview Dressing Placed, BioPatch and Sutured in Place Catheter Depth at Skin (cm): 16 Placement Confirmation: Confirmation X-Ray Ordered Ultrasound: Sterile probe cover and gel used Ultrasound Image Saved?: No Number of Attempts (See previous attempts in note section): 2 Procedure Tolerated: No Complications and Patient tolerated well Procedure Outcome: Successful Procedure Comment: Initial attempt same place with catheter over needle, good blood return but unable to place wire with ease. After reposition and adjustments, tracey tot direct needle placement with guide wire through syringe/needle placed with ease. Line sutured and dressed. All ports with venous blood return, flushed and clamped awaiting chest X-Ray read. Performed By: Mil De La Cruz
[2024-08-18] MEDS: CEFEPIME 1 GM in Normal Saline 50 ML IVPB (18:55)
[2024-08-18] MEDS: VANCOMYCIN 1,500 MG in Normal Saline 250 ML 166.667 MG IVPB (19:09)
[2024-08-19] VITALS (159 sets, daily range): BP systolic 55–191; BP diastolic 30–177; PULSE 64–147; RESP 12–43; TEMP 36.5–38.5; O2SAT 85–99
--- NOTE | 2024-08-19 | DI.RAD_ITS ---
Exam(s) XR PORTABLE CHEST AP EXAM: XR PORTABLE CHEST AP CLINICAL HISTORY: SOB. TECHNIQUE: 2D digital imaging was performed. COMPARISON: CR XR PORTABLE CHEST AP POST LINE from 08/18/2024 FINDINGS: Single AP portable view. Distal tip of right supra clavian central line remains in good position at the SVC-RA junction Sternotomy wires, cardiomegaly, and prosthetic aortic valve again noted. There is further increase in confluence of infiltrate in the aerated right lung and the size of the m oderate-large right pleural effusion has not decreased. Also increased interstitial markings through out the opposite-left lung. No obvious left pleural effusion. IMPRESSION: No radiographic improvement. Both pulmonary edema and infectious etiology are the main consideration s here. The size of the right pleural effusion has not decreased. DATA REPOSITORY: RADIATION DOSE DELIVERED:
--- NOTE | 2024-08-19 01:46 | NUR.NOTE ---
area of RIJ oozing bright blood, area cleaned with washcloths. pad placed under neck. MD aware. baeza irrigated and small amt pink dng retuned. incontinen of large amt soft bown stool. specs sent t lab as ordered by Dr Lee.
[2024-08-19] MEDS: CEFEPIME 1 GM in Normal Saline 50 ML IVPB ×2 (04:00→16:31)
[2024-08-19] MEDS: MORPHine 2 MG/ML SYR (04:45)
[2024-08-19] MEDS: MORPHine 2 MG/ML SYR IVP ×3 (05:00→20:27)
[2024-08-19 05:10] LABS: BE (Venous) -3 mmol/L (-2-3); HCO3 (Venous) 25 mmol/L (23-28); O2 Sat (Venous) 96 %; TCO2 (Venous) 24 mmol/L (24-29); pCO2 (Venous) 57 mmHg (41-51); pH (Venous) 7.24 (7.31-7.41); pO2 (Venous) 84 mmHg
--- NOTE | 2024-08-19 05:12 | W.EVENT ---
Date of service: 08/19/24 Time of Service: 05:12 Event Note: Called for patient discomfort. Patient unable to provide history, nurses report he has been tugging at lines, groaning. Heart rate up to 160s, O2 sats high 80s, minimal urine output on Lasix 10mg/hr.. On exam BP 120/sys, pulse 120-140 (AF), IJ line on right oozing blood; lungs diminished, heart tachy, irr/irr. CXR shows persistent/worsening CHF with right pleural effusion. VBG pH 7.24, pCO2 57 A/P: Not clear exactly what patient agitation may represent. Began by giving MS 4 mg in divided doses, patient noticeably more calm. BP thereafter 95/sys (MAP 68), pulse 100-120. Patient then given 40 Lasix IVP, infusion held. Placed on BiPap. Will continue bolus Lasix per response, continue prn MS, maintain on BiPap for now. Continue rate control with beta blair, will hold DOAC what with oozing from IJ site, will have anaesthesia reassess line. Time Spent with Patient Time spent in critical care(minutes): 60 Time Spent Included: Coordination of care, Chart review, Documenting critically ill care and Time at immediate bedside
[2024-08-19 05:14] LABS: HCT 31.3 % (40.0-50.0); HGB 9.6 g/dL (13.5-17.5); MCH 31.3 pg (27.0-33.0); MCHC 30.7 % (32.0-36.0); MCV 102 fL (80-95); MPV 10.1 fL (8.0-11.0); RBC 3.07 10^6/uL (4.36-5.78); RDW 15.1 % (11.8-14.1); RDW-SD 56.6 fL; WBC 6.22 10^3/uL (4.4-10.8)
[2024-08-19 05:17] LABS: BUN 55 mg/dL (7-18); CREATININE 3.5 mg/dL (0.70-1.30); Calcium 8.4 mg/dL (8.5-10.1); Chloride 97 mmol/L (98-107); Estimated GFR 16.92 (mL/min/1.73m2); Glucose 103 mg/dL (74-106); Potassium 5.2 mmol/L (3.5-5.1); Sodium 130 mmol/L (136-145)
[2024-08-19 05:45] LABS: Platelet Count 82 10^3/uL (130-400)
--- NOTE | 2024-08-19 05:57 | DI.VRAD_ITS ---
PROCEDURE INFORMATION: Exam: XR Chest Exam date and time: 08/19/2024 5:04 AM Age: 79 years old Clinical indication: Shortness of breath; Prior surgery; Surgery date: 6+ months; Surgery type: Cabg; SOB TECHNIQUE: Imaging protocol: Radiologic exam of the chest. Views: 1 view. COMPARISON: CR (AP Landscape, CHEST, Chest) 08/19/2024 5:04 AM FINDINGS: Tubes, catheters and devices: Right internal jugular central venous access catheter, terminating at the superior cavoatrial junction. Lungs: Diffuse increase in interstitial lung markings. Patchy densities of the right lung field. Pleural spaces: Blunting of the right costophrenic angle. Heart/Mediastinum: Postprocedural changes of the heart. Cardiomegaly. Vasculature: Atherosclerotic disease of the aortic arch. Bones/joints: Status post sternotomy. No acute osseous abnormality. IMPRESSION: Unchanged examination. Dictated and Authenticated by: Gilbert Harrington MD. Orderin Zack Penaloza MD
[2024-08-19] MEDS: Furosemide 40 MG/4 ML VIAL IVP (06:04)
[2024-08-19] MEDS: Norepinephrine in D5W 8 MG/250 ML BAG 5 MG IV (06:35)
[2024-08-19] MEDS: Furosemide 100 MG/10 ML VIAL 80 MG IVP (06:43)
[2024-08-19] MEDS: Normal Saline Flush 10 ML SYR IVP ×6 (08:27→23:11)
[2024-08-19] MEDS: Pantoprazole 40 MG VIAL IVP (08:27)
--- NOTE | 2024-08-19 09:43 | PDOC.CMPRO ---
Date of service: 08/19/24 Time of Service: 09:43 Care Management Progress Note Progress Note Text Progress Note Text: Yfn is unarounsable and surrounded by several family members at this time. He is being treated with IV ABX, Norepi and is on bi-pap. The hospitalist spoke with family this afternoon and they want to continue treatment but elected to change his code status to a DNR/DNI, per nursing. Milady from Palliative has offered to meet with his sons tomorrow between 1130/12. Son Yfn wants to talk to his brother Britton before he decides. CM will follow. Discharge Anticipated Barriers to Discharge: Medical Status Patient/Family Education Needs: Review discharge instructions, discuss Ask Me Three Transportation: Private vehicle Plan: Anticipate Yfn will be discharged home, possibly with new home health services for PT, when medically cleared. He will follow up with his community providers and plan of care and transport with family. CM will follow and continue to assess for discharge needs. Social Determinants of Health Screening Social Determinants of Health last assessed: 08/19/24 Will the Patient Participate in the Screening?: Yes Do you worry about having a steady place to live?: no Problems where you live: no known problems In the past 12 months, have you had to go without electric, gas, oil or water in your home?: no Have you or anyone in your house had to go without enough food to eat?: no Has lack of transportation kept you from medical appointments or from doing things needed for daily living?: no Has anyone in your life made you feel unsafe or unsupported?: no How hard is it for you to pay for the very basics like food, housing, medical care, and heating? Would you say it is:: Somewhat hard Do you want help finding or keeping work or a job?: I do not need or want help If for any reason you need help with day-to-day activities such as bathing, preparing meals, shopping, managing finances, etc., do you get the help you need?: I get all the help I need How often do you feel lonely or isolated from those around you?: Never Do you speak a language other than Lithuanian at home?: No Does the patient want assistance with any of the above?: No Health Related Social Needs Health related social needs: problems related to housing/economic circumstances (Z59.89)
[2024-08-19 10:42] LABS: Vancomycin, Random 15.9 ug/mL
[2024-08-19] MEDS: ACETAMINOPHEN 1,000 MG/100 ML BAG 400 MG IVPB ×2 (10:50→20:14)
[2024-08-19] MEDS: VANCOMYCIN 500 MG in Normal Saline 100 ML 100 MG IVPB (11:58)
[2024-08-19] MEDS: Bumetanide 1 MG/4 ML VIAL 5 MG IVP ×2 (14:14→23:12)
--- NOTE | 2024-08-19 16:44 | PGE_ITS ---
Date of Service Date of service: 08/19/24 Time of Service: 16:45 Assessment and Plan Assessment and plan (1) Septic shock: Status: Acute Assessment and plan: - Patient met criteria for septic shock on admission with initial temperature of 101.1 ?F, respiratory rate as high as 42, source of infection being right lower lobe consolidation, NORRIS with a creatinine of 1.7 (baseline 1.0), initial lactic acid of 2.1 (for which immediate repeat was not available), and need for pressors and his mean arterial pressure was less than 65 -Patient has been on pressors for greater than 48 hours, though did have a brief period where he did not need it on the morning of 08/18/2024 -Of asked for central line to be placed as patient continues to need Levophed, and will likely need additional given requirement for diuretics (see below for details) -Was initially on azithromycin and ceftriaxone however patient was persistently febrile, therefore antibiotics been changed to cefepime and vancomycin as of the morning of 08/18/2024 -Initial blood cultures showed preliminarily 1 set positive for MSSA -Repeat blood cultures were drawn prior to change of antibiotics as noted above -Follow-up initial and repeat blood cultures -Wean Levophed as tolerated with goal mean arterial pressure 60-65 given likely superimposed cardiogenic shock (2) Pneumonia: Status: Acute Assessment and plan: - Source of infection as noted above (3) CHF (congestive heart failure): Status: Chronic Assessment and plan: -Patient also had significant pleural effusion on x-ray it is unknown if this was from worsening heart failure or also cirrhosis and possible hydrothorax from liver failure -It was documented the patient would be on 60 mg of IV Lasix twice daily, however this was only oral, likely explanations why patient is persistently requiring BiPAP therapy and having increase in his CO2 as he is normally on 80 mg of Lasix p.o. twice daily -While patient did have echocardiogram back in November which showed significantly dilated left and right atria, EF of 60%, moderately enlarged right ventricle, and moderate mitral stenosis with severe tricuspid regurg, repeat echocardiogram was not obtained on admission -Repeat echocardiogram was performed on 08/18/2024, but will not be read until the morning of 08/19/2024 -central line placed early PM 08/18 -patient was on levophed and lasix drip overnight which was discontinued with patient being given total of 120mg IV lasix resulting in minimal urine output of about 50cc -patient given 5mg IV bumex; will monitor for response and give additional dose as needed Earlier in the day I called both of the patients sons and asked them to come to the hospital. Both Kirby and Yfn (designated and the patients medical decision makers), along with other family member, were explained that the patients heart failure has significantly worsened, to the point that blood is not perfusing enough to his kidneys to allow for proper diureses, resulting in worsening of his overall condition. I explained that this worsening of his previously known heart failure in combination with severe pulmnonary HTN (as see on TTE done 08/18 and read early am 08/19), his PNA, and liver failure. They expressed understanding of the patients severity of illness, and given the irreversible nature of his condition, elected to change his code status to DNR/DNI. I did also discuss the idea of comfort measures only, though they elected to continue medical treatment at this time. (4) Valvular heart disease: Status: Acute Assessment and plan: -Replaced aortic valve working well but some progression of mitral and tricuspid disease on November echocardiogram. -May be contributing factor and difficult fluid status -repeat echocardiogram showed the following: Conclusion Concentric left ventricular hypertrophy. Ejection fraction is 60 to 65%. There is diastolic septal flattening suggesting pulmonary hypertension Right ventricle is dilated and hypocontractile. 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 Mean gradient is 16 mmHg. There is no significant aortic regurgitation Severe mitral annular calcification. Mild mitral regurgitation. Moderate mitral stenosis Normal tricuspid valve with severe regurgitation. Estimated right ventricular systolic pressure is 79 mmHg, severe pulmonary hypertension Dilated ascending aorta measuring 4 cm (5) Pleural effusion: Status: Acute Assessment and plan: - Likely secondary to combination of heart failure exacerbation and liver failure -On admission was discussed with general surgery do not believe there is an indication for thoracentesis or chest tube at this time -As noted above chest x-ray did not show any improvement and presence of pleural effusion and patient will be more aggressively diuresed (6) D-dimer, elevated: Status: Acute Assessment and plan: - Potentially in the setting of septic shock as well as questionable PE as noted on CTA -However, in looking back on patient's chart there was also a questionable right upper extremity thrombus noted in the emergency department -Will order right upper extremity ultrasound -Will continue Eliquis at this time, choosing not to treat with heparin as patient has been compliant with his Eliquis treatment, and patient's ongoing issue is 1 of hypercapnic respiratory failure while his hypoxia is continuing to improve (7) Total bilirubin, elevated: Status: Acute Assessment and plan: - Likely in the setting of cirrhosis as seen on abdominal ultrasound, though may also be secondary to septic shock -T. bili initially 1.5, has improved down to 0.77 (8) Ascites: Status: Acute Assessment and plan: -noted, will monitor. Consider paracentesis if becomes symptomatic (9) Cirrhosis: Status: Acute Assessment and plan: - As noted above (10) Atrial fibrillation: Status: Chronic Assessment and plan: - Continue home beta-blair and Eliquis (11) Tricuspid regurgitation: Status: Acute Assessment and plan: - Follow-up repeat echo results as noted above (12) Mitral regurgitation: Status: Chronic Assessment and plan: noted (13) Mitral stenosis: Status: Acute Assessment and plan: noted (14) Alcohol use disorder: Status: Acute Assessment and plan: Will add CIWA and phenobarbital protocol as well as banana bag (15) CAD (coronary artery disease): Status: Chronic Assessment and plan: Pt does not complain of chest pain at this time. Pt is on a statin and nitro prn at home as well as entresto (16) Atrial fibrillation: Status: Chronic Assessment and plan: - Continue home rate control and Eliquis (17) Type 2 diabetes mellitus: Status: Chronic Assessment and plan: - Was continued on Jardiance on admission -However, patient has worsening kidney function Jardiance may be contributing -Jardiance has been discontinued (18) Alcohol dependence: Status: Acute Assessment and plan: Will add CIWA, phenobarbital protocol, banana bag daily including thiamine Subjective Subjective Interval history since last seen: Patient is very somnolent and intermittently in pain today. Please see assessment and plan for complete details on discussion with family. Exam Narrative Exam Narrative: Acutely ill, older gentleman appearing fatigued and in mild respiratory distress, no longer awakens to verbal stimuli, will briefly wake up and moan with painful stimuli, heart regular rhythm, lungs diffuse coarse breath sounds with diminished breath sounds in right lung from base to about mid lung field, abdomen soft, nontender, nondistended Objective Last Vital Signs Temp 97.7 F 08/19/24 14:30 Pulse 105 H 08/19/24 12:31 Resp 39 H 08/19/24 12:31 BP 99/51 L 08/19/24 12:30 Pulse Ox 95 08/19/24 12:31 Laboratory Results - last 24 hr 08/18/24 08/19/24 08/19/24 14:48 04:55 08:20 WBC 6.22 RBC 3.07 L Hgb 9.6 L Hct 31.3 L MCV 102 H MCH 31.3 MCHC 30.7 L RDW 15.1 H Plt Count 82 L MPV 10.1 VBG pH 7.24 L VBG pCO2 57 H VBG pO2 84 VBG HCO3 25 VBG Total CO2 24 VBG O2 Saturation 96 VBG Base Excess -3 L Sodium 130 L Potassium 5.2 H Chloride 97 L Carbon Dioxide 27.0 Anion Gap 6.0 BUN 55 H Creatinine 3.5 H D Est GFR (CKD-EPI 2020) 16.92 Glucose 103 Calcium 8.4 L NT-Pro-B Natriuret Pep 2905 H Random Vancomycin 15.9 PAWSS Have you Been Recently Intoxicated or Drunk Within the Last 30 days?: No Have you Ever Experienced Previous Episodes of Alcohol Withdrawal?: No Have you ever Experienced Withdrawal Seizures?: No Have you ever Experienced Delirium Tremens(DT)s?: No Have you ever undergone Alcohol Rehabilitation Treatment (i.e, inpt ot outpatient treatment programs)?: No Have you ever Experienced Blackouts?: No Have you ever Combined Alcohol with other Downers within the last 90 days?: No Have you ever Combined Alcohol with any other Substance of Abuse during the last 90 days?: No Positive Blood Alcohol level on Presentation? [PCS.BAL]: No Evidence of Increased Autonomic Activity (i.e. HR>120, tremor, sweating, agitation, nausea)?: No Result: 0 Time Spent with Patient Time Spent with Patient: >50 minutes Time was spent: preparing to see the patient(eg.review tests), obtaining and/or reviewing separately otained hiistory, ordering medications,tests, procedures, referring, communicating with other health home care chaplain, indepentently interpreting results, counseling the patient and care coordination
--- NOTE | 2024-08-19 16:49 | CHAPLAIN ---
I visited with Giovanny'judy family twice this afternoon. Hermann is minimally responsive which is a big change from yesterday when he was having conversations with people. His code status was changed to DNR/DNI. Family members wish to continue with treatments at this time. Dr. Rodriguez spoke with them about the option of comfort measures. Milady Ac NP from Palliative Care will be in tomorrow morning to speak with Giovanny's sons. She spoke with Giovanny yesterday when he was still able to have a conversation. I left the family know that furnace operator is available at any time. They were all pleasant and thanked me for visiting but did not seem interested in further interaction at this point. I will check in tomorrow.
[2024-08-19] MEDS: Norepinephrine in D5W 8 MG/250 ML BAG 35.625 MG IV (18:52)
[2024-08-19] MEDS: HYDROmorphone 2 MG/ML SYR 0.5 MG IVP (22:13)
[2024-08-19 22:18] LABS: Anion Gap 5.5 mmol/L (3-11); BUN 64 mg/dL (7-18); CO2 27.5 mmol/L (21.0-32.0); Calcium 8.4 mg/dL (8.5-10.1); Chloride 97 mmol/L (98-107); Glucose 105 mg/dL (74-106); Potassium 5.5 mmol/L (3.5-5.1); Sodium 130 mmol/L (136-145)
[2024-08-19 22:22] LABS: CREATININE 4.2 mg/dL (0.70-1.30)
[2024-08-20] VITALS (78 sets, daily range): BP systolic 75–153; BP diastolic 45–130; PULSE 30–148; RESP 10–30; TEMP 36–36.1; O2SAT 86–100
--- NOTE | 2024-08-20 | DI.RAD_ITS ---
Exam(s) XR PORTABLE CHEST AP EXAM: XR PORTABLE CHEST AP CLINICAL HISTORY: Respiratory failure TECHNIQUE: 2D digital imaging was performed of the chest. One image was obtained. An AP view was ob tained. COMPARISON: CT CT CHEST PE CTA from 08/16/2024 CR,XR XR PORTABLE CHEST AP from 08/19/2024 FINDINGS: MEDIASTINUM: Normal. HEART: There is an aortic valve prosthesis. There is dense mitral calcification. PULMONARY VASCULATURE: Normal. LUNGS: There is now complete opacification of the left hemithorax. While there are opacities in the right lung, overall these have improved since the prior examination. PLEURAL SPACE: There is a persistent moderate right pleural effusion. BONE:Within normal limits for the patient's age. Sternal wires are in place. OTHER FINDINGS:The patient's right IJ catheter is present. The tip lies in the right atrium. IMPRESSION: 1. Interval complete opacification of the left lung. This may be evidence of a large left pleural ef fusion and/or consolidation of the left lung. 2. Persistent right pleural effusion. 3. Improved aeration of the right lung. DATA REPOSITORY: RADIATION DOSE DELIVERED:
[2024-08-20] MEDS: Norepinephrine in D5W 8 MG/250 ML BAG 46.875 MG IV ×2 (00:51→05:43)
[2024-08-20] MEDS: HYDROmorphone 2 MG/ML SYR 0.5 MG IVP ×3 (00:58→06:06)
[2024-08-20] MEDS: CEFEPIME 1 GM in Normal Saline 50 ML IVPB (03:35)
[2024-08-20] MEDS: Normal Saline Flush 10 ML SYR IVP ×4 (03:36→13:03)
[2024-08-20] MEDS: VASOPRESSIN 50 UNITS in Normal Saline 497.5 ML 18 UNITS IV (03:44)
--- NOTE | 2024-08-20 04:49 | W.EVENT ---
Date of service: 08/20/24 Time of Service: 04:49 Event Note: This is an 79-year-old gentleman admitted to the ICU with septic shock who initially was doing well and awake and talking with diuresis but over the last 24 hours has become unresponsive with increased respiratory distress requiring BiPAP and and low blood pressure with maps below 65 requiring norepinephrine infusion through the central line now on vasopressin as well. He is tachycardic with history of atrial fibrillation. He is on Eliquis for possible PE and does have significant right pleural effusion with question of infectious process on the left lung field by chest x-ray which is being repleted. He does have severe right-sided heart failure by echocardiogram uptake with preserved left-ventricular ejection fraction but severe valvular disease. Overall the patient does not appear to be responding to aggressive antibiotic therapy for pneumonia, he has not had a thoracentesis which may be needed to rule out empyema though he is not having fever recently and WBC is not elevated. He does have complications of worsening renal failure decreased urine output to 300 cc last 24 hours after diuresing fairly well the first 2 days. He has received 2 doses of Bumex without much response. I did review [place] [facility] [place], if diuresis is considered to use dimer 100 mg IV followed by Bumex 5 mg. If the patient is in pulmonary edema continue diuresis should be considered. He also recommend thoracentesis to rule out empyema which were not improved without drainage. His worsening renal failure was not of immediate concern while considering treatment of these other issues. He had no comment on the tachycardia with A-fib and I will review this with [facility] [place] and also discussed whether thoracentesis would be the next step versus continue diuresis attempting to improve renal function though this may be hepatorenal syndrome which has poor prognosis versus hypovolemia with third spacing and pleural effusion and ascites. ATN associated with septic shock may be another possibility but should improve with treating infectious etiology. Patient was started on iv hydrocortisone stress dosing at the recommendation of the vp marketing services and skin. Portable chest x-ray and morning labs will be performed with Dr. Rodriguez to follow-up. Further discussion with ICU fellow is pending callback with morning lab and imaging to review. For now broad-spectrum IV antibiotics and 2 pressor agents will be continued with consideration of diuresis versus fluid challenge and revisit discussion of thoracentesis. Family advised patient has multisystem involvement/failure and may be moving toward comfort measures only. They are not sure whether the patient would want to be transferred to higher level of care for more aggressive treatment including dialysis if needed. Local surgery has been consulted and could still perform thoracentesis for diagnostic purposes. Physical exam did reveal inspiratory coarse crackles over the left lung davila and decreased aeration over the right lung davila with more normal breath sounds anteriorly. Extremities reveal hard, nonpitting edema with chronic changes and atrophy with loss of hair over both lower extremities. Heart is tachycardic with irregular rhythm. Heart sounds are distant. Abdomen soft nontender to palpation. Patient is on BiPAP and unresponsive to verbal stimuli. [facility] [place] did call back for consultation and reviewed case stating that family should have discussion of palliative care with patient at [facility] medical care though he did recommend trial of crystalloid infusion to see if this would help the heart rate and urine output before considering further diuresis. He thought antibiotic therapy was appropriate and did also recommend stress dose IV hydrocortisone which already has been ordered. If tachycardia persisted with atrial fibrillation at the crystalloid challenge, consider amiodarone loading dose 100 mg and then 1 mg/h infusion per protocol. He did think thoracentesis may be helpful but not the primary concern. He also thought the patient was too critically ill for transfer and a poor surgical candidate if thoracentesis did reveal empyema. He is on appropriate antibiotic therapy as stated. Continue pressure support. I will discuss with family that he is at maximum medical therapy and comfort measures should be considered after noninvasive interventions as discussed above. Dr. Rodriguez will review this with family as well. Time Spent with Patient Time spent in critical care(minutes): 60 Time Spent Included: Coordination of care, Chart review, Documenting critically ill care, Time at immediate bedside, Discussing critically ill care with other medical staff and Discussing Hx and/or treatment with family
[2024-08-20] MEDS: Hydrocortisone SOD SUC. 100 MG VIAL IVP (05:49)
[2024-08-20 05:50] LABS: HCT 36.6 % (40.0-50.0); HGB 10.7 g/dL (13.5-17.5); MCH 30.8 pg (27.0-33.0); MCHC 29.2 % (32.0-36.0); MPV 9.7 fL (8.0-11.0); Platelet Count 118 10^3/uL (130-400); RBC 3.47 10^6/uL (4.36-5.78); RDW-SD 58.6 fL; WBC 10.85 10^3/uL (4.4-10.8)
[2024-08-20 06:09] LABS: ALT 22 U/L (16-63); AST 26 U/L (15-37); Albumin 2.9 g/dL (3.4-5.0); Alkaline Phosphatase 144 U/L (46-116); Anion Gap 5.1 mmol/L (3-11); BUN 66 mg/dL (7-18); Bilirubin, Direct 0.7 mg/dL (0.0-0.2); Bilirubin, Total 0.98 mg/dL (0.2-1.0); CO2 27.9 mmol/L (21.0-32.0); Calcium 8.6 mg/dL (8.5-10.1); Chloride 97 mmol/L (98-107); Estimated GFR 11.88 (mL/min/1.73m2); Glucose 99 mg/dL (74-106); Sodium 130 mmol/L (136-145); Total Protein 7.8 g/dL (6.4-8.2)
[2024-08-20 06:15] LABS: Magnesium 2.6 mg/dL (1.8-2.4); NT-proBNP 9042 pg/mL (<300)
[2024-08-20 06:19] LABS: CREATININE 4.7 mg/dL (0.70-1.30)
[2024-08-20 06:20] LABS: Potassium 6.1 mmol/L (3.5-5.1)
[2024-08-20 06:22] LABS: PHOSPHORUS 9.6 mg/dL (2.6-4.7)
[2024-08-20 06:30] LABS: MCV 106 fL (80-95)
[2024-08-20 06:32] LABS: INR 1.5 (0.9-1.1); Prothrombin Time 14.8 sec (9.1-11.1)
--- NOTE | 2024-08-20 07:01 | DI.VRAD_ITS ---
PROCEDURE INFORMATION: Exam: XR Chest Exam date and time: 08/20/2024 6:45 AM Age: 79 years old Clinical indication: Other: Resp failure; Prior surgery; Surgery date: 6+ months; Surgery type: Cabg TECHNIQUE: Imaging protocol: Radiologic exam of the chest. Views: 1 view. COMPARISON: XR PORTABLE CHEST AP 08/19/2024 5:04 AM FINDINGS: Tubes, catheters and devices: Right internal jugular central venous access catheter unchanged in position from prior comparison. Lungs: Complete homogeneous opacification of the left lung field. Interval improvement in aeration of the right lung field multifocal patchy opacities. Pleural spaces: Interval increase in right pleural effusion. Heart/Mediastinum: Postprocedural changes of the mediastinum. Heavy mitral annulus calcifications. Bones/joints: Status post sternotomy. Degenerative changes of the bones. IMPRESSION: 1. Stable medical devices as above. 2. Interval appearance of large left pleural effusion as evidenced by homogeneous opacification of the left lung field. 3. Interval increase in right pleural effusion. 4. Interval improvement in aeration of the right lung field. Dictated and Authenticated by: Gilbert Harrington MD. Orderin Denton Penaloza MD
[2024-08-20 07:26] LABS: BE (Venous) -6 mmol/L (-2-3); HCO3 (Venous) 23 mmol/L (23-28); O2 Sat (Venous) 91 %; TCO2 (Venous) 23 mmol/L (24-29); pO2 (Venous) 64 mmHg
[2024-08-20 07:28] LABS: pCO2 (Venous) 76 mmHg (41-51)
--- NOTE | 2024-08-20 08:57 | PDOC.CMPRO ---
Date of service: 08/20/24 Time of Service: 08:57 Care Management Progress Note Progress Note Text Progress Note Text: Yfn is being closely monitored and treated in the ICU, [facility] is consulted and recommendations are provided. Comfort measure should be considered if non-invasive therapy doesn't work, per provider. PT is non-responsive and his family have been present and supportive. Palliative follow up is not felt to be needed at this time. CM will follow. Discharge Plan: Yfn is critically ill, [facility] is consulted and recommendations are being followed. He too sick to transfer and is a poor surgical candidate, per report. Pt may transition to comfort measures if does not respond to treatment. CM will follow. Social Determinants of Health Screening Social Determinants of Health last assessed: 08/20/24 Will the Patient Participate in the Screening?: Yes Do you worry about having a steady place to live?: no Problems where you live: no known problems In the past 12 months, have you had to go without electric, gas, oil or water in your home?: no Have you or anyone in your house had to go without enough food to eat?: no Has lack of transportation kept you from medical appointments or from doing things needed for daily living?: no Has anyone in your life made you feel unsafe or unsupported?: no How hard is it for you to pay for the very basics like food, housing, medical care, and heating? Would you say it is:: Somewhat hard Do you want help finding or keeping work or a job?: I do not need or want help If for any reason you need help with day-to-day activities such as bathing, preparing meals, shopping, managing finances, etc., do you get the help you need?: I get all the help I need How often do you feel lonely or isolated from those around you?: Never Do you speak a language other than Icelandic at home?: No Does the patient want assistance with any of the above?: No Health Related Social Needs Health related social needs: problems related to housing/economic circumstances (Z59.89)
--- NOTE | 2024-08-20 10:10 | W.NUTRFU ---
Date of service: 08/20/24 Time of Service: 10:10 Nutrition Note NOTE: Nutrition status has been declining as medical picture is becomes further complicated and patient becoming less responsive over the last 48hours, including significant reduction in nutrition intake. Weight is misleading due to unstable hemodynamics. No COLST from seen in file - would suggest this be considered as far as artificial feeding considerations. Obviously if continued aggressive medical treatment, enteral feeding should most certainly be considered. Will continue to monitor status and level of nutrition intervention needed/desired. Time Spent in Nutritional Counseling and Treatment: 0
[2024-08-20] MEDS: Pantoprazole 40 MG VIAL IVP (10:12)
[2024-08-20] MEDS: Norepinephrine in D5W 8 MG/250 ML BAG 56.25 MG IV (10:13)
[2024-08-20] MEDS: MORPHine 4 MG/ML SYR IV/SC ×2 (12:58→14:46)
[2024-08-20] MEDS: LORazepam 2 MG/ML VIAL IV/SC (12:59)
[2024-08-20] MEDS: Glycopyrrolate 0.2 MG/1 ML VIAL IVP (13:00)
[2024-08-20] MEDS: Haloperidol 5 MG/ML VIAL IM (13:00)
--- NOTE | 2024-08-20 14:54 | W.PM.PROGNOT ---
Date of Service Date of service: 08/20/24 Time of Service: 14:54 Assessment and Plan Assessment and plan (1) CHF (congestive heart failure): Status: Chronic Assessment and plan: -Patient also had significant pleural effusion on x-ray it is unknown if this was from worsening heart failure or also cirrhosis and possible hydrothorax from liver failure -It was documented the patient would be on 60 mg of IV Lasix twice daily, however this was only oral, likely explanations why patient is persistently requiring BiPAP therapy and having increase in his CO2 as he is normally on 80 mg of Lasix p.o. twice daily -While patient did have echocardiogram back in November which showed significantly dilated left and right atria, EF of 60%, moderately enlarged right ventricle, and moderate mitral stenosis with severe tricuspid regurg, repeat echocardiogram was not obtained on admission -Repeat echocardiogram was performed on 08/18/2024, but will not be read until the morning of 08/19/2024 -central line placed early PM 08/18 -patient was on levophed and lasix drip overnight which was discontinued with patient being given total of 120mg IV lasix resulting in minimal urine output of about 50cc -patient given 5mg IV bumex 08/19: Earlier in the day I called both of the patients sons and asked them to come to the hospital. Both Kirby and Yfn (designated and the patients medical decision makers), along with other family member, were explained that the patients heart failure has significantly worsened, to the point that blood is not perfusing enough to his kidneys to allow for proper diureses, resulting in worsening of his overall condition. I explained that this worsening of his previously known heart failure in combination with severe pulmnonary HTN (as see on TTE done 08/18 and read early am 08/19), his PNA, and liver failure. They expressed understanding of the patients severity of illness, and given the irreversible nature of his condition, elected to change his code status to DNR/DNI. I did also discuss the idea of comfort measures only, though they elected to continue medical treatment at this time. 08/20: Overnight the patients condition worsened requiring additional pressor support. Additionally, despite additional doses of diurestics the patients Cr and K increased, and CXR showed new severe left sided pleural effusion which was not present on the previous day. Overnight physician reached out to [facility] who confirmed there was little else that could be done for the patient. Again in the presence of multiple family members (including both of the patients sons and decisions makers) a discussion was had regarding his current status and the fact that the patient was not going to recover, and continuing current therapy was only going to continue to prolong his suffering. All family members understood the patients current circumstances, and collectively agreed that the best thing for him at this time would be to transition to [employer]. -discontinued abx, pressors, and all other non-comfort directed medications -discontinue vitals checks -discontinue BiPAP and place on NC for comfort -PRN morphine, ativan, haldol for shortness of breath, pain, anxiety and aggitaiton (2) Septic shock: Status: Acute Assessment and plan: - Patient met criteria for septic shock on admission with initial temperature of 101.1 ?F, respiratory rate as high as 42, source of infection being right lower lobe consolidation, NORRIS with a creatinine of 1.7 (baseline 1.0), initial lactic acid of 2.1 (for which immediate repeat was not available), and need for pressors and his mean arterial pressure was less than 65 -Patient has been on pressors for greater than 48 hours, though did have a brief period where he did not need it on the morning of 08/18/2024 -Of asked for central line to be placed as patient continues to need Levophed, and will likely need additional given requirement for diuretics -Was initially on azithromycin and ceftriaxone however patient was persistently febrile, therefore antibiotics been changed to cefepime and vancomycin as of the morning of 08/18/2024 -Initial blood cultures showed preliminarily 1 set positive for MSSA -Repeat blood cultures were drawn prior to change of antibiotics as noted above (3) Pneumonia: Status: Acute Assessment and plan: - Source of infection as noted above (4) Valvular heart disease: Status: Acute Assessment and plan: -Replaced aortic valve working well but some progression of mitral and tricuspid disease on November echocardiogram. -May be contributing factor and difficult fluid status -repeat echocardiogram showed the following: Conclusion Concentric left ventricular hypertrophy. Ejection fraction is 60 to 65%. There is diastolic septal flattening suggesting pulmonary hypertension Right ventricle is dilated and hypocontractile. 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 Mean gradient is 16 mmHg. There is no significant aortic regurgitation Severe mitral annular calcification. Mild mitral regurgitation. Moderate mitral stenosis Normal tricuspid valve with severe regurgitation. Estimated right ventricular systolic pressure is 79 mmHg, severe pulmonary hypertension Dilated ascending aorta measuring 4 cm (5) Pleural effusion: Status: Acute Assessment and plan: - Likely secondary to combination of heart failure exacerbation and liver failure -On admission was discussed with general surgery do not believe there is an indication for thoracentesis or chest tube at this time -As noted above chest x-ray (6) D-dimer, elevated: Status: Acute Assessment and plan: - Potentially in the setting of septic shock as well as questionable PE as noted on CTA -However, in looking back on patient's chart there was also a questionable right upper extremity thrombus noted in the emergency department (7) Total bilirubin, elevated: Status: Acute Assessment and plan: - Likely in the setting of cirrhosis as seen on abdominal ultrasound, though may also be secondary to septic shock -T. bili initially 1.5, has improved down to 0.77 (8) Ascites: Status: Acute Assessment and plan: -noted (9) Cirrhosis: Status: Acute Assessment and plan: - As noted above (10) Atrial fibrillation: Status: Chronic Assessment and plan: - beta-blair and eliquis discontinued as noted above (11) Tricuspid regurgitation: Status: Acute Assessment and plan: - Follow-up repeat echo results as noted above (12) Mitral regurgitation: Status: Chronic Assessment and plan: noted (13) Mitral stenosis: Status: Acute Assessment and plan: noted (14) Alcohol use disorder: Status: Acute (15) CAD (coronary artery disease): Status: Chronic (16) Type 2 diabetes mellitus: Status: Chronic Assessment and plan: - Was continued on Jardiance on admission -However, patient has worsening kidney function Jardiance may be contributing -Jardiance has been discontinued Subjective Subjective Interval history since last seen: Patient now on comfort measures. Please see assessment and plan for further details. Exam Narrative Exam Narrative: Acutely ill, older gentleman appearing fatigued and in mild respiratory distress, no longer awakens to verbal or painful stimuli, does not appear to be in any pain Objective Last Vital Signs Temp 97.0 F L 08/20/24 08:01 Pulse 138 H 08/20/24 13:00 Resp 25 H 08/20/24 13:00 BP 98/72 L 08/20/24 12:01 Pulse Ox 94 08/20/24 13:00 Laboratory Results - last 24 hr 08/19/24 08/20/24 08/20/24 22:00 05:20 05:50 WBC 10.85 H RBC 3.47 L Hgb 10.7 L Hct 36.6 L MCV 106 H D MCH 30.8 MCHC 29.2 L RDW 15.0 H Plt Count 118 L MPV 9.7 PT 14.8 H INR 1.5 H VBG pH VBG pCO2 VBG pO2 VBG HCO3 VBG Total CO2 VBG O2 Saturation VBG Base Excess Sodium 130 L 130 L Potassium 5.5 H 6.1 H* Chloride 97 L 97 L Carbon Dioxide 27.5 27.9 Anion Gap 5.5 5.1 BUN 64 H 66 H Creatinine 4.2 H* 4.7 H* Est GFR (CKD-EPI 2020) 13.60 11.88 Glucose 105 99 Calcium 8.4 L 8.6 Phosphorus 9.6 H Magnesium 2.6 H Total Bilirubin 0.98 Conjugated Bilirubin 0.7 H AST 26 ALT 22 Alkaline Phosphatase 144 H NT-Pro-B Natriuret Pep 9042 H Total Protein 7.8 Albumin 2.9 L 08/20/24 07:20 WBC RBC Hgb Hct MCV MCH MCHC RDW Plt Count MPV PT INR VBG pH 7.10 L* VBG pCO2 76 H* VBG pO2 64 VBG HCO3 23 VBG Total CO2 23 L VBG O2 Saturation 91 VBG Base Excess -6 L Sodium Potassium Chloride Carbon Dioxide Anion Gap BUN Creatinine Est GFR (CKD-EPI 2020) Glucose Calcium Phosphorus Magnesium Total Bilirubin Conjugated Bilirubin AST ALT Alkaline Phosphatase NT-Pro-B Natriuret Pep Total Protein Albumin PAWSS Have you Been Recently Intoxicated or Drunk Within the Last 30 days?: No Have you Ever Experienced Previous Episodes of Alcohol Withdrawal?: No Have you ever Experienced Withdrawal Seizures?: No Have you ever Experienced Delirium Tremens(DT)s?: No Have you ever undergone Alcohol Rehabilitation Treatment (i.e, inpt ot outpatient treatment programs)?: No Have you ever Experienced Blackouts?: No Have you ever Combined Alcohol with other Downers within the last 90 days?: No Have you ever Combined Alcohol with any other Substance of Abuse during the last 90 days?: No Positive Blood Alcohol level on Presentation? [PCS.BAL]: No Evidence of Increased Autonomic Activity (i.e. HR>120, tremor, sweating, agitation, nausea)?: No Result: 0 Time Spent with Patient Time Spent with Patient: >50 minutes Time was spent: preparing to see the patient(eg.review tests), obtaining and/or reviewing separately otained hiistory, ordering medications,tests, procedures, referring, communicating with other health medicare contact specialist, indepentently interpreting results, counseling the patient and care coordination
--- NOTE | 2024-08-20 15:17 | CHAPLAIN ---
Chadarvind is on comfort measures. There are several family members in the room with him. I will continue to check in with them. They are all pleasant and are supportive of Yfn and each other. They agree that Yfn seems to be comfortable.
--- NOTE | 2024-08-20 15:41 | W.PM.DDS ---
Date of service: 08/20/24 Time of Service: 15:41 Discharge Plan Disposition Patient Disposition: Discharge Details Reason For Visit: CHF Exacerbation,Hypoxic Resp failure,PE,PNA,Pleur Admit Date/Time: 08/16/24 13:07 Admit Provider: Jose Lee Attending Provider: Jose Lee Primary Care Provider: Vivian Coombs Hospital Course Hospital Course: Patient was initially admitted and treated for a combiniation of acute exacerbation of CHF, hypoxic and hypercapnic respiratory failure, right sided pleural effusion, PNA, septic and cardiogenic shock. There was some initial improvement of his symptoms while in BiPAP with decrease in his CO2 and slight improvement in his mental status. However, despite aggressive dieresis his right sided pleural effusion remained due to anuria, with eventual increases in his Cr and K. Additionally his updated TTE showed significant pHTN resulting in severe right atrial and ventricular enlargement as well as severe tricuspid and mitral valve disease. He also continued to be febrile resulting in escalation of his abx regimen. However, despite maximal medical treatment his condition worsened, requiring the addition of a second pressor and CXR showing severe left sided pleural effusion was which not present on xray from previous day. Ultimately, the patients two sons (his designated medical decision makers) in the presense of and in agreement with multiple family members decided to transition to comfort measures only late AM 08/20/2024. Shortly after the patient had passed, with a TOD of 15:13. Discharge Data Cause of : Cardiac arrest Discharge Date/Time-TO BE ENTERED AT DEPARTURE: 08/20/24 15:40 Discharge Sum: Diag PCOD Cause of : Cardiac arrest Contributing Factors (1) CHF (congestive heart failure): (2) Septic shock: (3) Pneumonia: (4) Valvular heart disease: (5) Pleural effusion: (6) D-dimer, elevated: (7) Total bilirubin, elevated: (8) Ascites: (9) Cirrhosis: (10) Atrial fibrillation: (11) Tricuspid regurgitation: (12) Mitral regurgitation: (13) Mitral stenosis: (14) Alcohol use disorder: (15) CAD (coronary artery disease): (16) Type 2 diabetes mellitus:
== END 2024-08-20 15:15 | disposition expired | DRG 871 ==
LOC: ER 12:12 → ICU 14:09
PROVIDERS: Family Medicine; General Practice; Admitting Provider Hospitalist; Emergency Provider Physician Assistant; PCP Nurse Practitioner Adult Health; Responsible Provider Family Medicine; Visit Provider Hospitalist
DX: A41.9 Sepsis, unspecified organism (principal); J18.9 Pneumonia, unspecified organism; J96.01 Acute respiratory failure with hypoxia; R65.21 Severe sepsis with septic shock; J96.02 Acute respiratory failure with hypercapnia; E87.1 Hypo-osmolality and hyponatremia; I48.19 Other persistent atrial fibrillation; R18.8 Other ascites; N17.9 Acute kidney failure, unspecified; J94.8 Other specified pleural conditions; I25.10 Atherosclerotic heart disease of native coronary artery without angina pectoris; E11.319 Type 2 diabetes mellitus with unspecified diabetic retinopathy without macular edema; G47.33 Obstructive sleep apnea (adult) (pediatric); D69.6 Thrombocytopenia, unspecified; F10.20 Alcohol dependence, uncomplicated; D64.9 Anemia, unspecified; K74.60 Unspecified cirrhosis of liver; K80.20 Calculus of gallbladder without cholecystitis without obstruction; Z95.1 Presence of aortocoronary bypass graft; I11.0 Hypertensive heart disease with heart failure; Z79.84 Long term (current) use of oral hypoglycemic drugs; Z79.01 Long term (current) use of anticoagulants; E86.0 Dehydration; I45.10 Unspecified right bundle-branch block; Z95.3 Presence of xenogenic heart valve; E11.51 Type 2 diabetes mellitus with diabetic peripheral angiopathy without gangrene; I25.2 Old myocardial infarction; I08.1 Rheumatic disorders of both mitral and tricuspid valves; I27.20 Pulmonary hypertension, unspecified; Z51.5 Encounter for palliative care; I50.9 Heart failure, unspecified
CPT/HCPCS: 36556; 00123; 36415; 71045; 71275; 80048; 80053; 80076; 82805; 83690; 85027; 87040; 87077; 87637; 93005; 93306; 94761; 96365; 96366; 96367; 99285; 36600; 80202; 81003; 82140; 82270; 83605; 83735; 83880; 84100; 84484; 85025; 85379; 85610; 85730; 87186; 93010; 94660; 94760; 99223; 99233; 99291; J0131; J0456; J0692; J0696; J1171; J1596; J1630; J1644; J1720; J1939; J1940; J2060; J2270; J2470; J2598; J3370; J3411; J3475; J3490